=== PATIENT | female | born 1955 | race Caucasian/White ===

== ENCOUNTER 2018-03-27 05:58 | Inpatient (IN) | payer MEDICARE ==
[~2018-03-27] VITALS: Ht 154.9 cm; Wt 74.1 kg
[~2018-03-27 05:58] MED LIST: FERR324T4 PO; GABA800T PO; OXYC15TA55 PO; OXYC5 PO; PROT40TA PO; TRAZ100 PO
[2018-03-27 06:01] VITALS: BP 147/59; PULSE 101; RESP 16; TEMP 97.1; O2SAT 99
[2018-03-27] MEDS ORDERED: OXYC-103 PO (06:04)
[2018-03-27] MEDS ORDERED: GABA800T PO (06:04)
[2018-03-27] MEDS ORDERED: TRAZ1TAB14 PO (06:04)
[2018-03-27] MEDS ORDERED: PANTOPRAZOLE SODIUM 40 MG VIAL IV PUSH ONE (06:30)
[2018-03-27] MEDS ORDERED: SODIUM CHLORID 0.9% 500 ML INJ 500 ML IV ONE (06:30)
[2018-03-27] MEDS ORDERED: ASPIRIN 81 MG CHEW TAB CHEW ONE (06:30)
[2018-03-27] MEDS ORDERED: NITROGLYCERIN 0.4 MG SL 25 TABS/BTL SL ONE (06:30)
--- NOTE | 2018-03-27 06:32 | PD ---
HPI Chief Complaint: Abdominal Pain Time Seen by Provider: 06:08 Travel History International Travel<30 days: No Contact w/Intl Traveler<30days: No Traveled to known affect area: No History of Present Illness HPI The patient is a 62 year old female who presents to the [facility] emergency department with a history of substernal chest pain that she reports began 5 days ago. She reports that the pain is been constant and initially was a 4 out of 10 in severity, however it is gradually worsened now to an 8 out of 10 in severity. The patient reports that the pain feels like being "punched in the chest". She reports having a sensation of being drained of energy with lightheaded sensation with standing, and dyspnea on exertion. The patient reports concerned that this may be related to a recurrent peptic ulcer. She reports that she has had 3 peptic ulcers with bleeding in the past. She denies having any blood in her stool or black or tarry stools, however she last moved her bowels 4-5 days ago. She reports that this is not unusual for her. She reports that she has also had a diminished appetite, as well as takes chronic pain medication which causes her to have decreased frequency of stool. She reports having diaphoresis intermittently associated with this, and yesterday began to have nausea and vomiting. She reports that she had nausea and vomiting x5 since yesterday. She reports that the emesis appears as a clear liquid. She denies having any hematemesis. She denies taking any over-the- counter aspirin, Aleve, or ibuprofen. She denies being on any anti- inflammatory pain medicines. She reports that she does take Tylenol as needed for pain and is also on OxyContin 20 mg p.o. 4 times daily for pain under the care of pain management related to chronic back pain, tailbone pain, degenerative disc disease. The patient denies having any prior history of heart disease. She denies having any prior history of hypertension, hyperlipidemia, or diabetes mellitus. She does report smoking one half a pack of cigarettes per day. She additionally admits to drinking alcohol usually 2 times per week 2 beers or 2 glasses of wine at a time. On review of systems otherwise, the patient denies having any known recent fevers, cough, congestion , neck pain, urinary symptoms, or neurologic symptoms. The patient reports that she has also had a midepigastric abdominal pain. She describes this as an aching sensation. 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 The patient has a history of chronic pain related to degenerative disc disease of her back and a tailbone injury, tobacco use. Hx Anticoagulant Therapy: No Anxiety: No Depression: Yes (5) Cancer: Yes (Mouth/throat) Cardiovascular Problems: No Chemotherapy: Yes Diminished Hearing: No Endocrine: No Gastrointestinal Disorders: Yes (Bleeding gastric ulcer) GERD: No Genitourinary: No Hiatal Hernia: Yes (current ) Immune Disorder: No Musculoskeletal: Yes Neurologic: No Psychiatric: No Reproductive: Yes (blocked fallopian tubes) Respiratory: No Radiation Therapy: Yes Ulcer: Yes Tetanus Vaccination: Unknown Influenza Vaccination: Yes Menopausal: Yes Past Surgical History Narrative Surgical The patient's past surgical history is significant for endoscopy, head and neck surgery related to throat and mouth cancer, history of breast augmentation, history of right arm ORIF. Abdominal Surgery: No Cardiac Surgery: No Ear Surgery: No Endocrine Surgery: No Eye Surgery: No Genitourinary Surgery: No Gynecologic Surgery: Yes Oral Surgery: Yes Thoracic Surgery: No Other Surgery: Yes (Breast implants) Social History Alcohol Use: Yes (2 times per week, 2 beers or 2 glasses of wine on each occasion) Tobacco Use: Yes (1/2 PPD) Substance Use: No Allergies-Medications (Allergen,Severity, Reaction): Coded Allergies: No Known Allergies (Unverified Adverse Reaction, Unknown, 03/27/18) Reported Meds & Prescriptions Reported Meds & Active Scripts Active Reported Oxycontin (Oxycodone HCl) 10 Mg Tab 20 Mg PO Q6HR Trazodone (Trazodone HCl) 150 Mg Tablet 200 Mg PO HS Gabapentin 800 Mg Tab 800 Mg PO TID Review of Systems Except as stated in HPI: all other systems reviewed are Neg General / Constitutional: No: Fever Eyes: No: Visual changes HENT: Positive: Lightheadedness, No: Headaches, Congestion Cardiovascular: Positive: Chest Pain or Discomfort, Diaphoresis, Dyspnea on exertion Respiratory: Positive: Shortness of Breath, No: Cough Gastrointestinal: Positive: Nausea, Vomiting, Abdominal Pain, Indigestion, Loss of Appetite, No: Diarrhea, Hematemesis, Hematochezia, Changes in Bowel Habits Genitourinary: No: Dysuria Musculoskeletal: No: Pain Skin: No Rash Neurologic: Positive: Weakness (Generalized weakness), No: Focal Abnormalities , Change in Mentation, Slurred Speech, Sensory Disturbance Psychiatric: No: Depression Endocrine: No: Polydipsia Hematologic/Lymphatic: No: Easy Bruising Physical Exam Narrative General: The patient is a well-developed well-nourished female in no acute distress. Head and Neck exam: Head is normocephalic atraumatic. Eyes: EOMI, pupils are equal round and reactive to light. Nose: Midline septum with pink mucous membranes Mouth: Dentition unremarkable. Moist mucus membranes. Posterior oropharynx is not erythematous. No tonsillar hypertrophy. Uvula midline. Airway patent. Neck: No palpable lymphadenopathy. No nuchal rigidity. No thyromegaly. Cardiovascular: Regular rate and rhythm without murmurs, gallops, or rubs. No pulse deficit to the extremities on simultaneous auscultation and palpation of her radial artery. Lungs: Clear to auscultation bilaterally. No wheezes, rhonchi, or rales. Abdomen: Soft, with tenderness on palpation of the midepigastric area. No other tenderness on palpation of the other quadrants of the abdomen. No guarding, rebound, or rigidity. Normal bowel sounds are audible. No tenderness on palpation of McBurney's point. Extremities: No clubbing, cyanosis, or edema. 2+ pulses in all 4 extremities. No calf tenderness on palpation. Back: No spinous process tenderness to palpation. No costovertebral angle tenderness to palpation. Neurologic Exam: Grossly nonfocal. Skin Exam: No rash noted. Intact skin that is warm and dry. Data Data Last Documented VS Vital Signs Date Time Temp Pulse Resp B/P (MAP) Pulse Ox O2 Delivery O2 Flow Rate FiO2 03/27/18 06:27 Room Air 03/27/18 06:05 16 03/27/18 06:01 97.1 101 147/59 (88) 99 Orders Orders Electrocardiogram (03/27/18 06:22) Complete Blood Count With Diff (03/27/18 06:22) Comprehensive Metabolic Panel (03/27/18 06:22) Creatine Kinase (Cpk) (03/27/18 06:22) Ckmb (Isoenzyme) Profile (03/27/18 06:22) Troponin I (03/27/18 06:22) B-Type Natriuretic Peptide (03/27/18:22) Prothrombin Time / Inr (Pt) (03/27/18:22) Act Partial Throm Time (Ptt) (03/27/18:22) Lipase (03/27/18:22) Magnesium (Mg) (03/27/18:) Thyroid Stimulating Hormone (03/27/18:) Chest, Single Ap (03/27/18:22) Iv Access Insert/Monitor (03/27/18:22) Ecg Monitoring (03/27/18:) Oximetry (03/27/18:) Pantoprazole Inj (Protonix Inj) (03/27/18 06:30) Sodium Chlorid 0.9% 500 Ml Inj (Ns 500 M (03/27/18 06:30) Nitroglycerin Sl (Nitrostat Sl) (03/27/18 06:30) Aspirin Chew (Aspirin Chew) (03/27/18 06:30) Labs Laboratory Tests Test 03/27/18 06:30 White Blood Count 5.6 TH/MM3 Red Blood Count 3.79 MIL/MM3 Hemoglobin 13.8 GM/DL Hematocrit 39.7 % Mean Corpuscular Volume 104.6 FL Mean Corpuscular Hemoglobin 36.4 PG Mean Corpuscular Hemoglobin Concent 34.8 % Red Cell Distribution Width 13.6 % Platelet Count 191 TH/MM3 Mean Platelet Volume 8.4 FL Neutrophils (%) (Auto) 74.4 % Lymphocytes (%) (Auto) 11.2 % Monocytes (%) (Auto) 14.0 % Eosinophils (%) (Auto) 0.1 % Basophils (%) (Auto) 0.3 % Neutrophils # (Auto) 4.2 TH/MM3 Lymphocytes # (Auto) 0.6 TH/MM3 Monocytes # (Auto) 0.8 TH/MM3 Eosinophils # (Auto) 0.0 TH/MM3 Basophils # (Auto) 0.0 TH/MM3 CBC Comment DIFF FINAL Differential Comment Prothrombin Time 9.5 SEC Prothromb Time International Ratio 0.9 RATIO Activated Partial Thromboplast Time 25.0 SEC MDM Medical Decision Making Medical Screen Exam Complete: Yes Emergency Medical Condition: Yes Medical Record Reviewed: Yes Differential Diagnosis Symptomatic anemia, versus acute coronary syndrome, versus esophagitis, versus pancreatitis, versus recurrent peptic ulcer disease. Narrative Course During the course of the patient's emergency department visit, the patient's history, examination, and differential diagnosis were reviewed with the patient. The patient was placed on a electronic device monitor with oximetry and frequent blood pressure monitoring. The patient had IV access obtained and blood work sent for analysis. The patient had an EKG done on arrival. The patient's EKG reveals a sinus rhythm heart rate of 96, QRS duration is 90 ms, QTC [address] segment elevation is noted. Nonspecific ST-T wave abnormalities are noted. T waves are inverted in lead III. The patient was initially provided Protonix 40 mg IV. Given the patient's risk factors for coronary artery disease the patient was also given aspirin 324 mg chewable x1. Nitroglycerin sublingual x1. Normal saline a 500 mL bolus x1. The patient's laboratory studies were reviewed and remarkable for a white count of 5.6, hemoglobin 13.8, platelets 191, neutrophils 74.4, monocytes 14, PT 9.5, PTT 25, CMP, cardiac enzymes, lipase are pending at the conclusion of my shift. The patient's case will be checked out to the oncoming physician to disposition the patient based on the conclusion of the patient's workup. Radiology studies were reviewed and remarkable for Last Impressions Chest X-Ray 03/27/18 0622 Signed Impressions: CONCLUSION: No acute cardiopulmonary disease identified. Diagnosis Primary Impression: Chest pain Qualified Codes: R07.89 - Other chest pain Additional Impression: Abdominal pain Qualified Codes: R10.13 - Epigastric pain Chiquis Munoz MD Mar 27, 2018 06:32
--- NOTE | 2018-03-27 06:46 | RADRPT ---
EXAM DATE: 03/27/2018 6:41 AM EDT AGE/SEX: 62 years / Female INDICATIONS: Epigastric pain. CLINICAL DATA: This is the patient's initial encounter. Patient reports that signs and symptoms have been present for 1 day and indicates a pain score of 4/10. MEDICAL/SURGICAL HISTORY: None. None. COMPARISON: [facility] [place], CHEST SINGLE AP, 08/16/2015. . FINDINGS: Single AP view of the chest. The lungs are clear. Cardiomediastinal silhouette within nor mal limits. No evidence of pleural effusion or pneumothorax. CONCLUSION: No acute cardiopulmonary disease identified. Electronically signed by: Alfred Borrego MD 03/27/2018 6:45 AM EDT
[2018-03-27 06:50] LABS: AUTOMATED NEUTROPHIL # 4.2 TH/MM3 (1.8-7.7); BASOPHIL % 0.3 % (0.0-2.0); EOSINOPHIL % 0.1 % (0.0-4.0); HEMATOCRIT 39.7 % (35.0-46.0); HEMOGLOBIN 13.8 GM/DL (11.6-15.3); LYMPH % 11.2 % (9.0-44.0); LYMPHOCYTE # 0.6 TH/MM3 (1.0-4.8); MEAN CELL VOLUME 104.6 FL (80.0-100.0); MEAN CORPUSCULAR HEMOGLOBIN 36.4 PG (27.0-34.0); MEAN CORPUSCULAR HGB CONC 34.8 % (32.0-36.0); MEAN PLATELET VOLUME 8.4 FL (7.0-11.0); MONOCYTE # 0.8 TH/MM3 (0-0.9); NEUT % 74.4 % (16.0-70.0); PLATELET COUNT 191 TH/MM3 (150-450); RED BLOOD COUNT 3.79 MIL/MM3 (4.00-5.30); RED CELL DISTRIBUTION WIDTH 13.6 % (11.6-17.2); WHITE BLOOD COUNT 5.6 TH/MM3 (4.0-11.0)
[2018-03-27 07:01] LABS: INTERNATIONAL NORMALIZED RATIO 0.9 RATIO; PROTHROMBIN TIME - PATIENT 9.5 SEC (9.8-11.6)
[2018-03-27 07:14] LABS: ALBUMIN 4.4 GM/DL (3.4-5.0); ALT (GPT) 28 U/L (10-53); AST (GOT) 44 U/L (15-37); BICARBONATE 28.6 MEQ/L (21.0-32.0); BLOOD UREA NITROGEN 16 MG/DL (7-18); CALCIUM 9.4 MG/DL (8.5-10.1); CHLORIDE 78 MEQ/L (98-107); CREATININE 0.63 MG/DL (0.50-1.00); GLOMERULAR FILTRATION RATE 96 ML/MIN (>89); GLUCOSE,RANDOM 95 MG/DL (74-106); MAGNESIUM 2.5 MG/DL (1.5-2.5); SODIUM (NA) 126 MEQ/L (136-145)
[2018-03-27 07:24] LABS: ALKALINE PHOSPHATASE 104 U/L (45-117); TOTAL BILIRUBIN ADULT 1.4 MG/DL (0.2-1.0); TOTAL PROTEIN 8.2 GM/DL (6.4-8.2); TROPONIN I LESS THAN 0.02 NG/ML (0.02-0.05)
[2018-03-27 07:26] VITALS: BP 141/69; PULSE 72; RESP 18; O2SAT 97
--- NOTE | 2018-03-27 08:11 | PD ---
Physical Exam Narrative GENERAL: 62 y/o female in no apparent distress SKIN: Focused skin assessment warm/dry. HEAD: Atraumatic. Normocephalic. EYES: Pupils equal and round. No scleral icterus. No injection or drainage. ENT: No nasal bleeding or discharge. Mucous membranes pink and moist. NECK: Trachea midline. CARDIOVASCULAR: Regular rate and rhythm. RESPIRATORY: No accessory muscle use. MUSCULOSKELETAL: No obvious deformities. No clubbing. No cyanosis. NEUROLOGICAL: Awake. moves all extremities. Normal speech. Data Data Last Documented VS Vital Signs Date Time Temp Pulse Resp B/P (MAP) Pulse Ox O2 Delivery O2 Flow Rate FiO2 03/27/18 07:26 72 18 141/69 (93) 97 03/27/18 06:27 Room Air 03/27/18 06:01 97.1 Orders Orders Electrocardiogram (03/27/18 06:22) Complete Blood Count With Diff (03/27/18 06:22) Comprehensive Metabolic Panel (03/27/18 06:22) Creatine Kinase (Cpk) (03/27/18 06:22) Ckmb (Isoenzyme) Profile (03/27/18 06:22) Troponin I (03/27/18 06:22) B-Type Natriuretic Peptide (03/27/18 06:22) Prothrombin Time / Inr (Pt) (03/27/18:22) Act Partial Throm Time (Ptt) (03/27/18 06:22) Lipase (03/27/18 06:22) Magnesium (Mg) (03/27/18 06:22) Thyroid Stimulating Hormone (03/27/18 06:22) Chest, Single Ap (03/27/18:22) Iv Access Insert/Monitor (03/27/18:22) Ecg Monitoring (03/27/18 06:22) Oximetry (03/27/18 06:22) Pantoprazole Inj (Protonix Inj) (03/27/18 06:30) Sodium Chlorid 0.9% 500 Ml Inj (Ns 500 M (03/27/18 06:30) Nitroglycerin Sl (Nitrostat Sl) (03/27/18 06:30) Aspirin Chew (Aspirin Chew) (03/27/18 06:30) Admit Order (Ed Use Only) (03/27/18 08:25) Creatine Kinase (Cpk) (03/27/18 12:00) Creatine Kinase (Cpk) (03/27/18 18:00) Troponin I (03/27/18 12:00) Troponin I (03/27/18 18:00) Electrocardiogram (03/27/18 12:00) Electrocardiogram (03/27/18 18:00) Activities Assistant / Telemetry [id number] (03/27/18 08:26) Aspirin (Aspirin) (03/28/18 09:00) Nitroglycerin Sl (Nitrostat Sl) (03/27/18 08:30) Labs Laboratory Tests Test 03/27/18 06:30 White Blood Count 5.6 TH/MM3 Red Blood Count 3.79 MIL/MM3 Hemoglobin 13.8 GM/DL Hematocrit 39.7 % Mean Corpuscular Volume 104.6 FL Mean Corpuscular Hemoglobin 36.4 PG Mean Corpuscular Hemoglobin Concent 34.8 % Red Cell Distribution Width 13.6 % Platelet Count 191 TH/MM3 Mean Platelet Volume 8.4 FL Neutrophils (%) (Auto) 74.4 % Lymphocytes (%) (Auto) 11.2 % Monocytes (%) (Auto) 14.0 % Eosinophils (%) (Auto) 0.1 % Basophils (%) (Auto) 0.3 % Neutrophils # (Auto) 4.2 TH/MM3 Lymphocytes # (Auto) 0.6 TH/MM3 Monocytes # (Auto) 0.8 TH/MM3 Eosinophils # (Auto) 0.0 TH/MM3 Basophils # (Auto) 0.0 TH/MM3 CBC Comment DIFF FINAL Differential Comment Prothrombin Time 9.5 SEC Prothromb Time International Ratio 0.9 RATIO Activated Partial Thromboplast Time 25.0 SEC Blood Urea Nitrogen 16 MG/DL Creatinine 0.63 MG/DL Random Glucose 95 MG/DL Total Protein 8.2 GM/DL Albumin 4.4 GM/DL Calcium Level 9.4 MG/DL Magnesium Level 2.5 MG/DL Alkaline Phosphatase 104 U/L Aspartate Amino Transf (AST/SGOT) 44 U/L Alanine Aminotransferase (ALT/SGPT) 28 U/L Total Bilirubin 1.4 MG/DL Sodium Level 126 MEQ/L Potassium Level 3.8 MEQ/L Chloride Level 78 MEQ/L Carbon Dioxide Level 28.6 MEQ/L Anion Gap 19 MEQ/L Estimat Glomerular Filtration Rate 96 ML/MIN Total Creatine Kinase 82 U/L Troponin I LESS THAN 0.02 NG/ML B-Type Natriuretic Peptide 21 PG/ML Lipase 257 U/L Thyroid Stimulating Hormone 3rd Gen 2.300 uIU/ML MDM Supervised Visit with LATASHA: No Interpretation(s) CBC & BMP Diagram 03/27/18 06:30 Total Protein 8.2, Albumin 4.4, Calcium Level 9.4, Magnesium Level 2.5, Alkaline Phosphatase 104, Aspartate Amino Transf (AST/SGOT) 44 H, Alanine Aminotransferase (ALT/SGPT) 28, Total Bilirubin 1.4 H Last 24 hours Impressions Chest X-Ray 03/27/18 0622 Signed Impressions: CONCLUSION: No acute cardiopulmonary disease identified. Narrative Course Lab work shows sodium level of 126. Prior from 2 years ago was 134. Other cardiac workup is negative. Will admit to the hospital for further care. Physician Communication Physician Communication dr cheng agrees to admit Diagnosis Primary Impression: Chest pain Qualified Codes: R07.89 - Other chest pain Additional Impressions: Abdominal pain Qualified Codes: R10.13 - Epigastric pain Hyponatremia Admitting Information Admitting Physician Requests: Observation Sheri Fuller MD Mar 27, 2018 08:11
[2018-03-27] MEDS ORDERED: FLUMAZENIL 0.5 MG/5 ML VIAL IV PUSH PRN (08:30)
[2018-03-27] MEDS ORDERED: HALOPERIDOL LACTATE 5 MG/ML AMP IM PRN (08:30)
[2018-03-27] MEDS ORDERED: CALCIUM CARBONATE 500 MG CHEWABLE TAB CHEW PRN (08:30)
[2018-03-27] MEDS ORDERED: LORazepam 2 MG TAB PO PRN (08:30)
[2018-03-27] MEDS ORDERED: ALUMINUM/MAGNESIUM/SIMETH 30 ML CUP PO PRN (08:30)
[2018-03-27] MEDS ORDERED: NITROGLYCERIN 0.4 MG SL 25 TABS/BTL SL PRN (08:30)
[2018-03-27] MEDS ORDERED: LORazepam 2 MG/ML VIAL IV PUSH PRN ×4 (08:30)
[2018-03-27] MEDS ORDERED: LORazepam 1 MG TAB PO PRN (08:30)
[2018-03-27] MEDS ORDERED: NALOXONE HCL 0.4 MG/ML AMP IV PUSH PRN (08:45)
[2018-03-27] MEDS ORDERED: SENNOSIDES 8.6 MG TAB PO PRN (08:45)
[2018-03-27] MEDS ORDERED: LACTULOSE SYRUP 20 GM/30 ML CUP PO PRN (08:45)
[2018-03-27] MEDS ORDERED: SODIUM CHLORIDE 0.9% FLUSH 10 ML FLUSH IV FLUSH PRN (08:45)
[2018-03-27] MEDS ORDERED: ONDANSETRON ODT 4 MG TAB PO PRN (08:45)
[2018-03-27] MEDS ORDERED: MAGNESIUM HYDROXIDE SUSP 30 ML CUP PO PRN (08:45)
[2018-03-27] MEDS ORDERED: BISACODYL 10 MG SUPP RECTAL PRN (08:45)
[2018-03-27] MEDS ORDERED: ACETAMINOPHEN 325 MG TAB PO PRN ×2 (08:45)
--- NOTE | 2018-03-27 09:00 | EKG ---
Date Performed: 03/27/2018 Time Performed: 05:13:05 PTAGE: 62 years EKG: Sinus rhythm POSSIBLE LEFT ATRIAL ENLARGEMENT NONSPECIFIC ST & T-WAVE ABNORMALITY ABNORMAL ECG PREVIOUS TRACING : 08/15/2015 13.07 DOCTOR: Bryan Zapata Interpretating Date/Time 03/27/2018 08:59:47
[2018-03-27] MEDS: GABAPENTIN 400 MG CAP PO SCH ×3 (10:12→22:25)
[2018-03-27] MEDS: THIAMINE HCL 100 MG TAB PO SCH (10:12)
[2018-03-27] MEDS: PANTOPRAZOLE SOD 40 MG DELAYED RELEASE TAB PO SCH (10:12)
[2018-03-27] MEDS: FOLIC ACID 1 MG TAB PO SCH (10:13)
[2018-03-27] MEDS: MULTIVITAMINS/MINERALS THERAPEUTIC TAB PO SCH (10:13)
[2018-03-27] MEDS: SODIUM CHLORIDE 0.9% FLUSH 10 ML FLUSH IV FLUSH SCH ×2 (10:13→21:00)
[2018-03-27] MEDS: DOCUSATE SODIUM 50 MG/SENNA 8.6 MG TAB PO SCH ×2 (10:13→22:25)
[2018-03-27] MEDS: NS + KCL 20 MEQ INJ 1,000 ML IV SCH ×2 (10:14→20:55)
[2018-03-27 10:40] LABS: BILIRUBIN, URINE NEG (NEG); BLOOD, URINE TRACE (NEG); GLUCOSE,URINE NEG (NEG); KETONE, URINE 150 mg/dL (NEG); MUCUS URINE FEW /lpf (OCC); NITRITE,URINE NEG (NEG); PH, URINE 6.5 (5.0-8.5); SQUAMOUS EPITHELIAL CELL URINE 3 /hpf (0-5); URINE COLOR YELLOW (YELLW/STRAW); URINE LEUKOCYTE ESTERASE NEG (NEG)
[2018-03-27 11:33] VITALS: BP 118/58; PULSE 81; RESP 18; TEMP 98.7; O2SAT 96
[2018-03-27] MEDS ORDERED: oxyCODONE HCL 10 MG CONTROLLED RELEASE TAB PO SCH (12:00)
[2018-03-27 12:31] LABS: TROPONIN I LESS THAN 0.02 NG/ML (0.02-0.05)
[2018-03-27] MEDS ORDERED: RESP: ALBUTEROL 2.5 MG/3 ML NEB (PRN) NEB (15:45)
--- NOTE | 2018-03-27 15:54 | HHI.HP ---
[facility] No Primary Care Physician Admission Diagnosis chest pain, hyponatremia Diagnoses: Chief Complaint: Chest pain Travel History International Travel<30 Days: No Contact w/Intl Traveler <30 Da: No Traveled to Known Affected Are: No History of Present Illness This is a 62-year-old female who presented to the emergency room because of chest pain. Last night while lying on her bed she developed worsening retrosternal discomfort which she described as being punched in the chest. She was so anxious thinking it is her heart prompting ER visit. She also reports of weakness, anorexia, dyspnea on exertion, palpitations and dizziness. Reports of worsening chest discomfort for the past 6 days with no alleviating factors. It is pleuritic worse with coughing states she is coughing up green phlegm denies fever, chills, leg pain and swelling. She is not hypoxic denies history of DVT or PE or recent immobilization. She also reports history of bleeding ulcers which she thought was the cause of her pain. She denies use of aspirin or NSAIDs but continues to smoke. Denies hematemesis, hematochezia or melena. No abdominal pain. In the emergency department, she received IV Protonix, aspirin and nitroglycerin and IV hydration. She was also found to be hyponatremic sodium 126 denies headache. She was then advised by ED physician for a hospitalization for further evaluation and treatment. At this time, patient she is feeling better with improved weakness. All other systems reviewed negative Review of Systems Except as stated in HPI: all other systems reviewed are Neg Past Family Social History Past Medical History As previously mentioned. History of throat cancer status post chemo and radiation therapy and surgery. Chronic back pain on narcotics Past Surgical History As previously mentioned. Breast augmentation and right arm ORIF Reported Medications Reported Meds & Active Scripts Active Reported Oxycontin (Oxycodone HCl) 10 Mg Tab 20 Mg PO Q6HR Trazodone (Trazodone HCl) 150 Mg Tablet 200 Mg PO HS Gabapentin 800 Mg Tab 1,600 Mg PO BID Allergies: Coded Allergies: No Known Allergies (Unverified Allergy, Unknown, 03/27/18) Family History No CAD Social History Continues to smoke half a pack per day. Drinks beer or wine twice a week but not on a daily basis Physical Exam Vital Signs Vital Signs Date Time Temp Pulse Resp B/P (MAP) Pulse Ox O2 Delivery O2 Flow Rate FiO2 03/27/18 11:33 98.7 81 18 118/58 (78) 96 03/27/18 11:23 (93) 03/27/18 07:26 72 18 141/69 (93) 97 03/27/18 06:27 Room Air 03/27/18 06:05 16 03/27/18 06:01 97.1 101 16 147/59 (88) 99 Physical Exam GENERAL: This is a well-nourished, well-developed patient, in no apparent distress. SKIN: No rashes, ecchymoses or lesions. Cool and dry. HEAD: Atraumatic. Normocephalic. No temporal or scalp tenderness. EYES: Pupils equal round and reactive. Extraocular motions intact. No scleral icterus. No injection or drainage. ENT: Nose without bleeding, purulent drainage or septal hematoma. Throat without erythema, tonsillar hypertrophy or exudate. Uvula midline. Airway patent. NECK: Trachea midline. No JVD or lymphadenopathy. Supple, nontender, no meningeal signs. CARDIOVASCULAR: Regular rate and rhythm without murmurs, gallops, or rubs. RESPIRATORY: Clear to auscultation. Breath sounds equal bilaterally. No wheezes , rales, or rhonchi. Tender chest wall GASTROINTESTINAL: Abdomen soft, non-tender, nondistended. No guarding. MUSCULOSKELETAL: Extremities without clubbing, cyanosis, or edema. No joint tenderness, effusion, or edema noted. No calf tenderness. Negative Homans sign bilaterally. NEUROLOGICAL: Awake and alert. Cranial nerves II through XII intact. Motor and sensory grossly within normal limits. Five out of 5 muscle strength in all muscle groups. Normal speech. Laboratory Laboratory Tests Test 03/27/18 06:30 03/27/18 10:20 03/27/18 11:55 White Blood Count 5.6 Red Blood Count 3.79 Hemoglobin 13.8 Hematocrit 39.7 Mean Corpuscular Volume 104.6 Mean Corpuscular Hemoglobin 36.4 Mean Corpuscular Hemoglobin Concent 34.8 Red Cell Distribution Width 13.6 Platelet Count 191 Mean Platelet Volume 8.4 Neutrophils (%) (Auto) 74.4 Lymphocytes (%) (Auto) 11.2 Monocytes (%) (Auto) 14.0 Eosinophils (%) (Auto) 0.1 Basophils (%) (Auto) 0.3 Neutrophils # (Auto) 4.2 Lymphocytes # (Auto) 0.6 Monocytes # (Auto) 0.8 Eosinophils # (Auto) 0.0 Basophils # (Auto) 0.0 CBC Comment DIFF FINAL Differential Comment Prothrombin Time 9.5 Prothromb Time International Ratio 0.9 Activated Partial Thromboplast Time 25.0 Blood Urea Nitrogen 16 Creatinine 0.63 Random Glucose 95 Total Protein 8.2 Albumin 4.4 Calcium Level 9.4 Magnesium Level 2.5 Alkaline Phosphatase 104 Aspartate Amino Transf (AST/SGOT) 44 Alanine Aminotransferase (ALT/SGPT) 28 Total Bilirubin 1.4 Sodium Level 126 Potassium Level 3.8 Chloride Level 78 Carbon Dioxide Level 28.6 Anion Gap 19 Estimat Glomerular Filtration Rate 96 Total Creatine Kinase 82 75 Troponin I LESS THAN 0.02 LESS THAN 0.02 B-Type Natriuretic Peptide 21 Lipase 257 Thyroid Stimulating Hormone 3rd Gen 2.300 Urine Color YELLOW Urine Turbidity CLEAR Urine pH 6.5 Urine Specific [place] 1.027 Urine Protein 100 Urine Glucose (UA) NEG Urine Ketones 150 Urine Occult Blood TRACE Urine Nitrite NEG Urine Bilirubin NEG Urine Urobilinogen 2.0 Urine Leukocyte Esterase NEG Urine RBC 1 Urine WBC 1 Urine Squamous Epithelial Cells 3 Urine Mucus FEW Microscopic Urinalysis Comment CULT NOT INDICATED Result Diagram: 03/27/18 0630 03/27/18 06 Imaging Last Impressions Chest X-Ray 03/27/18 06 Signed Impressions: CONCLUSION: No acute cardiopulmonary disease identified. Caprini VTE Risk Assessment Caprini VTE Risk Assessment: No/Low Risk (score <= 1) Caprini Risk Assessment Model Point Value = 1 Point Value = 2 Point Value = 3 Point Value = 5 Age 41-60 Minor surgery BMI > 25 kg/m2 Swollen legs Varicose veins or History of unexplained or recurrent spontaneous Oral contraceptives or hormone replacement Sepsis (< 1 month) Serious lung disease, including pneumonia (< 1 month) Abnormal pulmonary function Acute myocardial infarction Congestive heart failure (< 1 month) History of inflammatory bowel disease Medical patient at bed rest Age 61-74 Arthroscopic surgery Major open surgery (> 45 min) Laparoscopic surgery (> 45 min) Malignancy Confined to bed (> 72 hours) Immobilizing plaster cast Central venous access Age >= 75 History of VTE Family history of VTE Factor V Leiden Prothrombin [id number] Lupus anticoagulant Anticardiolipin antibodies Elevated serum homocysteine Heparin-induced thrombocytopenia Other congenital or acquired thrombophilia Stroke (< 1 month) Elective arthroplasty Hip, pelvis, or leg fracture Acute spinal cord injury (< 1 month) Prophylaxis Regimen Total Risk Factor Score Risk Level Prophylaxis Regimen 0-1 Low Early ambulation 2 Moderate Order ONE of the following: *Sequential Compression Device (SCD) *Heparin 5000 units SQ BID 3-4 Higher Order ONE of the following medications: *Heparin 5000 units SQ TID *Enoxaparin/Lovenox 40 mg SQ daily (WT < 150 kg, CrCl > 30 mL/min) *Enoxaparin/Lovenox 30 mg SQ daily (WT < 150 kg, CrCl > 10-29 mL/min) *Enoxaparin/Lovenox 30 mg SQ BID (WT < 150 kg, CrCl > 30 mL/min) AND/OR *Sequential Compression Device (SCD) 5 or more Highest Order ONE of the following medications: *Heparin 5000 units SQ TID (Preferred with Epidurals) *Enoxaparin/Lovenox 40 mg SQ daily (WT < 150 kg, CrCl > 30 mL/min) *Enoxaparin/Lovenox 30 mg SQ daily (WT < 150 kg, CrCl > 10-29 mL/min) *Enoxaparin/Lovenox 30 mg SQ BID (WT < 150 kg, CrCl > 30 mL/min) AND *Sequential Compression Device (SCD) Assessment and Plan Problem List: (1) Chest pain ICD Code: R07.9 - Chest pain, unspecified Status: Acute Assessment and Plan This is a 62-year-old female who presented to the emergency room because of chest pain. Atypical chest pain in a patient with risk factors for heart disease. EKG with nonspecific T changes personally reviewed by me. Trend cardiac enzymes and start aspirin. Lexiscan. Patient has no risk factors for pulmonary embolism and she is not hypoxic. Chest pain could also be from bronchitis patient complaining of green phlegm and pleuritic chest pain when she coughs with chest wall tenderness. Chest x-ray image interpreted by me with no acute cardiopulmonary disease. Albuterol nebulization and empiric doxycycline. Tobacco cessation. Another differential diagnosis could be related from radiation injury with history of throat cancer status post chemo and radiation treatment. Peptic ulcer disease status post EGD. Start PPI. Advice outpatient endoscopy Mild hyponatremia and hypochloremia likely secondary to nausea and vomiting. Patient received fluid bolus will start NS hydration and repeat levels in the morning. Seizure precautions Mild AST elevation with history of alcohol abuse. Counseled. Constipation. Start bowel regimen DVT prophylaxis with SCD and early ambulation. Discussed Condition With pt Problem Qualifiers (1) Chest pain: Qualified Codes: R07.89 - Other chest pain Edward Garcias MD Mar 27, 2018 15:54
[2018-03-27 16:03] VITALS: BP_SYST 116; BP_SYST 125; BP_SYST 126; BP_DIAS 59; BP_DIAS 63; BP_DIAS 73; PULSE 70; RESP 18; TEMP 98.7; O2SAT 95
[2018-03-27 16:40] VITALS: PULSE 74
[2018-03-27 19:48] VITALS: BP_SYST 122; BP_SYST 126; BP_SYST 131; BP_DIAS 62; BP_DIAS 68; BP_DIAS 69; PULSE 72; RESP 17; O2SAT 93
[2018-03-27 20:03] LABS: TROPONIN I LESS THAN 0.02 NG/ML (0.02-0.05)
[2018-03-27] MEDS ORDERED: traZODone HCL 100 MG TAB PO SCH (21:00)
[2018-03-27] MEDS: DOXYCYCLINE HYCLATE 100 MG CAP PO SCH (22:24)
[2018-03-28 00:17] VITALS: BP 134/73; PULSE 70; RESP 17; TEMP 98.2; O2SAT 95
[2018-03-28 07:54] VITALS: BP 143/67; PULSE 64; RESP 20; TEMP 98.3; O2SAT 96
[2018-03-28 08:25] LABS: ALBUMIN 3.6 GM/DL (3.4-5.0); ALKALINE PHOSPHATASE 83 U/L (45-117); ALT (GPT) 30 U/L (10-53); AST (GOT) 43 U/L (15-37); BICARBONATE 29.7 MEQ/L (21.0-32.0); BLOOD UREA NITROGEN 12 MG/DL (7-18); CHLORIDE 96 MEQ/L (98-107); CREATININE 0.49 MG/DL (0.50-1.00); GLOMERULAR FILTRATION RATE 129 ML/MIN (>89); GLUCOSE,RANDOM 82 MG/DL (74-106); SODIUM (NA) 135 MEQ/L (136-145); TOTAL BILIRUBIN ADULT 0.9 MG/DL (0.2-1.0); TOTAL PROTEIN 6.5 GM/DL (6.4-8.2)
--- NOTE | 2018-03-28 08:40 | HHI.PR ---
Subjective Remarks Follow-up for chest pain, hyponatremia. Patient reports overall feeling better today. She states she still has some midsternal discomfort, however much improved compared to yesterday. Denies any nausea or vomiting. Denies any diaphoresis, palpitations, shortness of breath. She reports continued cough, nonproductive overnight. Denies fevers or chills. Denies any other medical complaints at this time. Objective Vitals Vital Signs Date Time Temp Pulse Resp B/P (MAP) Pulse Ox O2 Delivery O2 Flow Rate FiO2 03/28/18 07:54 98.3 64 20 143/67 (92) 96 03/28/18 03:36 18 03/28/18 00:17 98.2 70 17 134/73 (93) 95 03/27/18 19:48 72 17 122/69 (86) 93 131/68 (89) 126/62 (83) 03/27/18 19:28 21 03/27/18 16:40 74 03/27/18 16:03 98.7 70 18 125/59 (81) 95 116/73 (87) 126/63 (84) 03/27/18 11:33 98.7 81 18 118/58 (78) 96 03/27/18 11:23 (93) I/O 03/27/18 03/27/18 03/27/18 03/28/18 03/28/18 03/28/18 07:00 15:00 23:00 07:00 15:00 23:00 Intake Total 500 ml 200 ml Output Total 400 ml Balance 500 ml -200 ml Intake Oral 200 ml IV Total 500 ml Output Urine Total 400 ml Result Diagram: 03/27/1862903/28/18614 Imaging Last Impressions Chest X-Ray 03/27/18 06 Signed Impressions: CONCLUSION: No acute cardiopulmonary disease identified. Objective Remarks GENERAL: Well-nourished, well-developed female patient in [facility]. SKIN: Warm and dry. No rash. HEENT: Normocephalic. Atraumatic. Pupils equal and round. Mucous membranes pink and moist. CARDIOVASCULAR: Regular rate and rhythm. No murmur appreciated. RESPIRATORY: No accessory muscle use. Clear to auscultation. Breath sounds equal bilaterally. GASTROINTESTINAL: Abdomen soft, non-tender, nondistended. Normoactive bowel sounds x4. MUSCULOSKELETAL: No obvious deformities. Extremities without clubbing, cyanosis , or edema. NEUROLOGICAL: Awake and alert. No obvious cranial nerve deficits. Motor grossly within normal limits. Moving all extremities spontaneously. Normal speech. PSYCHIATRIC: Appropriate mood and affect; insight and judgment normal. Medications and IVs Current Medications Medications (Trade) Dose Ordered Sig/Gautam Route Start Time Stop Time Status Last Admin (Aspirin) 325 mg DAILY PO 03/28/18 09:00 (Nitrostat Sl) 0.4 mg Q5M PRN SL 03/27/18 08:30 (Desyrel) 200 mg HS PO 03/27/18 21:00 03/27/18 22:24 (Mag-Al Plus Susp Liq) 30 ml Q6H PRN PO 03/27/18 08:30 (Tums Chew) 500 mg Q6H PRN CHEW 03/27/18 08:30 (Protonix) 40 mg DAILY PO 03/27/18 09:00 03/27/18 10:12 (Folate) 1 mg DAILY PO 03/27/18 09:00 04/01/18 08:59 03/27/18 10:13 (Vitamin B1) 100 mg DAILY PO 03/27/18 09:00 03/27/18 10:12 (Theragran M Tab) 1 tab DAILY PO 03/27/18 09:00 04/01/18 08:59 03/27/18 10:13 (Romazicon Inj) 0.2 mg Q1M PRN IV PUSH 03/27/18 08:30 (Ativan) 1 mg Q4H PRN PO 03/27/18 08:30 (Ativan Inj) 1 mg Q4H PRN IV PUSH 03/27/18 08:30 (Ativan) 2 mg Q2H PRN PO 03/27/18 08:30 (Ativan Inj) 2 mg Q2H PRN IV PUSH 03/27/18 08:30 (Ativan Inj) 2 mg Q1H PRN IV PUSH 03/27/18 08:30 (Ativan Inj) 2 mg Q15M PRN IV PUSH 03/27/18 08:30 (Haldol Inj) 2 mg Q15M PRN IM 03/27/18 08:30 Potassium Chloride/Sodium Chloride 1,000 ml @ 84 mls/hr [id number] IV 03/27/18 09:00 03/27/18 20:55 (NS Flush) 2 ml UNSCH PRN IV FLUSH 03/27/18 08:45 (NS Flush) 2 ml BID IV FLUSH 03/27/18 09:00 03/27/18 10:13 (Tylenol) 650 mg Q4H PRN PO 03/27/18 08:45 (Zofran Odt) 4 mg Q6H PRN PO 03/27/18 08:45 (Tylenol) 650 mg Q6H PRN PO 03/27/18 08:45 (Narcan Inj) 0.4 mg UNSCH PRN IV PUSH 03/27/18 08:45 (Deysi-Colace) 1 tab BID PO 03/27/18 09:00 03/27/18 22:25 (Milk Of Magnesia Liq) 30 ml Q12H PRN PO 03/27/18 08:45 (Senokot) 17.2 mg Q12H PRN PO 03/27/18 08:45 (Dulcolax Supp) 10 mg DAILY PRN RECTAL 03/27/18 08:45 (Lactulose Liq) 30 ml DAILY PRN PO 03/27/18 08:45 (Roxicodone) 20 mg Q6H PO 03/27/18 13:00 03/28/18 06:16 (Albuterol Neb) 2.5 mg Q2HR NEB PRN NEB 03/27/18 15:45 (Vibramycin) 100 mg BID PO 03/27/18 21:00 03/27/18 22:24 (Neurontin) 1,600 mg BID PO 03/27/18 21:00 03/27/18 22:25 A/P Problem List: (1) Chest pain ICD Code: R07.9 - Chest pain, unspecified Status: Acute Assessment and Plan 62-year-old female with history of throat cancer s/p chemo/radiation/surgery, chronic back pain, presents with chest pain and cough . Atypical chest pain: Suspect pleuritic chest pain secondary to bronchitis, however rule out ACS. Also possibly GI related with hx of PUD. Another differential diagnosis could be related from radiation injury with history of throat cancer status post chemo and radiation treatment. -ACS ruled out with negative serial cardiac enzymes 3 -EKG reviewed, shows nonspecific T changes; without ST elevation/depression -Continue aspirin -No risk factors for pulmonary embolism and she is not hypoxic. -Monitor on telemetry -Check nuclear stress test Acute bronchitis: Patient with cough productive of green sputum. -CXR reviewed, no acute findings -Continue Albuterol nebulization and empiric doxycycline. -Improving, stable on room air Peptic ulcer disease: diagnosed on EGD on 12/24/15, showed 2 ulcers in the gastric antrum -Started on PPI PPI -Advised outpatient endoscopy Hyponatremia and hypochloremia: Na 126, Chloride 78. Likely secondary to nausea and vomiting. -Patient received IV fluid bolus -Continue on IVF with NS -Repeat Na 135 and Chloride 96, much improved. Mild AST elevation: with history of alcohol abuse. -Counseled on alcohol cessation Constipation: acute -Continue bowel regimen DVT prophylaxis with SCD and early ambulation. Discharge Planning Discharge pending nuclear stress test. 1340hrs: Nuclear stress test unremarkable, no ischemia, with normal EF. Patient informed of the results. She tolerated lunch. Symptoms resolved. She wants to go home, will discharge. Discharge patient to home Condition on discharge: Stable Regular Diet as tolerated Ad Stephanie activity Rx written: Doxycycline 100mg po bid, Protonix 40mg daily, albuterol inhaler prn Follow-up with primary care physician, and gastroenterology Dr. Dubon for repeat outpatient EGD Problem Qualifiers (1) Chest pain: Qualified Codes: R07.89 - Other chest pain Amparo Garcia PA-C Mar 28, 2018 08:39
[2018-03-28] MEDS: NS + KCL 20 MEQ INJ 1,000 ML IV SCH (08:50)
[2018-03-28] MEDS ORDERED: ASPIRIN 325 MG TAB PO SCH (09:00)
[2018-03-28] MEDS ORDERED: REGADENOSON INJ 0.4 MG/5 ML SYR ONE (09:42)
[2018-03-28 11:23] VITALS: BP 126/58; PULSE 75; RESP 18; TEMP 98.1; O2SAT 97
--- NOTE | 2018-03-28 11:51 | RADRPT ---
EXAM DATE: 03/28/2018 10:58 AM EDT AGE/SEX: 62 years / Female INDICATIONS:Abnormal EKG. Angina Mid chest pain for six days. CLINICAL DATA: This is the patient's initial encounter. Patient reports that signs and symptoms have been present for 4 - 6 days and indicates a pain score of 5/10. MEDICAL/SURGICAL HISTORY: Carcinoma, oral cavity. Breast augmentation. COMPARISON: No prior exams available for comparison. No external comparison. DOSE: 25.9 mCi Tc 99m Myoview at rest 8.5 mCi [id number] at stress 0.4 mg Lexiscan STRESS SYMPTOMS: Nausea and chest tightness. EJECTION FRACTION: >70 % TECHNIQUE: The patient underwent pharmacologic stress with infusion of prescribed dose. Continuous ECG tracing was monitored during stress. Gated SPECT imaging was performed after stress and conventi onal SPECT imaging was performed at rest. The examination was performed on a SPECT/CT scanner, both attenuation and non-corrected datasets were reviewed. FINDINGS: Distribution: The maximum perfused segment at stress is in the lateral wall. Perfusion Study: The pattern of perfusion at stress is within normal limits. Gated Study: There are intact wall motion and wall thickening without hypokinetic or dyskinetic segm ents. The ejection fraction is calculated at >70%. RISK CATEGORY: Low (<1% Annual Motality Rate) CONCLUSION: 1. Negative examination. 2. No evidence of stress-induced or resting perfusion abnormalities. 3. Normal ejection fraction. Electronically signed by: Home Warner MD 03/28/2018 11:50 AM EDT
[2018-03-28] MEDS: PANTOPRAZOLE SOD 40 MG DELAYED RELEASE TAB PO SCH (11:52)
[2018-03-28] MEDS: MULTIVITAMINS/MINERALS THERAPEUTIC TAB PO SCH (11:52)
[2018-03-28] MEDS: FOLIC ACID 1 MG TAB PO SCH (11:52)
[2018-03-28] MEDS: DOCUSATE SODIUM 50 MG/SENNA 8.6 MG TAB PO SCH (11:52)
[2018-03-28] MEDS: GABAPENTIN 400 MG CAP PO SCH (11:52)
[2018-03-28] MEDS: DOXYCYCLINE HYCLATE 100 MG CAP PO SCH (11:52)
[2018-03-28] MEDS: THIAMINE HCL 100 MG TAB PO SCH (11:52)
[2018-03-28] MEDS: SODIUM CHLORIDE 0.9% FLUSH 10 ML FLUSH IV FLUSH SCH (11:53)
[2018-03-28] MEDS ORDERED: DOXY100C PO (13:43)
[2018-03-28] MEDS ORDERED: PANT40TA3 PO (13:43)
--- NOTE | 2018-03-28 13:45 | HHI.DCPOC ---
Discharge Care Plan Diagnosis: (1) Bronchitis (2) Chest pain (3) PUD (peptic ulcer disease) (4) Hyponatremia Goals to Promote Your Health * To prevent worsening of your condition and complications * To maintain your health at the optimal level Directions to Meet Your Goals Take your medications as prescribed Follow your dietary instruction Follow activity as directed Keep your appointments as scheduled Take your immunizations and boosters as scheduled If your symptoms worsen call your PCP, if no PCP go to Urgent Care Center or Emergency Room Smoking is Dangerous to Your Health. Avoid second hand smoke Call the 24-hour hour crisis hotline for domestic abuse at Amparo Garcia PA-C Mar 28, 2018 13:44
[2018-03-28] MEDS ORDERED: VENTAER INH (14:08)
--- NOTE | 2018-03-28 18:33 | EKG ---
Date Performed: 03/27/2018 Time Performed: 18:07:31 PTAGE: 62 years EKG: Sinus rhythm ANTERIOR MYOCARDIAL INFARCTION, age indeterminate non-specific ST-T wave changes ABNORMAL ECG Since the PREVIOUS TRACING , no significant change noted PREVIOUS TRACIN03/27/2018 12.31 DOCTOR: Alanna Littlejohn Interpretating Date/Time 03/28/2018 18:31:43
--- NOTE | 2018-03-28 18:33 | EKG ---
Date Performed: 03/27/2018 Time Performed: 12:31:39 PTAGE: 62 years EKG: Sinus rhythm ANTERIOR MYOCARDIAL INFARCTION, age indeterminate non-specific ST-T wave changes ACUTE MT Sinc e the PREVIOUS TRACING , no significant change noted PREVIOUS TRACIN03/27/2018 05.13 DOCTOR: Alanna Littlejohn Interpretating Date/Time 03/28/2018 18:31:13
== END 2018-03-28 16:45 | disposition home or self-care (01) | DRG 202 ==
LOC: NEPE 05:58 → NEDA 08:27 → NEPHCDU 11:24 → OBSVTOIN 13:32
PROVIDERS: ADMIT Internal Medicine; ATTEND Internal Medicine
DX: J20.9 Acute bronchitis, unspecified (principal); E87.1 Hypo-osmolality and hyponatremia; E87.8 Other disorders of electrolyte and fluid balance, not elsewhere classified; K27.9 Peptic ulcer, site unspecified, unspecified as acute or chronic, without hemorrhage or perforation; F10.11 Alcohol abuse, in remission; R63.0 Anorexia; K59.00 Constipation, unspecified; G89.29 Other chronic pain; M54.9 Dorsalgia, unspecified; Z68.30 Body mass index [BMI] 30.0-30.9, adult; Z72.0 Tobacco use; Z92.21 Personal history of antineoplastic chemotherapy; Z92.3 Personal history of irradiation; Z85.12 Personal history of malignant neoplasm of trachea; Z79.891 Long term (current) use of opiate analgesic; Z79.899 Other long term (current) drug therapy
CPT/HCPCS: 71045; 78452; 80053; 81001; 82550; 83690; 83735; 83880; 84443; 84484; 85025; 85610; 85730; 93005; 93017; A9502; C9113; G8987-GP; G8988-GP; J2785; J3480; J7040

== ENCOUNTER 2018-05-11 11:30 | Inpatient (IN) ==
--- NOTE | 2018-05-11 11:40 | ED ---
HPI General Chief Complaint: Altered Mental Status Stated Complaint: Medical Time Seen by Provider: 05/11/18 11:31 Source: EMS Mode of arrival: EMS Limitations: altered mental status History of Present Illness HPI narrative: 62-year-old female patient with history of alcohol abuse, presents to the ER today brought in by EMS, apparently she had fallen last night , hit her head, but did not come in to get evaluated, went to sleep, and today, was found by family poorly responsive, EMS found her with GCS of 4, intubated her for airway protection. She is noted to have blown pupil on the right side. Related Data Allergies Allergy/AdvReac Type Severity Reaction Status Date / Time No Known Allergies Allergy Unknown Uncoded 03/27/18 08:50 Review of Systems ROS Unobtainable due to endotracheal tube and unobtainable due to mental status PMFSH History History Provided By: Winterizer / EMT Medical History Medical History Alcohol abuse (Acute) Social History Social History Substance History: Unable to Obtain Smoking Status: Unknown if ever smoked How Often Do You Have a Drink Containing Alcohol: 4 or more times a week Recent Travel in [facility] within the Last 8 Weeks: No Recent Out of Country Travel within the Last 8 Weeks: No Exam Narrative Exam Narrative: GENERAL: Well-developed elderly white female patient currently unresponsive to painful stimuli, intubated. SKIN: Focused skin assessment warm/dry. HEAD: Small right temporal area 1 cm abrasion. Normocephalic. EYES: Pupils equal and round. No scleral icterus. No injection or drainage. ENT: No nasal bleeding or discharge. Mucous membranes pink and moist. NECK: Trachea midline. No JVD. Intubated. CARDIOVASCULAR: Regular rate and rhythm. No murmur appreciated. RESPIRATORY: No accessory muscle use. Clear to auscultation. Breath sounds equal bilaterally. GASTROINTESTINAL: Abdomen soft, non-tender, nondistended. Hepatic and splenic margins not palpable. MUSCULOSKELETAL: No obvious deformities. No clubbing. No cyanosis. No edema. NEUROLOGICAL: Unresponsive, GCS 4, intubated, right pupil dilated and not responsive to light, left pupil small. PSYCHIATRIC: Obtunded, unable to assess. Course Hospital Course: Patient had been intubated by EMS, pulmonary exam reveals good bilateral breath sounds, ET tube appears to be in place, chest x-ray was ordered for further confirmation. Patient was immediately transferred to CT for further evaluation , and CT confirms that she has a large right-sided subdural bleed with left- sided shift. And with her right blown pupil, there is concern here that she has already herniated. She was started on Cardene drip as well as mannitol in the ER. Case was discussed with Dr. 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 Case was discussed with Dr. Sifuentes for admission, he agrees to admit her for further treatment as well. Initial Documented Vital Signs Pulse Rate 121 H 05/11/18 11:43 Respiratory Rate 14 05/11/18 11:43 Blood Pressure 204/113 H 05/11/18 11:43 Pulse Oximetry 100 05/11/18 11:43 Last Documented Vital Signs Pulse Rate 132 H 05/11/18 12:07 Respiratory Rate 22 05/11/18 12:07 Blood Pressure 198/117 H 05/11/18 12:07 Pulse Oximetry 100 05/11/18 12:07 Critical Care Time Critical Care Time: Yes Total Critical Care Time: 35 Attestation: Aggregate critical care time was 35 minutes. Time to perform other separately billable procedures was not included in the critical care time. My time did not include minutes spent treating any other patients simultaneously or on activities that did not directly contribute to the patient's treatment. The services I provided to this patient were to treat and/or prevent clinically significant deterioration that could result in: Intracranial hemorrhage, worsening herniation, cardiopulmonary arrest, I provided critical care services requiring my management, as noted below: Chart data review, documentation time, medication orders and management, vital sign assessments/reviewing monitor data, ordering and reviewing lab tests, ordering and interpreting/reviewing x-rays and diagnostic studies, care of the patient and discussion of the patient with the admitting physicians. Medical Decision Making Differential Diagnosis Differential Diagnosis: Intracranial hemorrhage versus ICH versus intoxication Lab Data Result diagrams: 05/11/18 11:35 05/11/18 11:35 Lab Results 05/11/18 05/11/18 Range/Units 11:35 11:35 WBC 18.1 H (4.0-11.0) th/mm3 RBC 3.97 L (4.00-5.30) mil/mm3 Hgb 14.0 (11.6-15.3) gm/dL Hct 42.4 (35.0-46.0) % MCV 106.9 H (80.0-100.0) fL MCH 35.4 H (27.0-34.0) pg MCHC 33.1 (32.0-36.0) % RDW 13.3 (11.6-17.2) % Plt Count 474 H (150-450) th/mm3 MPV 7.0 (7.0-11.0) fL Prelim Diff (Auto) Slide review pending Neut % (Auto) 84.0 H (16.0-70.0) % Lymph % (Auto) 3.2 L (9.0-44.0) % Edgar % (Auto) 12.7 H (0.0-8.0) % Eos % (Auto) 0.0 (0.0-4.0) % Baso % (Auto) 0.1 (0.0-2.0) % Neut # (Auto) 15.2 H (1.8-7.7) th/mm3 Lymph # (Auto) 0.6 L (1.0-4.8) th/mm3 Edgar # (Auto) 2.3 H (0.0-0.9) th/mm3 Eos # (Auto) 0.0 (0.0-0.4) th/mm3 Baso # (Auto) 0.0 (0.0-0.2) th/mm3 Differential Comment . PT 10.3 (9.8-11.6) sec INR 1.0 Ratio APTT 22.0 L (24.3-30.1) sec Imaging Data Radiologist's impression: Head CT 05/11/18 11:31 CONCLUSION: Huge subdural hematoma on the right with subfalcine herniation from right to left and focal area of intraparenchymal hemorrhage within the midbrain. Impending downward herniation. Findings were discussed with Dr. Walls at the time of this dictation on 05/11/2018. Discharge Plan Discharge Disposition Patient Disposition: 30 Still Patient Discharge Condition Condition: Critical Discharge Details Anticipated Discharge Date: 05/11/18 Diagnosis: ICH (intracerebral hemorrhage), Endotracheally intubated Physicians Team ED Provider: Chanda Walls Interventions Interventions: Vital Signs Last Done: 05/11/18 12:07 Status ED Status: With Doctor
[2018-05-11] MEDS ORDERED: Sod Chloride 0.9% Inj 1,000 ML IV.CONT SCH ×2 (11:45→14:00)
[2018-05-11 12:00] LABS: Baso % (Auto) 0.1 % (0.0-2.0); Hematocrit 42.4 % (35.0-46.0); Lymph # (Auto) 0.6 th/mm3 (1.0-4.8); Lymph % (Auto) 3.2 % (9.0-44.0); Mean Corpuscular HGB Conc 33.1 % (32.0-36.0); Mean Corpuscular Hemoglobin 35.4 pg (27.0-34.0); Mean Corpuscular Volume 106.9 fL (80.0-100.0); Mono # (Auto) 2.3 th/mm3 (0.0-0.9); Mono % (Auto) 12.7 % (0.0-8.0); Neut # (Auto) 15.2 th/mm3 (1.8-7.7); Platelet Count 474 th/mm3 (150-450); Red Blood Count 3.97 mil/mm3 (4.00-5.30); Red Cell Distribution Width 13.3 % (11.6-17.2); White Blood Count 18.1 th/mm3 (4.0-11.0)
[2018-05-11] MEDS ORDERED: Sodium Chlor 0.9% Inj 250 ML IV.SIG ONE (12:00)
[2018-05-11] MEDS ORDERED: Phenylephrine/NS 1000 MCG/10ML Syringe IV.PUSH ONE (12:00)
[2018-05-11] MEDS ORDERED: Sodium Chlor 0.9% Inj 500 ML IV.SIG ONE (12:00)
[2018-05-11 12:08] LABS: Prothrombin Time 10.3 sec (9.8-11.6)
[2018-05-11] MEDS ORDERED: niCARdipine Inj 25 MG/10 ML Vial ONE (12:08)
--- NOTE | 2018-05-11 12:12 | CT ---
EXAM DATE: 05/11/2018 11:52 AM EDT AGE/SEX: 62 years / Female INDICATIONS: Fall last night. Found unresponsive this morning. CLINICAL DATA: This is the patient's initial encounter. Patient reports that signs and symptoms have been present for 1 day and indicates a pain score of Nonresponsive. MEDICAL/SURGICAL HISTORY: . Alcohol abuse. Non-responsive. RADIATION DOSE: 56.35 CTDI (mGy) ; Patient motion COMPARISON: No prior exams available for comparison. TECHNIQUE: CT of the head without contrast. Using automated exposure control and adjustment of the mA and/or kV according to patient size, radiation dose was kept as low as reasonably achievable to ob tain optimal diagnostic quality images. DICOM format image data is available electronically for revi ew and comparison. FINDINGS: There is a huge subdural hematoma which is dense and acute in nature measures 1.6 cm in maximum trans verse diameter. It extends from frontal to prior amos down to temporal and middle cranial fossa. The re is also focal hemorrhage within midbrain and partially questionably within the trini. There is subf alcine herniation from [id number] by approximately 1.6 cm. Significant mass effect is present with obliteration of the perimesencephalic cisterns and downward transtentorial herniation is impending. CONCLUSION: Huge subdural hematoma on the right with subfalcine herniation from right to left and focal area of i ntraparenchymal hemorrhage within the midbrain. Impending downward herniation. Findings were discusse d with Dr. Walls at the time of this dictation on 05/11/2018. Electronically signed by: Nikhil Gaston MD 05/11/2018 12:10 PM EDT
[2018-05-11] MEDS: niCARdipine Inj 25 MG in Sodium Chlor 0.9% Inj 240 ML IV.CONT PRN (12:17)
[2018-05-11 12:22] LABS: Alanine Aminotransferase 20 U/L (10-53); Anion Gap 13 meq/L (5-15); Aspartate Aminotransferase 25 U/L (15-37); Blood Urea Nitrogen 17 mg/dL (7-18); Calcium 8.7 mg/dL (8.5-10.1); Carbon Dioxide 21.4 meq/L (21.0-32.0); Chloride 105 meq/L (98-107); Glomerular Filtration Rate 53 mL/min (>89); Glucose,Random 155 mg/dL (74-106); Potassium 4.2 meq/L (3.5-5.1); Sodium 139 meq/L (136-145)
[2018-05-11 12:23] LABS: Lymphocytes 2 % (9-44); Monocytes 8 % (0-8)
[2018-05-11 12:24] LABS: Alkaline Phosphatase 89 U/L (45-117); Creatine Kinase 107 U/L (26-192); Platelet Morphology Normal (Normal); Total Protein 8.1 g/dL (6.4-8.2)
--- NOTE | 2018-05-11 12:27 | XR ---
EXAM DATE: 05/11/2018 12:19 PM EDT AGE/SEX: 62 years / Female INDICATIONS: Fall yesterday, unresponsive today. CLINICAL DATA: This is the patient's initial encounter. Patient reports that signs and symptoms have been present for 1 day and indicates a pain score of Nonresponsive. MEDICAL/SURGICAL HISTORY: Non-responsive. Non-responsive. [place] [facility] [place]. . FINDINGS: The lungs are clear without infiltrate, nodule, or mass. There is no appreciable pleural effusion for technique. Heart and mediastinum are unremarkable. ET tube is present with tip overlapp ing approximately 4 cm of the jason. CONCLUSION: No acute cardiopulmonary disease. Electronically signed by: Nikhil Gaston MD 05/11/2018 12:25 PM EDT
[2018-05-11 12:31] LABS: Troponin I 1.22 ng/mL (0.02-0.05)
[2018-05-11] MEDS ORDERED: Lidocaine 1%/Epinephrine 1:100,000 Inj 20 ML Vial ONE (12:43)
[2018-05-11] MEDS ORDERED: Thrombin Topical Soln 5,000 UNIT Vial TOPICAL ONE ×2 (12:44→13:08)
[2018-05-11 12:46] LABS: Creatine Kinase MB 4.6 ng/mL (0.5-3.6)
[2018-05-11] MEDS ORDERED: Etomidate Inj 20 MG/10 ML Ampul IV.PUSH ONE (12:46)
[2018-05-11] MEDS ORDERED: ceFAZolin 2 GM Premix Inj 2 GM/50 ML PIGGYBACK IV.SIG ONE (13:00)
--- NOTE | 2018-05-11 13:14 | P.CONNS ---
History of Present Illness Service: neurosurgery Consult date: 05/11/18 Requesting Physician: Clinton Joshi Reason for Consult: [place], subdural hematoma Primary Care Provider: No Primary Care Physician Chief Complaint: coma History of Present Illness: This is a 62-year-old female patient with history of alcohol abuse, presents to the ER today brought in by EMS, apparently she had fallen last night, struck her head, but did not come to the hospital to get evaluated She apparently went to sleep, and today was found by family unresponsive, incontinent of sphincters. EMS found her with GCS of 4, intubated her for airway protection. Extension posturing both upper and lower extremities. She is noted to have blown pupil on the right side, left pupil 2mm. CT brain showed a large right subdural hematoma on the right with subfalcine herniation from right to left and focal area of intraparenchymal hemorrhage within the midbrain. Impending downward herniation Neurosurgery consultation was requested. PMF - History History Provided By: Environmental Sampler / EMT - Medical History Medical History: Medical History (Last Updated 05/11/18 @ 11:38 by Chanda Walls MD) Alcohol abuse - Tobacco History Smoking Status: Unknown if ever smoked - Alcohol History How Often Do You Have a Drink Containing Alcohol: 4 or more times a week - Substance Use History Substance History: Unable to Obtain - Travel History Recent Travel in the [place] Within the Last 8 Weeks: No Recent Travel Out of the Country Within the Last 8 Weeks: No - Immunization History Tetanus Immunization: Unable to Assess Hx Influenza Vaccine This Season: Unable to Assess Medications and Allergies Active Medications: Active Medications Sodium Chloride (Ns Inj) 1,000 mls @ 70 mls/hr IV.CONT .[id number] CARLOS Stop: 05/12/18 02:02 Nicardipine HCl 25 mg/ Sodium (Chloride) 250 mls @ 50 mls/hr IV.CONT TITRATE PRN; Protocol PRN Reason: Per Protocol Last Admin: 05/11/18 12:17 Dose: 5 mg/hr, 50 mls/hr Sodium Chloride (Ns Flush) 2 ml IV.FLUSH PRN PRN PRN Reason: FLUSH AFTER USING IV ACCESS Allergies Allergy/AdvReac Type Severity Reaction Status Date / Time No Known Allergies Allergy Unknown Uncoded 03/27/18 08:50 Exam Vital signs: Vital Signs 05/11/18 11:30 07/28/18 11:43 05/11/18 12:07 Pulse Rate 121 H 132 H Respiratory Rate 14 22 Blood Pressure 204/113 H 198/117 H Pulse Oximetry 100 100 100 05/11/18 12:18 05/11/18 12:22 05/11/18 12:27 Pulse Rate 121 H Respiratory Rate 23 22 Blood Pressure 178/79 H Pulse Oximetry 100 100 100 05/11/18 12:32 Pulse Rate 117 H Respiratory Rate 22 Blood Pressure 165/65 H Pulse Oximetry 100 Intake & Output 05/10/18 05/11/18 05/11/18 18:59 06:59 18:59 Weight 54.536 kg Narrative: The patient is intubated and sedated. extends spontaneously and to painful stimuli with all 4 extremities. 2cm skin lesion in the right zigomatic region with a deep chronic ulceration Cranial Nerves: Pupils unequal, 6mm bloubnt on right, NR, 2 mm left, round, minimally reactive to light. Eyes appear nobn conjugated. Gazes upward to the left. Unable to answer any questions. There was no nystagmus. Face musculature appeared symmetrical at rest. Face sensation, olfaction, and hearing cannot be adequately assessed due to the patient's neurological condition. The patient has a corneal reflex. The patient has a gag reflex. The sternocleidomastoid and trapezius were symmetrical. Cervical Spine: The patient's neck is soft, supple, without nuchal rigidity. Motor: His muscle tone and bulk are normal. He moves purposefully all 4 extremities symmetrically. Reflexes: Toes upgoing on left foot no response right foot deep tendon reflexes lower extremities hyper reflexive. There is no clonus Sensory: On examination there there is response to painful stimuli, localizing with both upper and lower extremities. Cerebellar: Examination cannot be adequately assessed due to the patient's neurological condition. Lungs: clear Heart: Regular rhythm and rate Skin: warm and dry Results - Laboratory Findings CBC and BMP: 05/11/18 13:40 05/11/18 11:35 Abnormal lab findings: Abnormal Labs 05/11/18 05/11/18 05/11/18 11:35 11:35 11:35 WBC 18.1 H RBC 3.97 L MCV 106.9 H MCH 35.4 H Plt Count 474 H Neut % (Auto) 84.0 H Lymph % (Auto) 3.2 L Glascock % (Auto) 12.7 H Neut # (Auto) 15.2 H Lymph # (Auto) 0.6 L Glascock # (Auto) 2.3 H Seg Neuts % (Manual) 89 H Lymphocytes % (Manual) 2 L Abs Neuts (Manual) 16.3 H Platelet Estimate High H APTT 22.0 L Creatinine 1.05 H Estimated GFR 53 L Random Glucose 155 H CK-MB (CK-2) 4.6 H Troponin I 1.22 H* Assessment and Plan - Plan I revewed her clinical and radiological studies. Chest X-Ray 05/11/18 11:31 CONCLUSION: No acute cardiopulmonary disease. Head CT 05/11/18 11:31 CONCLUSION: Huge subdural hematoma on the right with subfalcine herniation from right to left and focal area of intraparenchymal hemorrhage within the midbrain. Impending downward herniation. Findings were discussed with Dr. Walls at the time of this dictation on 05/11/2018. Neuro. Her condition is critical. She has herniated. 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 I recommend an emergency decompressive craniotomy or craniectomy with surgical evacuation of the SDH. Sierra discussed with her the [id number] details of the surgical procedure, its indications, alternatives, risks, and potential complications. Risks and potential complications include, but are not limited to, infection, blood loss, CSF leak, partial or complete loss of sight in one or both eyes, paresis, paralysis, permanent pain or difficulty swallowing, loss of bowel or bladder function, complications from anesthesia, blood clot, stroke, myocardial infarction, or even . The possibility of nonoperative treatment has been offered. neuro checks in a serial fashion. Alcohol abuse alcohol abuse. Administer folic acid thiamine multivitamins,. Benzodiazepines as needed. Watch for signs of alcohol withdrawal Cancer. The patient has a diagnosis of lymphoma, which decreases her defenses and increases her surgical risk Pulmonary: Full mechanical ventilation, aggressive pulmonary toilette, nasotracheal suction, and breathing treatments with nebulizers. Daily PT and OT Renal: Continue to monitor closely urine output, BUN and creatinine Endocrine: Continue to Monitor serial Acu checks and SSI as needed in detail Protein malnutrition the patient appears to be chronically malnourished. These put her at increased risk for infections or other complications ID continue to monitor for signs of infection Continue Protonix for stress ulcer prophylaxis Continue James hose and SCD's for DVT prophylaxis Caprini VTE Risk Assessment Caprini VTE Risk Assessment: Moderate/High Risk (score >= 2) VTE Pharmacological Exception Reason: Active bleeding Caprini Risk Assessment Model: Point Value = 1 Point Value = 2 Point Value = 3 Point Value = 5 Age 41-60 Minor surgery BMI > 25 kg/m2 Swollen legs Varicose veins or History of unexplained or recurrent spontaneous Oral contraceptives or hormone replacement Sepsis (< 1 month) Serious lung disease, including pneumonia (< 1 month) Abnormal pulmonary function Acute myocardial infarction Congestive heart failure (< 1 month) History of inflammatory bowel disease Medical patient at bed rest Age 61-74 Arthroscopic surgery Major open surgery (> 45 min) Laparoscopic surgery (> 45 min) Malignancy Confined to bed (> 72 hours) Immobilizing plaster cast Central venous access Age >= 75 History of VTE Family history of VTE Factor V Leiden Prothrombin [id number] Lupus anticoagulant Anticardiolipin antibodies Elevated serum homocysteine Heparin-induced thrombocytopenia Other congenital or acquired thrombophilia Stroke (< 1 month) Elective arthroplasty Hip, pelvis, or leg fracture Acute spinal cord injury (< 1 month) Prophylaxis Regimen: Total Risk Factor Score Risk Level Prophylaxis Regimen 0-1 Low Early ambulation 2 Moderate Order ONE of the following: *Sequential Compression Device (SCD) *Heparin 5000 units SQ BID 3-4 Higher Order ONE of the following medications: *Heparin 5000 units SQ TID *Enoxaparin/Lovenox 40 mg SQ daily (WT < 150 kg, CrCl > 30 mL/min) *Enoxaparin/Lovenox 30 mg SQ daily (WT < 150 kg, CrCl > 10-29 mL/min) *Enoxaparin/Lovenox 30 mg SQ BID (WT < 150 kg, CrCl > 30 mL/min) AND/OR *Sequential Compression Device (SCD) 5 or more Highest Order ONE of the following medications: *Heparin 5000 units SQ TID (Preferred with Epidurals) *Enoxaparin/Lovenox 40 mg SQ daily (WT < 150 kg, CrCl > 30 mL/min) *Enoxaparin/Lovenox 30 mg SQ daily (WT < 150 kg, CrCl > 10-29 mL/min) *Enoxaparin/Lovenox 30 mg SQ BID (WT < 150 kg, CrCl > 30 mL/min) AND *Sequential Compression Device (SCD) Further recommendations will be provided depending on the patient's clinical evaluation and follow up studies.
[2018-05-11] MEDS: Gelatin Size 100 Topical Foam ONE ×2 (13:23→14:23)
[2018-05-11 13:51] LABS: ABG Base Excess -4.6 mmol/L (-2-2); ABG PCO2 27 mmHg (38-42); ABG PO2 309 mmHG (61-120)
[2018-05-11] MEDS ORDERED: Bisacodyl 10 MG Supp RECTAL PRN ×2 (13:53→14:09)
[2018-05-11] MEDS ORDERED: Midazolam 50 MG/50 ML Inj 50 MG/50 ML BAG IV.CONT PRN (13:53)
[2018-05-11] MEDS ORDERED: Propofol 1000 mg/100 ml Inj 1,000 MG/100 ML BOTTLE IV.CONT PRN (13:53)
[2018-05-11] MEDS ORDERED: Acetaminophen 325 MG Tablet PO PRN (13:53)
[2018-05-11 13:58] LABS: Baso % (Auto) 0.3 % (0.0-2.0); Hematocrit 30.6 % (35.0-46.0); Hemoglobin 10.5 gm/dL (11.6-15.3); Lymph # (Auto) 0.8 th/mm3 (1.0-4.8); Lymph % (Auto) 5.4 % (9.0-44.0); Mean Corpuscular HGB Conc 34.4 % (32.0-36.0); Mean Corpuscular Hemoglobin 36.3 pg (27.0-34.0); Mean Corpuscular Volume 105.5 fL (80.0-100.0); Mono # (Auto) 2.4 th/mm3 (0.0-0.9); Neut # (Auto) 10.9 th/mm3 (1.8-7.7); Neut % (Auto) 77.3 % (16.0-70.0); Platelet Count 360 th/mm3 (150-450); Red Cell Distribution Width 13.4 % (11.6-17.2); White Blood Count 14.1 th/mm3 (4.0-11.0)
[2018-05-11] MEDS ORDERED: Magnesium Sulfate Inj 2 GM in Sodium Chlor 0.9% Inj 96 ML IV.SIG PRN (14:09)
[2018-05-11] MEDS ORDERED: Potassium Chlor 20 mEq Premix 20 MEQ/100 ML PIGGYBACK IV.SIG PRN (14:09)
[2018-05-11] MEDS ORDERED: Calcium Gluconate Inj 1 GM in Sodium Chlor 0.9% Inj 100 ML IV.SIG PRN (14:09)
--- NOTE | 2018-05-11 14:17 | P.OP ---
- Preoperative Diagnosis (1) Subdural hematoma, post-traumatic - Postoperative Diagnosis (1) Subdural hematoma, post-traumatic Date of procedure: 05/11/18 Procedure: Left frontal bur hole with placement of an intracranial pressure monitor. Anesthesia: CARLAA Surgeon: Pastor Abad MD Fishing Tool Technician Oil Well: ORACIO Pathology: none sent Operation and Findings: INDICATIONS FOR THE PROCEDURE The patient is an adult FEmale who was brought to [facility] as a trauma alert with a severe traumatic brain injury He had a GCS of 4 WITH A RIGHT PUPIL dilated and fixed. CT of the brain showed a large acute subdural hematoma with mass effect and midline shift Placement of ICP monitor was indicated as recommended by the Trauma Commitee of [place] [employer] Sierra discussed the [id number] details of the surgical procedure, its indications, alternatives, risks, and potential complications WITH HER . Risks and potential complications include, but are not limited to, infection, blood loss, CSF leak, partial or complete loss of sight in one or both eyes, paresis, paralysis, permanent pain or difficulty swallowing, loss of bowel or bladder function, complications from anesthesia, blood clot, stroke, myocardial infarction, or even . The possibility of nonoperative treatment has been offered. DETAILS OF THE SURGICAL PROCEDURE The left frontal area was shaved, prepped and draped in the usual sterile fashion. An entry point was selected behind the hairline, approximately 30 mm lateral to the midline. The incision was infiltrated with 1% lidocaine with epinephrine 1:100,000 dilution. A small incision was made with a 15 blade down to the level of the periosteum. Using a twist drill a tish hole was made. The dura was opened with a blunt stylet, and a Silvia bolt was secured to the bone. A fiberoptic transducer was calibrated according to the ehr trainer's instructions, and advanced into the parenchyma of the frontal lobe through the bolt. An intracranial pressure of 7 mmHg was achieved with a good waveform. A Betadine sterile dressing was applied. The patient tolerated the procedure well. There were no intraoperative complications. Blood loss was minimal.
--- NOTE | 2018-05-11 14:19 | P.HPCC ---
History of Present Illness Service: Critical care medicine Primary Care Physician: No Primary Care Physician Chief Complaint: Coma History of Present Illness: This 62-year-old woman presents intubated to the [facility] emergency department having sustained a fall yesterday and a repeat fall in the shower this morning heard by her . She was unresponsive when he found her in the shower and required intubation by the EMS. On arrival to the emergency department her [place] Coma Scale is 4T. She has decerebrate posturing to minimal stimulation. The right pupil is dilated to 5 mm. She is otherwise unresponsive. CAT scan of the head reveals a very large right subdural hematoma with considerable shift subfalcine and effacement of the cisterns. Parenchymal hemorrhage is seen in the midbrain. Dr. Abad and I explained to the patient's and [id number] that this is a dire circumstance with probability of brain injury. The family has elected for the patient to undergo an operative decompression of the acute hematoma in the hopes that neurologic function will improve. The patient appears to drink pretty regularly and this may be related to her multiple falls. She takes no blood thinners but does occasionally take aspirin. - Diagnosis (1) Subdural hematoma, post-traumatic (2) Acute respiratory failure (3) Encephalopathy acute Inpatient Certification: I certify that the inpatient services were ordered in accordance with Medicare regulations governing the order. This includes certification that hospital inpatient services are reasonable and necessary and in the case of services not specified as inpatient-only under 42 CFR 419.22(n), that they are appropriately provided as inpatient services in accordance to with the 2-midnight benchmark under 43 CFR 412.3(e) Estimated Total Length of Stay (Days): 7 Plans for Post Hospital Care: SNF [facility] - History History Provided By: [employer] Architect / EMT - Medical History Medical History: Medical History (Last Reviewed 05/12/18 @ 09:14 by Gokul Caballero) Cancer Depressed Lung cancer Lymphoma Alcohol abuse - Surgical History Surgical History: Surgical History (Last Reviewed 05/12/18 @ 09:14 by Gokul Caballero) History of lung surgery - Tobacco History Smoking Status: Unknown if ever smoked - Alcohol History How Often Do You Have a Drink Containing Alcohol: 4 or more times a week - Substance Use History Substance History: Unable to Obtain - Travel History Recent Travel in the [facility] Within the Last 8 Weeks: No Recent Travel Out of the Country Within the Last 8 Weeks: No - Immunization History Tetanus Immunization: Unable to Assess Hx Influenza Vaccine This Season: Unable to Assess Medications and Allergies Active Medications: Active Medications Acetaminophen (Tylenol) 650 mg PO Q6H PRN PRN Reason: PAIN 1-10 AND/OR FEVER >101F Al Hydroxide/Mg Hydroxide (Milk Of Magniesha Liq) 30 ml PO Q12H PRN PRN Reason: Mild Constipation Albuterol (Duoneb Neb (Prn)) 1 ampul NEB Q2HR NEB PRN PRN Reason: WHEEZING Bisacodyl (Dulcolax Supp) 10 mg RECTAL DAILY PRN PRN Reason: SEVERE CONSITIPATION Chlorhexidine Gluconate (Peridex 0.12% Oral Kit) 15 ml OROPHARYNG BID@0800, 2000 CARLOS Chlorhexidine Gluconate (Chlorhexidine 2% Cloth) 3 pack TOPICAL DAILY@0400 CARLOS Stop: 05/17/18 03:59 Chlorhexidine Gluconate (Chlorhexidine 2% Cloth) 3 pack TOPICAL DAILY@0400 PRN PRN Reason: Extra cloth needed Stop: 05/17/18 03:59 Famotidine (Pepcid Pf Inj) 20 mg IV.PUSH Q12HR CARLOS Sodium Chloride (Ns Inj) 1,000 mls @ 40 mls/hr IV.CONT .Q24H CARLOS Stop: 05/12/18 12:44 Nicardipine HCl 25 mg/ Sodium (Chloride) 250 mls @ 50 mls/hr IV.CONT TITRATE PRN; Protocol PRN Reason: Per Protocol Last Admin: 05/11/18 12:17 Dose: 5 mg/hr, 50 mls/hr Fentanyl (Fentanyl 10 Mcg/Ml Premix Drip) 2,500 mcg in 250 mls @ 5 mls/hr IV.SIG TITRATE PRN; Protocol PRN Reason: Per Protocol Midazolam HCl (Versed Inj) 50 mg in 50 mls @ 2 mls/hr IV.CONT TITRATE PRN; Protocol PRN Reason: Per Protocol Sodium Chloride (Ns Inj) 1,000 mls @ 84 mls/hr IV.CONT .[id number] CARLOS Propofol (Diprivan 1000 Mg/100 Ml Inj) 1,000 mg in 100 mls @ 1.636 mls/hr IV.CONT TITRATE PRN; Protocol PRN Reason: Per Protocol Lactulose (Lactulose Liq) 30 ml PO DAILY PRN PRN Reason: SEVERE CONSITIPATION Ondansetron HCl (Zofran Inj) 4 mg IV.PUSH Q6H PRN PRN Reason: NAUSEA OR VOMITING Senna/Docusate Sodium (Deysi-Colace) 1 tab PO BID CARLOS Sennosides (Senokot) 17.2 mg PO Q12H PRN PRN Reason: Moderate Constipation Sodium Chloride (Ns Flush) 2 ml IV.FLUSH PRN PRN PRN Reason: FLUSH AFTER USING IV ACCESS Sodium Chloride (Ns Flush) 2 ml IV.FLUSH BID CARLOS Sodium Chloride (Ns Flush) 2 ml IV.FLUSH PRN PRN PRN Reason: FLUSH AFTER USING IV ACCESS Allergies Allergy/AdvReac Type Severity Reaction Status Date / Time No Known Allergies Allergy Unknown Uncoded 03/27/18 08:50 Home Medications Medication Instructions Recorded Confirmed Type oxycodone 05/12/18 History trazodone 05/12/18 History Results - Labs CBC & Chem 7: 05/12/18 05:54 05/12/18 09:15 Labs: Short CBC 05/11/18 05/11/18 Range/Units 11:35 13:40 WBC 18.1 H 14.1 H (4.0-11.0) th/mm3 Hgb 14.0 10.5 L D (11.6-15.3) gm/dL Hct 42.4 30.6 L (35.0-46.0) % Plt Count 474 H 360 (150-450) th/mm3 BMP 05/11/18 11:35 Sodium 139 Potassium 4.2 Chloride 105 Carbon Dioxide 21.4 BUN 17 Creatinine 1.05 H Calcium 8.7 Cardiac Enzymes 05/11/18 Range/Units 11:35 Total Creatine Kinase 107 (26-192) U/L CK-MB (CK-2) 4.6 H (0.5-3.6) ng/mL Troponin I 1.22 H* (0.02-0.05) ng/mL Liver Function 05/11/18 Range/Units 11:35 Total Bilirubin 0.6 (0.2-1.0) mg/dL AST 25 (15-37) U/L ALT 20 (10-53) U/L Alkaline Phosphatase 89 (45-117) U/L Albumin 4.0 (3.4-5.0) g/dL - Imaging Impressions Chest X-Ray 05/11/18 11:31 CONCLUSION: No acute cardiopulmonary disease. Head CT 05/11/18 11:31 CONCLUSION: Huge subdural hematoma on the right with subfalcine herniation from right to left and focal area of intraparenchymal hemorrhage within the midbrain. Impending downward herniation. Findings were discussed with Dr. Walls at the time of this dictation on 05/11/2018. Exam Vital signs: Vital Signs 05/11/18 11:30 05/11/18 11:43 05/11/18 12:07 Pulse Rate 121 H 132 H Respiratory Rate 14 22 Blood Pressure 204/113 H 198/117 H Pulse Oximetry 100 100 100 05/11/18 12:18 05/11/18 12:22 05/11/18 12:27 Pulse Rate 121 H Respiratory Rate 23 22 Blood Pressure 178/79 H Pulse Oximetry 100 100 100 05/11/18 12:32 05/11/18 13:22 Pulse Rate 117 H Respiratory Rate 22 22 Blood Pressure 165/65 H Pulse Oximetry 100 Intake & Output 05/10/18 05/11/18 05/11/18 18:59 06:59 18:59 Weight 54.536 kg Narrative: Physical exam: Head: Small several centimeter area of bruising right lateral forehead. Neck: Turned to left side and a her. Lungs: Clear bilaterally, no adventitious sounds, good excursions on the ventilator. Heart: Regular rate and rhythm, no murmur. No jugular venous distention. Abdomen: Soft, nondistended, no guarding, no peritoneal irritation, bowel sounds are few. Extremities: Warm, well-perfused, no peripheral edema. Neuro: Unresponsive. Decerebrate posturing to any stimulation. Right pupil 5 mm and does not respond to light. Left pupil 2 mm in response. Gazes upward to the left. Toes upgoing on left foot no response right foot deep tendon reflexes lower extremities hyper reflexive. Unable to answer any questions. Caprini VTE Risk Assessment Caprini VTE Risk Assessment: Moderate/High Risk (score >= 2) VTE Pharmacological Exception Reason: Active bleeding Caprini Risk Assessment Model: Point Value = 1 Point Value = 2 Point Value = 3 Point Value = 5 Age 41-60 Minor surgery BMI > 25 kg/m2 Swollen legs Varicose veins or History of unexplained or recurrent spontaneous Oral contraceptives or hormone replacement Sepsis (< 1 month) Serious lung disease, including pneumonia (< 1 month) Abnormal pulmonary function Acute myocardial infarction Congestive heart failure (< 1 month) History of inflammatory bowel disease Medical patient at bed rest Age 61-74 Arthroscopic surgery Major open surgery (> 45 min) Laparoscopic surgery (> 45 min) Malignancy Confined to bed (> 72 hours) Immobilizing plaster cast Central venous access Age >= 75 History of VTE Family history of VTE Factor V Leiden Prothrombin [id number] Lupus anticoagulant Anticardiolipin antibodies Elevated serum homocysteine Heparin-induced thrombocytopenia Other congenital or acquired thrombophilia Stroke (< 1 month) Elective arthroplasty Hip, pelvis, or leg fracture Acute spinal cord injury (< 1 month) Prophylaxis Regimen: Total Risk Factor Score Risk Level Prophylaxis Regimen 0-1 Low Early ambulation 2 Moderate Order ONE of the following: *Sequential Compression Device (SCD) *Heparin 5000 units SQ BID 3-4 Higher Order ONE of the following medications: *Heparin 5000 units SQ TID *Enoxaparin/Lovenox 40 mg SQ daily (WT < 150 kg, CrCl > 30 mL/min) *Enoxaparin/Lovenox 30 mg SQ daily (WT < 150 kg, CrCl > 10-29 mL/min) *Enoxaparin/Lovenox 30 mg SQ BID (WT < 150 kg, CrCl > 30 mL/min) AND/OR *Sequential Compression Device (SCD) 5 or more Highest Order ONE of the following medications: *Heparin 5000 units SQ TID (Preferred with Epidurals) *Enoxaparin/Lovenox 40 mg SQ daily (WT < 150 kg, CrCl > 30 mL/min) *Enoxaparin/Lovenox 30 mg SQ daily (WT < 150 kg, CrCl > 10-29 mL/min) *Enoxaparin/Lovenox 30 mg SQ BID (WT < 150 kg, CrCl > 30 mL/min) AND *Sequential Compression Device (SCD) Assessment and Plan - Problem List (1) Subdural hematoma, post-traumatic Code(s): S06.5X9A - Traumatic subdural hemorrhage with loss of consciousness of unspecified duration, initial encounter Status: Acute (2) Acute respiratory failure Code(s): J96.00 - Acute respiratory failure, unspecified whether with hypoxia or hypercapnia Status: Acute (3) Encephalopathy acute Code(s): G93.40 - Encephalopathy, unspecified Status: Acute - Assessment and Plan Plan: Plan: -Emergency evacuation of subdural hematoma -Mannitol 50 g IV -Mechanical ventilation PRBC mode, PEEP 8 -Pepcid for GI ulcer prophylaxis. -SCDs for DVT PE prophylaxis. -Avoid chemical DVT prophylaxis due to risk of bleeding -Monitor end tidal CO2, maintain low neutral value -Monitor serum osmolality every 6 hours Overall impression: This woman is critically ill and neurologically unstable having sustained a massive subdural hematoma secondary to head trauma. She arrived to the emergency department in coma and is decerebrate posturing to any stimulation and spontaneously. We have embarked on immediate attempts to reduce cerebral edema and prevent uncal herniation while preparing her for emergency evacuation of the hematoma. Her prognosis is guarded. Critical care 50 minutes aside from invasive procedures. (1) Subdural hematoma, post-traumatic Qualifiers: Loss of consciousness presence/duration: with LOC > 24 hr without return to prior conscious level, patient surviving (2) Acute respiratory failure Qualifiers: Respiratory failure complication: hypoxia and hypercapnia Qualified Code(s): J96.01 - Acute respiratory failure with hypoxia; J96.02 - Acute respiratory failure with hypercapnia
--- NOTE | 2018-05-11 14:21 | P.OP ---
- Preoperative Diagnosis (1) Subdural hematoma, post-traumatic - Postoperative Diagnosis (1) Subdural hematoma, post-traumatic Date of procedure: 05/11/18 Procedure: Right fronmtaltemporalparietal decompressive craniectomy, evacuation of acute subdural hematoma Anesthesia: JASON Surgeon: Pastor Abad MD Wealth Management Manager: Chary Cooper Pathology: other (Hematoma) Operation and Findings: INDICATIONS FOR THE SURGICAL PROCEDURE The patient is an adult Female who was brought to [facility] as a trauma alert with a severe traumatic brain injury He had a GCS of 4 WITH A RIGHT PUPIL dilated and fixed. CT of the brain showed a large acute subdural hematoma with mass effect and midline shift A surgical decompression r was indicated as recommended by the Trauma Commitee of [place] [employer] in an attempt to save her life. Sierra discussed the [id number] details of the surgical procedure, its indications, alternatives, risks, and potential complications with her . Risks and potential complications include, but are not limited to, infection, blood loss, CSF leak, partial or complete loss of sight in one or both eyes, paresis, paralysis, permanent pain or difficulty swallowing, loss of bowel or bladder function, complications from anesthesia, blood clot, stroke, myocardial infarction, or even . The possibility of nonoperative treatment has been offered. DETAILS OF THE SURGICAL PROCEDURE The patient was endotracheally intubated and mechanically ventilated. A Simmons catheter, bilateral MADAN hose and sequential compression devices were placed and kept throughout the procedure. The patient was positioned supine on a 3080 table over a soft mattress. The eyes were tapped shut after ointment was applied by the anesthesiologist to prevent corneal abrasion. A Kapil hugger was placed over the exposed lower body to maintain control of the core body temperature. The head was placed on a gel doughnut. All pressure points were carefully padded with egg crate mattress. The right frontotemporal parietal area was shaved, prepped and draped in the usual sterile fashion. A standard inverted question shona incision was outlined on the scalp and infiltrated with 1% lidocaine with epinephrine. The skin incision was made with a #10 blade down to the level of the periosteum in the frontoparietal region and to the temporalis fascia in the temporal region. Billie clips were applied to the scalp. Using a Bovie, the temporalis fascia and muscle were incised and a subperiosteal dissection was performed reflecting the scalp flap anteriorly. The scalp was covered with a moist sponge and held in position using fish hooks. The TPS drill was brought to the field and a bur hole was made in the temporal region using the craniotome attachment. Then, using the footplate attachment, a large frontotemporoparietal craniotomy flap was elevated. The dura was bulging, very tense with severe pressure and an underlying dark coloration related to the acute subdural hematoma. The dura was opened with a 15 blade and metzembaun scissors and a large subdural hematoma was found, causing significant mass effect. The hematoma was evacuated by gentle irrigation and sent to the lab for histologic analysis. The bleeding was controlled using the bipolar corporate sales representative. Then the incision was irrigated with saline solution. The dural edges were tacked to the bone. The bone flap was packed in sterile conditions and stored in the operative room freezer. Then the incision was irrigated with saline solution. The dural edges were tacked to the bone. The Dura was loosely reconstructed. A 7 and a 10 millimeter Joe-Retana drain was then left in the subgaleal space and externalized through a separate stab incision. The incision was then closed in layers. 0 Vicryl in interrupted sutures were used to close the temporalis fascia. The galea was closed with interrupted 3-0 Vicryl. Ismael were applied to the skin. The drain was secured with a 3-0 nylon. At the end of the procedure, the sponge, needle and instrument counts were all correct. Estimated blood loss was 200-250cc. No blood transfusion was given. No intraoperative complications occurred. The patient received prophylactic antibiotics. The patient was then transferred to the recovery room in stable condition.
[2018-05-11 14:24] LABS: Lymphocytes 3 % (9-44); Monocytes 10 % (0-8); Platelet Estimate Normal (Normal); Platelet Morphology Normal (Normal)
[2018-05-11] MEDS ORDERED: fentaNYL Citrate Inj 100 MCG/2 ML Ampul ONE (15:00)
[2018-05-11] MEDS ORDERED: levETIRAcetam 500mg/100mL Inj 100 ML IV.SIG SCH (15:00)
[2018-05-11 15:24] LABS: ABG PCO2 32 mmHg (38-42); ABG PO2 282 mmHg (61-120)
[2018-05-11] MEDS: fentaNYL 10 mcg/mL Premix Drip 2,500 MCG/250 ML BAG IV.SIG PRN (15:30)
[2018-05-11] MEDS: Propofol 1000 mg/100 ml Inj 1,000 MG/100 ML BOTTLE IV.CONT PRN (15:30)
[2018-05-11] MEDS ORDERED: Oral Hygiene Kit OROPHARYNG SCH (16:00)
[2018-05-11] MEDS: Oral Hygiene Kit OROPHARYNG SCH (16:33)
--- NOTE | 2018-05-11 17:57 | XR ---
EXAM DATE: 05/11/2018 5:42 PM EDT AGE/SEX: 62 years / Female INDICATIONS: OG tube placement. CLINICAL DATA: This is the patient's subsequent encounter. Patient reports that signs and symptoms h ave been present for 1 day and indicates a pain score of Nonresponsive. MEDICAL/SURGICAL HISTORY: Non-responsive. Non-responsive. COMPARISON: No prior exams available for comparison. FINDINGS: The bowel gas is nonspecific. There are no signs of obstruction or free air for technique. No defini te calcified stones are identified for technique. NG tube is present with tip in the stomach. CONCLUSION: Unremarkable study. Electronically signed by: Nikhil Gaston MD 05/11/2018 5:56 PM EDT
[2018-05-11] MEDS ORDERED: Chlorhexidine 0.12% Oral Kit 15 ML UDC OROPHARYNG SCH (20:00)
[2018-05-11] MEDS: Chlorhexidine 0.12% Oral Kit 15 ML UDC OROPHARYNG SCH (20:10)
[2018-05-11] MEDS: Famotidine PF Inj 20 MG/2 ML Vial IV.PUSH SCH (20:10)
[2018-05-11] MEDS ORDERED: Senna/Docusate Sodium 8.6/50 MG Tablet PO SCH (21:00)
[2018-05-11 21:56] LABS: Sodium 142 meq/L (136-145)
[2018-05-11] MEDS: Senna/Docusate Sodium 8.6/50 MG Tablet PO SCH (22:05)
[2018-05-12] MEDS: Oral Hygiene Kit OROPHARYNG SCH ×3 (00:46→11:49)
[2018-05-12] MEDS ORDERED: Chlorhexidine Gluconate 2% 1 Pack (2 Cloths) TOPICAL PRN (04:00)
[2018-05-12] MEDS: Propofol 1000 mg/100 ml Inj 1,000 MG/100 ML BOTTLE IV.CONT PRN ×2 (05:42→17:00)
[2018-05-12] MEDS: Chlorhexidine Gluconate 2% 1 Pack (2 Cloths) TOPICAL SCH (05:54)
[2018-05-12 06:17] LABS: Baso % (Auto) 0.2 % (0.0-2.0); Hematocrit 24.5 % (35.0-46.0); Hemoglobin 8.3 gm/dL (11.6-15.3); Lymph # (Auto) 1.3 th/mm3 (1.0-4.8); Lymph % (Auto) 11.3 % (9.0-44.0); Mean Corpuscular HGB Conc 33.8 % (32.0-36.0); Mean Corpuscular Hemoglobin 35.9 pg (27.0-34.0); Mean Corpuscular Volume 106.2 fL (80.0-100.0); Mean Platelet Volume 7.5 fL (7.0-11.0); Mono # (Auto) 1.8 th/mm3 (0.0-0.9); Mono % (Auto) 15.7 % (0.0-8.0); Neut # (Auto) 8.4 th/mm3 (1.8-7.7); Neut % (Auto) 72.8 % (16.0-70.0); Platelet Count 269 th/mm3 (150-450); Red Blood Count 2.31 mil/mm3 (4.00-5.30); Red Cell Distribution Width 12.8 % (11.6-17.2); White Blood Count 11.6 th/mm3 (4.0-11.0)
[2018-05-12 06:33] LABS: Activated Partial Thrombo Time 25.6 sec (24.3-30.1); Prothrombin Time 10.2 sec (9.8-11.6)
[2018-05-12 06:55] LABS: Alanine Aminotransferase 13 U/L (10-53); Albumin 2.5 g/dL (3.4-5.0); Alkaline Phosphatase 56 U/L (45-117); Anion Gap 8 meq/L (5-15); Aspartate Aminotransferase 38 U/L (15-37); Blood Urea Nitrogen 13 mg/dL (7-18); Calcium 7.5 mg/dL (8.5-10.1); Carbon Dioxide 24.1 meq/L (21.0-32.0); Chloride 112 meq/L (98-107); Glomerular Filtration Rate Greater Than 89 mL/min (>89); Glucose,Random 130 mg/dL (74-106); Magnesium 2.1 mg/dL (1.5-2.5); Phosphorus 2.2 mg/dL (2.5-4.9); Potassium 3.7 meq/L (3.5-5.1); Sodium 144 meq/L (136-145); Total Protein 5.3 g/dL (6.4-8.2)
[2018-05-12] MEDS: Chlorhexidine 0.12% Oral Kit 15 ML UDC OROPHARYNG SCH ×2 (08:00→20:16)
[2018-05-12] MEDS: Famotidine PF Inj 20 MG/2 ML Vial IV.PUSH SCH ×2 (09:19→20:49)
[2018-05-12] MEDS: Senna/Docusate Sodium 8.6/50 MG Tablet PO SCH ×2 (09:19→20:16)
[2018-05-12 09:37] LABS: Sodium 144 meq/L (136-145)
--- NOTE | 2018-05-12 09:46 | P.PNNS ---
Subjective Interval history: 05/11: intubated and sedated on propofol drip. ICPs 18-19. Physical Exam Vital signs: Vital Signs 05/11/18 11:30 05/11/18 11:43 05/11/18 12:07 Temperature Pulse Rate 121 H 132 H Respiratory Rate 14 22 Blood Pressure 204/113 H 198/117 H Pulse Oximetry 100 100 100 05/11/18 12:18 05/11/18 12:22 05/11/18 12:27 Temperature Pulse Rate 121 H Respiratory Rate 23 22 Blood Pressure 178/79 H Pulse Oximetry 100 100 100 05/11/18 12:32 05/11/18 13:22 05/11/18 15:03 Temperature Pulse Rate 117 H Respiratory Rate 22 22 16 Blood Pressure 165/65 H Pulse Oximetry 100 100 05/11/18 16:00 05/11/18 19:59 05/11/18 20:00 Temperature 98.6 F 100.8 F H Pulse Rate 118 H 120 H Respiratory Rate 16 18 18 Blood Pressure 115/69 138/72 Pulse Oximetry 100 100 100 05/11/18 23:52 05/12/18 02:00 05/12/18 04:00 Temperature 100.5 F H Pulse Rate 116 H 120 H Respiratory Rate 18 18 Blood Pressure 134/68 Pulse Oximetry 100 05/12/18 04:12 05/12/18 06:00 05/12/18 07:57 Temperature Pulse Rate 90 Respiratory Rate 18 17 Blood Pressure Pulse Oximetry 100 100 05/12/18 08:00 Temperature 99.9 F H Pulse Rate 83 Respiratory Rate 16 Blood Pressure 139/65 Pulse Oximetry Intake & Output 05/11/18 05/12/18 05/12/18 18:59 06:59 18:59 Intake Total 2500 / 2500 1300 / 1300 Output Total 1395 / 1395 485 / 485 Balance 1105 / 1105 815 / 815 Weight 54.536 kg Intake: IV 1300 / 1300 NS + KCl 20 mEq Inj 1,000 ML @ 1000 / 1000 100 mls/hr IV.CONT .Q10H CARLOS Rx #:[id number] Diprivan 1000 mg/100 ml Inj 1, 100 / 100 000 mg In 100 ml @ 10 MCG/KG/ MIN 3.272 mls/hr IV.CONT TITRATE PRN Rx#:[id number] Ancef Inj 1,000 MG In NS Inj 200 / 200 100 ML @ 200 mls/hr IV.SIG Q8H CARLOS Rx#:[id number] Anesthesia Amount 2500 / 2500 Output: Estimated Blood Loss 250 / 250 Urine Amount (Catheter) 1000 / 1000 325 / 325 Indwelling Urethral Catheter 1000 / 1000 325 / 325 Gastric Drainage 0 / 0 0 / 0 Orogastric Tube 0 / 0 0 / 0 Wound Drainage 145 / 145 160 / 160 # 1 Head MISTY Drain 20 / 20 10 / 10 # 2 Head MISTY Drain 50 / 50 15 / 15 # 3 Head MISTY Drain 75 / 75 135 / 135 Other: # Bowel Movements 0 Narrative: Intubated, sedated on propofol drip. Right flap full and tight to palpate Left ICP monitor in place, ICPs 18-19 Right pupil 7 mm nonreactive, left pupils pinpoint Increase muscle tone left side Does not ope eyes or follow commands. No spontaneous movement. - Urinary Catheter Management Indwelling Urethral Catheter Cath placed during this visit: yes Reason for continuing: Hourly intake/output Insertion date: 05/11/18 Insertion time: 12:00 Assessment and Plan - Plan Impression: 62 y/o female with large right subdural hematoma with severe mass effect and midline shift, s/p emergent right decompressive craniectomy with evacuation of subdural hematoma, and placement of ICP monitor 05/11/18 history of etoh abuse Plan: cont ICP monitoring, cont keep sedated today, f/u CT Brain tomorrow morning cont seizure prophylaxis cont hyperosmotics
--- NOTE | 2018-05-12 09:53 | P.PNCC ---
Subjective Subjective Remarks/Hospital Course: This 62-year-old woman presents intubated to the [place] emergency department having sustained a fall yesterday and a repeat fall in the shower this morning heard by her . She was unresponsive when he found her in the shower and required intubation by the EMS. On arrival to the emergency department her Elza Coma Scale is 4T. She has decerebrate posturing to minimal stimulation. The right pupil is dilated to 5 mm. She is otherwise unresponsive. CAT scan of the head reveals a very large right subdural hematoma with considerable shift subfalcine and effacement of the cisterns. Parenchymal hemorrhage is seen in the midbrain. Dr. Abad and I explained to the patient's and [id number] that this is a dire circumstance with probability of brain injury. The family has elected for the patient to undergo an operative decompression of the acute hematoma in the hopes that neurologic function will improve. The patient appears to drink pretty regularly and this may be related to her multiple falls. She takes no blood thinners but does occasionally take aspirin. 05/12: Patient returned from the operating room following emergency evacuation of a massive left subdural hematoma following closed head injury. We are fighting ongoing cerebral edema with manipulations of medications in the ventilator. Intracranial pressure is elevated and we continue to exhaust all methods to reduce brain swelling. The right pupil remains dilated. The mainstay of therapy now will be to maintain cerebral perfusion pressure and to decrease brain oxygen consumption requirements. - Diagnosis (1) Subdural hematoma, post-traumatic (2) Acute respiratory failure (3) Encephalopathy acute Objective Vital Signs / I&O: Vital Signs 05/11/18 11:30 05/11/18 11:43 05/11/18 12:07 Temperature Pulse Rate 121 H 132 H Respiratory Rate 14 22 Blood Pressure 204/113 H 198/117 H Pulse Oximetry 100 100 100 05/11/18 12:18 05/11/18 12:22 05/11/18 12:27 Temperature Pulse Rate 121 H Respiratory Rate 23 22 Blood Pressure 178/79 H Pulse Oximetry 100 100 100 05/11/18 12:32 05/11/18 13:22 05/11/18 15:03 Temperature Pulse Rate 117 H Respiratory Rate 22 22 16 Blood Pressure 165/65 H Pulse Oximetry 100 100 05/11/18 16:00 05/11/18 19:59 05/11/18 20:00 Temperature 98.6 F 100.8 F H Pulse Rate 118 H 120 H Respiratory Rate 16 18 18 Blood Pressure 115/69 138/72 Pulse Oximetry 100 100 100 05/11/18 23:52 05/12/18 02:00 05/12/18 04:00 Temperature 100.5 F H Pulse Rate 116 H 120 H Respiratory Rate 18 18 Blood Pressure 134/68 Pulse Oximetry 100 05/12/18 04:12 05/12/18 06:00 05/12/18 07:57 Temperature Pulse Rate 90 Respiratory Rate 18 17 Blood Pressure Pulse Oximetry 100 100 05/12/18 08:00 Temperature 99.9 F H Pulse Rate 83 Respiratory Rate 16 Blood Pressure 139/65 Pulse Oximetry Intake & Output 05/11/18 05/12/18 05/12/18 18:59 06:59 18:59 Intake Total 2500 / 2500 1300 / 1300 Output Total 1395 / 1395 485 / 485 Balance 1105 / 1105 815 / 815 Weight 54.536 kg Intake: IV 1300 / 1300 NS + KCl 20 mEq Inj 1,000 ML @ 1000 / 1000 100 mls/hr IV.CONT .Q10H CARLOS Rx #:[id number] Diprivan 1000 mg/100 ml Inj 1, 100 / 100 000 mg In 100 ml @ 10 MCG/KG/ MIN 3.272 mls/hr IV.CONT TITRATE PRN Rx#:[id number] Ancef Inj 1,000 MG In NS Inj 200 / 200 100 ML @ 200 mls/hr IV.SIG Q8H CARLOS Rx#:[id number] Anesthesia Amount 2500 / 2500 Output: Estimated Blood Loss 250 / 250 Urine Amount (Catheter) 1000 / 1000 325 / 325 Indwelling Urethral Catheter 1000 / 1000 325 / 325 Gastric Drainage 0 / 0 0 / 0 Orogastric Tube 0 / 0 0 / 0 Wound Drainage 145 / 145 160 / 160 # 1 Head MISTY Drain 20 / 20 10 / 10 # 2 Head MISTY Drain 50 / 50 15 / 15 # 3 Head MISTY Drain 75 / 75 135 / 135 Other: # Bowel Movements 0 Result Diagrams: 05/12/18 05:54 05/12/18 09:15 Objective Remarks: - Imaging Impressions Chest X-Ray 05/11/18 11:31 CONCLUSION: No acute cardiopulmonary disease. Head CT 07/28/18 11:31 CONCLUSION: Huge subdural hematoma on the right with subfalcine herniation from right to left and focal area of intraparenchymal hemorrhage within the midbrain. Impending downward herniation. Findings were discussed with Dr. Walls at the time of this dictation on 05/11/2018. Exam Vital signs: Narrative: Physical exam: Head: Small several centimeter area of bruising right lateral forehead. Neck: In neutral position, orally intubated. Lungs: Clear bilaterally, no adventitious sounds, good excursions on the ventilator. Minimal secretions. Heart: Regular rate and rhythm, no murmur. No jugular venous distention. Abdomen: Soft, nondistended, no guarding, no peritoneal irritation, bowel sounds are absent. Extremities: Warm, well-perfused, no peripheral edema. Neuro: Unresponsive. Unresponsive but heavily sedated. Right pupil 4 mm and does not respond to light. Left pupil 2 mm in response. Assessment and Plan - Problem List (1) Subdural hematoma, post-traumatic Code(s): S06.5X9A - Traumatic subdural hemorrhage with loss of consciousness of unspecified duration, initial encounter Status: Acute (2) Acute respiratory failure Code(s): J96.00 - Acute respiratory failure, unspecified whether with hypoxia or hypercapnia Status: Acute (3) Encephalopathy acute Code(s): G93.40 - Encephalopathy, unspecified Status: Acute - Assessment and Plan Plan: Plan: -Emergency evacuation of subdural hematoma -> bone flap removed as well. -Mannitol 25 g IV X 4 doses. -Mechanical ventilation PRVC mode, PEEP 5 -Pepcid for GI ulcer prophylaxis. -SCDs for DVT PE prophylaxis. -Avoid chemical DVT prophylaxis due to risk of bleeding -Monitor end tidal CO2, maintain low neutral value. 30-35 torr. Adjust value using ventilator rate. -Monitor serum osmolality every 6 hours, maintain greater than 310. -Start 2% saline infusion -Nasogastric tube to low intermittent suction hold on tube feedings until GI activity resumes -Follow electrolytes, particularly Efren Henderson closely. -Seizure prophylaxis with Keppra. -Head of bed elevated 30-50. Overall impression: This woman is critically ill and neurologically unstable having sustained a massive subdural hematoma secondary to head trauma. She arrived to the emergency department in coma and with decerebrate posturing to any stimulation and spontaneously. After emergency evacuation of the hematoma she was brought to the intensive care unit for ongoing efforts of been made to minimize cerebral swelling. She remains neurologically unstable and has ongoing problems with brain edema. Continuous efforts are necessary to minimize the latter; including ventilator manipulation, mannitol, hypertonic saline, and electrolyte and osmolality determinations. Critical care 55 minutes aside from invasive procedures. (1) Subdural hematoma, post-traumatic Qualifiers: Loss of consciousness presence/duration: with LOC > 24 hr without return to prior conscious level, patient surviving (2) Acute respiratory failure Qualifiers: Respiratory failure complication: hypoxia and hypercapnia Qualified Code(s): J96.01 - Acute respiratory failure with hypoxia; J96.02 - Acute respiratory failure with hypercapnia
[2018-05-12] MEDS ORDERED: Sodium Chloride 23.4% Inj 188 MEQ in Sod Chloride 0.9% Inj 1,000 ML IV.CONT SCH (11:00)
[2018-05-12] MEDS: fentaNYL 10 mcg/mL Premix Drip 2,500 MCG/250 ML BAG IV.SIG PRN (12:35)
[2018-05-12] MEDS ORDERED: Potassium Chlor 40 mEq Premix 40 MEQ/100 ML PIGGYBACK IV.SIG PRN (14:27)
[2018-05-12] MEDS ORDERED: Magnesium Oxide 400 MG Tablet PO PRN (14:27)
[2018-05-12] MEDS ORDERED: Sodium Phosphate Inj 30 MMOL in Sodium Chlor 0.9% Inj 250 ML IV.SIG PRN (14:27)
[2018-05-12] MEDS ORDERED: Magnesium Sulfate Inj 4 GM in Sodium Chlor 0.9% Inj 92 ML IV.SIG PRN (14:27)
[2018-05-12] MEDS ORDERED: Potassium Phosphate Inj 30 MMOL in Sodium Chlor 0.9% Inj 250 ML IV.SIG PRN (14:27)
[2018-05-12] MEDS ORDERED: Magnesium Sulfate Inj 2 GM in Sodium Chlor 0.9% Inj 96 ML IV.SIG PRN (14:27)
[2018-05-12] MEDS ORDERED: Potassium Chlor 20 mEq Premix 20 MEQ/100 ML PIGGYBACK IV.SIG PRN ×2 (14:27)
[2018-05-12] MEDS ORDERED: Potassium Phosphate 500 MG Soluble Tablet PO PRN ×2 (14:27)
--- NOTE | 2018-05-12 14:45 | ECG ---
Date Performed: 05/11/2018 Time Performed: 12:04:32 PTAGE: 62 years EKG: SINUS TACHYCARDIA ABNORMAL RHYTHM ECG Since PREVIOUS TRACING , no significant change note PREVIOUS TRACING 03/27/2018 18.07 DOCTOR: John Blair Interpretating Date/Time 05/12/2018 14:44:39
[2018-05-12 14:51] LABS: Sodium 145 meq/L (136-145)
[2018-05-12] MEDS ORDERED: Norepinephrine Inj 4 MG/4 ML Ampul ONE (17:16)
[2018-05-12] MEDS: Norepinephrine Inj 4 MG in Sodium Chlor 0.9% Inj 246 ML IV.SIG PRN (17:28)
[2018-05-12 20:29] LABS: Sodium 149 meq/L (136-145)
--- NOTE | 2018-05-12 23:34 | XR ---
EXAM DATE: 05/12/2018 11:29 PM EDT AGE/SEX: 62 years / Female INDICATIONS: Central line placement. History of squamous cell carcinoma the tongue. CLINICAL DATA: This is the patient's subsequent encounter. Patient reports that signs and symptoms h ave been present for 1 day and indicates a pain score of Nonresponsive. MEDICAL/SURGICAL HISTORY: Non-responsive. Non-responsive. COMPARISON: [facility] – [place], CHEST 1V SINGLE AP, 05/11/2018. . FINDINGS: A single AP semierect view of the chest was obtained and demonstrates interval placement of a right s ubclavian central venous line with the tip projected over the superior vena cava. There is no pneumot horax. A nasogastric tube is been placed as well and is seen coursing through the esophagus and into the stomach. Endotracheal tube remains in place with the tip approximately 4 cm above the jason. No confluent infiltrates or effusions are identified. The heart size remains within normal limits. The b torrie thorax is intact. Overlying electrocardiogram leads are present. CONCLUSION: 1. Interval placement of right subclavian central venous line with no pneumothorax. 2. Interval placement of nasogastric tube. 3. Stable appearance with no acute cardiopulmonary disease. Electronically signed by: Pino Schwarz MD 05/12/2018 11:32 PM EDT
--- NOTE | 2018-05-13 00:39 | P.PCN ---
Date of procedure: 05/12/18 Procedure: Central line placement A time-out was completed verifying correct patient, procedure, site, positioning , and special equipment if applicable. The patient was placed in a dependent position appropriate for central line placement based on the vein to be cannulated. The patients right shoulder was prepped and draped in sterile fashion. 1% Lidocaine was used to anesthetize the surrounding skin area. A triple lumen 9-Ind[place] Cordis catheter was introduced into the the right subclavian vein using the Seldinger technique. The catheter was threaded smoothly over the guide wire and appropriate blood return was obtained. Each lumen of the catheter was evacuated of air and flushed with sterile saline. The catheter was then sutured in place to the skin and a sterile dressing applied. Perfusion to the extremity distal to the point of catheter insertion was checked and found to be adequate. Estimated Blood Loss: 1ml The patient tolerated the procedure well and there were no complications. Anesthesia: local
[2018-05-13] MEDS: Propofol 1000 mg/100 ml Inj 1,000 MG/100 ML BOTTLE IV.CONT PRN ×3 (01:14→22:01)
[2018-05-13] MEDS: Chlorhexidine Gluconate 2% 1 Pack (2 Cloths) TOPICAL SCH (02:59)
[2018-05-13 03:11] LABS: Baso % (Auto) 0.2 % (0.0-2.0); Lymph # (Auto) 1.3 th/mm3 (1.0-4.8); Lymph % (Auto) 11.8 % (9.0-44.0); Mean Corpuscular HGB Conc 32.9 % (32.0-36.0); Mean Corpuscular Hemoglobin 35.5 pg (27.0-34.0); Mean Corpuscular Volume 107.8 fL (80.0-100.0); Mono # (Auto) 0.9 th/mm3 (0.0-0.9); Neut # (Auto) 9.1 th/mm3 (1.8-7.7); Platelet Count 204 th/mm3 (150-450); Red Blood Count 1.76 mil/mm3 (4.00-5.30); Red Cell Distribution Width 13.1 % (11.6-17.2); White Blood Count 11.4 th/mm3 (4.0-11.0)
[2018-05-13 03:21] LABS: Hemoglobin 6.2 gm/dL (11.6-15.3)
[2018-05-13] MEDS: fentaNYL 10 mcg/mL Premix Drip 2,500 MCG/250 ML BAG IV.SIG PRN ×2 (03:50→18:53)
[2018-05-13 04:32] LABS: Alanine Aminotransferase 12 U/L (10-53); Alkaline Phosphatase 58 U/L (45-117); Anion Gap 7 meq/L (5-15); Aspartate Aminotransferase 26 U/L (15-37); Blood Urea Nitrogen 10 mg/dL (7-18); Calcium 7.2 mg/dL (8.5-10.1); Carbon Dioxide 23.1 meq/L (21.0-32.0); Chloride 122 meq/L (98-107); Glomerular Filtration Rate Greater Than 89 mL/min (>89); Glucose,Random 97 mg/dL (74-106); Potassium 3.5 meq/L (3.5-5.1); Sodium 152 meq/L (136-145); Total Protein 4.8 g/dL (6.4-8.2)
[2018-05-13 04:51] LABS: Platelet Estimate Normal (Normal); Platelet Morphology Normal (Normal)
--- NOTE | 2018-05-13 08:57 | P.PNNS ---
Subjective Interval history: 05/13: ICPs controlled overnight, currently between 13-15. f/u CT Brain completed this morning. Physical Exam Vital signs: Vital Signs 05/12/18 11:22 05/12/18 12:00 05/12/18 15:26 Temperature 100.4 F H Pulse Rate 72 Respiratory Rate 16 16 15 Blood Pressure 158/84 H Pulse Oximetry 100 100 100 05/12/18 16:00 05/12/18 20:00 05/12/18 20:07 Temperature 99.7 F H 100 F H Pulse Rate 71 68 Respiratory Rate 15 15 15 Blood Pressure 132/55 L 138/58 L Pulse Oximetry 100 100 05/12/18 22:46 05/13/18 00:00 05/13/18 02:00 Temperature 99.7 F H Pulse Rate 64 63 Respiratory Rate 15 15 Blood Pressure 136/57 L Pulse Oximetry 100 100 05/13/18 04:00 05/13/18 05:08 05/13/18 06:00 Temperature 98.8 F Pulse Rate 65 55 L Respiratory Rate 15 15 Blood Pressure 136/52 L Pulse Oximetry 100 05/13/18 06:06 05/13/18 08:42 Temperature 98.2 F Pulse Rate 52 L Respiratory Rate 15 Blood Pressure 135/51 L Pulse Oximetry 100 100 Intake & Output 05/12/18 05/13/18 05/13/18 18:59 06:59 18:59 Intake Total 1455 / 1455 610 / 610 Output Total 940 / 940 Balance 1455 / 1455 -330 / -330 Intake: IV 1455 / 1455 610 / 610 NS + KCl 20 mEq Inj 1,000 ML @ 1000 / 1000 100 mls/hr IV.CONT .Q10H CARLOS Rx #:[id number] Diprivan 1000 mg/100 ml Inj 1, 100 / 100 100 / 100 000 mg In 100 ml @ 10 MCG/KG/ MIN 3.272 mls/hr IV.CONT TITRATE PRN Rx#:[id number] Potassium Phosphate Inj 30 MMOL 260 / 260 In NS Inj 250 ML @ 42 mls/hr IV.SIG UNSCH PRN Rx#:[id number] fentaNYL 10 mcg/mL Premix Drip 250 / 250 250 / 250 2,500 mcg In 250 ml @ 50 MCG/HR 5 mls/hr IV.SIG TITRATE PRN Rx #:[id number] Keppra Inj 500 MG In NS Inj 100 105 / 105 ML @ 400 mls/hr IV.SIG Q12H CARLOS Rx#:[id number] Intake (Blood Product) Amt 0 / 0 Rbc As-3 Leukoreduced Unit 0 / 0 [id number] Rbc As-3 Leukoreduced Unit 0 / 0 [id number] Output: Urine Amount (Catheter) 800 / 800 Indwelling Urethral Catheter 800 / 800 Wound Drainage 140 / 140 # 1 Head MISTY Drain 10 / 10 # 2 Head MISTY Drain 10 / 10 # 3 Head MISTY Drain 120 / 120 Narrative: Intubated, sedated on propofol drip. Right softer today, appears mildly decompressed. surgical wound clean and dry. MISTY drains in place. Left ICP monitor in place, ICPs 13-15 Right pupil size improved, today 4 mm nonreactive, left pupil 2 mm Increase muscle tone left side, withdraws pain extremities R>L Does not ope eyes or follow commands. - Urinary Catheter Management Indwelling Urethral Catheter Cath placed during this visit: yes Reason for continuing: Hourly intake/output Insertion date: 05/11/18 Insertion time: 12:00 Assessment and Plan - Plan Impression: 62 y/o female with large right subdural hematoma with severe mass effect and midline shift, s/p emergent right decompressive craniectomy with evacuation of subdural hematoma, and placement of ICP monitor 05/11/18 history of etoh abuse Plan: f/u CT Brain images reviewed, improved SDH and midline shift cont ICP monitoring for now, cont keep sedated today, cont seizure prophylaxis cont hyperosmotics critical care management
--- NOTE | 2018-05-13 09:01 | P.PNCC ---
Subjective Subjective Remarks/Hospital Course: This 62-year-old woman presents intubated to the [place] emergency department having sustained a fall yesterday and a repeat fall in the shower this morning heard by her . She was unresponsive when he found her in the shower and required intubation by the EMS. On arrival to the emergency department her Elza Coma Scale is 4T. She has decerebrate posturing to minimal stimulation. The right pupil is dilated to 5 mm. She is otherwise unresponsive. CAT scan of the head reveals a very large right subdural hematoma with considerable shift subfalcine and effacement of the cisterns. Parenchymal hemorrhage is seen in the midbrain. Dr. Abad and I explained to the patient's and [id number] that this is a dire circumstance with probability of brain injury. The family has elected for the patient to undergo an operative decompression of the acute hematoma in the hopes that neurologic function will improve. The patient appears to drink pretty regularly and this may be related to her multiple falls. She takes no blood thinners but does occasionally take aspirin. 05/12: Patient returned from the operating room following emergency evacuation of a massive left subdural hematoma following closed head injury. We are fighting ongoing cerebral edema with manipulations of medications in the ventilator. Intracranial pressure is elevated and we continue to exhaust all methods to reduce brain swelling. The right pupil remains dilated. The mainstay of therapy now will be to maintain cerebral perfusion pressure and to decrease brain oxygen consumption requirements. SUBJECTIVE: 05/13: Hemoglobin currently 6.2. Received [address] brain revealed improvement status post evacuation of right subdural hematoma. Recheck due soon. Currently on pantoprazole 40 mg IV twice daily. Bradycardic. ICPs 12-15 overnight. Objective Vital Signs / I&O: Vital Signs 05/12/18 11:22 05/12/18 12:00 05/12/18 15:26 Temperature 100.4 F H Pulse Rate 72 Respiratory Rate 16 16 15 Blood Pressure 158/84 H Pulse Oximetry 100 100 100 05/12/18 16:00 05/12/18 20:00 05/12/18 20:07 Temperature 99.7 F H 100 F H Pulse Rate 71 68 Respiratory Rate 15 15 15 Blood Pressure 132/55 L 138/58 L Pulse Oximetry 100 100 05/12/18 22:46 05/13/18 00:00 05/13/18 02:00 Temperature 99.7 F H Pulse Rate 64 63 Respiratory Rate 15 15 Blood Pressure 136/57 L Pulse Oximetry 100 100 05/13/18 04:00 05/13/18 05:08 05/13/18 06:00 Temperature 98.8 F Pulse Rate 65 55 L Respiratory Rate 15 15 Blood Pressure 136/52 L Pulse Oximetry 100 05/13/18 06:06 05/13/18 08:42 Temperature 98.2 F Pulse Rate 52 L Respiratory Rate 15 Blood Pressure 135/51 L Pulse Oximetry 100 100 Intake & Output 05/12/18 05/13/18 05/13/18 18:59 06:59 18:59 Intake Total 1455 / 1455 610 / 610 Output Total 940 / 940 Balance 1455 / 1455 -330 / -330 Intake: IV 1455 / 1455 610 / 610 NS + KCl 20 mEq Inj 1,000 ML @ 1000 / 1000 100 mls/hr IV.CONT .Q10H CARLOS Rx #:[id number] Diprivan 1000 mg/100 ml Inj 1, 100 / 100 100 / 100 000 mg In 100 ml @ 10 MCG/KG/ MIN 3.272 mls/hr IV.CONT TITRATE PRN Rx#:[id number] Potassium Phosphate Inj 30 MMOL 260 / 260 In NS Inj 250 ML @ 42 mls/hr IV.SIG UNSCH PRN Rx#:[id number] fentaNYL 10 mcg/mL Premix Drip 250 / 250 250 / 250 2,500 mcg In 250 ml @ 50 MCG/HR 5 mls/hr IV.SIG TITRATE PRN Rx #:[id number] Keppra Inj 500 MG In NS Inj 100 105 / 105 ML @ 400 mls/hr IV.SIG Q12H CARLOS Rx#:[id number] Intake (Blood Product) Amt 0 / 0 Rbc As-3 Leukoreduced Unit 0 / 0 [id number] Rbc As-3 Leukoreduced Unit 0 / 0 [id number] Output: Urine Amount (Catheter) 800 / 800 Indwelling Urethral Catheter 800 / 800 Wound Drainage 140 / 140 # 1 Head MISTY Drain 10 / 10 # 2 Head MISTY Drain 10 / 10 # 3 Head MISTY Drain 120 / 120 Result Diagrams: 05/13/18 02:45 05/13/18 02:45 Imaging: Abdomen X-Ray 05/11/18 00:00 CONCLUSION: Unremarkable study. Chest X-Ray 05/11/18 11:31 CONCLUSION: No acute cardiopulmonary disease. Head CT 05/11/18 11:31 CONCLUSION: Huge subdural hematoma on the right with subfalcine herniation from right to left and focal area of intraparenchymal hemorrhage within the midbrain. Impending downward herniation. Findings were discussed with Dr. Walls at the time of this dictation on 05/11/2018. Chest X-Ray 05/12/18 23:16 CONCLUSION: 1. Interval placement of right subclavian central venous line with no pneumothorax. 2. Interval placement of nasogastric tube. 3. Stable appearance with no acute cardiopulmonary disease. Objective Remarks: Head: Status post right frontotemporal parietal decompressive craniotomy. Left bur hole with ICP monitor in place. [address] Neck: In neutral position, orally intubated. No JVD Lungs: Clear bilaterally, no adventitious sounds, good excursions on the ventilator. Minimal secretions. Heart: Bradycardic, RRR. S1, S2. No S4. Abdomen: Soft, nondistended, no guarding, no peritoneal irritation, bowel sounds are hypoactive Extremities: Warm, well-perfused, no peripheral edema. Neuro: Positive cough. No gag. Extends right greater than left lower extremity only on examination with noxious stimulation. Right pupil 4 mm and reactive. Left pupil 3 mm and responsive. Assessment and Plan - Assessment and Plan Plan: Neuro/Psych: Postop day #3 right frontotemporoparietal decompressive craniotomy secondary to subdural hematoma Left bur hole with ICP monitor placement 05/11 History of EtOH Depression/anxiety Chronic opiate use CT admission revealed a right subdural hematoma 1.6 cm transverse with 1.6 cm right to left shift. Mass effacement/obliteration of the perimesenteric cistern with imminent herniation Currently on 3% saline at 10 cc an hour. Goal keep sodium between 1 5155 Currently on mannitol 25 g IV every 6 hours. Stop this a.m. Serum osm currently 310. End-tidal CO2 to keep it between 30 and 35 Currently on propofol drip at 50 migrans per kilogram per minute/fentanyl drip at 200 mcg an hour for sedation/analgesia while intubated RASS - 4 Sedation vacation when okay with neurosurgery CT brain this a.m. performed. Results pending. Maintain adequate CPP with nicardipine and norepinephrine drips titrate Continue levetiracetam 500 mg iv twice daily for seizure prophylaxis Acetaminophen 650 mg by tube every 6 hours as needed fever Vitamin bag daily 3 days ordered Currently off home medications of oxycodone and trazodone. MISTY 10/120 cc ss CV: Elevated troponin I.22 on 05/11 Goal keep systolic blood pressure greater than 110 or less than 140. Goal maintain adequate CPP As needed norepinephrine and nicardipine written to achieve these goals Repeat check troponin now, EKG and routine 2D echocardiogram ordered. Resp: Acute respiratory failure Ongoing tobacco abuse PRVC /10/19/29 Albuterol/ipratropium aerosols every 4 hours with albuterol aerosols every 2 hours as needed for dyspnea Ventilator bundle Spontaneous breathing trials when clinically indicated Follow-up on chest x-ray in a.m. 05/14 with ABG Tobacco cessation self-education/evaluation will be provided when clinically stable GI: History of peptic ulcer disease Hypoalbuminemia Currently n.p.o. except for medications with possible GI bleed and history of peptic ulcer disease Pantoprazole 40 mg IV twice daily for GI prophylaxis Gastroenterostomy consultation for possible endoscopy when stable : Remove Simmons catheter per nurse driven protocol Endo: Sliding scale insulin with aspart insulin Accu-Cheks every 6 hours to maintain euglycemia/medium protocol Renal: Creatinine currently within normal limits Monitor urine output Accurate I's and O's Heme: History of throat cancer status post radiation and chemotherapy in 2007 Leukocytosis Macrocytic anemia Monitor CBC daily. Follow trends. Transfuse 3 PRBCs today. Recheck with coags this morning. Serial hemoglobins ID: Monitor for signs and symptomatology of infection MSK: Chronic low back pain PT evaluate and treat FEN: Iatrogenic hypernatremia Hyperchloridemia Current 3% saline at 10 cc an hour. Please see neuro section On normal saline with 20 mEq of KCl at 100 cc an hour Access -right subclavian CVL day #2 placed 05/12 Left radial arterial line Prophylaxis -GI -pantoprazole -DVT -SCD/pharmacological prophylaxis when okay with neurosurgery. Currently contraindicated Critical care time 35 minutes
--- NOTE | 2018-05-13 09:06 | CT ---
EXAM DATE: 05/13/2018 8:21 AM EDT AGE/SEX: 62 years / Female INDICATIONS: Subdural hematoma follow up. CLINICAL DATA: This is the patient's subsequent encounter. Patient reports that signs and symptoms h ave been present for 3 days and indicates a pain score of Nonresponsive. MEDICAL/SURGICAL HISTORY: . Lung cancer, lymphoma. None. RADIATION DOSE: 35.21 CTDI (mGy) [place]PAR[place] [facility] [place]. . TECHNIQUE: CT of the head without contrast. Using automated exposure control and adjustment of the mA and/or kV according to patient size, radiation dose was kept as low as reasonably achievable to ob tain optimal diagnostic quality images. DICOM format image data is available electronically for revi ew and comparison. FINDINGS: Since the previous study the right sided subdural hematoma has been evacuated with right frontal cran iectomy and subdural drain placement. There are overlying skin zeus. There is minimal blood and ai r in the subdural space at the operative site. There is a small amount of hemorrhage in the interpedu ncular cistern, and possibly within the midbrain with a small amount of surrounding edema versus evol ving infarct. There is a small amount of hemorrhage in the left frontal subdural space adjacent to th e falx. There is 4 mm midline shift from right to left. There is a small amount of interhemispheric s ubdural hemorrhage. CONCLUSION: 1. Postoperative changes status post subdural evacuation and drain placement. Small amount of intrac ranial hemorrhage remains. 2. Possible evolving infarct and a small amount of hemorrhage as above at the level of the midbrain. . Electronically signed by: Mark Rodriguez MD 05/13/2018 9:05 AM EDT
[2018-05-13] MEDS: Beneprotein Powder Packet G-TUBE SCH ×3 (09:07→18:17)
[2018-05-13] MEDS: Oral Hygiene Kit OROPHARYNG SCH ×4 (09:07→16:23)
[2018-05-13] MEDS: Chlorhexidine 0.12% Oral Kit 15 ML UDC OROPHARYNG SCH ×2 (09:07→21:08)
--- NOTE | 2018-05-13 09:15 | CT ---
EXAM DATE: 05/13/2018 8:29 AM EDT AGE/SEX: 62 years / Female INDICATIONS: Abdominal pain, GI bleed. CLINICAL DATA: This is the patient's initial encounter. Patient reports that signs and symptoms have been present for 3 days and indicates a pain score of Nonresponsive. MEDICAL/SURGICAL HISTORY: . Lung cancer, lymphoma. Craniotomy. RADIATION DOSE: 6.14 CTDI (mGy) COMPARISON: . TECHNIQUE: Multiple contiguous axial images were obtained through the abdomen. Images were obtained using multiple row detector helical technique. Using automated exposure control and adjustment of the mA and/or kV according to patient size, radiation dose was kept as low as reasonably achievable to o btain optimal diagnostic quality images. DICOM format image data is available electronically for rev iew and comparison. FINDINGS: Bilateral breast implants. Small bilateral effusions. NG tube is noted with tip terminating in the st omach. Pancreas, adrenals, left kidney unremarkable. There is a 3 mm nonobstructing right lower pole renal calculus. Atherosclerotic calcification of the aorta and iliac vessels are seen. Simmons catheter is noted within the urinary bladder. There are no signs of bowel obstruction, or adenopathy. No aneu rysm is seen. Gallbladder unremarkable. There is trace free fluid in the pelvis. There is mild body w all edema. The osseous structures are intact. CONCLUSION: 1. Small bilateral pleural effusions, mild body wall edema and trace fluid in the pelvis. 2. Nonobstructing right renal calculus. 3. Atherosclerosis. Electronically signed by: Mark Rodriguez MD 05/13/2018 9:14 AM EDT
[2018-05-13] MEDS: Senna/Docusate Sodium 8.6/50 MG Tablet PO SCH ×2 (09:16→21:08)
[2018-05-13] MEDS: Pantoprazole Inj 40 MG Vial IV.PUSH SCH ×2 (09:16→21:08)
[2018-05-13] MEDS ORDERED: Dextrose 50% in Water 50 ML Vial IV.PUSH PRN (09:23)
[2018-05-13] MEDS: Multivitamin Inj 10 ML, Thiamine Inj 100 MG, Folic Acid Inj 1 MG in Sodium Chlor 0.9% I... IV.SIG SCH (09:52)
--- NOTE | 2018-05-13 10:26 | P.CONGI ---
History of Present Illness Consult date: 05/13/18 Consult reason: Drop in hgb with ETOH abuse and history of gastric ulcer Chief complaint: Intracranial Hemorrhage, Herniation, Intubated History of Present Illness: This is a 62 yo F with history of ETOH abuse who was brought in by EMS after being found unresponsive after a fall at home. Pt was found to have a massive left subdural hematoma with severe mass effect and midline shift S/P emergent right decompressive craniectomy with evacuation of hematoma. Pt is currently in ICU on sedation and mechanically ventilated. History obtained through chart review, discussion with Dr. Olvera and RN. Our service has been consulted to evaluate pt for drop in hgb in the setting of ETOH abuse with history of gastric ulcer. Pt currently with OG which is clamped but according to RN overnight had 50 mL of brown colored output. Pt has not had a BM since admission. Last EGD noted in records from December [address] Dubon --> Two gastric ulcers 5-9 mm in size S/P submucosal epi. 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 - Medical History Medical History: Medical History (Last Reviewed 05/13/18 @ 08:10 by Leelee Jernigan) Cancer Depressed Lung cancer Lymphoma Alcohol abuse - Surgical History Surgical History: Surgical History (Last Reviewed 05/13/18 @ 08:10 by Leelee Jernigan) History of lung surgery - Tobacco History Second Hand Smoke Exposure: No Tobacco Use In Past 30 Days: Yes Smoking Status: Unknown if ever smoked Tobacco Type: Cigarettes - Alcohol History How Often Do You Have a Drink Containing Alcohol: 4 or more times a week - Substance Use History Substance History: Unable to Obtain - Travel History Recent Travel in the [place] Within the Last 8 Weeks: No Recent Travel Out of the Country Within the Last 8 Weeks: No - Immunization History Tetanus Immunization: Unable to Assess Hx Influenza Vaccine This Season: Unable to Assess <Milena Marshall - Last Filed: 05/13/18 10:27> - Medical History Medical History: Medical History (Last Reviewed 05/13/18 @ 08:10 by Leelee Jernigan) Cancer Depressed Lung cancer Lymphoma Alcohol abuse - Surgical History Surgical History: Surgical History (Last Reviewed 05/13/18 @ 08:10 by Leelee Jernigan) History of lung surgery <Jagdish,Simpson - Last Filed: 05/13/18 15:51> Medications and Allergies Active Medications: Active Medications Acetaminophen (Tylenol Liq) 650 mg NG/OG Q6H PRN PRN Reason: FEVER Al Hydroxide/Mg Hydroxide (Milk Of Magnesia Liq) 30 ml PO Q12H PRN PRN Reason: Mild Constipation Albuterol (Albuterol Neb (Prn)) 2.5 mg NEB Q2HR NEB PRN PRN Reason: DYSPNEA Albuterol (Duoneb Neb (Gautam)) 1 ampul NEB Q4HR NEB [facility] Artificial Tears (Genteal Severe Dry Eye Relief 0.3% Opth Gel) 1 drops EACH EYE BID [facility] Bacitracin (Baciguent Oint) 1 applicatio TOPICAL BID [facility] Last Admin: 05/13/18 09:31 Dose: Not Given Bisacodyl (Dulcolax Supp) 10 mg RECTAL DAILY PRN PRN Reason: SEVERE CONSITIPATION Chlorhexidine Gluconate (Peridex 0.12% Oral Kit) 15 ml OROPHARYNG BID@0800, 2000 [facility] Last Admin: 05/13/18 09:07 Dose: 15 ml Chlorhexidine Gluconate (Chlorhexidine 2% Cloth) 3 pack TOPICAL DAILY@0400 [facility] Stop: 05/17/18 03:59 Last Admin: 05/13/18 02:59 Dose: 3 pack Chlorhexidine Gluconate (Chlorhexidine 2% Cloth) 3 pack TOPICAL DAILY@0400 PRN PRN Reason: Extra cloth needed Stop: 05/17/18 03:59 Dextrose (D50w Vial) 50 ml IV.PUSH UNSCH PRN PRN Reason: PER HYPOGLYCEMIA PROTOCOL Glucagon (Glucagon Inj) 1 mg OTHER UNSCH PRN PRN Reason: for Hypoglycemia Protocol Nicardipine HCl 25 mg/ Sodium (Chloride) 250 mls @ 50 mls/hr IV.CONT TITRATE PRN; Protocol PRN Reason: Per Protocol Last Admin: 05/11/18 12:17 Dose: 5 mg/hr, 50 mls/hr Fentanyl (Fentanyl 10 Mcg/Ml Premix Drip) 2,500 mcg in 250 mls @ 5 mls/hr IV.SIG TITRATE PRN; Protocol PRN Reason: Per Protocol Last Admin: 05/13/18 03:50 Dose: 200 mcg/hr, 20 mls/hr Midazolam HCl (Versed Inj) 50 mg in 50 mls @ 2 mls/hr IV.CONT TITRATE PRN; Protocol PRN Reason: Per Protocol Calcium Gluconate 1 gm/ Sodium (Chloride) 110 mls @ 110 mls/hr IV.SIG UNSCH PRN PRN Reason: SEE LABEL COMMENTS Magnesium Sulfate Inj 2 gm/ (Sodium Chloride) 100 mls @ 100 mls/hr IV.SIG UNSCH PRN PRN Reason: MAGNESIUM LESS THAN 2 Potassium Chloride (Kcl 20 Meq Premix Inj) 20 meq in 100 mls @ 50 mls/hr IV.SIG UNSCH PRN PRN Reason: POTASSIUM LESS THAN 4 Potassium Chloride/Sodium Chloride (Ns + Kcl 20 Meq Inj) 1,000 mls @ 100 mls/ hr IV.CONT .Q10H [facility] Last Admin: 05/13/18 09:32 Dose: Not Given Propofol (Diprivan 1000 Mg/100 Ml Inj) 1,000 mg in 100 mls @ 3.272 mls/hr IV.CONT TITRATE PRN; Protocol PRN Reason: Per Protocol Last Admin: 05/13/18 01:14 Dose: 40 mcg/kg/min, 13.09 mls/hr Magnesium Sulfate Inj 2 gm/ (Sodium Chloride) 100 mls @ 50 mls/hr IV.SIG UNSCH PRN PRN Reason: For Magnesium 1.2 - 1.6 mg/dL Potassium Chloride (Kcl 40 Meq Premix Inj) 40 meq in 100 mls @ 25 mls/hr IV.SIG Q2H PRN PRN Reason: For Potassium 2.8 - 3.2 mEq/L Potassium Chloride (Kcl 20 Meq Premix Inj) 20 meq in 100 mls @ 50 mls/hr IV.SIG Q2H PRN PRN Reason: For Potassium 3.3 - 3.5 mEq/L Potassium Chloride (Kcl 40 Meq Premix Inj) 40 meq in 100 mls @ 25 mls/hr IV.SIG UNSCH PRN PRN Reason: For Potassium 3.3 - 3.5 mEq/L Potassium Chloride (Kcl 20 Meq Premix Inj) 20 meq in 100 mls @ 50 mls/hr IV.SIG Q2H PRN PRN Reason: For Potassium 2.8 - 3.2 mEq/L Potassium Phosphate 30 mmol/ (Sodium Chloride) 260 mls @ 42 mls/hr IV.SIG UNSCH PRN PRN Reason: SEE LABEL COMMENTS Last Infusion: 05/12/18 23:44 Dose: Infused Sodium Phosphate 30 mmol/ (Sodium Chloride) 260 mls @ 42 mls/hr IV.SIG UNSCH PRN PRN Reason: For Phosphorus < 2.5 mg/dL Magnesium Sulfate Inj 4 gm/ (Sodium Chloride) 100 mls @ 50 mls/hr IV.SIG UNSCH PRN PRN Reason: For Magnesium 0.9 - 1.1 mg/dL Levetiracetam 500 mg/ Sodium (Chloride) 105 mls @ 400 mls/hr IV.SIG Q12H [facility] Last Admin: 05/13/18 02:59 Dose: 400 mls/hr Norepinephrine Bitartrate 4 mg (/ Sodium Chloride) 250 mls @ 7.5 mls/hr IV.SIG TITRATE PRN; Protocol PRN Reason: Per Protocol Last Titration: 05/12/18 17:35 Dose: 0 mcg/min, 0 mls/hr Sodium Chloride (Sodium Chloride 3% Inj) 500 mls @ 10 mls/hr IV.SIG CONT ONE Stop: 05/15/18 11:59 Last Admin: 05/13/18 09:45 Dose: 10 mls/hr Multivitamins 10 ml/ Thiamine HCl 100 mg/ Folic Acid 1 mg/Sodium Chloride 511.2 mls @ 127.8 mls/hr IV.SIG Q24H [facility] Stop: 05/15/18 13:59 Last Admin: 05/13/18 09:52 Dose: 127.8 mls/hr Insulin Aspart (Novolog Insulin Correctional Sugar Inj) 0 unit SQ Q6HR [facility]; Protocol Lactulose (Lactulose Liq) 30 ml PO DAILY PRN PRN Reason: SEVERE CONSITIPATION Magnesium Oxide (Mag-Ox) 800 mg PO UNSCH PRN PRN Reason: For Magnesium 1.2 - 1.6 mg/dL Ondansetron HCl (Zofran Odt) 4 mg SL Q6H PRN PRN Reason: NAUSEA OR VOMITING Pantoprazole Sodium (Protonix Inj) 40 mg IV.PUSH Q12H [facility] Last Admin: 05/13/18 09:16 Dose: 40 mg Polyethylene Glycol (Miralax) 17 gm PO BID [facility] Potassium Bicarb/Potassium Chloride (K-Lyte Cl Eff) 50 meq PO UNSCH PRN PRN Reason: For Potassium 3.3 - 3.5 mEq/L Potassium Phosphate (K-Phos Original) 2,000 mg PO Q4H PRN PRN Reason: Phosphorus Less Than 2.5 mg/dL Potassium Phosphate (K-Phos Original) 2,000 mg PO UNSCH PRN PRN Reason: SEE LABEL COMMENTS Senna/Docusate Sodium (Deysi-Colace) 1 tab PO BID [facility] Last Admin: 05/13/18 09:16 Dose: 1 tab Sennosides (Senokot) 17.2 mg PO Q12H PRN PRN Reason: Moderate Constipation Sodium Chloride (Ns Flush) 2 ml IV.FLUSH BID [facility] Last Admin: 05/13/18 09:07 Dose: 2 ml Sodium Chloride (Ns Flush) 2 ml IV.FLUSH PRN PRN PRN Reason: FLUSH AFTER USING IV ACCESS Terbutaline Sulfate (Brethine Inj) 1 mg SQ UNSCH PRN PRN Reason: For Extravasation Whey (Beneprotein Powder) 1 packet G-TUBE TID [facility] Last Admin: 05/13/18 09:07 Dose: 1 packet <Milena Marshall - Last Filed: 05/13/18 10:27> Active Medications: Active Medications Acetaminophen (Tylenol Liq) 650 mg NG/OG Q6H PRN PRN Reason: FEVER Al Hydroxide/Mg Hydroxide (Milk Of Magnesia Liq) 30 ml PO Q12H PRN PRN Reason: Mild Constipation Albuterol (Albuterol Neb (Prn)) 2.5 mg NEB Q2HR NEB PRN PRN Reason: DYSPNEA Albuterol (Duoneb Neb (Gautam)) 1 ampul NEB Q4HR NEB [facility] Last Admin: 05/13/18 11:40 Dose: 1 ampul Artificial Tears (Genteal Severe Dry Eye Relief 0.3% Opth Gel) 1 drops EACH EYE BID [facility] Last Admin: 05/13/18 11:27 Dose: Not Given Bacitracin (Baciguent Oint) 1 applicatio TOPICAL BID [facility] Last Admin: 05/13/18 09:31 Dose: Not Given Bisacodyl (Dulcolax Supp) 10 mg RECTAL DAILY PRN PRN Reason: SEVERE CONSITIPATION Chlorhexidine Gluconate (Peridex 0.12% Oral Kit) 15 ml OROPHARYNG BID@0800, 2000 [facility] Last Admin: 05/13/18 09:07 Dose: 15 ml Chlorhexidine Gluconate (Chlorhexidine 2% Cloth) 3 pack TOPICAL DAILY@0400 [facility] Stop: 05/17/18 03:59 Last Admin: 05/13/18 02:59 Dose: 3 pack Chlorhexidine Gluconate (Chlorhexidine 2% Cloth) 3 pack TOPICAL DAILY@0400 PRN PRN Reason: Extra cloth needed Stop: 05/17/18 03:59 Dextrose (D50w Vial) 50 ml IV.PUSH UNSCH PRN PRN Reason: PER HYPOGLYCEMIA PROTOCOL Glucagon (Glucagon Inj) 1 mg OTHER UNSCH PRN PRN Reason: for Hypoglycemia Protocol Nicardipine HCl 25 mg/ Sodium (Chloride) 250 mls @ 50 mls/hr IV.CONT TITRATE PRN; Protocol PRN Reason: Per Protocol Last Admin: 05/11/18 12:17 Dose: 5 mg/hr, 50 mls/hr Fentanyl (Fentanyl 10 Mcg/Ml Premix Drip) 2,500 mcg in 250 mls @ 5 mls/hr IV.SIG TITRATE PRN; Protocol PRN Reason: Per Protocol Last Admin: 05/13/18 03:50 Dose: 200 mcg/hr, 20 mls/hr Midazolam HCl (Versed Inj) 50 mg in 50 mls @ 2 mls/hr IV.CONT TITRATE PRN; Protocol PRN Reason: Per Protocol Calcium Gluconate 1 gm/ Sodium (Chloride) 110 mls @ 110 mls/hr IV.SIG UNSCH PRN PRN Reason: SEE LABEL COMMENTS Magnesium Sulfate Inj 2 gm/ (Sodium Chloride) 100 mls @ 100 mls/hr IV.SIG UNSCH PRN PRN Reason: MAGNESIUM LESS THAN 2 Potassium Chloride (Kcl 20 Meq Premix Inj) 20 meq in 100 mls @ 50 mls/hr IV.SIG UNSCH PRN PRN Reason: POTASSIUM LESS THAN 4 Potassium Chloride/Sodium Chloride (Ns + Kcl 20 Meq Inj) 1,000 mls @ 100 mls/ hr IV.CONT .Q10H [facility] Last Admin: 05/13/18 09:32 Dose: Not Given Propofol (Diprivan 1000 Mg/100 Ml Inj) 1,000 mg in 100 mls @ 3.272 mls/hr IV.CONT TITRATE PRN; Protocol PRN Reason: Per Protocol Last Admin: 05/13/18 11:26 Dose: 35 mcg/kg/min, 11.45 mls/hr Magnesium Sulfate Inj 2 gm/ (Sodium Chloride) 100 mls @ 50 mls/hr IV.SIG UNSCH PRN PRN Reason: For Magnesium 1.2 - 1.6 mg/dL Potassium Chloride (Kcl 40 Meq Premix Inj) 40 meq in 100 mls @ 25 mls/hr IV.SIG Q2H PRN PRN Reason: For Potassium 2.8 - 3.2 mEq/L Potassium Chloride (Kcl 20 Meq Premix Inj) 20 meq in 100 mls @ 50 mls/hr IV.SIG Q2H PRN PRN Reason: For Potassium 3.3 - 3.5 mEq/L Potassium Chloride (Kcl 40 Meq Premix Inj) 40 meq in 100 mls @ 25 mls/hr IV.SIG UNSCH PRN PRN Reason: For Potassium 3.3 - 3.5 mEq/L Potassium Chloride (Kcl 20 Meq Premix Inj) 20 meq in 100 mls @ 50 mls/hr IV.SIG Q2H PRN PRN Reason: For Potassium 2.8 - 3.2 mEq/L Potassium Phosphate 30 mmol/ (Sodium Chloride) 260 mls @ 42 mls/hr IV.SIG UNSCH PRN PRN Reason: SEE LABEL COMMENTS Last Infusion: 05/12/18 23:44 Dose: Infused Sodium Phosphate 30 mmol/ (Sodium Chloride) 260 mls @ 42 mls/hr IV.SIG UNSCH PRN PRN Reason: For Phosphorus < 2.5 mg/dL Magnesium Sulfate Inj 4 gm/ (Sodium Chloride) 100 mls @ 50 mls/hr IV.SIG UNSCH PRN PRN Reason: For Magnesium 0.9 - 1.1 mg/dL Levetiracetam 500 mg/ Sodium (Chloride) 105 mls @ 400 mls/hr IV.SIG Q12H [facility] Last Admin: 05/13/18 14:56 Dose: 400 mls/hr Norepinephrine Bitartrate 4 mg (/ Sodium Chloride) 250 mls @ 7.5 mls/hr IV.SIG TITRATE PRN; Protocol PRN Reason: Per Protocol Last Titration: 05/12/18 17:35 Dose: 0 mcg/min, 0 mls/hr Sodium Chloride (Sodium Chloride 3% Inj) 500 mls @ 10 mls/hr IV.SIG CONT ONE Stop: 05/15/18 11:59 Last Admin: 05/13/18 09:45 Dose: 10 mls/hr Multivitamins 10 ml/ Thiamine HCl 100 mg/ Folic Acid 1 mg/Sodium Chloride 511.2 mls @ 127.8 mls/hr IV.SIG Q24H [facility] Stop: 05/15/18 13:59 Last Admin: 05/13/18 09:52 Dose: 127.8 mls/hr Insulin Aspart (Novolog Insulin Correctional Sugar Inj) 0 unit SQ Q6HR [facility]; Protocol Last Admin: 05/13/18 12:14 Dose: Not Given Lactulose (Lactulose Liq) 30 ml PO DAILY PRN PRN Reason: SEVERE CONSITIPATION Magnesium Oxide (Mag-Ox) 800 mg PO UNSCH PRN PRN Reason: For Magnesium 1.2 - 1.6 mg/dL Ondansetron HCl (Zofran Odt) 4 mg SL Q6H PRN PRN Reason: NAUSEA OR VOMITING Pantoprazole Sodium (Protonix Inj) 40 mg IV.PUSH Q12H [facility] Last Admin: 05/13/18 09:16 Dose: 40 mg Polyethylene Glycol (Miralax) 17 gm PO BID [facility] Potassium Bicarb/Potassium Chloride (K-Lyte Cl Eff) 50 meq PO UNSCH PRN PRN Reason: For Potassium 3.3 - 3.5 mEq/L Potassium Phosphate (K-Phos Original) 2,000 mg PO Q4H PRN PRN Reason: Phosphorus Less Than 2.5 mg/dL Potassium Phosphate (K-Phos Original) 2,000 mg PO UNSCH PRN PRN Reason: SEE LABEL COMMENTS Senna/Docusate Sodium (Deysi-Colace) 1 tab PO BID [facility] Last Admin: 05/13/18 09:16 Dose: 1 tab Sennosides (Senokot) 17.2 mg PO Q12H PRN PRN Reason: Moderate Constipation Sodium Chloride (Ns Flush) 2 ml IV.FLUSH BID [facility] Last Admin: 05/13/18 09:07 Dose: 2 ml Sodium Chloride (Ns Flush) 2 ml IV.FLUSH PRN PRN PRN Reason: FLUSH AFTER USING IV ACCESS Terbutaline Sulfate (Brethine Inj) 1 mg SQ UNSCH PRN PRN Reason: For Extravasation Whey (Beneprotein Powder) 1 packet G-TUBE TID [facility] Last Admin: 05/13/18 14:56 Dose: Not Given <JagdishSimpson - Last Filed: 05/13/18 15:51> Allergies Allergy/AdvReac Type Severity Reaction Status Date / Time No Known Allergies Allergy Unknown Uncoded 03/27/18 08:50 Home Medications Medication Instructions Recorded Confirmed Type oxycodone 05/12/18 History trazodone 05/12/18 History Exam Vital signs: Vital Signs 05/12/18 11:22 05/12/18 12:00 05/12/18 15:26 Temperature 100.4 F H Pulse Rate 72 Respiratory Rate 16 16 15 Blood Pressure 158/84 H Pulse Oximetry 100 100 100 05/12/18 16:00 05/12/18 20:00 05/12/18 20:07 Temperature 99.7 F H 100 F H Pulse Rate 71 68 Respiratory Rate 15 15 15 Blood Pressure 132/55 L 138/58 L Pulse Oximetry 100 100 05/12/18 22:46 05/13/18 00:00 05/13/18 02:00 Temperature 99.7 F H Pulse Rate 64 63 Respiratory Rate 15 15 Blood Pressure 136/57 L Pulse Oximetry 100 100 05/13/18 04:00 05/13/18 05:08 05/13/18 06:00 Temperature 98.8 F Pulse Rate 65 55 L Respiratory Rate 15 15 Blood Pressure 136/52 L Pulse Oximetry 100 05/13/18 06:06 05/13/18 08:42 05/13/18 09:16 Temperature 98.2 F Pulse Rate 52 L Respiratory Rate 15 15 Blood Pressure 135/51 L Pulse Oximetry 100 100 100 Intake & Output 05/12/18 05/13/18 05/13/18 18:59 06:59 18:59 Intake Total 1455 / 1455 610 / 610 2046 Output Total 940 / 940 Balance 1455 / 1455 -330 / -330 2046 Intake: IV 1455 / 1455 610 / 610 2046 NS + KCl 20 mEq Inj 1,000 ML @ 1000 / 1000 1000 / 1000 100 mls/hr IV.CONT .Q10H [facility] Rx #:[id number] Diprivan 1000 mg/100 ml Inj 1, 100 / 100 100 / 100 000 mg In 100 ml @ 10 MCG/KG/ MIN 3.272 mls/hr IV.CONT TITRATE PRN Rx#:[id number] Sodium Chloride 23.4% Inj 188 1047 / 1047 MEQ In NS Inj 1,000 ML @ 42 mls /hr IV.CONT .Q24H [facility] Rx#: [id number] Potassium Phosphate Inj 30 MMOL 260 / 260 In NS Inj 250 ML @ 42 mls/hr IV.SIG UNSCH PRN Rx#:[id number] fentaNYL 10 mcg/mL Premix Drip 250 / 250 250 / 250 2,500 mcg In 250 ml @ 50 MCG/HR 5 mls/hr IV.SIG TITRATE PRN Rx #:[id number] Keppra Inj 500 MG In NS Inj 100 105 / 105 ML @ 400 mls/hr IV.SIG Q12H [facility] Rx#:[id number] Intake (Blood Product) Amt 0 / 0 Rbc As-3 Leukoreduced Unit 0 / 0 [id number] Rbc As-3 Leukoreduced Unit 0 / 0 [id number] Output: Urine Amount (Catheter) 800 / 800 Indwelling Urethral Catheter 800 / 800 Wound Drainage 140 / 140 # 1 Head MISTY Drain 10 / 10 # 2 Head MISTY Drain 10 / 10 # 3 Head MISTY Drain 120 / 120 - Routine HEENT Exam Head: Present: normocephalic Comments: ICP monitor and [address] - Routine Respiratory Exam Present: patient mechanically ventilated - Routine Cardiovascular Exam Present: RRR - Routine Abdominal Exam Present: soft, normoactive bowel sounds. Absent: distended Comments: OG clamped - Routine Skin Exam Present: dry, warm - Routine Neurological Exam Unresponsive <Milena Marshall - Last Filed: 05/13/18 10:27> Vital signs: Vital Signs 05/12/18 16:00 05/12/18 20:00 05/12/18 20:07 Temperature 99.7 F H 100 F H Pulse Rate 71 68 Respiratory Rate 15 15 15 Blood Pressure 132/55 L 138/58 L Pulse Oximetry 100 100 05/12/18 22:46 05/13/18 00:00 05/13/18 02:00 Temperature 99.7 F H Pulse Rate 64 63 Respiratory Rate 15 15 Blood Pressure 136/57 L Pulse Oximetry 100 100 05/13/18 04:00 05/13/18 05:08 05/13/18 06:00 Temperature 98.8 F Pulse Rate 65 55 L Respiratory Rate 15 15 Blood Pressure 136/52 L Pulse Oximetry 100 05/13/18 06:06 05/13/18 08:00 05/13/18 08:42 Temperature 98.2 F 97.7 F Pulse Rate 52 L 50 L Respiratory Rate 15 15 Blood Pressure 135/51 L 139/61 Pulse Oximetry 100 100 05/13/18 09:16 05/13/18 10:00 05/13/18 11:41 Temperature Pulse Rate 51 L 48 L Respiratory Rate 15 15 Blood Pressure Pulse Oximetry 100 100 05/13/18 12:00 Temperature 97.8 F Pulse Rate 50 L Respiratory Rate 15 Blood Pressure 139/60 Pulse Oximetry Intake & Output 05/12/18 05/13/18 05/13/18 18:59 06:59 18:59 Intake Total 1455 / 1455 610 / 610 4752 / 4752 Output Total 940 / 940 475 / 475 Balance 1455 / 1455 -330 / -330 4277 / 4277 Intake: IV 1455 / 1455 610 / 610 2252 / 2252 NS + KCl 20 mEq Inj 1,000 ML @ 1000 / 1000 1000 / 1000 100 mls/hr IV.CONT .Q10H [facility] Rx #:[id number] Diprivan 1000 mg/100 ml Inj 1, 100 / 100 100 / 100 100 / 100 000 mg In 100 ml @ 10 MCG/KG/ MIN 3.272 mls/hr IV.CONT TITRATE PRN Rx#:[id number] Sodium Chloride 23.4% Inj 188 1047 / 1047 MEQ In NS Inj 1,000 ML @ 42 mls /hr IV.CONT .Q24H [facility] Rx#: [id number] Potassium Phosphate Inj 30 MMOL 260 / 260 In NS Inj 250 ML @ 42 mls/hr IV.SIG UNSCH PRN Rx#:[id number] fentaNYL 10 mcg/mL Premix Drip 250 / 250 250 / 250 2,500 mcg In 250 ml @ 50 MCG/HR 5 mls/hr IV.SIG TITRATE PRN Rx #:[id number] Keppra Inj 500 MG In NS Inj 100 105 / 105 105 / 105 ML @ 400 mls/hr IV.SIG Q12H [facility] Rx#:[id number] Oral 0 / 0 Tube Feeding 0 / 0 Anesthesia Amount 2500 / 2500 Intake (Blood Product) Amt 0 / 0 Rbc As-3 Leukoreduced Unit 0 / 0 [id number] Rbc As-3 Leukoreduced Unit 0 / 0 [id number] Output: Blood Draw 0 / 0 Urine Amount (Catheter) 800 / 800 400 / 400 Indwelling Urethral Catheter 800 / 800 400 / 400 Gastric Drainage 10 / 10 Orogastric Tube 10 10 Wound Drainage 140 / 140 65 / 65 # 1 Head MISTY Drain 10 10 # 2 Head MISTY Drain 10 10 5 / 5 # 3 Head MISTY Drain 120 / 120 50 / 50 Other: # Bowel Movements 0 <Calvin Dubon - Last Filed: 05/13/18 15:51> Results - Labs CBC & Chem 7: 05/13/18 02:45 05/13/18 02:45 Labs: Laboratory Results - last 24 hr 05/12/18 05/12/18 05/12/18 09:15 14:16 19:51 WBC RBC Hgb Hct MCV MCH MCHC RDW Plt Count MPV Prelim Diff (Auto) Neut % (Auto) Lymph % (Auto) Payne % (Auto) Eos % (Auto) Baso % (Auto) Neut # (Auto) Lymph # (Auto) Payne # (Auto) Eos # (Auto) Baso # (Auto) WBC Differential Diff Scan Differential Comment Platelet Estimate Platelet Morphology Smear Path Review Sodium 145 149 H Potassium Chloride Carbon Dioxide Anion Gap BUN Creatinine Estimated GFR Random Glucose Osmolality 295 298 H 301 H Calcium Prot Corrected Calcium Total Bilirubin AST ALT Alkaline Phosphatase Total Protein Albumin MTS Gel Crossmatch Bld Prod Order Comment 05/13/18 05/13/18 05/13/18 02:45 02:45 02:45 WBC 11.4 H RBC 1.76 L Hgb 6.2 L* D Hct 19.0 L* MCV 107.8 H MCH 35.5 H MCHC 32.9 RDW 13.1 Plt Count 204 MPV 8.0 Prelim Diff (Auto) Slide review pending Neut % (Auto) 80.0 H Lymph % (Auto) 11.8 Payne % (Auto) 8.0 Eos % (Auto) 0.0 Baso % (Auto) 0.2 Neut # (Auto) 9.1 H Lymph # (Auto) 1.3 Payne # (Auto) 0.9 Eos # (Auto) 0.0 Baso # (Auto) 0.0 WBC Differential . Diff Scan Auto diff confirmed Differential Comment . Platelet Estimate Normal Platelet Morphology Normal Smear Path Review Sodium 152 H Potassium 3.5 Chloride 122 H D Carbon Dioxide 23.1 Anion Gap 7 BUN 10 Creatinine 0.24 L Estimated GFR Greater than 89 Random Glucose 97 Osmolality 306 H Calcium 7.2 L* Prot Corrected Calcium 8.5 Total Bilirubin 0.2 AST 26 ALT 12 Alkaline Phosphatase 58 Total Protein 4.8 L Albumin 2.0 L MTS Gel Crossmatch Bld Prod Order Comment 05/13/18 05/13/18 02:45 05:12 WBC RBC Hgb Hct MCV MCH MCHC RDW Plt Count MPV Prelim Diff (Auto) Neut % (Auto) Lymph % (Auto) Payne % (Auto) Eos % (Auto) Baso % (Auto) Neut # (Auto) Lymph # (Auto) Payne # (Auto) Eos # (Auto) Baso # (Auto) WBC Differential Diff Scan Differential Comment Platelet Estimate Platelet Morphology Smear Path Review Sodium Potassium Chloride Carbon Dioxide Anion Gap BUN Creatinine Estimated GFR Random Glucose Osmolality Calcium Prot Corrected Calcium Total Bilirubin AST ALT Alkaline Phosphatase Total Protein Albumin MTS Gel Crossmatch See Detail Bld Prod Order Comment - Imaging Impressions Chest X-Ray 05/12/18 23:16 CONCLUSION: 1. Interval placement of right subclavian central venous line with no pneumothorax. 2. Interval placement of nasogastric tube. 3. Stable appearance with no acute cardiopulmonary disease. Head CT 05/13/18 06:00 CONCLUSION: 1. Postoperative changes status post subdural evacuation and drain placement. Small amount of intracranial hemorrhage remains. 2. Possible evolving infarct and a small amount of hemorrhage as above at the level of the midbrain. . Abdomen/Pelvis CT 05/13/18 08:21 CONCLUSION: 1. Small bilateral pleural effusions, mild body wall edema and trace fluid in the pelvis. 2. Nonobstructing right renal calculus. 3. Atherosclerosis. <Milena Marshall - Last Filed: 05/13/18 10:27> - Labs CBC & Chem 7: 05/13/18 09:00 05/13/18 09:00 Labs: Laboratory Results - last 24 hr 05/12/18 05/13/18 05/13/18 19:51 02:45 02:45 WBC 11.4 H RBC 1.76 L Hgb 6.2 L* D Hct 19.0 L* MCV 107.8 H MCH 35.5 H MCHC 32.9 RDW 13.1 Plt Count 204 MPV 8.0 Prelim Diff (Auto) Slide review pending Neut % (Auto) 80.0 H Lymph % (Auto) 11.8 Payne % (Auto) 8.0 Eos % (Auto) 0.0 Baso % (Auto) 0.2 Neut # (Auto) 9.1 H Lymph # (Auto) 1.3 Payne # (Auto) 0.9 Eos # (Auto) 0.0 Baso # (Auto) 0.0 WBC Differential . Diff Scan Auto diff confirmed Differential Comment . Platelet Estimate Normal Platelet Morphology Normal Smear Path Review Retic Count Absolute Retic PT INR Sodium 149 H 152 H Potassium 3.5 Chloride 122 H D Carbon Dioxide 23.1 Anion Gap 7 BUN 10 Creatinine 0.24 L Estimated GFR Greater than 89 POC Glucose Random Glucose 97 Osmolality 301 H Calcium 7.2 L* Prot Corrected Calcium 8.5 Total Bilirubin 0.2 AST 26 ALT 12 Alkaline Phosphatase 58 Troponin I Total Protein 4.8 L Albumin 2.0 L Vitamin B12 Folate TSH MTS Gel Crossmatch Bld Prod Order Comment 05/13/18 05/13/18 05/13/18 02:45 02:45 05:12 WBC RBC Hgb Hct MCV MCH MCHC RDW Plt Count MPV Prelim Diff (Auto) Neut % (Auto) Lymph % (Auto) Payne % (Auto) Eos % (Auto) Baso % (Auto) Neut # (Auto) Lymph # (Auto) Payne # (Auto) Eos # (Auto) Baso # (Auto) WBC Differential Diff Scan Differential Comment Platelet Estimate Platelet Morphology Smear Path Review Retic Count Absolute Retic PT INR Sodium Potassium Chloride Carbon Dioxide Anion Gap BUN Creatinine Estimated GFR POC Glucose Random Glucose Osmolality 306 H Calcium Prot Corrected Calcium Total Bilirubin AST ALT Alkaline Phosphatase Troponin I Total Protein Albumin Vitamin B12 Folate TSH MTS Gel Crossmatch See Detail Bld Prod Order Comment 05/13/18 05/13/18 05/13/18 09:00 09:00 09:00 WBC 12.0 H RBC 2.76 L Hgb 9.2 L D Hct 27.2 L MCV 98.4 D MCH 33.3 MCHC 33.8 RDW 20.4 H D Plt Count 189 MPV 8.9 Prelim Diff (Auto) Neut % (Auto) Lymph % (Auto) Payne % (Auto) Eos % (Auto) Baso % (Auto) Neut # (Auto) Lymph # (Auto) Payne # (Auto) Eos # (Auto) Baso # (Auto) WBC Differential Diff Scan Differential Comment Platelet Estimate Platelet Morphology Smear Path Review Retic Count 1.9 Absolute Retic 47.9 PT 9.4 L INR 0.9 Sodium Potassium Chloride Carbon Dioxide Anion Gap BUN Creatinine Estimated GFR POC Glucose Random Glucose Osmolality Calcium Prot Corrected Calcium Total Bilirubin AST ALT Alkaline Phosphatase Troponin I Total Protein Albumin Vitamin B12 Folate TSH MTS Gel Crossmatch Bld Prod Order Comment 05/13/18 05/13/18 09:00 11:47 WBC RBC Hgb Hct MCV MCH MCHC RDW Plt Count MPV Prelim Diff (Auto) Neut % (Auto) Lymph % (Auto) Payne % (Auto) Eos % (Auto) Baso % (Auto) Neut # (Auto) Lymph # (Auto) Payne # (Auto) Eos # (Auto) Baso # (Auto) WBC Differential Diff Scan Differential Comment Platelet Estimate Platelet Morphology Smear Path Review Retic Count Absolute Retic PT INR Sodium 153 H Potassium Chloride Carbon Dioxide Anion Gap BUN Creatinine Estimated GFR POC Glucose 80 Random Glucose Osmolality 308 H Calcium Prot Corrected Calcium Total Bilirubin AST ALT Alkaline Phosphatase Troponin I 1.12 H* D Total Protein Albumin Vitamin B12 123 L Folate 7.8 TSH 4.450 H MTS Gel Crossmatch Bld Prod Order Comment - Imaging Impressions Chest X-Ray 05/12/18 23:16 CONCLUSION: 1. Interval placement of right subclavian central venous line with no pneumothorax. 2. Interval placement of nasogastric tube. 3. Stable appearance with no acute cardiopulmonary disease. Head CT 05/13/18 06:00 CONCLUSION: 1. Postoperative changes status post subdural evacuation and drain placement. Small amount of intracranial hemorrhage remains. 2. Possible evolving infarct and a small amount of hemorrhage as above at the level of the midbrain. . Abdomen/Pelvis CT 05/13/18 08:21 CONCLUSION: 1. Small bilateral pleural effusions, mild body wall edema and trace fluid in the pelvis. 2. Nonobstructing right renal calculus. 3. Atherosclerosis. <Calvin Dubon - Last Filed: 05/13/18 15:51> Assessment and Plan - Plan Assessment: - Anemia- drop in hgb over night in the setting of ETOH abuse with history of gastric ulcers Hgb 8.3 yesterday and 6.2 today. ? loss from subdural hematoma a factor No evidence of cirrhosis, no coagulopathy or thrombocytopenia. Hypoalbuminemia noted. Fall, unresponsive on arrival, found to have a massive left subdural hematoma with severe mass effect and midline shift S/P emergent right decompressive craniectomy with evacuation of hematoma. Pt is currently in ICU on sedation and mechanically ventilated. Currently with OG which is clamped but according to RN overnight had 50 mL of brown colored output. Pt has not had a BM since admission. EGD noted in records from December [address] Dubon --> Two gastric ulcers 5- 9 mm in size S/P submucosal epi. 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 CT abdomen and pelvis WO IV contrast --> Small bilateral pleural effusions, mild body wall edema and trace fluid in the pelvis. Nonobstructing right renal calculus. Atherosclerosis. - Subdural hematoma S/P evacuation- pt currently with ICP monitor which neurosurgery has been noted stable pressure overnight- MISTY drain x 3- according to RN approximately 100 mL of output Plan: EGD when stable, ? tomorrow if ICP remains stable Obtain consent NPO Monitor OG output and stools Protonix Further recommendations to follow Pt has been seen and examined by myself and Dr. Dubon and this note is written on his behalf <Milena Marshall - Last Filed: 05/13/18 10:27> - Plan Seen and examined, no active bleeding reported. Monitor H/H. EGD only if active bleeding. Discussed with at the bedside. - Attending Attestation The exam, history, and the medical decision-making described in the above note were completed with the assistance of the mid-level provider. I reviewed and agree with the findings presented. I attest that I had a [id number] encounter with the patient on the same day, and personally performed and documented my assessment and findings in the medical record. <Calvin Dubon - Last Filed: 05/13/18 15:51>
[2018-05-13 11:12] LABS: Hematocrit 27.2 % (35.0-46.0); Hemoglobin 9.2 gm/dL (11.6-15.3); Mean Corpuscular HGB Conc 33.8 % (32.0-36.0); Mean Corpuscular Hemoglobin 33.3 pg (27.0-34.0); Mean Corpuscular Volume 98.4 fL (80.0-100.0); Mean Platelet Volume 8.9 fL (7.0-11.0); Platelet Count 189 th/mm3 (150-450); Red Blood Count 2.76 mil/mm3 (4.00-5.30); Red Cell Distribution Width 20.4 % (11.6-17.2)
[2018-05-13 11:13] LABS: Reticulocyte Percent 1.9 % (0.4-3.0)
[2018-05-13 11:18] LABS: INR 0.9 Ratio; Prothrombin Time 9.4 sec (9.8-11.6)
[2018-05-13] MEDS: Hypromellose 0.3% Opth Gel 10 GM Bottle EACH EYE SCH ×2 (11:27→21:08)
[2018-05-13 12:05] LABS: Folate 7.8 ng/mL (3.1-17.5); Thyroid Stimulating Hormone 4.45 uIU/mL (0.358-3.740)
[2018-05-13 12:13] LABS: Troponin I 1.12 ng/mL (0.02-0.05)
[2018-05-13] MEDS: Insulin NovoLOG Aspart Correctional Sugar Inj SQ SCH ×2 (12:14→18:17)
--- NOTE | 2018-05-13 12:22 | P.DIET ---
Nutritional Evaluation Type of nutrition evaluation: initial Nutrition consult regarding: Tube Feeding Objective - Diagnosis Intracranial Hemorrhage, herniation, intubated - Objective % IBW: 114 (IBW = 105#) Body Weight Used for Calculations: Actual (54.5 kg) Energy Needs - Lower Range (kCal/kg): 25 Energy Needs - Upper Range (kCal/kg): 30 Lower Limit kCal/kg (kCals): 1,363 Upper Limit kCal/kg (kCals): 1,635 Lower Limit Protein Factor (Grams per Kg): 1.0 Upper Limit Protein Factor (Grams per Kg): 1.5 Lower Protein Needs (Protein): 55 Upper Protein Needs (Protein): 82 Dietitian Reviewed in Medical Record: Curent medications, Intake & Output, Labs , Medical history, Tube feeding Objective Comments: Hx includes lung CA, Etoh, depression, lymphoma Assessment Assessment: Pt is vented/sedated and needs TFing to meet needs. Current order is for Vital 1.5 @ 55 mls/hr goal. To meet needs with Vital 1.5, recommend goal rate of 45 mls/hr to provide 1620 kcals, 73 gms protein and 825 mls of free water. Some additional kcals will be provided by propofol (1.1 kcal/ml): currently receiving ~343 kcals/day. Pt receivid 3 units of PRBCs d/t low H/H. Recommendations: Vital 1.5 @ 45 mls/hr goal Dietitian to Monitor: Lab values, Intake & Output, Tube feeding tolerance, Weight change, Medical course
[2018-05-13 18:44] LABS: Sodium 153 meq/L (136-145)
[2018-05-13] MEDS: niCARdipine Inj 25 MG in Sodium Chlor 0.9% Inj 240 ML IV.CONT PRN ×2 (19:43→22:29)
--- NOTE | 2018-05-13 20:30 | ECHRPT ---
Indication: CVA/TIA CONCLUSIONS Normal left ventricular size. Wall thickness is normal. The left ventricular systolic function is normal with an estimated ejection fraction in the range of 60-65%. No regional wall motion abnormalities are present. Mild mitral annular calcification is present. Trace mitral valve regurgitation. There is trace tricuspid valve regurgitation. The estimated pulmonary arterial pressure is 46 mmHg. BP: / HR: Rhythm: Technical Quality: FINDINGS LEFT VENTRICLE Normal left ventricular size. Wall thickness is normal. The left ventricular systolic function is normal with an estimated ejection fraction in the range of 60-65%. No regional wall motion abnormalities are present. RIGHT VENTRICLE Normal right ventricular size and systolic function. LEFT ATRIUM The left atrial size is normal. RIGHT ATRIUM The right atrial size is normal. ATRIAL SEPTUM Normal atrial septal thickness without atrial level shunting by limited color doppler interrogation. AORTA The aortic root and proximal ascending aorta are normal in size on limited imaging. MITRAL VALVE Mild mitral annular calcification is present. Trace mitral valve regurgitation. AORTIC VALVE Trileaflet aortic valve. No aortic valve stenosis or regurgitation. TRICUSPID VALVE There is trace tricuspid valve regurgitation. The estimated pulmonary arterial pressure is 46 mmHg. PULMONARY VALVE The pulmonary valve is not well visualized. VESSELS The inferior vena cava is normal in size. PERICARDIUM No pericardial effusion. Jose Alejandro Bledsoe MD (Electronically Signed) Final Date:13 May 2018 20:29
--- NOTE | 2018-05-13 20:41 | CT ---
EXAM DATE: 05/13/2018 8:27 PM EDT AGE/SEX: 62 years / Female INDICATIONS: Neuro status change. CLINICAL DATA: This is the patient's initial encounter. Patient reports that signs and symptoms have been present for 1 day and indicates a pain score of Nonresponsive. MEDICAL/SURGICAL HISTORY: Carcinoma, lung. Lymphoma. . lung surgery RADIATION DOSE: 47.11 CTDI (mGy) COMPARISON: [facility], CT HEAD W/O CONTRAST, 05/13/2018. . TECHNIQUE: CT of the head without contrast. Using automated exposure control and adjustment of the mA and/or kV according to patient size, radiation dose was kept as low as reasonably achievable to ob tain optimal diagnostic quality images. DICOM format image data is available electronically for revi ew and comparison. FINDINGS: Cerebrum: There is previous partial right-sided craniectomy with 3 drains present on the right. Ther e is some residual interhemispheric subdural hematoma present. Posterior Fossa: Again seen is some hemorrhage and edema in the midbrain extending into the trini sim ilar to exam from earlier today. Mild right to left shift stable. Extracranial: The visualized portion of the orbits is intact. Skull: The calvaria is intact. No evidence of skull fracture. CONCLUSION: 1. Stable exam from earlier today. Probable evolving small hemorrhagic infarct in the midbrain exten ding into the upper trini. Multiple right-sided subdural drains remain with mild right to left midline shift and small residual interhemispheric subdural hematoma. . Electronically signed by: Lalo Worthington MD 05/13/2018 8:40 PM EDT
[2018-05-13] MEDS: Polyethylene Glycol 3350 17 GM Packet PO SCH (22:04)
[2018-05-14 01:08] LABS: Hematocrit 26.5 % (35.0-46.0); Hemoglobin 8.8 gm/dL (11.6-15.3)
[2018-05-14] MEDS: Oral Hygiene Kit OROPHARYNG SCH ×4 (01:20→16:06)
--- NOTE | 2018-05-14 04:12 | XR ---
EXAM DATE: 05/14/2018 4:06 AM EDT AGE/SEX: 62 years / Female INDICATIONS: Respiratory failure. CLINICAL DATA: This is the patient's subsequent encounter. Patient reports that signs and symptoms h ave been present for 3 days and indicates a pain score of Nonresponsive. MEDICAL/SURGICAL HISTORY: . Carcinoma, lung. Lymphoma. . Lung surgery COMPARISON: [facility] [place], CHEST 1V SINGLE AP, 05/12/2018. . FINDINGS: A single AP portable semierect view of the chest was obtained and again demonstrates an endotracheal tube in place with the tip approximately 2 to 3 cm above the jason. The nasogastric tube and right s ubclavian central venous line remain in place. The heart size remains within normal limits with no co nfluent infiltrates or effusions. There is no perihilar edema. The bony thorax is intact. There are m ultiple overlying electrocardiogram leads and oxygen tubing. CONCLUSION: No significant change. No definite acute cardiopulmonary disease. Electronically signed by: Pino Schwarz MD 05/14/2018 4:11 AM EDT
[2018-05-14 04:51] LABS: Baso % (Auto) 0.3 % (0.0-2.0); Eos # (Auto) 0.1 th/mm3 (0.0-0.4); Eos % (Auto) 0.5 % (0.0-4.0); Hemoglobin 9.6 gm/dL (11.6-15.3); Lymph # (Auto) 1.5 th/mm3 (1.0-4.8); Lymph % (Auto) 9.6 % (9.0-44.0); Mean Corpuscular HGB Conc 33.2 % (32.0-36.0); Mean Corpuscular Hemoglobin 32.7 pg (27.0-34.0); Mean Corpuscular Volume 98.4 fL (80.0-100.0); Mean Platelet Volume 8.2 fL (7.0-11.0); Mono # (Auto) 0.8 th/mm3 (0.0-0.9); Mono % (Auto) 5.5 % (0.0-8.0); Neut % (Auto) 84.1 % (16.0-70.0); Platelet Count 197 th/mm3 (150-450); Red Blood Count 2.94 mil/mm3 (4.00-5.30); Red Cell Distribution Width 19.7 % (11.6-17.2); White Blood Count 15.5 th/mm3 (4.0-11.0)
[2018-05-14] MEDS: Insulin NovoLOG Aspart Correctional Sugar Inj SQ SCH ×4 (05:05→17:31)
[2018-05-14] MEDS: Chlorhexidine Gluconate 2% 1 Pack (2 Cloths) TOPICAL SCH (05:05)
[2018-05-14 05:09] LABS: Alanine Aminotransferase 13 U/L (10-53); Albumin 2.1 g/dL (3.4-5.0); Alkaline Phosphatase 95 U/L (45-117); Anion Gap 9 meq/L (5-15); Aspartate Aminotransferase 19 U/L (15-37); Blood Urea Nitrogen 6 mg/dL (7-18); Calcium 8.1 mg/dL (8.5-10.1); Carbon Dioxide 21.4 meq/L (21.0-32.0); Chloride 119 meq/L (98-107); Glomerular Filtration Rate Greater Than 89 mL/min (>89); Glucose,Random 105 mg/dL (74-106); Phosphorus 2.9 mg/dL (2.5-4.9); Potassium 3.3 meq/L (3.5-5.1); Sodium 149 meq/L (136-145); Total Protein 5.6 g/dL (6.4-8.2)
[2018-05-14 05:26] LABS: Troponin I 0.61 ng/mL (0.02-0.05)
[2018-05-14 05:51] LABS: ABG Base Excess -2.9 mmol/L (-2-2); ABG PCO2 31 mmHg (38-42); ABG PO2 98 mmHg (61-120)
[2018-05-14] MEDS: Chlorhexidine 0.12% Oral Kit 15 ML UDC OROPHARYNG SCH ×2 (08:06→20:41)
[2018-05-14] MEDS: Beneprotein Powder Packet G-TUBE SCH ×3 (08:06→17:31)
[2018-05-14] MEDS: niCARdipine Inj 25 MG in Sodium Chlor 0.9% Inj 240 ML IV.CONT PRN (08:07)
[2018-05-14] MEDS: Propofol 1000 mg/100 ml Inj 1,000 MG/100 ML BOTTLE IV.CONT PRN ×2 (08:09→16:07)
[2018-05-14] MEDS: Hypromellose 0.3% Opth Gel 10 GM Bottle EACH EYE SCH ×2 (08:58→20:41)
[2018-05-14] MEDS: Polyethylene Glycol 3350 17 GM Packet PO SCH ×2 (08:58→20:41)
[2018-05-14] MEDS: Senna/Docusate Sodium 8.6/50 MG Tablet PO SCH ×2 (08:59→20:40)
--- NOTE | 2018-05-14 09:45 | P.PNNS ---
Subjective Interval history: 05/14: ICP monitor removed yesterday. Reported blood pressure went up during suctioning. Patient was placed on Cardene which controlled blood pressure. Change in neuro exam however and underwent repeat CT Brain last night reports evolving small hemorrhagic infarct in the midbrain extending into the upper trini. Physical Exam Vital signs: Vital Signs 05/13/18 10:00 05/13/18 11:41 05/13/18 12:00 Temperature 97.8 F Pulse Rate 51 L 48 L 50 L Respiratory Rate 15 15 Blood Pressure 139/60 Pulse Oximetry 100 05/13/18 14:00 05/13/18 16:00 05/13/18 16:18 Temperature 97.7 F Pulse Rate 52 L 51 L 50 L Respiratory Rate 15 15 Blood Pressure 132/63 Pulse Oximetry 100 05/13/18 18:00 05/13/18 20:00 05/13/18 20:03 Temperature 98.6 F Pulse Rate 52 L 54 L 60 Respiratory Rate 15 15 Blood Pressure 166/64 H Pulse Oximetry 100 100 05/13/18 20:17 05/13/18 22:00 05/13/18 22:30 Temperature Pulse Rate 54 L Respiratory Rate Blood Pressure 122/48 L Pulse Oximetry 100 05/13/18 23:14 05/13/18 23:22 05/14/18 00:00 Temperature 98.2 F Pulse Rate 69 56 L Respiratory Rate 15 15 15 Blood Pressure 110/44 L Pulse Oximetry 100 100 05/14/18 01:30 05/14/18 02:00 05/14/18 02:21 Temperature Pulse Rate 55 L Respiratory Rate 15 Blood Pressure 122/48 L Pulse Oximetry 100 05/14/18 03:39 05/14/18 04:00 05/14/18 04:24 Temperature 97.9 F Pulse Rate 60 76 Respiratory Rate 15 15 16 Blood Pressure 158/62 H Pulse Oximetry 100 100 05/14/18 06:00 05/14/18 07:47 05/14/18 08:00 Temperature 97.7 F Pulse Rate 60 87 79 Respiratory Rate 20 15 Blood Pressure 132/49 L Pulse Oximetry 100 97 Intake & Output 05/13/18 05/14/18 05/14/18 18:59 06:59 18:59 Intake Total 5868.2 / 5868.2 3150 / 3150 350 / 350 Output Total 1090 / 1090 1110 / 1110 Balance 4778.2 / 4778.2 2040 / 2040 350 / 350 Intake: IV 3368.2 / 3368.2 2350 / 2350 350 / 350 NS + KCl 20 mEq Inj 1,000 ML @ 1000 / 1000 2000 / 2000 100 mls/hr IV.CONT .Q10H CARLOS Rx #:[id number] Diprivan 1000 mg/100 ml Inj 1, 100 / 100 100 / 100 100 / 100 000 mg In 100 ml @ 10 MCG/KG/ MIN 3.272 mls/hr IV.CONT TITRATE PRN Rx#:[id number] Sodium Chloride 23.4% Inj 188 1047 / 1047 MEQ In NS Inj 1,000 ML @ 42 mls /hr IV.CONT .Q24H CARLOS Rx#: [id number] Cardene Inj 25 MG In NS Inj 240 250 / 250 250 / 250 250 / 250 ML @ 5 MG/HR 50 mls/hr IV.CONT TITRATE PRN Rx#:[id number] MVI-12 Inj 10 ML Thiamine Inj 511.2 / 511.2 100 MG Folvite Inj 1 MG In NS Inj 500 ML @ 127.8 mls/hr IV. SIG Q24H CARLOS Rx#:[id number] fentaNYL 10 mcg/mL Premix Drip 250 / 250 2,500 mcg In 250 ml @ 50 MCG/HR 5 mls/hr IV.SIG TITRATE PRN Rx #:[id number] Keppra Inj 500 MG In NS Inj 100 210 / 210 ML @ 400 mls/hr IV.SIG Q12H CARLOS Rx#:[id number] Oral 0 / 0 Tube Feeding 0 / 0 Anesthesia Amount 2500 / 2500 Intake (Blood Product) Amt 800 / 800 Rbc As-3 Leukoreduced Unit 400 / 400 [id number] Rbc As-3 Leukoreduced Unit 400 / 400 [id number] Output: Blood Draw 0 / 0 Urine Amount (Catheter) 950 / 950 1000 / 1000 Indwelling Urethral Catheter 950 / 950 1000 / 1000 Gastric Drainage 10 / 10 Orogastric Tube 10 / 10 Wound Drainage 130 / 130 110 / 110 # 1 Head MISTY Drain 20 / 20 10 / 10 # 2 Head MISTY Drain 10 / 10 10 / 10 # 3 Head MISTY Drain 100 / 100 90 / 90 Other: # Bowel Movements 0 Narrative: Intubated, sedated on propofol drip. Right softer, appears mildly decompressed. surgical wound clean and dry. MISTY drains in place. Right pupil size 4 mm nonreactive, left pupil 2 mm slight extension right foot, otherwise no response to pain. Positive cough Does not ope eyes or follow commands. - Urinary Catheter Management Indwelling Urethral Catheter Cath placed during this visit: yes Reason for continuing: Hourly intake/output Insertion date: 05/11/18 Insertion time: 12:00 Assessment and Plan - Plan Impression: 62 y/o female with large right subdural hematoma with severe mass effect and midline shift, s/p emergent right decompressive craniectomy with evacuation of subdural hematoma, and placement of ICP monitor 05/11/18, s/p removal of ICP monitor 05/13/18 history of etoh abuse Plan: repeat CT Brain reviewed by Dr. Abad, cont blood pressure control and critical care mgt per trauma team cont neuro checks cont seizure prophylaxis Dr. Abad dw in room, his questions answered
[2018-05-14 09:46] LABS: Sodium 149 meq/L (136-145)
--- NOTE | 2018-05-14 11:13 | P.PNGI ---
Subjective Interval history: Pt remains sedated and intubated. at bedside, expresses his concern about how much pt has been drinking. Spoke with Felicia, RN states no BM, output from OG is yellow in color. <Milena Marshall - Last Filed: 05/14/18 11:08> Physical Exam Vital signs: Vital Signs 05/13/18 11:41 05/13/18 12:00 05/13/18 14:00 Temperature 97.8 F Pulse Rate 48 L 50 L 52 L Respiratory Rate 15 15 Blood Pressure 139/60 Pulse Oximetry 100 05/13/18 16:00 05/13/18 16:18 05/13/18 18:00 Temperature 97.7 F Pulse Rate 51 L 50 L 52 L Respiratory Rate 15 15 Blood Pressure 132/63 Pulse Oximetry 100 05/13/18 20:00 05/13/18 20:03 05/13/18 20:17 Temperature 98.6 F Pulse Rate 54 L 60 Respiratory Rate 15 15 Blood Pressure 166/64 H Pulse Oximetry 100 100 100 05/13/18 22:00 05/13/18 22:30 05/13/18 23:14 Temperature Pulse Rate 54 L Respiratory Rate 15 Blood Pressure 122/48 L Pulse Oximetry 100 05/13/18 23:22 05/14/18 00:00 05/14/18 01:30 Temperature 98.2 F Pulse Rate 69 56 L Respiratory Rate 15 15 Blood Pressure 110/44 L 122/48 L Pulse Oximetry 100 05/14/18 02:00 05/14/18 02:21 05/14/18 03:39 Temperature Pulse Rate 55 L 60 Respiratory Rate 15 15 Blood Pressure Pulse Oximetry 100 05/14/18 04:00 05/14/18 04:24 05/14/18 06:00 Temperature 97.9 F Pulse Rate 76 60 Respiratory Rate 15 16 Blood Pressure 158/62 H Pulse Oximetry 100 100 05/14/18 07:47 05/14/18 08:00 05/14/18 10:00 Temperature 97.7 F Pulse Rate 87 79 71 Respiratory Rate 20 15 Blood Pressure 132/49 L Pulse Oximetry 100 97 Intake & Output 05/13/18 05/14/18 05/14/18 18:59 06:59 18:59 Intake Total 5868.2 / 5868.2 3150 / 3150 350 / 350 Output Total 1090 / 1090 1110 / 1110 0 / 0 Balance 4778.2 / 4778.2 2040 / 2040 350 / 350 Intake: IV 3368.2 / 3368.2 2350 / 2350 350 / 350 NS + KCl 20 mEq Inj 1,000 ML @ 1000 / 1000 2000 / 2000 100 mls/hr IV.CONT .Q10H [facility] Rx #:[id number] Diprivan 1000 mg/100 ml Inj 1, 100 / 100 100 / 100 100 / 100 000 mg In 100 ml @ 10 MCG/KG/ MIN 3.272 mls/hr IV.CONT TITRATE PRN Rx#:[id number] Sodium Chloride 23.4% Inj 188 1047 / 1047 MEQ In NS Inj 1,000 ML @ 42 mls /hr IV.CONT .Q24H CAR[facility] Rx#: [id number] Cardene Inj 25 MG In NS Inj 240 250 / 250 250 / 250 250 / 250 ML @ 5 MG/HR 50 mls/hr IV.CONT TITRATE PRN Rx#:[id number] MVI-12 Inj 10 ML Thiamine Inj 511.2 / 511.2 100 MG Folvite Inj 1 MG In NS Inj 500 ML @ 127.8 mls/hr IV. SIG Q24H [facility] Rx#:[id number] fentaNYL 10 mcg/mL Premix Drip 250 / 250 2,500 mcg In 250 ml @ 50 MCG/HR 5 mls/hr IV.SIG TITRATE PRN Rx #:[id number] Keppra Inj 500 MG In NS Inj 100 210 / 210 ML @ 400 mls/hr IV.SIG Q12H [facility] Rx#:[id number] Oral 0 / 0 0 / 0 Tube Feeding 0 / 0 0 / 0 Anesthesia Amount 2500 / 2500 Intake (Blood Product) Amt 800 / 800 Rbc As-3 Leukoreduced Unit 400 / 400 [id number] Rbc As-3 Leukoreduced Unit 400 / 400 [id number] Output: Blood Draw 0 / 0 0 / 0 Urine Amount (Catheter) 950 / 950 1000 / 1000 Indwelling Urethral Catheter 950 / 950 1000 / 1000 Gastric Drainage 10 / 10 Orogastric Tube 10 / 10 Wound Drainage 130 / 130 110 / 110 # 1 Head MISTY Drain 20 / 20 10 / 10 # 2 Head MISTY Drain 10 / 10 10 / 10 # 3 Head MISTY Drain 100 / 100 90 / 90 Other: # Bowel Movements 0 0 - Constitutional Comments: Sedated, unresponsive - Routine HEENT Exam Head: Present: normocephalic Comments: MISTY drain x 3 and ICP monitor - Routine Respiratory Exam Present: patient mechanically ventilated - Routine Abdominal Exam Present: soft, normoactive bowel sounds. Absent: distended - Urinary Catheter Management Indwelling Urethral Catheter Cath placed during this visit: yes Reason for continuing: Hourly intake/output Insertion date: 05/11/18 Insertion time: 12:00 <Milena Marshall - Last Filed: 05/14/18 11:08> Vital signs: Vital Signs 05/13/18 16:00 05/13/18 16:18 05/13/18 18:00 Temperature 97.7 F Pulse Rate 51 L 50 L 52 L Respiratory Rate 15 15 Blood Pressure 132/63 Pulse Oximetry 100 05/13/18 20:00 05/13/18 20:03 05/13/18 20:17 Temperature 98.6 F Pulse Rate 54 L 60 Respiratory Rate 15 15 Blood Pressure 166/64 H Pulse Oximetry 100 100 100 05/13/18 22:00 05/13/18 22:30 05/13/18 23:14 Temperature Pulse Rate 54 L Respiratory Rate 15 Blood Pressure 122/48 L Pulse Oximetry 100 05/13/18 23:22 05/14/18 00:00 05/14/18 01:30 Temperature 98.2 F Pulse Rate 69 56 L Respiratory Rate 15 15 Blood Pressure 110/44 L 122/48 L Pulse Oximetry 100 05/14/18 02:00 05/14/18 02:21 05/14/18 03:39 Temperature Pulse Rate 55 L 60 Respiratory Rate 15 15 Blood Pressure Pulse Oximetry 100 05/14/18 04:00 05/14/18 04:24 05/14/18 06:00 Temperature 97.9 F Pulse Rate 76 60 Respiratory Rate 15 16 Blood Pressure 158/62 H Pulse Oximetry 100 100 05/14/18 07:47 05/14/18 08:00 05/14/18 10:00 Temperature 97.7 F Pulse Rate 87 79 71 Respiratory Rate 20 15 Blood Pressure 132/49 L Pulse Oximetry 100 97 05/14/18 11:54 05/14/18 12:00 05/14/18 14:00 Temperature 98.5 F Pulse Rate 70 58 L 64 Respiratory Rate 15 15 Blood Pressure 122/44 L Pulse Oximetry 97 100 Intake & Output 05/13/18 05/14/18 05/14/18 18:59 06:59 18:59 Intake Total 5868.2 / 5868.2 3150 / 3150 705 / 705 Output Total 1090 / 1090 1110 / 1110 0 / 0 Balance 4778.2 / 4778.2 2040 / 2040 705 / 705 Intake: IV 3368.2 / 3368.2 2350 / 2350 705 / 705 NS + KCl 20 mEq Inj 1,000 ML @ 1000 / 1000 2000 / 2000 100 mls/hr IV.CONT .Q10H [facility] Rx #:[id number] Diprivan 1000 mg/100 ml Inj 1, 100 / 100 100 / 100 100 / 100 000 mg In 100 ml @ 10 MCG/KG/ MIN 3.272 mls/hr IV.CONT TITRATE PRN Rx#:[id number] Sodium Chloride 23.4% Inj 188 1047 / 1047 MEQ In NS Inj 1,000 ML @ 42 mls /hr IV.CONT .Q24H [facility] Rx#: [id number] Cardene Inj 25 MG In NS Inj 240 250 / 250 250 / 250 500 / 500 ML @ 5 MG/HR 50 mls/hr IV.CONT TITRATE PRN Rx#:[id number] MVI-12 Inj 10 ML Thiamine Inj 511.2 / 511.2 100 MG Folvite Inj 1 MG In NS Inj 500 ML @ 127.8 mls/hr IV. SIG Q24H [facility] Rx#:[id number] fentaNYL 10 mcg/mL Premix Drip 250 / 250 2,500 mcg In 250 ml @ 50 MCG/HR 5 mls/hr IV.SIG TITRATE PRN Rx #:[id number] Keppra Inj 500 MG In NS Inj 100 210 / 210 105 / 105 ML @ 400 mls/hr IV.SIG Q12H [facility] Rx#:[id number] Oral 0 / 0 0 / 0 Tube Feeding 0 / 0 0 / 0 Anesthesia Amount 2500 / 2500 Intake (Blood Product) Amt 800 / 800 Rbc As-3 Leukoreduced Unit 400 / 400 [id number] Rbc As-3 Leukoreduced Unit 400 / 400 [id number] Output: Blood Draw 0 / 0 0 / 0 Urine Amount (Catheter) 950 / 950 1000 / 1000 Indwelling Urethral Catheter 950 / 950 1000 / 1000 Gastric Drainage Orogastric Tube Wound Drainage 130 / 130 110 / 110 # 1 Head MISTY Drain # 2 Head MISTY Drain # 3 Head MISTY Drain 100 / 100 90 / 90 Other: # Bowel Movements 0 0 - Urinary Catheter Management Indwelling Urethral Catheter Cath placed during this visit: no <JagdishSimpson - Last Filed: 05/14/18 14:54> Results - Labs CBC & Chem 7: 05/14/18 04:20 05/14/18 08:45 Laboratory Results - last 24 hr 05/13/18 05/13/18 05/13/18 05:12 09:00 09:00 WBC 12.0 H RBC 2.76 L Hgb 9.2 L D Hct 27.2 L MCV 98.4 D MCH 33.3 MCHC 33.8 RDW 20.4 H D Plt Count 189 MPV 8.9 Neut % (Auto) Lymph % (Auto) [place] % (Auto) Eos % (Auto) Baso % (Auto) Neut # (Auto) Lymph # (Auto) [place] # (Auto) Eos # (Auto) Baso # (Auto) WBC Differential Differential Comment Retic Count Absolute Retic PT 9.4 L INR 0.9 Puncture Site Patient Temperature O2 Saturation ABG pH ABG pCO2 ABG pO2 ABG HCO3 ABG O2 Content ABG Base Excess ABG Methemoglobin Hemoglobin Carboxyhemoglobin O2 Delivery Device Vent Setting Inspired O2 Critical Value Sodium Potassium Chloride Carbon Dioxide Anion Gap BUN Creatinine Estimated GFR POC Glucose Random Glucose Osmolality Calcium Phosphorus Magnesium Total Bilirubin AST ALT Alkaline Phosphatase Troponin I Total Protein Albumin Vitamin B12 Folate TSH MTS Gel Crossmatch See Detail 05/13/18 05/13/18 05/13/18 09:00 09:00 11:47 WBC RBC Hgb Hct MCV MCH MCHC RDW Plt Count MPV Neut % (Auto) Lymph % (Auto) [place] % (Auto) Eos % (Auto) Baso % (Auto) Neut # (Auto) Lymph # (Auto) [place] # (Auto) Eos # (Auto) Baso # (Auto) WBC Differential Differential Comment Retic Count 1.9 Absolute Retic 47.9 PT INR Puncture Site Patient Temperature O2 Saturation ABG pH ABG pCO2 ABG pO2 ABG HCO3 ABG O2 Content ABG Base Excess ABG Methemoglobin Hemoglobin Carboxyhemoglobin O2 Delivery Device Vent Setting Inspired O2 Critical Value Sodium 153 H Potassium Chloride Carbon Dioxide Anion Gap BUN Creatinine Estimated GFR POC Glucose 80 Random Glucose Osmolality 308 H Calcium Phosphorus Magnesium Total Bilirubin AST ALT Alkaline Phosphatase Troponin I 1.12 H* D Total Protein Albumin Vitamin B12 123 L Folate 7.8 TSH 4.450 H MTS Gel Crossmatch 05/13/18 05/13/18 05/14/18 17:27 17:34 00:51 WBC RBC Hgb 8.8 L Hct 26.5 L MCV MCH MCHC RDW Plt Count MPV Neut % (Auto) Lymph % (Auto) [place] % (Auto) Eos % (Auto) Baso % (Auto) Neut # (Auto) Lymph # (Auto) [place] # (Auto) Eos # (Auto) Baso # (Auto) WBC Differential Differential Comment Retic Count Absolute Retic PT INR Puncture Site Patient Temperature O2 Saturation ABG pH ABG pCO2 ABG pO2 ABG HCO3 ABG O2 Content ABG Base Excess ABG Methemoglobin Hemoglobin Carboxyhemoglobin O2 Delivery Device Vent Setting Inspired O2 Critical Value Sodium 153 H Potassium Chloride Carbon Dioxide Anion Gap BUN Creatinine Estimated GFR POC Glucose 75 Random Glucose Osmolality 311 H Calcium Phosphorus Magnesium Total Bilirubin AST ALT Alkaline Phosphatase Troponin I Total Protein Albumin Vitamin B12 Folate TSH MTS Gel Crossmatch 05/14/18 05/14/18 05/14/18 04:20 04:20 04:20 WBC 15.5 H RBC 2.94 L Hgb 9.6 L Hct 29.0 L MCV 98.4 MCH 32.7 MCHC 33.2 RDW 19.7 H Plt Count 197 MPV 8.2 Neut % (Auto) 84.1 H Lymph % (Auto) 9.6 [place] % (Auto) 5.5 Eos % (Auto) 0.5 Baso % (Auto) 0.3 Neut # (Auto) 13.0 H Lymph # (Auto) 1.5 [place] # (Auto) 0.8 Eos # (Auto) 0.1 Baso # (Auto) 0.0 WBC Differential . Differential Comment Auto diff final Retic Count Absolute Retic PT INR Puncture Site Patient Temperature O2 Saturation ABG pH ABG pCO2 ABG pO2 ABG HCO3 ABG O2 Content ABG Base Excess ABG Methemoglobin Hemoglobin Carboxyhemoglobin O2 Delivery Device Vent Setting Inspired O2 Critical Value Sodium 149 H Cancelled Potassium 3.3 L Chloride 119 H Carbon Dioxide 21.4 Anion Gap 9 BUN 6 L Creatinine 0.27 L Estimated GFR Greater than 89 POC Glucose Random Glucose 105 Osmolality 303 H Calcium 8.1 L D Phosphorus 2.9 Magnesium 2.0 Total Bilirubin 0.4 AST 19 ALT 13 Alkaline Phosphatase 95 Troponin I 0.61 H* D Total Protein 5.6 L D Albumin 2.1 L Vitamin B12 Folate TSH MTS Gel Crossmatch 05/14/18 05/14/18 05/14/18 05:42 08:45 08:56 WBC RBC Hgb Hct MCV MCH MCHC RDW Plt Count MPV Neut % (Auto) Lymph % (Auto) [place] % (Auto) Eos % (Auto) Baso % (Auto) Neut # (Auto) Lymph # (Auto) [place] # (Auto) Eos # (Auto) Baso # (Auto) WBC Differential Differential Comment Retic Count Absolute Retic PT INR Puncture Site Art line Patient Temperature 98.6 O2 Saturation 96 ABG pH 7.44 H ABG pCO2 31 L ABG pO2 98 ABG HCO3 21 L ABG O2 Content 12.5 ABG Base Excess -2.9 L ABG Methemoglobin 1.3 Hemoglobin 9.2 L Carboxyhemoglobin 1.3 O2 Delivery Device Vent Vent Setting Prvc/ac Inspired O2 30 Critical Value No Sodium 149 H Potassium Chloride Carbon Dioxide Anion Gap BUN Creatinine Estimated GFR POC Glucose 94 Random Glucose Osmolality 302 H Calcium Phosphorus Magnesium Total Bilirubin AST ALT Alkaline Phosphatase Troponin I Total Protein Albumin Vitamin B12 Folate TSH MTS Gel Crossmatch - Imaging Impressions Head CT 05/13/18 19:54 CONCLUSION: 1. Stable exam from earlier today. 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 Multiple right-sided subdural drains remain with mild right to left midline shift and small residual interhemispheric subdural hematoma. . Chest X-Ray 05/14/18 06:00 CONCLUSION: No significant change. No definite acute cardiopulmonary disease. <Milena Marshall - Last Filed: 05/14/18 11:08> - Labs CBC & Chem 7: 05/14/18 04:20 05/14/18 08:45 Laboratory Results - last 24 hr 05/13/18 05/13/18 05/13/18 05:12 17:27 17:34 WBC RBC Hgb Hct MCV MCH MCHC RDW Plt Count MPV Neut % (Auto) Lymph % (Auto) [place] % (Auto) Eos % (Auto) Baso % (Auto) Neut # (Auto) Lymph # (Auto) [place] # (Auto) Eos # (Auto) Baso # (Auto) WBC Differential Differential Comment APTT Puncture Site Patient Temperature O2 Saturation ABG pH ABG pCO2 ABG pO2 ABG HCO3 ABG O2 Content ABG Base Excess ABG Methemoglobin Hemoglobin Carboxyhemoglobin O2 Delivery Device Vent Setting Inspired O2 Critical Value Sodium 153 H Potassium Chloride Carbon Dioxide Anion Gap BUN Creatinine Estimated GFR POC Glucose 75 Random Glucose Osmolality 311 H Calcium Phosphorus Magnesium Total Bilirubin AST ALT Alkaline Phosphatase Troponin I Total Protein Albumin MTS Gel Crossmatch See Detail 05/14/18 05/14/18 05/14/18 00:51 04:20 04:20 WBC 15.5 H RBC 2.94 L Hgb 8.8 L 9.6 L Hct 26.5 L 29.0 L MCV 98.4 MCH 32.7 MCHC 33.2 RDW 19.7 H Plt Count 197 MPV 8.2 Neut % (Auto) 84.1 H Lymph % (Auto) 9.6 [place] % (Auto) 5.5 Eos % (Auto) 0.5 Baso % (Auto) 0.3 Neut # (Auto) 13.0 H Lymph # (Auto) 1.5 [place] # (Auto) 0.8 Eos # (Auto) 0.1 Baso # (Auto) 0.0 WBC Differential . Differential Comment Auto diff final APTT Puncture Site Patient Temperature O2 Saturation ABG pH ABG pCO2 ABG pO2 ABG HCO3 ABG O2 Content ABG Base Excess ABG Methemoglobin Hemoglobin Carboxyhemoglobin O2 Delivery Device Vent Setting Inspired O2 Critical Value Sodium 149 H Potassium 3.3 L Chloride 119 H Carbon Dioxide 21.4 Anion Gap 9 BUN 6 L Creatinine 0.27 L Estimated GFR Greater than 89 POC Glucose Random Glucose 105 Osmolality Calcium 8.1 L D Phosphorus 2.9 Magnesium 2.0 Total Bilirubin 0.4 AST 19 ALT 13 Alkaline Phosphatase 95 Troponin I 0.61 H* D Total Protein 5.6 L D Albumin 2.1 L MTS Gel Crossmatch 05/14/18 05/14/18 05/14/18 04:20 05:42 08:45 WBC RBC Hgb Hct MCV MCH MCHC RDW Plt Count MPV Neut % (Auto) Lymph % (Auto) [place] % (Auto) Eos % (Auto) Baso % (Auto) Neut # (Auto) Lymph # (Auto) [place] # (Auto) Eos # (Auto) Baso # (Auto) WBC Differential Differential Comment APTT Puncture Site Art line Patient Temperature 98.6 O2 Saturation 96 ABG pH 7.44 H ABG pCO2 31 L ABG pO2 98 ABG HCO3 21 L ABG O2 Content 12.5 ABG Base Excess -2.9 L ABG Methemoglobin 1.3 Hemoglobin 9.2 L Carboxyhemoglobin 1.3 O2 Delivery Device Vent Vent Setting Prvc/ac Inspired O2 30 Critical Value No Sodium Cancelled 149 H Potassium Chloride Carbon Dioxide Anion Gap BUN Creatinine Estimated GFR POC Glucose Random Glucose Osmolality 303 H 302 H Calcium Phosphorus Magnesium Total Bilirubin AST ALT Alkaline Phosphatase Troponin I Total Protein Albumin MTS Gel Crossmatch 05/14/18 05/14/18 05/14/18 08:56 12:00 12:29 WBC RBC Hgb Hct MCV MCH MCHC RDW Plt Count MPV Neut % (Auto) Lymph % (Auto) [place] % (Auto) Eos % (Auto) Baso % (Auto) Neut # (Auto) Lymph # (Auto) [place] # (Auto) Eos # (Auto) Baso # (Auto) WBC Differential Differential Comment APTT 26.2 Puncture Site Patient Temperature O2 Saturation ABG pH ABG pCO2 ABG pO2 ABG HCO3 ABG O2 Content ABG Base Excess ABG Methemoglobin Hemoglobin Carboxyhemoglobin O2 Delivery Device Vent Setting Inspired O2 Critical Value Sodium Potassium Chloride Carbon Dioxide Anion Gap BUN Creatinine Estimated GFR POC Glucose 94 104 Random Glucose Osmolality Calcium Phosphorus Magnesium Total Bilirubin AST ALT Alkaline Phosphatase Troponin I Total Protein Albumin MTS Gel Crossmatch - Imaging Impressions Head CT 05/13/18 19:54 CONCLUSION: 1. Stable exam from earlier today. 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 Multiple right-sided subdural drains remain with mild right to left midline shift and small residual interhemispheric subdural hematoma. . Chest X-Ray 05/14/18 06:00 CONCLUSION: No significant change. No definite acute cardiopulmonary disease. <Calvin Dubon - Last Filed: 05/14/18 14:54> Assessment and Plan - Plan Assessment: - Anemia- drop in hgb over night in the setting of ETOH abuse with history of gastric ulcers Hgb 8.3 yesterday and 6.2 today. ? loss from subdural hematoma a factor No evidence of cirrhosis, no coagulopathy or thrombocytopenia. Hypoalbuminemia noted. Fall, unresponsive on arrival, found to have a massive left subdural hematoma with severe mass effect and midline shift S/P emergent right decompressive craniectomy with evacuation of hematoma. Pt is currently in ICU on sedation and mechanically ventilated. Currently with OG which is clamped but according to RN overnight had 50 mL of brown colored output. Pt has not had a BM since admission. EGD noted in records from December [address] Dubon --> Two gastric ulcers 5- 9 mm in size S/P submucosal epi. 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 CT abdomen and pelvis WO IV contrast --> Small bilateral pleural effusions, mild body wall edema and trace fluid in the pelvis. Nonobstructing right renal calculus. Atherosclerosis. - Subdural hematoma S/P evacuation- pt currently with ICP monitor which neurosurgery has been noted stable pressure overnight- MISTY drain x 3- according to RN approximately 100 mL of output - ETOH abuse- Per pt has been to alcohol rehab four times, she was succesful for a short amount of time on Antabuse. He thinks the day she fell she had drank about two bottles of wine and four beers (05/14) Pt remains sedated and intubated. Discussed with TIFFANIE Duarte pt with no BM , OG with yellow output. No obvious GIB. Plan remains the same, no EGD unless active GIB noted. at bedside, also notes that pt has been taking a lot of Ibuprofen for coccyx pain, also reports he did not realize how bad her drinking was because she was trying to hide it from him. She has been to rehab four times in the past, has also been on Antabuse with short term improvement. Plan: Monitor H/H Transfuse as needed Protonix Our service will sign off, please reconsult as needed EGD if active bleeding Pt has been seen and examined by myself and Dr. Dubon and this note is written on his behalf <Milena Marshall - Last Filed: 05/14/18 11:08> - Plan The exam, history, and the medical decision-making described in the above note were completed with the assistance of the mid-level provider. I reviewed and agree with the findings presented. I attest that I had a [id number] encounter with the patient on the same day, and personally performed and documented my assessment and findings in the medical record. <Calvin Dubon - Last Filed: 05/14/18 14:54>
--- NOTE | 2018-05-14 11:25 | P.NPEVAL ---
Patient History - Record/History Review Reason for Referral: The patient is a 62 year old unknown handed female status post traumatic brain injury who initially presented to [facility] on 05/11/2018 after a series of falls and was discovered by family unresponsive with a GCS of 4. Head CT showed large right SDH with left shift and parenchymal hemorrhage in the midbrain. The patient underwent DC. Recently, the patient experienced hypertensive episode and neurological changes, and follow-up CT showed small hemorrhagic infarct in the midbrain and upper trini. This patient is referred for baseline neurobehavioral status examination per trauma protocol to assess cognitive, behavioral and emotional aspects of the injury and to provide treatment recommendations. [facility] - History History Provided By: Senior Medical Technologist / EMT - Medical History Medical History: Medical History (Last Reviewed 05/14/18 @ 10:37 by Jose R Kumar) Cancer Depressed Lung cancer Lymphoma Alcohol abuse - Surgical History Surgical History: Surgical History (Last Reviewed 05/14/18 @ 10:37 by Jose R Kumar) History of lung surgery - Tobacco History Second Hand Smoke Exposure: No Tobacco Use In Past 30 Days: Yes Smoking Status: Unknown if ever smoked Tobacco Type: Cigarettes - Alcohol History How Often Do You Have a Drink Containing Alcohol: 4 or more times a week - Substance Use History Substance History: Unable to Obtain - Travel History Recent Travel in the [place] Within the Last 8 Weeks: No Recent Travel Out of the Country Within the Last 8 Weeks: No - Immunization History Tetanus Immunization: Unable to Assess Hx Influenza Vaccine This Season: Unable to Assess Medications Active Medications Acetaminophen (Tylenol Liq) 650 mg NG/OG Q6H PRN PRN Reason: FEVER Al Hydroxide/Mg Hydroxide (Milk Of Magnesia Liq) 30 ml PO Q12H PRN PRN Reason: Mild Constipation Albuterol (Albuterol Neb (Prn)) 2.5 mg NEB Q2HR NEB PRN PRN Reason: DYSPNEA Albuterol (Duoneb Neb (Gautam)) 1 ampul NEB Q4HR NEB GAUTAM Last Admin: 05/14/18 07:46 Dose: 1 ampul Artificial Tears (Genteal Severe Dry Eye Relief 0.3% Opth Gel) 1 drops EACH EYE BID GAUTAM Last Admin: 05/14/18 08:58 Dose: 1 drops Bacitracin (Baciguent Oint) 1 applicatio TOPICAL BID GAUTAM Last Admin: 05/14/18 08:06 Dose: 1 applicatio Bisacodyl (Dulcolax Supp) 10 mg RECTAL DAILY PRN PRN Reason: SEVERE CONSITIPATION Chlorhexidine Gluconate (Peridex 0.12% Oral Kit) 15 ml OROPHARYNG BID@0800, 1999 [facility] Last Admin: 05/14/18 08:06 Dose: 15 ml Chlorhexidine Gluconate (Chlorhexidine 2% Cloth) 3 pack TOPICAL DAILY@0400 GAUTAM Stop: 05/17/18 03:59 Last Admin: 05/14/18 05:05 Dose: 3 pack Chlorhexidine Gluconate (Chlorhexidine 2% Cloth) 3 pack TOPICAL DAILY@0400 PRN PRN Reason: Extra cloth needed Stop: 05/17/18 03:59 Clonidine HCl (Catapress-Tts 0.1 Mg Patch.7d) 1 patch T-DERMAL Q7D [facility] Dextrose (D50w Vial) 50 ml IV.PUSH UNSCH PRN PRN Reason: PER HYPOGLYCEMIA PROTOCOL Last Admin: 05/13/18 17:49 Dose: 50 ml Glucagon (Glucagon Inj) 1 mg OTHER UNSCH PRN PRN Reason: for Hypoglycemia Protocol Nicardipine HCl 25 mg/ Sodium (Chloride) 250 mls @ 50 mls/hr IV.CONT TITRATE PRN; Protocol PRN Reason: Per Protocol Last Admin: 05/14/18 08:07 Dose: 5 mg/hr, 50 mls/hr Fentanyl (Fentanyl 10 Mcg/Ml Premix Drip) 2,500 mcg in 250 mls @ 5 mls/hr IV.SIG TITRATE PRN; Protocol PRN Reason: Per Protocol Last Admin: 05/13/18 18:53 Dose: 200 mcg/hr, 20 mls/hr Midazolam HCl (Versed Inj) 50 mg in 50 mls @ 2 mls/hr IV.CONT TITRATE PRN; Protocol PRN Reason: Per Protocol Calcium Gluconate 1 gm/ Sodium (Chloride) 110 mls @ 110 mls/hr IV.SIG UNSCH PRN PRN Reason: SEE LABEL COMMENTS Magnesium Sulfate Inj 2 gm/ (Sodium Chloride) 100 mls @ 100 mls/hr IV.SIG UNSCH PRN PRN Reason: MAGNESIUM LESS THAN 2 Potassium Chloride (Kcl 20 Meq Premix Inj) 20 meq in 100 mls @ 50 mls/hr IV.SIG UNSCH PRN PRN Reason: POTASSIUM LESS THAN 4 Potassium Chloride/Sodium Chloride (Ns + Kcl 20 Meq Inj) 1,000 mls @ 100 mls/ hr IV.CONT .Q10H [facility] Last Admin: 05/14/18 03:45 Dose: 100 mls/hr Propofol (Diprivan 1000 Mg/100 Ml Inj) 1,000 mg in 100 mls @ 3.272 mls/hr IV.CONT TITRATE PRN; Protocol PRN Reason: Per Protocol Last Admin: 05/14/18 08:09 Dose: 35 mcg/kg/min, 11.45 mls/hr Magnesium Sulfate Inj 2 gm/ (Sodium Chloride) 100 mls @ 50 mls/hr IV.SIG UNSCH PRN PRN Reason: For Magnesium 1.2 - 1.6 mg/dL Potassium Chloride (Kcl 40 Meq Premix Inj) 40 meq in 100 mls @ 25 mls/hr IV.SIG Q2H PRN PRN Reason: For Potassium 2.8 - 3.2 mEq/L Potassium Chloride (Kcl 20 Meq Premix Inj) 20 meq in 100 mls @ 50 mls/hr IV.SIG Q2H PRN PRN Reason: For Potassium 3.3 - 3.5 mEq/L Potassium Chloride (Kcl 40 Meq Premix Inj) 40 meq in 100 mls @ 25 mls/hr IV.SIG UNSCH PRN PRN Reason: For Potassium 3.3 - 3.5 mEq/L Potassium Chloride (Kcl 20 Meq Premix Inj) 20 meq in 100 mls @ 50 mls/hr IV.SIG Q2H PRN PRN Reason: For Potassium 2.8 - 3.2 mEq/L Potassium Phosphate 30 mmol/ (Sodium Chloride) 260 mls @ 42 mls/hr IV.SIG UNSCH PRN PRN Reason: SEE LABEL COMMENTS Last Infusion: 05/12/18 23:44 Dose: Infused Sodium Phosphate 30 mmol/ (Sodium Chloride) 260 mls @ 42 mls/hr IV.SIG UNSCH PRN PRN Reason: For Phosphorus < 2.5 mg/dL Magnesium Sulfate Inj 4 gm/ (Sodium Chloride) 100 mls @ 50 mls/hr IV.SIG UNSCH PRN PRN Reason: For Magnesium 0.9 - 1.1 mg/dL Levetiracetam 500 mg/ Sodium (Chloride) 105 mls @ 400 mls/hr IV.SIG Q12H [facility] Last Admin: 05/14/18 03:45 Dose: 400 mls/hr Norepinephrine Bitartrate 4 mg (/ Sodium Chloride) 250 mls @ 7.5 mls/hr IV.SIG TITRATE PRN; Protocol PRN Reason: Per Protocol Last Titration: 05/12/18 17:35 Dose: 0 mcg/min, 0 mls/hr Sodium Chloride (Sodium Chloride 3% Inj) 500 mls @ 10 mls/hr IV.SIG CONT ONE Stop: 05/15/18 11:59 Last Admin: 05/13/18 09:45 Dose: 10 mls/hr Multivitamins 10 ml/ Thiamine HCl 100 mg/ Folic Acid 1 mg/Sodium Chloride 511.2 mls @ 127.8 mls/hr IV.SIG Q24H [facility] Stop: 05/15/18 13:59 Last Infusion: 05/13/18 18:53 Dose: Infused Insulin Aspart (Novolog Insulin Correctional Sugar Inj) 0 unit SQ Q6HR [facility]; Protocol Last Admin: 05/14/18 08:06 Dose: Not Given Lactulose (Lactulose Liq) 30 ml PO DAILY PRN PRN Reason: SEVERE CONSITIPATION Lisinopril (Prinivil) 10 mg PO BID [facility] Magnesium Oxide (Mag-Ox) 800 mg PO UNSCH PRN PRN Reason: For Magnesium 1.2 - 1.6 mg/dL Metoprolol Tartrate (Lopressor Inj) 2.5 mg IV.PUSH Q6H [facility] Ondansetron HCl (Zofran Odt) 4 mg SL Q6H PRN PRN Reason: NAUSEA OR VOMITING Pantoprazole Sodium (Protonix Inj) 40 mg IV.PUSH Q12H [facility] Last Admin: 05/13/18 21:08 Dose: 40 mg Patch Removal (Remove Old Patch) 1 each T-DERMAL Q7D [facility] Polyethylene Glycol (Miralax) 17 gm PO BID [facility] Last Admin: 05/14/18 08:58 Dose: Not Given Potassium Bicarb/Potassium Chloride (K-Lyte Cl Eff) 50 meq PO UNSCH PRN PRN Reason: For Potassium 3.3 - 3.5 mEq/L Potassium Phosphate (K-Phos Original) 2,000 mg PO Q4H PRN PRN Reason: Phosphorus Less Than 2.5 mg/dL Potassium Phosphate (K-Phos Original) 2,000 mg PO UNSCH PRN PRN Reason: SEE LABEL COMMENTS Senna/Docusate Sodium (Deysi-Colace) 1 tab PO BID [facility] Last Admin: 05/14/18 08:59 Dose: Not Given Sennosides (Senokot) 17.2 mg PO Q12H PRN PRN Reason: Moderate Constipation Sodium Chloride (Ns Flush) 2 ml IV.FLUSH BID [facility] Last Admin: 05/14/18 08:58 Dose: 2 ml Sodium Chloride (Ns Flush) 2 ml IV.FLUSH PRN PRN PRN Reason: FLUSH AFTER USING IV ACCESS Terbutaline Sulfate (Brethine Inj) 1 mg SQ UNSCH PRN PRN Reason: For Extravasation Whey (Beneprotein Powder) 1 packet G-TUBE TID [facility] Last Admin: 05/14/18 08:06 Dose: Not Given Mental Status Assessment - Mental Status Orientation: unable to assess: Self, Place, Time, Situation Absent: Hallucinations, Delusions Adjustment/Coping Assessment - Adjustment/Coping Adjustment/Coping: Not Assessed: Depression, Anxiety, Pain, Apathy, Awareness, Insight - Observation This patient is presently sedated and intubated. - Goals/Team Members LTG Status: Deferred STG Status: Deferred Team Members: Neuropsychologist Behavior - Behavior Treatment Engagement: No effort - Observation Behaviorally, the patient demonstrated no signs of agitation, impulsivity or disinhibition. There was no remarkable evidence of a formal thought disorder or psychosis. - Goals LTG Status: Deferred STG Status: Deferred - Team Members Team Members: Neuropsychologist Diagnosis/Discharge Plan - Diagnosis (1) Major neurocognitive disorder Status: Acute Impression: 62 year old woman s/p TBI from multiple causes. [facility] Level: Level I Maximizing Acute Care Outcome: It is recommended that the patient be monitored for emergent behavioral impulsivity as the medical condition evolves. This patients neuropathological challenges may limit rehabilitation potential going forward, and these challenges will require specialized therapeutic skills to maximize outcome. Additionally, the patients family is experiencing ongoing issues of adjustment given the traumatic nature of the injury, and they may benefit from ongoing psychological assistance. At this point in the recovery process, the patient does not have cognitive capacity as the patient is unable to understand a situation and its likely consequences, nor is the patient able to manipulate information rationally. Cognitive capacity will be assessed throughout the recovery process. - Discharge Planning Anticipated Problems: Ongoing areas of concern will include behavioral impulsivity, lack of insight and judgment, which is expected to improve with time and treatment. Presently , the patient is critically ill. Treatment Plan: This clinician will continue to follow with you throughout the course of this patients rehabilitation treatment, and I will be available to meet with the patients family/support system to facilitate their understanding and the ongoing care of their family member. The goals of neuropsychological intervention shall be both educational and supportive to the family/support system as is deemed clinically appropriate. Thank you for the opportunity to assist in this patients care. Tanvir Ward, Ph.D., ABPP Board Certified in Clinical Neuropsychology [place] [employer] Professional Psychology [place] Licensed Psychologist #[id number]
[2018-05-14] MEDS: Pantoprazole Inj 40 MG Vial IV.PUSH SCH ×2 (11:49→22:02)
[2018-05-14] MEDS: Metoprolol Inj 5 MG/5 ML Vial IV.PUSH SCH ×2 (11:49→18:01)
[2018-05-14] MEDS: Multivitamin Inj 10 ML, Thiamine Inj 100 MG, Folic Acid Inj 1 MG in Sodium Chlor 0.9% I... IV.SIG SCH (12:18)
[2018-05-14] MEDS: Lisinopril 10 MG Tablet PO SCH ×2 (12:53→20:40)
--- NOTE | 2018-05-14 13:28 | MG ---
cc: Sanjana Harmon MD EEG NUMBER: [id number] INDICATION: Room 1336 with photic stimulation. 40 mcg propofol, 200 mcg of fentanyl. History of left frontal tish hole with placement of intracranial pressure monitoring. No bone flap on the right side. CT shows large acute subdural hematoma, mass effect and midline shift, right frontotemporal decompressive craniotomy. A trauma alert. A 62-year-old woman with history of alcohol abuse, lung cancer, depression, lymphoma, on nicardipine, clonidine, Keppra, Lopressor, thiamine, as well as sedation. DESCRIPTION OF RECORD: Intubated. Eyes closed, supine. Overall, slowing of the background noted bilaterally, right side looks like there is a breach rhythm. A 3 Hz background on the left. Breach rhythm, high amplitude waves on the right hemisphere due to no bone flap. Left side is slower 1-2, sometimes 3 Hz variable. Right side is about 3-4 Hz. Photic stimulation is performed. No appreciable driving response. No change with nail bed pressure, etc. IMPRESSION: Abnormal electroencephalogram due to moderate slowing, as well as a breach rhythm on the right hemisphere consistent with lack of bone flap on the right, but no gross epileptiform features, more consistent with encephalopathic type process versus medicine effect. Sanjana Harmon MD DF/TL , 01:15 PM , 01:21 PM
[2018-05-14 16:54] LABS: Sodium 151 meq/L (136-145)
--- NOTE | 2018-05-14 19:58 | P.PNCC ---
Subjective Brief History: 62-year-old female with repeated falls who fell the day before admission and then again that the day of admission and at this point could not be resuscitated and awoken. She was brought to emergency room with [place]za Coma Scale of 4 intubated and ventilated with bilateral dilated pupils On the workup she was found to have a huge right subdural hematoma with a left shift for which she underwent emergency craniectomy by Dr. Abad Patient was placed in ICU for further care and patient was managed expertly by Dr. Olvera and Dr. Joshi. Patient is now being transferred to the surgical critical care service. It should be noted that according to her patient has fallen multiple times in the past Past medical history is that of lymphoma and lung carcinoma 24 Hour Review/Hospital Course: 05/14/2018 For the last 24 hours patient has been in the ICU neurologically unchanged. Drainage from the right subdural hematoma has decreased. At this point [place] Coma Scale is 3T. 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 Bilateral breath sounds patient remains on ventilatory support with good PO2 FiO2 gradient Renal function is preserved I have discussed care at length with her who is a very nice gentleman and understands the implications of this severe injury. At this point with a new finding of hemorrhagic bleed into mesencephalon prognosis may be worse and therefore we should probably give it a few days to see which way this goes Repeat CT scan will be done on Sunday and then we can see if patient is blossoming this bleed or it is receding and then compared it to the neurologic status. Objective Vital Signs / I&O: Vital Signs 05/13/18 20:00 05/13/18 20:03 05/13/18 20:17 Temperature 98.6 F Pulse Rate 54 L 60 Respiratory Rate 15 15 Blood Pressure 166/64 H Pulse Oximetry 100 100 100 05/13/18 22:00 05/13/18 22:30 05/13/18 23:14 Temperature Pulse Rate 54 L Respiratory Rate 15 Blood Pressure 122/48 L Pulse Oximetry 100 05/13/18 23:22 05/14/18 00:00 05/14/18 01:30 Temperature 98.2 F Pulse Rate 69 56 L Respiratory Rate 15 15 Blood Pressure 110/44 L 122/48 L Pulse Oximetry 100 05/14/18 02:00 05/14/18 02:21 05/14/18 03:39 Temperature Pulse Rate 55 L 60 Respiratory Rate 15 15 Blood Pressure Pulse Oximetry 100 05/14/18 04:00 05/14/18 04:24 05/14/18 06:00 Temperature 97.9 F Pulse Rate 76 60 Respiratory Rate 15 16 Blood Pressure 158/62 H Pulse Oximetry 100 100 05/14/18 07:47 05/14/18 08:00 05/14/18 10:00 Temperature 97.7 F Pulse Rate 87 79 71 Respiratory Rate 20 15 Blood Pressure 132/49 L Pulse Oximetry 100 97 05/14/18 11:54 05/14/18 12:00 05/14/18 14:00 Temperature 98.5 F Pulse Rate 70 58 L 64 Respiratory Rate 15 15 Blood Pressure 122/44 L Pulse Oximetry 97 100 05/14/18 16:00 05/14/18 16:47 05/14/18 18:00 Temperature 98.8 F Pulse Rate 62 62 64 Respiratory Rate 15 15 Blood Pressure 111/57 L Pulse Oximetry 100 100 05/14/18 19:38 Temperature Pulse Rate 74 Respiratory Rate 17 Blood Pressure Pulse Oximetry 99 Intake & Output 05/14/18 05/14/18 05/15/18 06:59 18:59 06:59 Intake Total 3150 / 3150 1421.2 / 1421.2 1000 / 1000 Output Total 1110 / 1110 1415 / 1415 Balance 2040 / 2040 6.2 / 6.2 1000 / 1000 Intake: IV 2350 / 2350 1421.2 / 1421.2 1000 / 1000 NS + KCl 20 mEq Inj 1,000 ML @ 1999 / 2000 1000 / 1000 100 mls/hr IV.CONT .Q10H [facility] Rx #:[id number] Diprivan 1000 mg/100 ml Inj 1, 100 / 100 200 / 200 000 mg In 100 ml @ 10 MCG/KG/ MIN 3.272 mls/hr IV.CONT TITRATE PRN Rx#:[id number] Cardene Inj 25 MG In NS Inj 240 250 / 250 500 / 500 ML @ 5 MG/HR 50 mls/hr IV.CONT TITRATE PRN Rx#:[id number] MVI-12 Inj 10 ML Thiamine Inj 511.2 / 511.2 100 MG Folvite Inj 1 MG In NS Inj 500 ML @ 127.8 mls/hr IV. SIG Q24H [facility] Rx#:[id number] Keppra Inj 500 MG In NS Inj 100 210 / 210 ML @ 400 mls/hr IV.SIG Q12H [facility] Rx#:[id number] Oral 0 / 0 Tube Feeding 0 / 0 Intake (Blood Product) Amt 800 / 800 Rbc As-3 Leukoreduced Unit 400 / 400 [id number] Rbc As-3 Leukoreduced Unit 400 / 400 [id number] Output: Blood Draw 0 / 0 Urine Amount (Catheter) 1000 / 1000 1275 / 1275 Indwelling Urethral Catheter 1000 / 1000 1275 / 1275 Wound Drainage 110 / 110 140 / 140 # 1 Head MISTY Drain 10 / 10 5 / 5 # 2 Head MISTY Drain 10 / 10 5 / 5 # 3 Head MISTY Drain 90 / 90 130 / 130 Other: # Bowel Movements 0 Result Diagrams: 05/14/18 04:20 05/14/18 16:00 Imaging: Impressions Head CT 05/13/18 19:54 CONCLUSION: 1. Stable exam from earlier today. 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 Multiple right-sided subdural drains remain with mild right to left midline shift and small residual interhemispheric subdural hematoma. . Chest X-Ray 05/14/18 06:00 CONCLUSION: No significant change. No definite acute cardiopulmonary disease. - Exam PHILOSOPHY INSTRUCTOR: For the last 24 hours patient has been in the ICU neurologically unchanged. Drainage from the right subdural hematoma has decreased. At this point [place] Coma Scale is 3T. Patient had a period of hypotension last night resulting in cerebral hemorrhage in form of a mesencephalon infarct inching toward trini cerebri so this may worsen the next few days or improve and depending on this we will decide which way to go with this Hemodynamic/Cardiac: Hemodynamically patient has been stable however hypertensive and after a brief period of systolic blood pressure over 200 mmHg last night patient became flaccid and unresponsive and repeat CT scan shows small hemorrhagic infarct of mesencephalon inching toward trini. Pulmonary/Respiratory: Bilateral breath sounds patient remains on ventilatory support with good PO2 FiO2 gradient Abdomen/GI Nutrition: Abdomen soft active bowel sounds patient is on enteral feedings Renal/I&O: Renal function is preserved and normal Hematologic: Hemoglobin is 9.7 g/dL and apparently when patient came out of the OR it was 6.5 g. Assessment and Plan Attestation: Critical care time 34 minutes
[2018-05-14] MEDS: fentaNYL 10 mcg/mL Premix Drip 2,500 MCG/250 ML BAG IV.SIG PRN (21:03)
[2018-05-15] MEDS: Metoprolol Inj 5 MG/5 ML Vial IV.PUSH SCH ×4 (00:17→18:06)
[2018-05-15] MEDS: Oral Hygiene Kit OROPHARYNG SCH ×4 (00:18→15:34)
[2018-05-15] MEDS: Propofol 1000 mg/100 ml Inj 1,000 MG/100 ML BOTTLE IV.CONT PRN ×3 (00:20→17:18)
[2018-05-15] MEDS: Insulin NovoLOG Aspart Correctional Sugar Inj SQ SCH ×4 (00:31→18:07)
[2018-05-15 04:10] LABS: Baso % (Auto) 0.3 % (0.0-2.0); Eos # (Auto) 0.1 th/mm3 (0.0-0.4); Eos % (Auto) 0.5 % (0.0-4.0); Hematocrit 23.8 % (35.0-46.0); Lymph # (Auto) 0.8 th/mm3 (1.0-4.8); Lymph % (Auto) 5.2 % (9.0-44.0); Mean Corpuscular HGB Conc 33.7 % (32.0-36.0); Mean Corpuscular Hemoglobin 33.7 pg (27.0-34.0); Mean Corpuscular Volume 99.9 fL (80.0-100.0); Mean Platelet Volume 8.5 fL (7.0-11.0); Mono % (Auto) 6.4 % (0.0-8.0); Neut # (Auto) 13.8 th/mm3 (1.8-7.7); Neut % (Auto) 87.6 % (16.0-70.0); Platelet Count 189 th/mm3 (150-450); Red Blood Count 2.38 mil/mm3 (4.00-5.30); Red Cell Distribution Width 18.6 % (11.6-17.2); White Blood Count 15.7 th/mm3 (4.0-11.0)
[2018-05-15 04:20] LABS: Sodium 151 meq/L (136-145)
[2018-05-15] MEDS: Chlorhexidine Gluconate 2% 1 Pack (2 Cloths) TOPICAL SCH (04:52)
--- NOTE | 2018-05-15 04:58 | XR ---
EXAM DATE: 05/15/2018 4:53 AM EDT AGE/SEX: 62 years / Female INDICATIONS: Shortness of breath. CLINICAL DATA: This is the patient's subsequent encounter. Patient reports that signs and symptoms h ave been present for 4 - 6 days and indicates a pain score of Nonresponsive. MEDICAL/SURGICAL HISTORY: . Carcinoma, lung. Lymphoma. . Lung surgery. COMPARISON: [facility], CHEST 1V SINGLE AP, 05/14/2018. . FINDINGS: A single AP semierect portable view of the chest was obtained. The endotracheal tube remains in place with the tip approximately 3 cm above the jason. The nasogastric tube is again seen coursing throug h the esophagus into the stomach. The right subclavian central venous catheter remains in place. Ther e is new hazy airspace disease in the perihilar regions and in both lung bases right greater than lef t. There is no distinct effusion. The heart size remains within normal limits. Overlying electrocardi ogram leads and oxygen tubing are present. CONCLUSION: 1. New hazy airspace disease in the perihilar regions and lung bases right greater than left. This i s concern for possible pulmonary edema. Electronically signed by: Pino Schwarz MD 05/15/2018 4:57 AM EDT
[2018-05-15 05:39] LABS: Albumin 1.7 g/dL (3.4-5.0); Aspartate Aminotransferase 32 U/L (15-37); Blood Urea Nitrogen 8 mg/dL (7-18); Calcium 7.8 mg/dL (8.5-10.1); Chloride 121 meq/L (98-107); Glomerular Filtration Rate Greater Than 89 mL/min (>89); Glucose,Random 77 mg/dL (74-106); Potassium 3.3 meq/L (3.5-5.1)
[2018-05-15 05:41] LABS: Alkaline Phosphatase 328 U/L (45-117); Total Protein 4.9 g/dL (6.4-8.2)
[2018-05-15 05:43] LABS: ABG Base Excess -6.2 mmol/L (-2-2); ABG PCO2 27 mmHg (38-42); ABG PO2 79 mmHg (61-120)
[2018-05-15 05:54] LABS: Alanine Aminotransferase 18 U/L (10-53); Anion Gap 9 meq/L (5-15); Carbon Dioxide 20.8 meq/L (21.0-32.0)
[2018-05-15] MEDS: Chlorhexidine 0.12% Oral Kit 15 ML UDC OROPHARYNG SCH ×2 (07:44→20:35)
[2018-05-15] MEDS: Lisinopril 10 MG Tablet PO SCH ×2 (08:23→20:34)
[2018-05-15] MEDS: Beneprotein Powder Packet G-TUBE SCH ×3 (08:24→18:06)
[2018-05-15] MEDS: Hypromellose 0.3% Opth Gel 10 GM Bottle EACH EYE SCH ×2 (08:26→20:35)
[2018-05-15] MEDS: Senna/Docusate Sodium 8.6/50 MG Tablet PO SCH ×2 (08:26→20:34)
[2018-05-15] MEDS: Polyethylene Glycol 3350 17 GM Packet PO SCH ×2 (08:26→20:35)
--- NOTE | 2018-05-15 08:44 | P.PNNPSY ---
- Cognitive Intact: Judgment/problem solving - Psychosocial Intact: Psychosocial, Family/other adjustment, Realistic expectation - Progress Notes/Response to Treatment Contents of Sessions: Adjustment, Level of consciousness Time with Patient: 30 minutes Premorbid Psychological Status: Premorbid Cognitive, Emotional and Behavioral Status: Stable. The patient has high school years of education and a solid work history prior to this injury. The patient has no prior psychiatric difficulties, as described above. Substance abuse history includes EtOH. Behavioral Reactions of Patient and Family/Support System: Stable. The patient s family is experiencing ongoing issues of adjustment given the nature of the injury, and this aspect of recovery will require ongoing monitoring. Emotional/Behavioral Status of Patient and Family/Support System: Stable. Pertinent issues, if appropriate to this patients clinical care, are described in detail above. Maximizing Acute Care Outcome: It is recommended that the patient be monitored for emergent behavioral impulsivity as the medical condition evolves. This patients neuropathological challenges may limit rehabilitation potential going forward, and these challenges will require specialized therapeutic skills to maximize outcome. Additionally, the patients family is experiencing ongoing issues of adjustment given the traumatic nature of the injury, and they may benefit from ongoing psychological assistance. At this point in the recovery process, the patient does not have cognitive capacity as the patient is unable to understand a situation and its likely consequences, nor is the patient able to manipulate information rationally. Cognitive capacity will be assessed throughout the recovery process. Anticipated Problems: Ongoing areas of concern will include behavioral impulsivity, lack of insight and judgment, which is expected to improve with time and treatment. Presently , the patient is critically ill. Treatment Plan: This clinician will continue to follow with you throughout the course of this patients critical care treatment, and I will be available to meet with the patients family/support system to facilitate their understanding and the ongoing care of their family member. The goals of neuropsychological intervention shall be both educational and supportive to the family/support system as is deemed clinically appropriate. [place] COG Scale: Level I Impression: 62 year old woman s/p TBI from multiple causes. Progress Note Narrative: PTD 4. There is no neurobehavioral change in this patient and she remains at [place]. She is intubated and sedated. The neuroimaging findings of mesencephalic infarcts is concerning and will certainly affect prognosis, depending on what direction this goes. No issues of agitation/restlessness. I will follow. - Diagnosis (1) Major neurocognitive disorder Status: Acute
[2018-05-15] MEDS: Multivitamin Inj 10 ML, Thiamine Inj 100 MG, Folic Acid Inj 1 MG in Sodium Chlor 0.9% I... IV.SIG SCH (09:09)
[2018-05-15] MEDS: Pantoprazole Inj 40 MG Vial IV.PUSH SCH ×2 (09:09→21:26)
[2018-05-15 09:16] LABS: Sodium 150 meq/L (136-145)
--- NOTE | 2018-05-15 12:25 | MB ---
cc: Sanjana Harmon MD DATE: 05/15/2018 REASON FOR CONSULTATION: History of subdural hematoma, traumatic brain injury. HISTORY OF PRESENT ILLNESS: A 62-year-old woman with history of falls, who fell apparently the day before admission. She came in on 05/11/2018, and then again the day of admission, and told she had fallen, and could not be resuscitated and aroused, came in with a GCS of 4, intubated, ventilated. She was found to have a large right subdural hematoma with left shift. Underwent emergency craniectomy by neurosurgery, Dr. Abad, placed in the ICU, managed by the family law paralegal, and subsequently was transferred to the surgical critical care service. PAST MEDICAL HISTORY: Lung cancer, lymphoma, depression, history of alcohol abuse. PAST SURGICAL HISTORY: History of lung surgery. HOME MEDICINES: Please refer to MAR. PHYSICAL EXAMINATION: VITAL SIGNS: Temperature 99, pulse 83, respiratory rate 18, satting 100% on FiO2 30%. GENERAL: She is intubated on a ventilator on Diprivan. NEUROLOGIC: Her right pupil is at 1 mm, nonreactive. Left pupil, 0.5 mm, nonreactive. She has no gaze deviation. She does over-breathe the ventilator. There is withdrawal to painful stimuli in the left arm and leg, and slightly in the right upper and lower extremities. She does not follow any commands. Reflexes are decreased throughout. Her tone is decreased. Toes are basically neutral bilaterally. Cerebellar gait cannot be assessed. LABORATORY DATA: Reviewed. White count 15.7, hemoglobin 8, platelets 189,000. Chemistry: Sodium is 150. Serum osmolality is 302. Calcium 7.8. Alkaline phosphatase 328. Albumin 1.7. B12 is very low at 123. TSH is 4.450. Tox screen, serum alcohol was less than 3. 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 There are multiple right-sided subdural drains remaining with mild right to left shift and small residual interhemispheric subdural hematoma. Her EEG showed slowing with breach rhythm on the right, but no epileptiform features. ASSESSMENT AND PLAN: 1. A 62-year-old woman, status post fall with large right subdural hematoma, status post right frontotemporoparietal decompressive craniotomy with left bur hole ICP monitor and MISTY drain in place. She is postoperative day #3. 2. History of ethanol abuse. 3. Depression and anxiety. 4. Chronic opiate use. RECOMMENDATIONS: Following serial CT scans. I am told she is to have a CT scan on Sunday. We can certainly repeat an EEG as needed. Currently, she is sedated. She is also prophylactically on Keppra 500 mg twice a day. Would continue with that, and we will monitor her neuro status clinically, and make further recommendations accordingly. MD SARAH Mccall/eladia/esdras , 11:29 AM , 11:40 AM
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
--- NOTE | 2018-05-15 14:54 | P.PNGI ---
Subjective Interval history: Pt remains sedated and intubated. No BM per RN. OG clamped. <Milena Marshall - Last Filed: 05/15/18 14:52> Physical Exam Vital signs: Vital Signs 05/14/18 16:00 05/14/18 16:47 05/14/18 18:00 Temperature 98.8 F Pulse Rate 62 62 64 Respiratory Rate 15 15 Blood Pressure 111/57 L Pulse Oximetry 100 100 05/14/18 19:38 05/14/18 20:00 05/14/18 22:00 Temperature 99.0 F Pulse Rate 74 82 75 Respiratory Rate 17 15 Blood Pressure 127/59 L Pulse Oximetry 99 100 05/14/18 23:26 05/15/18 00:00 05/15/18 01:32 Temperature 98.9 F Pulse Rate 62 68 Respiratory Rate 15 15 15 Blood Pressure 139/51 L Pulse Oximetry 100 100 05/15/18 02:00 05/15/18 03:14 05/15/18 04:00 Temperature 99.3 F Pulse Rate 64 61 98 H Respiratory Rate 15 22 Blood Pressure 132/76 Pulse Oximetry 99 05/15/18 04:38 05/15/18 06:00 05/15/18 08:00 Temperature 99.0 F Pulse Rate 62 69 Respiratory Rate 25 H 15 Blood Pressure 133/61 Pulse Oximetry 99 100 05/15/18 08:42 05/15/18 10:00 05/15/18 11:32 Temperature Pulse Rate 77 83 67 Respiratory Rate 18 15 Blood Pressure Pulse Oximetry 100 100 05/15/18 12:00 05/15/18 14:00 Temperature 98.5 F Pulse Rate 65 70 Respiratory Rate 16 Blood Pressure 137/57 L Pulse Oximetry 100 Intake & Output 05/14/18 05/15/18 05/15/18 18:59 06:59 18:59 Intake Total 1421.2 / 1421.2 2555 / 2555 0 / 0 Output Total 1415 / 1415 477 / 477 0 / 0 Balance 6.2 / 6.2 2077 / 2078 0 / 0 Intake: IV 1421.2 / 1421.2 2555 / 2555 NS + KCl 20 mEq Inj 1,000 ML @ 1999 / 1999 100 mls/hr IV.CONT .Q10H [facility] Rx #:[id number] Diprivan 1000 mg/100 ml Inj 1, 200 / 200 200 / 200 000 mg In 100 ml @ 10 MCG/KG/ MIN 3.272 mls/hr IV.CONT TITRATE PRN Rx#:[id number] Cardene Inj 25 MG In NS Inj 240 500 / 500 ML @ 5 MG/HR 50 mls/hr IV.CONT TITRATE PRN Rx#:[id number] MVI-12 Inj 10 ML Thiamine Inj 511.2 / 511.2 100 MG Folvite Inj 1 MG In NS Inj 500 ML @ 127.8 mls/hr IV. SIG Q24H [facility] Rx#:[id number] fentaNYL 10 mcg/mL Premix Drip 250 / 250 2,500 mcg In 250 ml @ 50 MCG/HR 5 mls/hr IV.SIG TITRATE PRN Rx #:[id number] Keppra Inj 500 MG In NS Inj 100 210 / 210 105 / 105 ML @ 400 mls/hr IV.SIG Q12H [facility] Rx#:[id number] Oral 0 / 0 0 / 0 Tube Feeding 0 / 0 0 / 0 Output: Blood Draw 0 / 0 0 / 0 Urine Amount (Catheter) 1275 / 1275 342 / 342 Indwelling Urethral Catheter 1275 / 1275 342 / 342 Wound Drainage 140 / 140 135 / 135 # 1 Head MISTY Drain 5 / 5 120 / 120 # 2 Head MISTY Drain 5 / 5 10 / 10 # 3 Head MISTY Drain 130 / 130 5 / 5 Other: # Bowel Movements 0 0 0 - Routine Respiratory Exam Present: patient mechanically ventilated - Routine Cardiovascular Exam Present: RRR - Routine Abdominal Exam Present: soft, normoactive bowel sounds, distended - Routine Skin Exam Present: dry, warm - Urinary Catheter Management Indwelling Urethral Catheter Cath placed during this visit: yes Reason for continuing: Hourly intake/output Insertion date: 05/11/18 Insertion time: 12:00 <Milena Marshall - Last Filed: 05/15/18 14:52> Vital signs: Vital Signs 05/14/18 16:00 05/14/18 16:47 05/14/18 18:00 Temperature 98.8 F Pulse Rate 62 62 64 Respiratory Rate 15 15 Blood Pressure 111/57 L Pulse Oximetry 100 100 05/14/18 19:38 05/14/18 20:00 05/14/18 22:00 Temperature 99.0 F Pulse Rate 74 82 75 Respiratory Rate 17 15 Blood Pressure 127/59 L Pulse Oximetry 99 100 05/14/18 23:26 05/15/18 00:00 05/15/18 01:32 Temperature 98.9 F Pulse Rate 62 68 Respiratory Rate 15 15 15 Blood Pressure 139/51 L Pulse Oximetry 100 100 05/15/18 02:00 05/15/18 03:14 05/15/18 04:00 Temperature 99.3 F Pulse Rate 64 61 98 H Respiratory Rate 15 22 Blood Pressure 132/76 Pulse Oximetry 99 05/15/18 04:38 05/15/18 06:00 05/15/18 08:00 Temperature 99.0 F Pulse Rate 62 69 Respiratory Rate 25 H 15 Blood Pressure 133/61 Pulse Oximetry 99 100 05/15/18 08:42 05/15/18 10:00 05/15/18 11:32 Temperature Pulse Rate 77 83 67 Respiratory Rate 18 15 Blood Pressure Pulse Oximetry 100 100 05/15/18 12:00 05/15/18 14:00 Temperature 98.5 F Pulse Rate 65 70 Respiratory Rate 16 Blood Pressure 137/57 L Pulse Oximetry 100 Intake & Output 05/14/18 05/15/18 05/15/18 18:59 06:59 18:59 Intake Total 1421.2 / 1421.2 2555 / 2555 0 / 0 Output Total 1415 / 1415 477 / 477 0 / 0 Balance 6.2 / 6.2 2078 / 2078 0 / 0 Intake: IV 1421.2 / 1421.2 2555 / 2555 NS + KCl 20 mEq Inj 1,000 ML @ 2000 / 2000 100 mls/hr IV.CONT .Q10H [facility] Rx #:[id number] Diprivan 1000 mg/100 ml Inj 1, 200 / 200 200 / 200 000 mg In 100 ml @ 10 MCG/KG/ MIN 3.272 mls/hr IV.CONT TITRATE PRN Rx#:[id number] Cardene Inj 25 MG In NS Inj 240 500 / 500 ML @ 5 MG/HR 50 mls/hr IV.CONT TITRATE PRN Rx#:[id number] MVI-12 Inj 10 ML Thiamine Inj 511.2 / 511.2 100 MG Folvite Inj 1 MG In NS Inj 500 ML @ 127.8 mls/hr IV. SIG Q24H [facility] Rx#:[id number] fentaNYL 10 mcg/mL Premix Drip 250 / 250 2,500 mcg In 250 ml @ 50 MCG/HR 5 mls/hr IV.SIG TITRATE PRN Rx #:[id number] Keppra Inj 500 MG In NS Inj 100 210 / 210 105 / 105 ML @ 400 mls/hr IV.SIG Q12H [facility] Rx#:[id number] Oral 0 / 0 0 / 0 Tube Feeding 0 / 0 0 / 0 Output: Blood Draw 0 / 0 0 / 0 Urine Amount (Catheter) 1275 / 1275 342 / 342 Indwelling Urethral Catheter 1275 / 1275 342 / 342 Wound Drainage 140 / 140 135 / 135 # 1 Head MISTY Drain 5 / 5 120 / 120 # 2 Head MISTY Drain 5 / 5 10 / 10 # 3 Head MISTY Drain 130 / 130 5 / 5 Other: # Bowel Movements 0 0 0 - Urinary Catheter Management Indwelling Urethral Catheter Cath placed during this visit: no <Calvin Dubon - Last Filed: 05/15/18 15:30> Results - Labs CBC & Chem 7: 05/15/18 03:20 05/15/18 08:20 Laboratory Results - last 24 hr 05/14/18 05/14/18 05/14/18 16:00 17:24 21:45 WBC RBC Hgb Hct MCV MCH MCHC RDW Plt Count MPV Neut % (Auto) Lymph % (Auto) Haines % (Auto) Eos % (Auto) Baso % (Auto) Neut # (Auto) Lymph # (Auto) Haines # (Auto) Eos # (Auto) Baso # (Auto) WBC Differential Differential Comment Puncture Site Patient Temperature O2 Saturation ABG pH ABG pCO2 ABG pO2 ABG HCO3 ABG O2 Content ABG Base Excess ABG Methemoglobin Hemoglobin Carboxyhemoglobin O2 Delivery Device Vent Setting Inspired O2 Critical Value Sodium 151 H Potassium Chloride Carbon Dioxide Anion Gap BUN Creatinine Estimated GFR POC Glucose 109 Random Glucose Osmolality 298 H 302 H Calcium Prot Corrected Calcium Total Bilirubin AST ALT Alkaline Phosphatase Total Protein Albumin 05/14/18 05/15/18 05/15/18 21:45 00:27 03:20 WBC 15.7 H RBC 2.38 L Hgb 8.0 L Hct 23.8 L MCV 99.9 MCH 33.7 MCHC 33.7 RDW 18.6 H Plt Count 189 MPV 8.5 Neut % (Auto) 87.6 H Lymph % (Auto) 5.2 L Haines % (Auto) 6.4 Eos % (Auto) 0.5 Baso % (Auto) 0.3 Neut # (Auto) 13.8 H Lymph # (Auto) 0.8 L Haines # (Auto) 1.0 H Eos # (Auto) 0.1 Baso # (Auto) 0.0 WBC Differential . Differential Comment Auto diff final Puncture Site Patient Temperature O2 Saturation ABG pH ABG pCO2 ABG pO2 ABG HCO3 ABG O2 Content ABG Base Excess ABG Methemoglobin Hemoglobin Carboxyhemoglobin O2 Delivery Device Vent Setting Inspired O2 Critical Value Sodium Potassium 3.3 L Chloride Carbon Dioxide Anion Gap BUN Creatinine Estimated GFR POC Glucose 75 Random Glucose Osmolality Calcium Prot Corrected Calcium Total Bilirubin AST ALT Alkaline Phosphatase Total Protein Albumin 05/15/18 05/15/18 05/15/18 03:20 03:20 05:36 WBC RBC Hgb Hct MCV MCH MCHC RDW Plt Count MPV Neut % (Auto) Lymph % (Auto) Haines % (Auto) Eos % (Auto) Baso % (Auto) Neut # (Auto) Lymph # (Auto) Haines # (Auto) Eos # (Auto) Baso # (Auto) WBC Differential Differential Comment Puncture Site Art line Patient Temperature 98.6 O2 Saturation 94 ABG pH 7.43 H ABG pCO2 27 L ABG pO2 79 ABG HCO3 17 L ABG O2 Content 11.4 L ABG Base Excess -6.2 L ABG Methemoglobin 1.0 Hemoglobin 8.6 L Carboxyhemoglobin 1.4 O2 Delivery Device Ventilator Vent Setting Prvc/ac Inspired O2 30 Critical Value No Sodium Cancelled 151 H Potassium Cancelled 3.3 L Chloride Cancelled 121 H Carbon Dioxide Cancelled 20.8 L Anion Gap Cancelled 9 BUN Cancelled 8 Creatinine Cancelled 0.19 L Estimated GFR Cancelled Greater than 89 POC Glucose Random Glucose Cancelled 77 Osmolality 301 H Calcium Cancelled 7.8 L Prot Corrected Calcium Cancelled Total Bilirubin Cancelled 0.6 AST Cancelled 32 ALT Cancelled 18 Alkaline Phosphatase Cancelled 328 H Total Protein Cancelled 4.9 L D Albumin Cancelled 1.7 L 05/15/18 05/15/18 08:20 08:57 WBC RBC Hgb Hct MCV MCH MCHC RDW Plt Count MPV Neut % (Auto) Lymph % (Auto) Haines % (Auto) Eos % (Auto) Baso % (Auto) Neut # (Auto) Lymph # (Auto) Haines # (Auto) Eos # (Auto) Baso # (Auto) WBC Differential Differential Comment Puncture Site Patient Temperature O2 Saturation ABG pH ABG pCO2 ABG pO2 ABG HCO3 ABG O2 Content ABG Base Excess ABG Methemoglobin Hemoglobin Carboxyhemoglobin O2 Delivery Device Vent Setting Inspired O2 Critical Value Sodium 150 H Potassium Chloride Carbon Dioxide Anion Gap BUN Creatinine Estimated GFR POC Glucose 79 Random Glucose Osmolality 302 H Calcium Prot Corrected Calcium Total Bilirubin AST ALT Alkaline Phosphatase Total Protein Albumin - Imaging Impressions Chest X-Ray 05/15/18 06:00 CONCLUSION: 1. New hazy airspace disease in the perihilar regions and lung bases right greater than left. This is concern for possible pulmonary edema. <Milena Marshall - Last Filed: 05/15/18 14:52> - Labs CBC & Chem 7: 05/15/18 03:20 05/15/18 08:20 Laboratory Results - last 24 hr 05/14/18 05/14/18 05/14/18 16:00 17:24 21:45 WBC RBC Hgb Hct MCV MCH MCHC RDW Plt Count MPV Neut % (Auto) Lymph % (Auto) Haines % (Auto) Eos % (Auto) Baso % (Auto) Neut # (Auto) Lymph # (Auto) Haines # (Auto) Eos # (Auto) Baso # (Auto) WBC Differential Differential Comment Puncture Site Patient Temperature O2 Saturation ABG pH ABG pCO2 ABG pO2 ABG HCO3 ABG O2 Content ABG Base Excess ABG Methemoglobin Hemoglobin Carboxyhemoglobin O2 Delivery Device Vent Setting Inspired O2 Critical Value Sodium 151 H Potassium Chloride Carbon Dioxide Anion Gap BUN Creatinine Estimated GFR POC Glucose 109 Random Glucose Osmolality 298 H 302 H Calcium Prot Corrected Calcium Total Bilirubin AST ALT Alkaline Phosphatase Total Protein Albumin 05/14/18 05/15/18 05/15/18 21:45 00:27 03:20 WBC 15.7 H RBC 2.38 L Hgb 8.0 L Hct 23.8 L MCV 99.9 MCH 33.7 MCHC 33.7 RDW 18.6 H Plt Count 189 MPV 8.5 Neut % (Auto) 87.6 H Lymph % (Auto) 5.2 L Haines % (Auto) 6.4 Eos % (Auto) 0.5 Baso % (Auto) 0.3 Neut # (Auto) 13.8 H Lymph # (Auto) 0.8 L Haines # (Auto) 1.0 H Eos # (Auto) 0.1 Baso # (Auto) 0.0 WBC Differential . Differential Comment Auto diff final Puncture Site Patient Temperature O2 Saturation ABG pH ABG pCO2 ABG pO2 ABG HCO3 ABG O2 Content ABG Base Excess ABG Methemoglobin Hemoglobin Carboxyhemoglobin O2 Delivery Device Vent Setting Inspired O2 Critical Value Sodium Potassium 3.3 L Chloride Carbon Dioxide Anion Gap BUN Creatinine Estimated GFR POC Glucose 75 Random Glucose Osmolality Calcium Prot Corrected Calcium Total Bilirubin AST ALT Alkaline Phosphatase Total Protein Albumin 05/15/18 05/15/18 05/15/18 03:20 03:20 05:36 WBC RBC Hgb Hct MCV MCH MCHC RDW Plt Count MPV Neut % (Auto) Lymph % (Auto) Haines % (Auto) Eos % (Auto) Baso % (Auto) Neut # (Auto) Lymph # (Auto) Haines # (Auto) Eos # (Auto) Baso # (Auto) WBC Differential Differential Comment Puncture Site Art line Patient Temperature 98.6 O2 Saturation 94 ABG pH 7.43 H ABG pCO2 27 L ABG pO2 79 ABG HCO3 17 L ABG O2 Content 11.4 L ABG Base Excess -6.2 L ABG Methemoglobin 1.0 Hemoglobin 8.6 L Carboxyhemoglobin 1.4 O2 Delivery Device Ventilator Vent Setting Prvc/ac Inspired O2 30 Critical Value No Sodium Cancelled 151 H Potassium Cancelled 3.3 L Chloride Cancelled 121 H Carbon Dioxide Cancelled 20.8 L Anion Gap Cancelled 9 BUN Cancelled 8 Creatinine Cancelled 0.19 L Estimated GFR Cancelled Greater than 89 POC Glucose Random Glucose Cancelled 77 Osmolality 301 H Calcium Cancelled 7.8 L Prot Corrected Calcium Cancelled Total Bilirubin Cancelled 0.6 AST Cancelled 32 ALT Cancelled 18 Alkaline Phosphatase Cancelled 328 H Total Protein Cancelled 4.9 L D Albumin Cancelled 1.7 L 05/15/18 05/15/18 08:20 08:57 WBC RBC Hgb Hct MCV MCH MCHC RDW Plt Count MPV Neut % (Auto) Lymph % (Auto) Haines % (Auto) Eos % (Auto) Baso % (Auto) Neut # (Auto) Lymph # (Auto) Haines # (Auto) Eos # (Auto) Baso # (Auto) WBC Differential Differential Comment Puncture Site Patient Temperature O2 Saturation ABG pH ABG pCO2 ABG pO2 ABG HCO3 ABG O2 Content ABG Base Excess ABG Methemoglobin Hemoglobin Carboxyhemoglobin O2 Delivery Device Vent Setting Inspired O2 Critical Value Sodium 150 H Potassium Chloride Carbon Dioxide Anion Gap BUN Creatinine Estimated GFR POC Glucose 79 Random Glucose Osmolality 302 H Calcium Prot Corrected Calcium Total Bilirubin AST ALT Alkaline Phosphatase Total Protein Albumin - Imaging Impressions Chest X-Ray 05/15/18 06:00 CONCLUSION: 1. New hazy airspace disease in the perihilar regions and lung bases right greater than left. This is concern for possible pulmonary edema. <Calvin Dubon - Last Filed: 05/15/18 15:30> Assessment and Plan - Plan Assessment: - Anemia- drop in hgb over night in the setting of ETOH abuse with history of gastric ulcers Hgb 8.3 yesterday and 6.2 today. ? loss from subdural hematoma a factor No evidence of cirrhosis, no coagulopathy or thrombocytopenia. Hypoalbuminemia noted. Fall, unresponsive on arrival, found to have a massive left subdural hematoma with severe mass effect and midline shift S/P emergent right decompressive craniectomy with evacuation of hematoma. Pt is currently in ICU on sedation and mechanically ventilated. Currently with OG which is clamped but according to RN overnight had 50 mL of brown colored output. Pt has not had a BM since admission. EGD noted in records from December [address] Dubon --> Two gastric ulcers 5- 9 mm in size S/P submucosal epi. 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 CT abdomen and pelvis WO IV contrast --> Small bilateral pleural effusions, mild body wall edema and trace fluid in the pelvis. Nonobstructing right renal calculus. Atherosclerosis. - Subdural hematoma S/P evacuation- pt currently with ICP monitor which neurosurgery has been noted stable pressure overnight- MISTY drain x 3- according to RN approximately 100 mL of output - ETOH abuse- Per pt has been to alcohol rehab four times, she was succesful for a short amount of time on Antabuse. He thinks the day she fell she had drank about two bottles of wine and four beers (05/14) Pt remains sedated and intubated. Discussed with TIFFANIE Duarte pt with no BM , OG with yellow output. No obvious GIB. Plan remains the same, no EGD unless active GIB noted. at bedside, also notes that pt has been taking a lot of Ibuprofen for coccyx pain, also reports he did not realize how bad her drinking was because she was trying to hide it from him. She has been to rehab four times in the past, has also been on Antabuse with short term improvement. (05/15) Some continued trend down in H/H but remains no sign of active GIB. Our service will sign off, please reconsult if needed Plan: Monitor H/H Transfuse as needed Protonix Our service will sign off, please reconsult as needed Pt has been seen and examined by myself and Dr. Dubon and this note is written on his behalf <Milena Marshall - Last Filed: 05/15/18 14:52> - Plan Seen and examined, no active bleeding. Palliative care consulted. No gi interventions unless active bleeding. Discussed wiht . GI will sign off. - Attending Attestation The exam, history, and the medical decision-making described in the above note were completed with the assistance of the mid-level provider. I reviewed and agree with the findings presented. I attest that I had a [id number] encounter with the patient on the same day, and personally performed and documented my assessment and findings in the medical record. <Calvin Dubon - Last Filed: 05/15/18 15:30>
--- NOTE | 2018-05-15 16:21 | P.PNCC ---
Subjective Brief History: 62-year-old female with repeated falls who fell the day before admission and then again that the day of admission and at this point could not be resuscitated and awoken. She was brought to emergency room with [place] Coma Scale of 4 intubated and ventilated with bilateral dilated pupils On the workup she was found to have a huge right subdural hematoma with a left shift for which she underwent emergency craniectomy by Dr. Abad Patient was placed in ICU for further care and patient was managed expertly by Dr. Olvera and Dr. Joshi. Patient is now being transferred to the surgical critical care service. It should be noted that according to her patient has fallen multiple times in the past Past medical history is that of lymphoma and lung carcinoma 24 Hour Review/Hospital Course: 05/14/2018 For the last 24 hours patient has been in the ICU neurologically unchanged. Drainage from the right subdural hematoma has decreased. At this point [place] Coma Scale is 3T. 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 Bilateral breath sounds patient remains on ventilatory support with good PO2 FiO2 gradient Renal function is preserved I have discussed care at length with her who is a very nice gentleman and understands the implications of this severe injury. At this point with a new finding of hemorrhagic bleed into mesencephalon prognosis may be worse and therefore we should probably give it a few days to see which way this goes Repeat CT scan will be done on Sunday and then we can see if patient is blossoming this bleed or it is receding and then compared it to the neurologic status. 05/15 She is clinically essentially unchanged-GCS remains low CT scan of the head has been planned for Sunday In the meantime we will continue blood pressure control and neuroprotective measure patient is on tube feeds as well PF ratio is adequate renal function is preserved palliative care is involved Neurology consult will be obtained Objective Vital Signs / I&O: Vital Signs 05/14/18 16:47 05/14/18 18:00 05/14/18 19:38 Temperature Pulse Rate 62 64 74 Respiratory Rate 15 17 Blood Pressure Pulse Oximetry 100 99 05/14/18 20:00 05/14/18 22:00 05/14/18 23:26 Temperature 99.0 F Pulse Rate 82 75 62 Respiratory Rate 15 15 Blood Pressure 127/59 L Pulse Oximetry 100 05/15/18 00:00 05/15/18 01:32 05/15/18 02:00 Temperature 98.9 F Pulse Rate 68 64 Respiratory Rate 15 15 Blood Pressure 139/51 L Pulse Oximetry 100 100 05/15/18 03:14 05/15/18 04:00 05/15/18 04:38 Temperature 99.3 F Pulse Rate 61 98 H Respiratory Rate 15 22 25 H Blood Pressure 132/76 Pulse Oximetry 99 99 05/15/18 06:00 05/15/18 08:00 05/15/18 08:42 Temperature 99.0 F Pulse Rate 62 69 77 Respiratory Rate 15 18 Blood Pressure 133/61 Pulse Oximetry 100 100 05/15/18 10:00 05/15/18 11:32 05/15/18 12:00 Temperature 98.5 F Pulse Rate 83 67 65 Respiratory Rate 15 16 Blood Pressure 137/57 L Pulse Oximetry 100 100 05/15/18 14:00 Temperature Pulse Rate 70 Respiratory Rate Blood Pressure Pulse Oximetry Intake & Output 05/14/18 05/15/18 05/15/18 18:59 06:59 18:59 Intake Total 1421.2 / 1421.2 2555 / 2555 1000 / 1000 Output Total 1415 / 1415 477 / 477 0 / 0 Balance 6.2 / 6.2 2078 / 2078 1000 / 1000 Intake: IV 1421.2 / 1421.2 2555 / 2555 1000 / 1000 NS + KCl 20 mEq Inj 1,000 ML @ 2000 / 2000 1000 / 1000 100 mls/hr IV.CONT .Q10H [facility] Rx #:[id number] Diprivan 1000 mg/100 ml Inj 1, 200 / 200 200 / 200 000 mg In 100 ml @ 10 MCG/KG/ MIN 3.272 mls/hr IV.CONT TITRATE PRN Rx#:[id number] Cardene Inj 25 MG In NS Inj 240 500 / 500 ML @ 5 MG/HR 50 mls/hr IV.CONT TITRATE PRN Rx#:[id number] MVI-12 Inj 10 ML Thiamine Inj 511.2 / 511.2 100 MG Folvite Inj 1 MG In NS Inj 500 ML @ 127.8 mls/hr IV. SIG Q24H [facility] Rx#:[id number] fentaNYL 10 mcg/mL Premix Drip 250 / 250 2,500 mcg In 250 ml @ 50 MCG/HR 5 mls/hr IV.SIG TITRATE PRN Rx #:[id number] Keppra Inj 500 MG In NS Inj 100 210 / 210 105 / 105 ML @ 400 mls/hr IV.SIG Q12H [facility] Rx#:[id number] Oral 0 / 0 0 / 0 Tube Feeding 0 / 0 0 / 0 Output: Blood Draw 0 / 0 0 / 0 Urine Amount (Catheter) 1275 / 1275 342 / 342 Indwelling Urethral Catheter 1275 / 1275 342 / 342 Wound Drainage 140 / 140 135 / 135 # 1 Head MISTY Drain 5 / 5 120 / 120 # 2 Head MISTY Drain 5 / 5 10 / 10 # 3 Head MISTY Drain 130 / 130 5 / 5 Other: # Bowel Movements 0 0 0 Result Diagrams: 05/15/18 03:20 05/15/18 08:20 Imaging: Impressions Chest X-Ray 05/15/18 06:00 CONCLUSION: 1. New hazy airspace disease in the perihilar regions and lung bases right greater than left. This is concern for possible pulmonary edema. 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
[2018-05-16] MEDS: Oral Hygiene Kit OROPHARYNG SCH ×4 (00:20→17:33)
[2018-05-16] MEDS: Metoprolol Inj 5 MG/5 ML Vial IV.PUSH SCH ×4 (00:20→17:32)
[2018-05-16] MEDS: Propofol 1000 mg/100 ml Inj 1,000 MG/100 ML BOTTLE IV.CONT PRN ×4 (00:21→22:33)
[2018-05-16] MEDS: Insulin NovoLOG Aspart Correctional Sugar Inj SQ SCH ×3 (01:43→17:01)
[2018-05-16] MEDS: Chlorhexidine Gluconate 2% 1 Pack (2 Cloths) TOPICAL SCH (03:24)
[2018-05-16 04:38] LABS: Alanine Aminotransferase 21 U/L (10-53); Albumin 1.7 g/dL (3.4-5.0); Anion Gap 13 meq/L (5-15); Aspartate Aminotransferase 23 U/L (15-37); Blood Urea Nitrogen 8 mg/dL (7-18); Calcium 8.1 mg/dL (8.5-10.1); Carbon Dioxide 18.1 meq/L (21.0-32.0); Chloride 119 meq/L (98-107); Glomerular Filtration Rate Greater Than 89 mL/min (>89); Glucose,Random 100 mg/dL (74-106); Potassium 3.4 meq/L (3.5-5.1); Sodium 150 meq/L (136-145)
[2018-05-16 04:40] LABS: Alkaline Phosphatase 392 U/L (45-117); Total Protein 5.3 g/dL (6.4-8.2)
[2018-05-16 04:43] LABS: Baso % (Auto) 0.3 % (0.0-2.0); Eos # (Auto) 0.1 th/mm3 (0.0-0.4); Eos % (Auto) 0.6 % (0.0-4.0); Hematocrit 24.9 % (35.0-46.0); Hemoglobin 8.1 gm/dL (11.6-15.3); Lymph % (Auto) 6.2 % (9.0-44.0); Mean Corpuscular HGB Conc 32.5 % (32.0-36.0); Mean Corpuscular Hemoglobin 32.5 pg (27.0-34.0); Mean Corpuscular Volume 100.1 fL (80.0-100.0); Mean Platelet Volume 8.7 fL (7.0-11.0); Mono # (Auto) 1.7 th/mm3 (0.0-0.9); Mono % (Auto) 10.6 % (0.0-8.0); Neut # (Auto) 13.4 th/mm3 (1.8-7.7); Neut % (Auto) 82.3 % (16.0-70.0); Platelet Count 220 th/mm3 (150-450); Red Blood Count 2.49 mil/mm3 (4.00-5.30); Red Cell Distribution Width 18.2 % (11.6-17.2); White Blood Count 16.3 th/mm3 (4.0-11.0)
--- NOTE | 2018-05-16 04:46 | XR ---
EXAM DATE: 05/16/2018 4:12 AM EDT AGE/SEX: 62 years / Female INDICATIONS: Short of breath. CLINICAL DATA: This is the patient's subsequent encounter. Patient reports that signs and symptoms h ave been present for 4 - 6 days and indicates a pain score of Nonresponsive. MEDICAL/SURGICAL HISTORY: Carcinoma, lung. Lymphoma. Non-responsive. COMPARISON: [facility] [place], CHEST 1V SINGLE AP, 05/15/2018. . FINDINGS: A single AP semierect view of the chest was obtained. The patient is now mildly rotated to the left. The endotracheal tube remains in place with the tip approximately 3 cm above the jason. The nasogast pramod tube and right subclavian central venous line remain in place. Hazy airspace disease remains in t he lung bases and infrahilar regions right greater than left. The left costophrenic angle may be mild ly blunted. The heart size is mildly prominent the bony thorax is intact. CONCLUSION: 1. Rotated exam again demonstrating hazy airspace disease in the infrahilar regions and both lung ba ses right greater than left. 2. Possible mild blunting of left costophrenic angle. 3. Mild cardiomegaly Electronically signed by: Pino Schwarz MD 05/16/2018 4:45 AM EDT
--- NOTE | 2018-05-16 05:02 | CT ---
EXAM DATE: 05/16/2018 4:54 AM EDT AGE/SEX: 62 years / Female INDICATIONS: Follow-up right subdural hemorrhage after craniotomy. CLINICAL DATA: This is the patient's initial encounter. Patient reports that signs and symptoms have been present for 2 days and indicates a pain score of Nonresponsive. MEDICAL/SURGICAL HISTORY: Non-responsive. Non-responsive. RADIATION DOSE: 56.35 CTDI (mGy) COMPARISON: [facility] [place], CT HEAD W/O CONTRAST, 05/13/2018. . TECHNIQUE: CT of the head without contrast. Using automated exposure control and adjustment of the mA and/or kV according to patient size, radiation dose was kept as low as reasonably achievable to ob tain optimal diagnostic quality images. DICOM format image data is available electronically for revi ew and comparison. FINDINGS: The patient is again noted to be status post right frontal parietal and temporal craniotomy with subd ural drainage catheter in place. There is minimal residual high density hemorrhage again noted. There is mild residual mass effect and mild midline shift to the left again noted without significant hernandez ge. This measures up to approximately 4 mm. The punctate small high density hemorrhage in the midbrai n and trini does not appear significant changed. There is small amount of surrounding edema. Low-densi ty is present in the left occipital lobe which is increased from the prior study. No new hemorrhage o r mass effect is identified. There is mild diffuse atrophic change with sulcal prominence. CONCLUSION: 1. Stable appearance the small high density hemorrhage in the midbrain and trini. 2. Status post right frontal parietal and temporal craniotomy with subdural drainage catheter in jewell ce. There is minimal residual subdural hemorrhage. 3. Mild residual mass effect and slight midline shift to the left again noted. 4. Low density is present in the left left occipital lobe which is increased from the prior study an d most characteristic of edema. This may be secondary to recent contusion or infarction. . Electronically signed by: Pino Schwarz MD 05/16/2018 5:01 AM EDT
[2018-05-16 05:27] LABS: ABG Base Excess -6.5 mmol/L (-2-2); ABG PCO2 29 mmHg (38-42); ABG PO2 99 mmHg (61-120)
[2018-05-16 05:35] LABS: Eosinophils 1 % (0-4); Lymphocytes 4 % (9-44); Monocytes 5 % (0-8); Myelocytes 1 % (0-0)
[2018-05-16 05:36] LABS: Dohle Bodies Present; Platelet Estimate Normal (Normal); Platelet Morphology Normal (Normal); Toxic Granulation 1+
[2018-05-16] MEDS: fentaNYL 10 mcg/mL Premix Drip 2,500 MCG/250 ML BAG IV.SIG PRN (08:39)
[2018-05-16] MEDS: Lisinopril 10 MG Tablet PO SCH ×2 (08:40→20:21)
[2018-05-16] MEDS: Senna/Docusate Sodium 8.6/50 MG Tablet PO SCH ×2 (08:40→20:21)
--- NOTE | 2018-05-16 08:40 | P.PNNPSY ---
- Cognitive Intact: Judgment/problem solving - Psychosocial Intact: Psychosocial, Family/other adjustment, Realistic expectation - Progress Notes/Response to Treatment Contents of Sessions: Adjustment, Level of consciousness Time with Patient: 30 minutes Premorbid Psychological Status: Premorbid Cognitive, Emotional and Behavioral Status: Stable. The patient has high school years of education and a solid work history prior to this injury. The patient has no prior psychiatric difficulties, as described above. Substance abuse history includes EtOH. Behavioral Reactions of Patient and Family/Support System: Stable. The patient s family is experiencing ongoing issues of adjustment given the nature of the injury, and this aspect of recovery will require ongoing monitoring. Emotional/Behavioral Status of Patient and Family/Support System: Stable. Pertinent issues, if appropriate to this patients clinical care, are described in detail above. Maximizing Acute Care Outcome: It is recommended that the patient be monitored for emergent behavioral impulsivity as the medical condition evolves. This patients neuropathological challenges may limit rehabilitation potential going forward, and these challenges will require specialized therapeutic skills to maximize outcome. Additionally, the patients family is experiencing ongoing issues of adjustment given the traumatic nature of the injury, and they may benefit from ongoing psychological assistance. At this point in the recovery process, the patient does not have cognitive capacity as the patient is unable to understand a situation and its likely consequences, nor is the patient able to manipulate information rationally. Cognitive capacity will be assessed throughout the recovery process. Anticipated Problems: Ongoing areas of concern will include behavioral impulsivity, lack of insight and judgment, which is expected to improve with time and treatment. Presently , the patient is critically ill. Treatment Plan: This clinician will continue to follow with you throughout the course of this patients critical care treatment, and I will be available to meet with the patients family/support system to facilitate their understanding and the ongoing care of their family member. The goals of neuropsychological intervention shall be both educational and supportive to the family/support system as is deemed clinically appropriate. [place] COG Scale: Level I Impression: 62 year old woman s/p TBI from multiple causes. Progress Note Narrative: PTD 5. The patient is unchanged clinically. No issues of agitation/ restlessness. She remains intubated and sedated, around [place] I. I will follow. - Diagnosis (1) Major neurocognitive disorder Status: Acute
[2018-05-16] MEDS: Hypromellose 0.3% Opth Gel 10 GM Bottle EACH EYE SCH ×2 (10:29→20:20)
[2018-05-16] MEDS: Chlorhexidine 0.12% Oral Kit 15 ML UDC OROPHARYNG SCH ×2 (10:29→19:18)
[2018-05-16] MEDS: Polyethylene Glycol 3350 17 GM Packet PO SCH ×2 (10:30→20:21)
[2018-05-16] MEDS: Beneprotein Powder Packet G-TUBE SCH ×2 (10:30→17:02)
--- NOTE | 2018-05-16 10:34 | P.PNCC ---
Subjective Brief History: 62-year-old female with repeated falls who fell the day before admission and then again that the day of admission and at this point could not be resuscitated and awoken. She was brought to emergency room with [place] Coma Scale of 4 intubated and ventilated with bilateral dilated pupils On the workup she was found to have a huge right subdural hematoma with a left shift for which she underwent emergency craniectomy by Dr. Abad Patient was placed in ICU for further care and patient was managed expertly by Dr. Olvera and Dr. Joshi. Patient is now being transferred to the surgical critical care service. It should be noted that according to her patient has fallen multiple times in the past Past medical history is that of lymphoma and lung carcinoma 24 Hour Review/Hospital Course: 05/14/2018 For the last 24 hours patient has been in the ICU neurologically unchanged. Drainage from the right subdural hematoma has decreased. At this point [place] Coma Scale is 3T. 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 Bilateral breath sounds patient remains on ventilatory support with good PO2 FiO2 gradient Renal function is preserved I have discussed care at length with her who is a very nice gentleman and understands the implications of this severe injury. At this point with a new finding of hemorrhagic bleed into mesencephalon prognosis may be worse and therefore we should probably give it a few days to see which way this goes Repeat CT scan will be done on Sunday and then we can see if patient is blossoming this bleed or it is receding and then compared it to the neurologic status. 05/15 She is clinically essentially unchanged-GCS remains low CT scan of the head has been planned for Sunday In the meantime we will continue blood pressure control and neuroprotective measure patient is on tube feeds as well PF ratio is adequate renal function is preserved palliative care is involved Neurology consult will be obtained 05/16/2018 Patient's clinical exam remains stable Her blood pressure medications have been adjusted and seem to have better control She is moving her left spontaneously no movement on the right Appreciate palliative care input Objective Vital Signs / I&O: Vital Signs 05/15/18 11:32 05/15/18 12:00 05/15/18 14:00 Temperature 98.5 F Pulse Rate 67 65 70 Respiratory Rate 15 16 Blood Pressure 137/57 L Pulse Oximetry 100 100 05/15/18 16:00 05/15/18 17:41 05/15/18 18:00 Temperature 98.8 F Pulse Rate 66 71 Respiratory Rate 15 15 Blood Pressure 146/68 H Pulse Oximetry 100 100 05/15/18 20:00 05/15/18 20:27 05/15/18 22:00 Temperature 100.8 F H Pulse Rate 67 94 H 70 Respiratory Rate 15 15 Blood Pressure 137/55 L Pulse Oximetry 100 100 05/15/18 23:45 05/16/18 00:00 05/16/18 00:52 Temperature 99.7 F H Pulse Rate 65 66 Respiratory Rate 15 15 15 Blood Pressure 106/42 L Pulse Oximetry 98 96 05/16/18 02:00 05/16/18 03:32 05/16/18 04:00 Temperature 98.4 F Pulse Rate 72 70 71 Respiratory Rate 16 16 Blood Pressure 133/50 L Pulse Oximetry 98 05/16/18 04:15 05/16/18 04:45 05/16/18 06:00 Temperature Pulse Rate 62 Respiratory Rate 15 Blood Pressure Pulse Oximetry 98 100 05/16/18 08:00 05/16/18 08:15 05/16/18 10:00 Temperature 98.1 F Pulse Rate 60 58 L 60 Respiratory Rate 15 15 Blood Pressure 98/51 L Pulse Oximetry 100 100 Intake & Output 05/15/18 05/16/18 05/16/18 18:59 06:59 18:59 Intake Total 1196.2 / 1196.2 2614 / 2614 250 / 250 Output Total 715 / 715 640 / 640 Balance 481.2 / 481.2 1973 250 / 250 Intake: IV 1196.2 / 1196.2 2305 / 2305 250 / 250 NS + KCl 20 mEq Inj 1,000 ML @ 0 / 0 2000 / 2000 100 mls/hr IV.CONT .Q10H [facility] Rx #:[id number] Diprivan 1000 mg/100 ml Inj 1, 100 / 100 200 / 200 000 mg In 100 ml @ 10 MCG/KG/ MIN 3.272 mls/hr IV.CONT TITRATE PRN Rx#:[id number] Sodium Chloride 3% Inj 500 ML @ 480 / 480 10 mls/hr IV.SIG CONT ONE Rx#: [id number] MVI-12 Inj 10 ML Thiamine Inj 511.2 / 511.2 100 MG Folvite Inj 1 MG In NS Inj 500 ML @ 127.8 mls/hr IV. SIG Q24H [facility] Rx#:[id number] fentaNYL 10 mcg/mL Premix Drip 0 / 0 250 / 250 2,500 mcg In 250 ml @ 50 MCG/HR 5 mls/hr IV.SIG TITRATE PRN Rx #:[id number] Keppra Inj 500 MG In NS Inj 100 105 / 105 105 / 105 ML @ 400 mls/hr IV.SIG Q12H [facility] Rx#:[id number] Oral 0 / 0 Tube Feeding 0 / 0 189 / 189 Tube Irrigant 120 / 120 Output: Blood Draw 0 / 0 Urine Amount (Catheter) 550 / 550 550 / 550 Indwelling Urethral Catheter 550 / 550 550 / 550 Wound Drainage 165 / 165 90 / 90 # 1 Head MISTY Drain 0 / 0 0 / 0 # 2 Head MISTY Drain 0 / 0 0 / 0 # 3 Head MISTY Drain 165 / 165 90 / 90 Other: # Bowel Movements 0 0 Result Diagrams: 05/17/18 04:30 05/17/18 04:30 Imaging: Impressions Chest X-Ray 05/16/18 06:00 CONCLUSION: 1. Rotated exam again demonstrating hazy airspace disease in the infrahilar regions and both lung bases right greater than left. 2. Possible mild blunting of left costophrenic angle. 3. Mild cardiomegaly Head CT 05/16/18 06:00 CONCLUSION: 1. Stable appearance the small high density hemorrhage in the midbrain and trini. 2. Status post right frontal parietal and temporal craniotomy with subdural drainage catheter in place. There is minimal residual subdural hemorrhage. 3. Mild residual mass effect and slight midline shift to the left again noted. 4. Low density is present in the left left occipital lobe which is increased from the prior study and most characteristic of edema. This may be secondary to recent contusion or infarction. . 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 and sedated, moving left upper extremity purposefully Hemodynamic/Cardiac: Regular rate and rhythm, intermittent hypertension controlled Pulmonary/Respiratory: Clear to auscultation bilaterally Abdomen/GI Nutrition: Soft, nontender nondistended, tolerating tube feeds Renal/I&O: Adequate urine output Assessment and Plan Plan: TBI combined with CVA and a history of chronic EtOH abuse Will hold sedation as tolerated in order to obtain a better neurologic exam, continue as needed pain medication through the feeding tube Appreciate palliative care input, patient will likely require tracheostomy and gastrostomy tube placement if wishes to pursue this Prognosis remains poor with a very large right subdural hematoma and subfalcine herniation in addition to the midbrain hemorrhagic stroke Discussed condition with: Trauma multidisciplinary team, at bedside
[2018-05-16] MEDS: Potassium Chlor 40 mEq Premix 40 MEQ/100 ML PIGGYBACK IV.SIG PRN (10:51)
--- NOTE | 2018-05-16 11:01 | P.PNPAL ---
Reason for Visit Reason for visit: a. To assist with evaluation and management of symptoms including:dyspnea, pain b. To assist medical decision maker(s) with: better understanding of current medical conditions; weighing benefits/burdens of medical treatment options; making medical treatment decisions. Subjective Subjective/Interval History: Patient today remains intubated and sedated. WBC has increase this morning. CT scan from earlier this morning noted stable appearacne of the small high density hemorrhage in the midbrain and trini. Status post frontal and temporal craniotomy with subdural drainage. Family/Friend Interactions: I spoke to at bedside. I state the CT has been done, but I am awaiting comment from neurosurgery and neurology. The hemorrhage in midbrain is stable. Low density is present in the left occipital lobe is increased. I spoke with him and he endorse he would give more time on life support " If there was any chance at all" for functional recovery. He spoke about a good friend of his who had head trauma was on the vent for 3 months before being able to become alert and another 9 months for more functional recovery. He state he is doing well now. I told him in medicine like many things, it may not be black and white, and it may be difficult for clinician to say yes for certain pt will recovery, or for certain patient will not recover. He endorse he understands that. For now his goals of care is if there is any chance at recovery, he would give his time to recover even if it means longer amount of time on life support. Objective Vital Signs: Vital Signs 05/15/18 11:32 05/15/18 12:00 05/15/18 14:00 Temperature 98.5 F Pulse Rate 67 65 70 Respiratory Rate 15 16 Blood Pressure 137/57 L Pulse Oximetry 100 100 05/15/18 16:00 05/15/18 17:41 05/15/18 18:00 Temperature 98.8 F Pulse Rate 66 71 Respiratory Rate 15 15 Blood Pressure 146/68 H Pulse Oximetry 100 100 05/15/18 20:00 05/15/18 20:27 05/15/18 22:00 Temperature 100.8 F H Pulse Rate 67 94 H 70 Respiratory Rate 15 15 Blood Pressure 137/55 L Pulse Oximetry 100 100 05/15/18 23:45 05/16/18 00:00 05/16/18 00:52 Temperature 99.7 F H Pulse Rate 65 66 Respiratory Rate 15 15 15 Blood Pressure 106/42 L Pulse Oximetry 98 96 05/16/18 02:00 05/16/18 03:32 05/16/18 04:00 Temperature 98.4 F Pulse Rate 72 70 71 Respiratory Rate 16 16 Blood Pressure 133/50 L Pulse Oximetry 98 05/16/18 04:15 05/16/18 04:45 05/16/18 06:00 Temperature Pulse Rate 62 Respiratory Rate 15 Blood Pressure Pulse Oximetry 98 100 05/16/18 08:00 05/16/18 08:15 05/16/18 10:00 Temperature 98.1 F Pulse Rate 60 58 L 60 Respiratory Rate 15 15 Blood Pressure 98/51 L Pulse Oximetry 100 100 Intake & Output 05/15/18 05/16/18 05/16/18 18:59 06:59 18:59 Intake Total 1196.2 / 1196.2 2614 / 2614 250 / 250 Output Total 715 / 715 640 / 640 Balance 481.2 / 481.2 1973 250 / 250 Intake: IV 1196.2 / 1196.2 2305 / 2305 250 / 250 NS + KCl 20 mEq Inj 1,000 ML @ 0 / 0 2000 / 2000 100 mls/hr IV.CONT .Q10H CARLOS Rx #:[id number] Diprivan 1000 mg/100 ml Inj 1, 100 / 100 200 / 200 000 mg In 100 ml @ 10 MCG/KG/ MIN 3.272 mls/hr IV.CONT TITRATE PRN Rx#:[id number] Sodium Chloride 3% Inj 500 ML @ 480 / 480 10 mls/hr IV.SIG CONT ONE Rx#: [id number] MVI-12 Inj 10 ML Thiamine Inj 511.2 / 511.2 100 MG Folvite Inj 1 MG In NS Inj 500 ML @ 127.8 mls/hr IV. SIG Q24H CARLOS Rx#:[id number] fentaNYL 10 mcg/mL Premix Drip 0 / 0 250 / 250 2,500 mcg In 250 ml @ 50 MCG/HR 5 mls/hr IV.SIG TITRATE PRN Rx #:[id number] Keppra Inj 500 MG In NS Inj 100 105 / 105 105 / 105 ML @ 400 mls/hr IV.SIG Q12H CARLOS Rx#:[id number] Oral 0 / 0 Tube Feeding 0 / 0 189 / 189 Tube Irrigant 120 / 120 Output: Blood Draw 0 / 0 Urine Amount (Catheter) 550 / 550 550 / 550 Indwelling Urethral Catheter 550 / 550 550 / 550 Wound Drainage 165 / 165 90 / 90 # 1 Head MISTY Drain 0 / 0 0 / 0 # 2 Head MISTY Drain 0 / 0 0 / 0 # 3 Head MISTY Drain 165 / 165 90 / 90 Other: # Bowel Movements 0 0 Physical Exam: DRAFT CONSTITUTIONAL/GENERAL: This is thin lady, frail, intubated sedated. TUBES/LINES/DRAINS:IJ, piv, ziegler, et tube. SKIN: No jaundice, rashes, or lesions. Ecchymoses on upper extremities. No wounds seen anteriorly. Skin temperature appropriate. Not diaphoretic. HEAD: Stable from decompressive craniotomy EYES: Right pupil 1mm non reactive. Left pupil 0.5 mg constricted. ENT: Nose without bleeding or purulent drainage. ET tube NECK: Trachea midline. Supple, nontender. No palpable thyroid enlargement or nodularity. CARDIOVASCULAR: Regular rate and rhythm without murmurs, gallops, or rubs. No JVD. Peripheral pulses symmetric. RESPIRATORY/CHEST: Symmetric, unlabored respirations. Clear to auscultation. Intubated GASTROINTESTINAL: Abdomen soft, non-tender, nondistended. No hepato-splenomegaly , or palpable masses. No guarding. Bowel sounds present. GENITOURINARY: Without palpable bladder distension. Ziegler catheter in place. MUSCULOSKELETAL: Extremities without clubbing, cyanosis, or edema. LYMPHATICS: No palpable cervical or supraclavicular adenopathy. NEUROLOGICAL: sedated, minimally responsive. pupils see Eye exame. withdrawl to painful stimuli to left arm. not to any other. PSYCHIATRIC:could not examine. Diagnostic Tests Laboratory: Laboratory Results - last 72 hr 05/13/18 05/13/18 05/13/18 05:12 09:00 09:00 WBC 12.0 H RBC 2.76 L Hgb 9.2 L D Hct 27.2 L MCV 98.4 D MCH 33.3 MCHC 33.8 RDW 20.4 H D Plt Count 189 MPV 8.9 Prelim Diff (Auto) Neut % (Auto) Lymph % (Auto) [place] % (Auto) Eos % (Auto) Baso % (Auto) Neut # (Auto) Lymph # (Auto) [place] # (Auto) Eos # (Auto) Baso # (Auto) WBC Differential Seg Neuts % (Manual) Band Neuts % (Manual) Lymphocytes % (Manual) Monocytes % (Manual) Eosinophils % (Manual) Myelocytes % (Man) Abs Neuts (Manual) Differential Comment Toxic Granulation Dohle Bodies Platelet Estimate Platelet Morphology Retic Count Absolute Retic PT 9.4 L INR 0.9 APTT Puncture Site Patient Temperature O2 Saturation ABG pH ABG pCO2 ABG pO2 ABG HCO3 ABG O2 Content ABG Base Excess ABG Methemoglobin Hemoglobin Carboxyhemoglobin O2 Delivery Device Vent Setting Inspired O2 Critical Value Sodium Potassium Chloride Carbon Dioxide Anion Gap BUN Creatinine Estimated GFR POC Glucose Random Glucose Osmolality Calcium Prot Corrected Calcium Phosphorus Magnesium Total Bilirubin AST ALT Alkaline Phosphatase Troponin I Total Protein Albumin Vitamin B12 Folate TSH MTS Gel Crossmatch See Detail 05/13/18 05/13/18 05/13/18 09:00 09:00 11:47 WBC RBC Hgb Hct MCV MCH MCHC RDW Plt Count MPV Prelim Diff (Auto) Neut % (Auto) Lymph % (Auto) [place] % (Auto) Eos % (Auto) Baso % (Auto) Neut # (Auto) Lymph # (Auto) [place] # (Auto) Eos # (Auto) Baso # (Auto) WBC Differential Seg Neuts % (Manual) Band Neuts % (Manual) Lymphocytes % (Manual) Monocytes % (Manual) Eosinophils % (Manual) Myelocytes % (Man) Abs Neuts (Manual) Differential Comment Toxic Granulation Dohle Bodies Platelet Estimate Platelet Morphology Retic Count 1.9 Absolute Retic 47.9 PT INR APTT Puncture Site Patient Temperature O2 Saturation ABG pH ABG pCO2 ABG pO2 ABG HCO3 ABG O2 Content ABG Base Excess ABG Methemoglobin Hemoglobin Carboxyhemoglobin O2 Delivery Device Vent Setting Inspired O2 Critical Value Sodium 153 H Potassium Chloride Carbon Dioxide Anion Gap BUN Creatinine Estimated GFR POC Glucose 80 Random Glucose Osmolality 308 H Calcium Prot Corrected Calcium Phosphorus Magnesium Total Bilirubin AST ALT Alkaline Phosphatase Troponin I 1.12 H* D Total Protein Albumin Vitamin B12 123 L Folate 7.8 TSH 4.450 H MTS Gel Crossmatch 05/13/18 05/13/18 05/14/18 17:27 17:34 00:51 WBC RBC Hgb 8.8 L Hct 26.5 L MCV MCH MCHC RDW Plt Count MPV Prelim Diff (Auto) Neut % (Auto) Lymph % (Auto) [place] % (Auto) Eos % (Auto) Baso % (Auto) Neut # (Auto) Lymph # (Auto) [place] # (Auto) Eos # (Auto) Baso # (Auto) WBC Differential Seg Neuts % (Manual) Band Neuts % (Manual) Lymphocytes % (Manual) Monocytes % (Manual) Eosinophils % (Manual) Myelocytes % (Man) Abs Neuts (Manual) Differential Comment Toxic Granulation Dohle Bodies Platelet Estimate Platelet Morphology Retic Count Absolute Retic PT INR APTT Puncture Site Patient Temperature O2 Saturation ABG pH ABG pCO2 ABG pO2 ABG HCO3 ABG O2 Content ABG Base Excess ABG Methemoglobin Hemoglobin Carboxyhemoglobin O2 Delivery Device Vent Setting Inspired O2 Critical Value Sodium 153 H Potassium Chloride Carbon Dioxide Anion Gap BUN Creatinine Estimated GFR POC Glucose 75 Random Glucose Osmolality 311 H Calcium Prot Corrected Calcium Phosphorus Magnesium Total Bilirubin AST ALT Alkaline Phosphatase Troponin I Total Protein Albumin Vitamin B12 Folate TSH MTS Gel Crossmatch 05/14/18 05/14/18 05/14/18 04:20 04:20 04:20 WBC 15.5 H RBC 2.94 L Hgb 9.6 L Hct 29.0 L MCV 98.4 MCH 32.7 MCHC 33.2 RDW 19.7 H Plt Count 197 MPV 8.2 Prelim Diff (Auto) Neut % (Auto) 84.1 H Lymph % (Auto) 9.6 [place] % (Auto) 5.5 Eos % (Auto) 0.5 Baso % (Auto) 0.3 Neut # (Auto) 13.0 H Lymph # (Auto) 1.5 [place] # (Auto) 0.8 Eos # (Auto) 0.1 Baso # (Auto) 0.0 WBC Differential . Seg Neuts % (Manual) Band Neuts % (Manual) Lymphocytes % (Manual) Monocytes % (Manual) Eosinophils % (Manual) Myelocytes % (Man) Abs Neuts (Manual) Differential Comment Auto diff final Toxic Granulation Dohle Bodies Platelet Estimate Platelet Morphology Retic Count Absolute Retic PT INR APTT Puncture Site Patient Temperature O2 Saturation ABG pH ABG pCO2 ABG pO2 ABG HCO3 ABG O2 Content ABG Base Excess ABG Methemoglobin Hemoglobin Carboxyhemoglobin O2 Delivery Device Vent Setting Inspired O2 Critical Value Sodium 149 H Cancelled Potassium 3.3 L Chloride 119 H Carbon Dioxide 21.4 Anion Gap 9 BUN 6 L Creatinine 0.27 L Estimated GFR Greater than 89 POC Glucose Random Glucose 105 Osmolality 303 H Calcium 8.1 L D Prot Corrected Calcium Phosphorus 2.9 Magnesium 2.0 Total Bilirubin 0.4 AST 19 ALT 13 Alkaline Phosphatase 95 Troponin I 0.61 H* D Total Protein 5.6 L D Albumin 2.1 L Vitamin B12 Folate [facility] Gel Crossmatch 05/14/18 05/14/18 05/14/18 05:42 08:45 08:56 WBC RBC Hgb Hct MCV MCH MCHC RDW Plt Count MPV Prelim Diff (Auto) Neut % (Auto) Lymph % (Auto) [place] % (Auto) Eos % (Auto) Baso % (Auto) Neut # (Auto) Lymph # (Auto) [place] # (Auto) Eos # (Auto) Baso # (Auto) WBC Differential Seg Neuts % (Manual) Band Neuts % (Manual) Lymphocytes % (Manual) Monocytes % (Manual) Eosinophils % (Manual) Myelocytes % (Man) Abs Neuts (Manual) Differential Comment Toxic Granulation Dohle Bodies Platelet Estimate Platelet Morphology Retic Count Absolute Retic PT INR APTT Puncture Site Art line Patient Temperature 98.6 O2 Saturation 96 ABG pH 7.44 H ABG pCO2 31 L ABG pO2 98 ABG HCO3 21 L ABG O2 Content 12.5 ABG Base Excess -2.9 L ABG Methemoglobin 1.3 Hemoglobin 9.2 L Carboxyhemoglobin 1.3 O2 Delivery Device Vent Vent Setting Prvc/ac Inspired O2 30 Critical Value No Sodium 149 H Potassium Chloride Carbon Dioxide Anion Gap BUN Creatinine Estimated GFR POC Glucose 94 Random Glucose Osmolality 302 H Calcium Prot Corrected Calcium Phosphorus Magnesium Total Bilirubin AST ALT Alkaline Phosphatase Troponin I Total Protein Albumin Vitamin B12 Folate [facility] MTS Gel Crossmatch 05/14/18 05/14/18 05/14/18 12:00 12:29 16:00 WBC RBC Hgb Hct MCV MCH MCHC RDW Plt Count MPV Prelim Diff (Auto) Neut % (Auto) Lymph % (Auto) [place] % (Auto) Eos % (Auto) Baso % (Auto) Neut # (Auto) Lymph # (Auto) [place] # (Auto) Eos # (Auto) Baso # (Auto) WBC Differential Seg Neuts % (Manual) Band Neuts % (Manual) Lymphocytes % (Manual) Monocytes % (Manual) Eosinophils % (Manual) Myelocytes % (Man) Abs Neuts (Manual) Differential Comment Toxic Granulation Dohle Bodies Platelet Estimate Platelet Morphology Retic Count Absolute Retic PT INR APTT 26.2 Puncture Site Patient Temperature O2 Saturation ABG pH ABG pCO2 ABG pO2 ABG HCO3 ABG O2 Content ABG Base Excess ABG Methemoglobin Hemoglobin Carboxyhemoglobin O2 Delivery Device Vent Setting Inspired O2 Critical Value Sodium 151 H Potassium Chloride Carbon Dioxide Anion Gap BUN Creatinine Estimated GFR POC Glucose 104 Random Glucose Osmolality 298 H Calcium Prot Corrected Calcium Phosphorus Magnesium Total Bilirubin AST ALT Alkaline Phosphatase Troponin I Total Protein Albumin Vitamin B12 Folate TSH MTS Gel Crossmatch 05/14/18 05/14/18 05/14/18 17:24 21:45 21:45 WBC RBC Hgb Hct MCV MCH MCHC RDW Plt Count MPV Prelim Diff (Auto) Neut % (Auto) Lymph % (Auto) [place] % (Auto) Eos % (Auto) Baso % (Auto) Neut # (Auto) Lymph # (Auto) [place] # (Auto) Eos # (Auto) Baso # (Auto) WBC Differential Seg Neuts % (Manual) Band Neuts % (Manual) Lymphocytes % (Manual) Monocytes % (Manual) Eosinophils % (Manual) Myelocytes % (Man) Abs Neuts (Manual) Differential Comment Toxic Granulation Dohle Bodies Platelet Estimate Platelet Morphology Retic Count Absolute Retic PT INR APTT Puncture Site Patient Temperature O2 Saturation ABG pH ABG pCO2 ABG pO2 ABG HCO3 ABG O2 Content ABG Base Excess ABG Methemoglobin Hemoglobin Carboxyhemoglobin O2 Delivery Device Vent Setting Inspired O2 Critical Value Sodium Potassium 3.3 L Chloride Carbon Dioxide Anion Gap BUN Creatinine Estimated GFR POC Glucose 109 Random Glucose Osmolality 302 H Calcium Prot Corrected Calcium Phosphorus Magnesium Total Bilirubin AST ALT Alkaline Phosphatase Troponin I Total Protein Albumin Vitamin B12 Folate TSH MTS Gel Crossmatch 05/15/18 05/15/18 05/15/18 00:27 03:20 03:20 WBC 15.7 H RBC 2.38 L Hgb 8.0 L Hct 23.8 L MCV 99.9 MCH 33.7 MCHC 33.7 RDW 18.6 H Plt Count 189 MPV 8.5 Prelim Diff (Auto) Neut % (Auto) 87.6 H Lymph % (Auto) 5.2 L [place] % (Auto) 6.4 Eos % (Auto) 0.5 Baso % (Auto) 0.3 Neut # (Auto) 13.8 H Lymph # (Auto) 0.8 L [place] # (Auto) 1.0 H Eos # (Auto) 0.1 Baso # (Auto) 0.0 WBC Differential . Seg Neuts % (Manual) Band Neuts % (Manual) Lymphocytes % (Manual) Monocytes % (Manual) Eosinophils % (Manual) Myelocytes % (Man) Abs Neuts (Manual) Differential Comment Auto diff final Toxic Granulation Dohle Bodies Platelet Estimate Platelet Morphology Retic Count Absolute Retic PT INR APTT Puncture Site Patient Temperature O2 Saturation ABG pH ABG pCO2 ABG pO2 ABG HCO3 ABG O2 Content ABG Base Excess ABG Methemoglobin Hemoglobin Carboxyhemoglobin O2 Delivery Device Vent Setting Inspired O2 Critical Value Sodium Cancelled Potassium Cancelled Chloride Cancelled Carbon Dioxide Cancelled Anion Gap Cancelled BUN Cancelled Creatinine Cancelled Estimated GFR Cancelled POC Glucose 75 Random Glucose Cancelled Osmolality Calcium Cancelled Prot Corrected Calcium Cancelled Phosphorus Magnesium Total Bilirubin Cancelled AST Cancelled ALT Cancelled Alkaline Phosphatase Cancelled Troponin I Total Protein Cancelled Albumin Cancelled Vitamin B12 Folate TSH MTS Gel Crossmatch 05/15/18 05/15/18 05/15/18 03:20 05:36 08:20 WBC RBC Hgb Hct MCV MCH MCHC RDW Plt Count MPV Prelim Diff (Auto) Neut % (Auto) Lymph % (Auto) [place] % (Auto) Eos % (Auto) Baso % (Auto) Neut # (Auto) Lymph # (Auto) [place] # (Auto) Eos # (Auto) Baso # (Auto) WBC Differential Seg Neuts % (Manual) Band Neuts % (Manual) Lymphocytes % (Manual) Monocytes % (Manual) Eosinophils % (Manual) Myelocytes % (Man) Abs Neuts (Manual) Differential Comment Toxic Granulation Dohle Bodies Platelet Estimate Platelet Morphology Retic Count Absolute Retic PT INR APTT Puncture Site Art line Patient Temperature 98.6 O2 Saturation 94 ABG pH 7.43 H ABG pCO2 27 L ABG pO2 79 ABG HCO3 17 L ABG O2 Content 11.4 L ABG Base Excess -6.2 L ABG Methemoglobin 1.0 Hemoglobin 8.6 L Carboxyhemoglobin 1.4 O2 Delivery Device Ventilator Vent Setting Prvc/ac Inspired O2 30 Critical Value No Sodium 151 H 150 H Potassium 3.3 L Chloride 121 H Carbon Dioxide 20.8 L Anion Gap 9 BUN 8 Creatinine 0.19 L Estimated GFR Greater than 89 POC Glucose Random Glucose 77 Osmolality 301 H 302 H Calcium 7.8 L Prot Corrected Calcium Phosphorus Magnesium Total Bilirubin 0.6 AST 32 ALT 18 Alkaline Phosphatase 328 H Troponin I Total Protein 4.9 L D Albumin 1.7 L Vitamin B12 Folate TSH MTS Gel Crossmatch 05/15/18 05/15/18 05/15/18 08:57 17:21 17:30 WBC RBC Hgb Hct MCV MCH MCHC RDW Plt Count MPV Prelim Diff (Auto) Neut % (Auto) Lymph % (Auto) [place] % (Auto) Eos % (Auto) Baso % (Auto) Neut # (Auto) Lymph # (Auto) [place] # (Auto) Eos # (Auto) Baso # (Auto) WBC Differential Seg Neuts % (Manual) Band Neuts % (Manual) Lymphocytes % (Manual) Monocytes % (Manual) Eosinophils % (Manual) Myelocytes % (Man) Abs Neuts (Manual) Differential Comment Toxic Granulation Dohle Bodies Platelet Estimate Platelet Morphology Retic Count Absolute Retic PT INR APTT Puncture Site Patient Temperature O2 Saturation ABG pH ABG pCO2 ABG pO2 ABG HCO3 ABG O2 Content ABG Base Excess ABG Methemoglobin Hemoglobin Carboxyhemoglobin O2 Delivery Device Vent Setting Inspired O2 Critical Value Sodium Potassium 3.6 Chloride Carbon Dioxide Anion Gap BUN Creatinine Estimated GFR POC Glucose 79 72 Random Glucose Osmolality Calcium Prot Corrected Calcium Phosphorus Magnesium Total Bilirubin AST ALT Alkaline Phosphatase Troponin I Total Protein Albumin Vitamin B12 Folate TSH MTS Gel Crossmatch 05/16/18 05/16/18 05/16/18 01:32 04:00 04:00 WBC 16.3 H RBC 2.49 L Hgb 8.1 L Hct 24.9 L MCV 100.1 H MCH 32.5 MCHC 32.5 RDW 18.2 H Plt Count 220 MPV 8.7 Prelim Diff (Auto) Slide review pending Neut % (Auto) 82.3 H Lymph % (Auto) 6.2 L [place] % (Auto) 10.6 H Eos % (Auto) 0.6 Baso % (Auto) 0.3 Neut # (Auto) 13.4 H Lymph # (Auto) 1.0 [place] # (Auto) 1.7 H Eos # (Auto) 0.1 Baso # (Auto) 0.0 WBC Differential Manual diff final Seg Neuts % (Manual) 49 Band Neuts % (Manual) 40 H Lymphocytes % (Manual) 4 L Monocytes % (Manual) 5 Eosinophils % (Manual) 1 Myelocytes % (Man) 1 H Abs Neuts (Manual) 14.7 H Differential Comment . Toxic Granulation 1+ H Dohle Bodies Present H Platelet Estimate Normal Platelet Morphology Normal Retic Count Absolute Retic PT INR APTT Puncture Site Patient Temperature O2 Saturation ABG pH ABG pCO2 ABG pO2 ABG HCO3 ABG O2 Content ABG Base Excess ABG Methemoglobin Hemoglobin Carboxyhemoglobin O2 Delivery Device Vent Setting Inspired O2 Critical Value Sodium 150 H Potassium 3.4 L Chloride 119 H Carbon Dioxide 18.1 L Anion Gap 13 BUN 8 Creatinine 0.23 L Estimated GFR Greater than 89 POC Glucose 94 Random Glucose 100 Osmolality Calcium 8.1 L Prot Corrected Calcium Phosphorus Magnesium Total Bilirubin 0.5 AST 23 ALT 21 Alkaline Phosphatase 392 H Troponin I Total Protein 5.3 L Albumin 1.7 L Vitamin B12 Folate TSH MTS Gel Crossmatch 05/16/18 05:20 WBC RBC Hgb Hct MCV MCH MCHC RDW Plt Count MPV Prelim Diff (Auto) Neut % (Auto) Lymph % (Auto) [place] % (Auto) Eos % (Auto) Baso % (Auto) Neut # (Auto) Lymph # (Auto) [place] # (Auto) Eos # (Auto) Baso # (Auto) WBC Differential Seg Neuts % (Manual) Band Neuts % (Manual) Lymphocytes % (Manual) Monocytes % (Manual) Eosinophils % (Manual) Myelocytes % (Man) Abs Neuts (Manual) Differential Comment Toxic Granulation Dohle Bodies Platelet Estimate Platelet Morphology Retic Count Absolute Retic PT INR APTT Puncture Site Art line Patient Temperature 98.6 O2 Saturation 96 ABG pH 7.40 ABG pCO2 29 L ABG pO2 99 ABG HCO3 17 L ABG O2 Content 19.4 ABG Base Excess -6.5 L ABG Methemoglobin 0.9 Hemoglobin 14.4 Carboxyhemoglobin 1.0 O2 Delivery Device Ventilator Vent Setting Prvc/ac Inspired O2 30 Critical Value No Sodium Potassium Chloride Carbon Dioxide Anion Gap BUN Creatinine Estimated GFR POC Glucose Random Glucose Osmolality Calcium Prot Corrected Calcium Phosphorus Magnesium Total Bilirubin AST ALT Alkaline Phosphatase Troponin I Total Protein Albumin Vitamin B12 Folate TSH MTS Gel Crossmatch Result Diagrams: 05/16/18 04:00 05/16/18 04:00 Imaging: ITS Impressions Abdomen X-Ray 05/11/18 00:00 CONCLUSION: Unremarkable study. Abdomen/Pelvis CT 05/13/18 08:21 CONCLUSION: 1. Small bilateral pleural effusions, mild body wall edema and trace fluid in the pelvis. 2. Nonobstructing right renal calculus. 3. Atherosclerosis. Chest X-Ray 05/16/18 06:00 CONCLUSION: 1. Rotated exam again demonstrating hazy airspace disease in the infrahilar regions and both lung bases right greater than left. 2. Possible mild blunting of left costophrenic angle. 3. Mild cardiomegaly Head CT 05/16/18 06:00 CONCLUSION: 1. Stable appearance the small high density hemorrhage in the midbrain and trini. 2. Status post right frontal parietal and temporal craniotomy with subdural drainage catheter in place. There is minimal residual subdural hemorrhage. 3. Mild residual mass effect and slight midline shift to the left again noted. 4. Low density is present in the left left occipital lobe which is increased from the prior study and most characteristic of edema. This may be secondary to recent contusion or infarction. . Assessment and Plan Pertinent Non-Medical Issues: Psychosocial:Has a spouse Spiritual:[employer] Legal:No advance directives. Ethical issues impacting care:none Important Contacts: Amari Joycee (spouse) [phone] cell, home phone [phone] Charlotte Adasm [phone] Prognosis: prognosis is guarded. Pt with severe subdural hematoma s/p forntotemporoparietal decompressive craniotomy. Hx of etoh abuse. 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 Code Status: Alternative Code (Intubation only. No compression/shock/acls.) Plan: == capacity- no capacity to make medical decision == health care surrogate is spouse. == code: Pt is made an alternate code after my discussion with spouse: no compression/acls/shock. Intubation only. == spoke to at bedside. I state the CT has been done, but I am awaiting comment from neurosurgery and neurology. The hemorrhage in midbrain is stable. Low density is present in the left occipital lobe is increased. I spoke with him and he endorse he would give more time on life support " If there was any chance at all" for functional recovery. He spoke about a good friend of his who had head trauma was on the vent for 3 months before being able to become alert and another 9 months for more functional recovery. He state he is doing well now. I told him in medicine, like many things, it may not be black or white; and it may be difficult for clinician to say yes for certain pt will recovery, or for certain patient will not recover. He endorse he understands that. For now his goals of care is if there is any chance at recovery, he would give his time to recover even if it means longer amount of time on life support. == symptom= dyspnea= on mechanical ventilation. pain-s/p brain hemorrhage. prn fentanyl available. == palliative care will follow to make recommendation on symptom mangement, and review goals of care as clinical condition evolves. . Attestation Attestation: To help prompt me to consider important information that might be impacting today's encounter and assessment, information from prior notes written by myself or my colleagues may have been "brought forward" into today's note. My signature on this note, however, is an attestation that I personally performed the exam, history, and/or decision-making noted today, and, unless otherwise indicated, the interactions with patient, family, and staff as well as the review of records all occurred today. I also attest that the listed assessment and stated plan reflect my best clinical judgment today based on the combination of historical information, prior notes, and today's exam/ interactions. When time spent is documented, it refers only to time spent today by the signer, or if indicated, combined time spent today by collaborating physician/nurse practitioner.
--- NOTE | 2018-05-16 12:40 | P.PNNS ---
Subjective Interval history: THIS NOTE IS FOR 05/15/18, PATIENT WAS SEEN AND EXAMINED. 05/15: pt remains intubated, sedated. Physical Exam Vital signs: Vital Signs 05/15/18 14:00 05/15/18 16:00 05/15/18 17:41 Temperature 98.8 F Pulse Rate 70 66 Respiratory Rate 15 15 Blood Pressure 146/68 H Pulse Oximetry 100 100 05/15/18 18:00 05/15/18 20:00 05/15/18 20:27 Temperature 100.8 F H Pulse Rate 71 67 94 H Respiratory Rate 15 15 Blood Pressure 137/55 L Pulse Oximetry 100 100 05/15/18 22:00 05/15/18 23:45 05/16/18 00:00 Temperature 99.7 F H Pulse Rate 70 65 66 Respiratory Rate 15 15 Blood Pressure 106/42 L Pulse Oximetry 98 05/16/18 00:52 05/16/18 02:00 05/16/18 03:32 Temperature Pulse Rate 72 70 Respiratory Rate 15 16 Blood Pressure Pulse Oximetry 96 05/16/18 04:00 05/16/18 04:15 05/16/18 04:45 Temperature 98.4 F Pulse Rate 71 Respiratory Rate 16 15 Blood Pressure 133/50 L Pulse Oximetry 98 98 100 05/16/18 06:00 05/16/18 08:00 05/16/18 08:15 Temperature 98.1 F Pulse Rate 62 60 58 L Respiratory Rate 15 15 Blood Pressure 98/51 L Pulse Oximetry 100 100 05/16/18 10:00 05/16/18 10:59 Temperature Pulse Rate 60 68 Respiratory Rate 15 Blood Pressure Pulse Oximetry 100 Intake & Output 05/15/18 05/16/18 05/16/18 18:59 06:59 18:59 Intake Total 1196.2 / 1196.2 2614 / 2614 250 / 250 Output Total 715 / 715 640 / 640 Balance 481.2 / 481.2 1973 250 / 250 Intake: IV 1196.2 / 1196.2 2305 / 2305 250 / 250 NS + KCl 20 mEq Inj 1,000 ML @ 0 / 0 1999 / 1999 100 mls/hr IV.CONT .Q10H COUNT INCLUDES THE [facility] Rx #:[id number] Diprivan 1000 mg/100 ml Inj 1, 100 / 100 200 / 200 000 mg In 100 ml @ 10 MCG/KG/ MIN 3.272 mls/hr IV.CONT TITRATE PRN Rx#:[id number] Sodium Chloride 3% Inj 500 ML @ 480 / 480 10 mls/hr IV.SIG CONT ONE Rx#: [id number] MVI-12 Inj 10 ML Thiamine Inj 511.2 / 511.2 100 MG Folvite Inj 1 MG In NS Inj 500 ML @ 127.8 mls/hr IV. SIG Q24H [facility] Rx#:[id number] fentaNYL 10 mcg/mL Premix Drip 0 / 0 250 / 250 2,500 mcg In 250 ml @ 50 MCG/HR 5 mls/hr IV.SIG TITRATE PRN Rx #:[id number] Keppra Inj 500 MG In NS Inj 100 105 / 105 105 / 105 ML @ 400 mls/hr IV.SIG Q12H [facility] Rx#:[id number] Oral 0 / 0 Tube Feeding 0 / 0 189 / 189 Tube Irrigant 120 / 120 Output: Blood Draw 0 / 0 Urine Amount (Catheter) 550 / 550 550 / 550 Indwelling Urethral Catheter 550 / 550 550 / 550 Wound Drainage 165 / 165 90 / 90 # 1 Head MISTY Drain 0 / 0 0 / 0 # 2 Head MISTY Drain 0 / 0 0 / 0 # 3 Head MISTY Drain 165 / 165 90 / 90 Other: # Bowel Movements 0 0 Narrative: Intubated, sedated. Right flap today khan, slightly tense to palpate. surgical wound clean and dry. MISTY drains in place. Right pupil size 4 mm nonreactive, left pupil 2 mm Does not ope eyes or follow commands. - Urinary Catheter Management Indwelling Urethral Catheter Cath placed during this visit: yes Reason for continuing: Hourly intake/output Insertion date: 05/11/18 Insertion time: 12:00 Assessment and Plan - Plan Impression: 62 y/o female with large right subdural hematoma with severe mass effect and midline shift, s/p emergent right decompressive craniectomy with evacuation of subdural hematoma, and placement of ICP monitor 05/11/18, s/p removal of ICP monitor 05/13/18 history of etoh abuse Plan: cont critical care mgt per trauma team cont neuro checks Dr. Abad again dw today
--- NOTE | 2018-05-16 12:51 | P.PNNS ---
Subjective Interval history: 05/16: f/u CT Brain completed. remains intubated, sedated. minimal withdrawal right lower extremity to pain. Physical Exam Vital signs: Vital Signs 05/15/18 14:00 05/15/18 16:00 05/15/18 17:41 Temperature 98.8 F Pulse Rate 70 66 Respiratory Rate 15 15 Blood Pressure 146/68 H Pulse Oximetry 100 100 05/15/18 18:00 05/15/18 20:00 05/15/18 20:27 Temperature 100.8 F H Pulse Rate 71 67 94 H Respiratory Rate 15 15 Blood Pressure 137/55 L Pulse Oximetry 100 100 05/15/18 22:00 05/15/18 23:45 05/16/18 00:00 Temperature 99.7 F H Pulse Rate 70 65 66 Respiratory Rate 15 15 Blood Pressure 106/42 L Pulse Oximetry 98 05/16/18 00:52 05/16/18 02:00 05/16/18 03:32 Temperature Pulse Rate 72 70 Respiratory Rate 15 16 Blood Pressure Pulse Oximetry 96 05/16/18 04:00 05/16/18 04:15 05/16/18 04:45 Temperature 98.4 F Pulse Rate 71 Respiratory Rate 16 15 Blood Pressure 133/50 L Pulse Oximetry 98 98 100 05/16/18 06:00 05/16/18 08:00 05/16/18 08:15 Temperature 98.1 F Pulse Rate 62 60 58 L Respiratory Rate 15 15 Blood Pressure 98/51 L Pulse Oximetry 100 100 05/16/18 10:00 05/16/18 10:59 Temperature Pulse Rate 60 68 Respiratory Rate 15 Blood Pressure Pulse Oximetry 100 Intake & Output 05/15/18 05/16/18 05/16/18 18:59 06:59 18:59 Intake Total 1196.2 / 1196.2 2614 / 2614 250 / 250 Output Total 715 / 715 640 / 640 Balance 481.2 / 481.2 1973 250 / 250 Intake: IV 1196.2 / 1196.2 2305 / 2305 250 / 250 NS + KCl 20 mEq Inj 1,000 ML @ 0 / 0 1999 / 1999 100 mls/hr IV.CONT .Q10H [facility] Rx #:[id number] Diprivan 1000 mg/100 ml Inj 1, 100 / 100 200 / 200 000 mg In 100 ml @ 10 MCG/KG/ MIN 3.272 mls/hr IV.CONT TITRATE PRN Rx#:[id number] Sodium Chloride 3% Inj 500 ML @ 480 / 480 10 mls/hr IV.SIG CONT ONE Rx#: [id number] MVI-12 Inj 10 ML Thiamine Inj 511.2 / 511.2 100 MG Folvite Inj 1 MG In NS Inj 500 ML @ 127.8 mls/hr IV. SIG Q24H [facility] Rx#:[id number] fentaNYL 10 mcg/mL Premix Drip 0 / 0 250 / 250 2,500 mcg In 250 ml @ 50 MCG/HR 5 mls/hr IV.SIG TITRATE PRN Rx #:[id number] Keppra Inj 500 MG In NS Inj 100 105 / 105 105 / 105 ML @ 400 mls/hr IV.SIG Q12H [facility] Rx#:[id number] Oral 0 / 0 Tube Feeding 0 / 0 189 / 189 Tube Irrigant 120 / 120 Output: Blood Draw 0 / 0 Urine Amount (Catheter) 550 / 550 550 / 550 Indwelling Urethral Catheter 550 / 550 550 / 550 Wound Drainage 165 / 165 90 / 90 # 1 Head MISTY Drain 0 / 0 0 / 0 # 2 Head MISTY Drain 0 / 0 0 / 0 # 3 Head MISTY Drain 165 / 165 90 / 90 Other: # Bowel Movements 0 0 Narrative: Intubated, sedated. Right flap full and tense to palpate. surgical wound clean and dry. MISTY drains in place. Right pupil size 4 mm nonreactive, left pupil 2 mm slight withdrawal to pain right lower extremity, no response in bilateral upper and left lower Does not ope eyes or follow commands. - Urinary Catheter Management Indwelling Urethral Catheter Cath placed during this visit: yes Reason for continuing: Hourly intake/output Insertion date: 05/11/18 Insertion time: 12:00 Assessment and Plan - Plan Impression: 62 y/o female with large right subdural hematoma with severe mass effect and midline shift, s/p emergent right decompressive craniectomy with evacuation of subdural hematoma, and placement of ICP monitor 05/11/18, s/p removal of ICP monitor 05/13/18 history of etoh abuse Head CT 05/16/18 06:00 CONCLUSION: 1. Stable appearance the small high density hemorrhage in the midbrain and trini. 2. Status post right frontal parietal and temporal craniotomy with subdural drainage catheter in place. There is minimal residual subdural hemorrhage. 3. Mild residual mass effect and slight midline shift to the left again noted. 4. Low density is present in the left left occipital lobe which is increased from the prior study and most characteristic of edema. This may be secondary to recent contusion or infarction. . Plan: cont critical care mgt per trauma team cont neuro checks
[2018-05-16] MEDS: Pantoprazole Inj 40 MG Vial IV.PUSH SCH ×2 (17:01→22:33)
[2018-05-17] MEDS: Insulin NovoLOG Aspart Correctional Sugar Inj SQ SCH ×5 (00:06→18:12)
[2018-05-17] MEDS: Metoprolol Inj 5 MG/5 ML Vial IV.PUSH SCH ×2 (00:07→05:30)
[2018-05-17] MEDS: Oral Hygiene Kit OROPHARYNG SCH ×4 (00:07→15:40)
[2018-05-17] MEDS: fentaNYL 10 mcg/mL Premix Drip 2,500 MCG/250 ML BAG IV.SIG PRN (01:48)
[2018-05-17 04:53] LABS: Baso % (Auto) 0.2 % (0.0-2.0); Eos # (Auto) 0.1 th/mm3 (0.0-0.4); Eos % (Auto) 0.7 % (0.0-4.0); Hematocrit 24.2 % (35.0-46.0); Hemoglobin 8.1 gm/dL (11.6-15.3); Lymph # (Auto) 0.7 th/mm3 (1.0-4.8); Mean Corpuscular HGB Conc 33.5 % (32.0-36.0); Mean Corpuscular Hemoglobin 33.3 pg (27.0-34.0); Mean Corpuscular Volume 99.4 fL (80.0-100.0); Mean Platelet Volume 8.4 fL (7.0-11.0); Mono # (Auto) 1.8 th/mm3 (0.0-0.9); Mono % (Auto) 13.1 % (0.0-8.0); Neut # (Auto) 11.3 th/mm3 (1.8-7.7); Platelet Count 270 th/mm3 (150-450); Red Blood Count 2.44 mil/mm3 (4.00-5.30); Red Cell Distribution Width 17.5 % (11.6-17.2)
[2018-05-17 05:16] LABS: Albumin 1.6 g/dL (3.4-5.0); Anion Gap 7 meq/L (5-15); Aspartate Aminotransferase 40 U/L (15-37); Blood Urea Nitrogen 6 mg/dL (7-18); Calcium 7.9 mg/dL (8.5-10.1); Carbon Dioxide 26.3 meq/L (21.0-32.0); Chloride 114 meq/L (98-107); Glomerular Filtration Rate Greater Than 89 mL/min (>89); Glucose,Random 136 mg/dL (74-106); Potassium 3.6 meq/L (3.5-5.1); Sodium 147 meq/L (136-145)
[2018-05-17 05:18] LABS: Alanine Aminotransferase 29 U/L (10-53)
[2018-05-17 05:19] LABS: Alkaline Phosphatase 502 U/L (45-117); Total Protein 5.6 g/dL (6.4-8.2)
[2018-05-17 05:45] LABS: ABG PCO2 32 mmHg (38-42); ABG PO2 88 mmHg (61-120)
--- NOTE | 2018-05-17 06:29 | XR ---
EXAM DATE: 05/17/2018 5:31 AM EDT AGE/SEX: 62 years / Female INDICATIONS: Respiratory disease. CLINICAL DATA: This is the patient's subsequent encounter. Patient reports that signs and symptoms h ave been present for 4 - 6 days and indicates a pain score of Nonresponsive. MEDICAL/SURGICAL HISTORY: . Carcinoma, lung. Lymphoma. Non-responsive. COMPARISON: [facility] – [place], CHEST 1V SINGLE AP, 05/16/2018. . FINDINGS: ET tube tip well above the jason. Gastric tube tip and side-port project within the stomach. Right s ubclavian catheter tip at the cavoatrial junction. There is persistent lobar consolidation in the lef t lower lung with loss of delineation of the medial left hemidiaphragm. Improved aeration in the righ t lung resolution of the right lower lung infiltrate. The right hemidiaphragm is well delineated. The heart is normal in size. CONCLUSION: 1. Persistent left lower lobe consolidation. 2. No infiltrates seen on the right side. Electronically signed by: Yosi An MD 05/17/2018 6:28 AM EDT
[2018-05-17 06:55] LABS: Lymphocytes 2 % (9-44); Metamyelocytes 2 % (0-1); Monocytes 4 % (0-8); Promyelocyte 1 % (0-0)
[2018-05-17 06:57] LABS: Platelet Estimate Normal (Normal); Platelet Morphology Normal (Normal); Toxic Granulation 1+
[2018-05-17 06:58] LABS: Dohle Bodies Present
[2018-05-17] MEDS: Chlorhexidine 0.12% Oral Kit 15 ML UDC OROPHARYNG SCH ×2 (07:30→20:45)
[2018-05-17] MEDS: Beneprotein Powder Packet G-TUBE SCH ×4 (07:30→18:11)
[2018-05-17] MEDS: Lisinopril 10 MG Tablet PO SCH ×2 (08:18→20:44)
[2018-05-17] MEDS: Senna/Docusate Sodium 8.6/50 MG Tablet PO SCH ×2 (08:20→20:46)
[2018-05-17] MEDS: Polyethylene Glycol 3350 17 GM Packet PO SCH ×2 (08:20→20:46)
[2018-05-17] MEDS: Hypromellose 0.3% Opth Gel 10 GM Bottle EACH EYE SCH ×2 (08:20→20:45)
--- NOTE | 2018-05-17 08:30 | P.PNNPSY ---
- Behavior Intact: Impulsive/agitated - Psychosocial Intact: Psychosocial, Family/other adjustment, Realistic expectation, Self- esteem/confidence - Progress Notes/Response to Treatment Contents of Sessions: Adjustment, Level of consciousness Time with Patient: 30 minutes Premorbid Psychological Status: Premorbid Cognitive, Emotional and Behavioral Status: Stable. The patient has high school years of education and a solid work history prior to this injury. The patient has no prior psychiatric difficulties, as described above. Substance abuse history includes EtOH. Behavioral Reactions of Patient and Family/Support System: Stable. The patient s family is experiencing ongoing issues of adjustment given the nature of the injury, and this aspect of recovery will require ongoing monitoring. Emotional/Behavioral Status of Patient and Family/Support System: Stable. Pertinent issues, if appropriate to this patients clinical care, are described in detail above. Maximizing Acute Care Outcome: It is recommended that the patient be monitored for emergent behavioral impulsivity as the medical condition evolves. This patients neuropathological challenges may limit rehabilitation potential going forward, and these challenges will require specialized therapeutic skills to maximize outcome. Additionally, the patients family is experiencing ongoing issues of adjustment given the traumatic nature of the injury, and they may benefit from ongoing psychological assistance. At this point in the recovery process, the patient does not have cognitive capacity as the patient is unable to understand a situation and its likely consequences, nor is the patient able to manipulate information rationally. Cognitive capacity will be assessed throughout the recovery process. Anticipated Problems: Ongoing areas of concern will include behavioral impulsivity, lack of insight and judgment, which is expected to improve with time and treatment. Presently , the patient is critically ill. Treatment Plan: This clinician will continue to follow with you throughout the course of this patients critical care treatment, and I will be available to meet with the patients family/support system to facilitate their understanding and the ongoing care of their family member. The goals of neuropsychological intervention shall be both educational and supportive to the family/support system as is deemed clinically appropriate. 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 Progress Note Narrative: PTD 6. The patient remains sedated and intubated. F/U head CT shows stable midbrain lesion. She has minimal withdrawal to pain. She is Rancho II. I will follow. - Diagnosis (1) Major neurocognitive disorder Status: Acute
[2018-05-17] MEDS: Pantoprazole Inj 40 MG Vial IV.PUSH SCH ×2 (09:49→23:07)
[2018-05-17] MEDS: Haloperidol Inj 5 MG/ML Ampul IV.PUSH PRN (10:18)
[2018-05-17] MEDS ORDERED: Metoprolol Inj 5 MG/5 ML Vial IV.PUSH SCH (11:00)
[2018-05-17] MEDS ORDERED: Metoprolol Tartrate 50 MG Tablet PO SCH (11:45)
--- NOTE | 2018-05-17 12:34 | P.PNCC ---
Subjective Brief History: 62-year-old female with repeated falls who fell the day before admission and then again that the day of admission and at this point could not be resuscitated and awoken. She was brought to emergency room with [place] Coma Scale of 4 intubated and ventilated with bilateral dilated pupils On the workup she was found to have a huge right subdural hematoma with a left shift for which she underwent emergency craniectomy by Dr. Abad Patient was placed in ICU for further care and patient was managed expertly by Dr. Olvera and Dr. Joshi. Patient is now being transferred to the surgical critical care service. It should be noted that according to her patient has fallen multiple times in the past Past medical history is that of lymphoma and lung carcinoma 24 Hour Review/Hospital Course: 05/14/2018 For the last 24 hours patient has been in the ICU neurologically unchanged. Drainage from the right subdural hematoma has decreased. At this point [place] Coma Scale is 3T. 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 Bilateral breath sounds patient remains on ventilatory support with good PO2 FiO2 gradient Renal function is preserved I have discussed care at length with her who is a very nice gentleman and understands the implications of this severe injury. At this point with a new finding of hemorrhagic bleed into mesencephalon prognosis may be worse and therefore we should probably give it a few days to see which way this goes Repeat CT scan will be done on Sunday and then we can see if patient is blossoming this bleed or it is receding and then compared it to the neurologic status. 05/15 She is clinically essentially unchanged-GCS remains low CT scan of the head has been planned for Sunday In the meantime we will continue blood pressure control and neuroprotective measure patient is on tube feeds as well PF ratio is adequate renal function is preserved palliative care is involved Neurology consult will be obtained 05/16/2018 Patient's clinical exam remains stable Her blood pressure medications have been adjusted and seem to have better control She is moving her left spontaneously no movement on the right Appreciate palliative care input 05/17/2018 Clinically the patient is stable with no improvement in her exam, she moves her left upper extremity spontaneously Increasing Lopressor for blood pressure control and adding Cardene until it is better controlled Prognosis remains grim for meaningful recovery Objective Vital Signs / I&O: Vital Signs 05/16/18 14:00 05/16/18 16:00 05/16/18 16:25 Temperature 99.3 F Pulse Rate 62 64 66 Respiratory Rate 15 17 Blood Pressure 119/58 L Pulse Oximetry 100 100 05/16/18 18:00 05/16/18 19:56 05/16/18 20:00 Temperature 99.9 F H Pulse Rate 73 86 92 H Respiratory Rate 20 20 Blood Pressure 145/72 H Pulse Oximetry 99 100 05/16/18 22:00 05/16/18 23:50 05/16/18 23:51 Temperature Pulse Rate 74 81 Respiratory Rate 20 18 Blood Pressure Pulse Oximetry 97 05/17/18 00:00 05/17/18 02:00 05/17/18 03:22 Temperature 99.5 F Pulse Rate 84 80 95 H Respiratory Rate 20 18 Blood Pressure 133/64 Pulse Oximetry 98 98 05/17/18 04:00 05/17/18 07:22 05/17/18 08:00 Temperature 99.5 F 100 F H Pulse Rate 88 84 70 Respiratory Rate 16 15 15 Blood Pressure 147/71 H 106/55 L Pulse Oximetry 100 100 98 05/17/18 12:13 Temperature Pulse Rate Respiratory Rate 22 Blood Pressure Pulse Oximetry 97 Intake & Output 05/16/18 05/17/18 05/17/18 18:59 06:59 18:59 Intake Total 825 / 825 1455 / 1455 1000 / 1000 Output Total 660 / 660 Balance 165 / 165 1455 / 1455 1000 / 1000 Intake: IV 350 / 350 1455 / 1455 1000 / 1000 NS + KCl 20 mEq Inj 1,000 ML @ 1000 / 1000 1000 / 1000 100 mls/hr IV.CONT .Q10H [facility] Rx #:[id number] Diprivan 1000 mg/100 ml Inj 1, 100 / 100 100 / 100 000 mg In 100 ml @ 10 MCG/KG/ MIN 3.272 mls/hr IV.CONT TITRATE PRN Rx#:[id number] fentaNYL 10 mcg/mL Premix Drip 250 / 250 250 / 250 2,500 mcg In 250 ml @ 50 MCG/HR 5 mls/hr IV.SIG TITRATE PRN Rx #:[id number] Keppra Inj 500 MG In NS Inj 100 105 / 105 ML @ 400 mls/hr IV.SIG Q12H [facility] Rx#:[id number] Oral 0 / 0 Tube Feeding 355 / 355 Tube Irrigant 120 / 120 Output: Urine Amount (Catheter) 550 / 550 Indwelling Urethral Catheter 550 / 550 Wound Drainage 110 / 110 # 1 Head MISTY Drain 0 / 0 # 2 Head MISTY Drain 0 / 0 # 3 Head MISTY Drain 110 / 110 Other: Date of Last Bowel Movement 05/16/18 05/17/18 05/17/18 # Bowel Movements 3 Result Diagrams: 05/18/18 05:45 05/18/18 05:45 Imaging: Impressions Chest X-Ray 05/17/18 06:00 CONCLUSION: 1. Persistent left lower lobe consolidation. 2. No infiltrates seen on the right side. - Exam PHARMACY RESIDENT: Moves left upper extremity spontaneously but not purposefully Hemodynamic/Cardiac: Regular rate and rhythm, hypertensive Pulmonary/Respiratory: Clear to auscultation bilaterally, on full ventilator support Abdomen/GI Nutrition: Soft, nontender, nondistended, tolerating tube feeds Assessment and Plan Plan: TBI combined with CVA and a history of chronic EtOH abuse Increase Lopressor for better hypertensive control and wean Cardene drip to off Will hold sedation as tolerated in order to obtain a better neurologic exam, continue as needed pain medication through the feeding tube Appreciate palliative care input, patient will likely require tracheostomy and gastrostomy tube placement if wishes to pursue this Prognosis remains poor with a very large right subdural hematoma and subfalcine herniation in addition to the midbrain hemorrhagic stroke
[2018-05-17] MEDS: niCARdipine Inj 25 MG in Sodium Chlor 0.9% Inj 240 ML IV.CONT PRN (14:20)
--- NOTE | 2018-05-17 14:30 | P.DIET ---
Nutritional Evaluation Type of nutrition evaluation: follow-up Nutrition consult regarding: Tube Feeding Objective - Diagnosis Intracranial Hemorrhage, herniation, intubated - Objective % IBW: 114 (IBW = 105#) Body Weight Used for Calculations: Actual (54.5 kg) Energy Needs - Lower Range (kCal/kg): 25 Energy Needs - Upper Range (kCal/kg): 30 Lower Limit kCal/kg (kCals): 1,363 Upper Limit kCal/kg (kCals): 1,635 Lower Limit Protein Factor (Grams per Kg): 1.0 Upper Limit Protein Factor (Grams per Kg): 1.5 Lower Protein Needs (Protein): 55 Upper Protein Needs (Protein): 82 Dietitian Reviewed in Medical Record: Curent medications, Intake & Output, Labs , Tube feeding Objective Comments: Hx includes lung CA, Etoh, depression, lymphoma Assessment Assessment: Pt remains vented, sedation on hold for neurological assessment. TF Jevity 1.5 is currently running at 30 ml/hr. To meet pt's nutritional needs, recommend goal rate of 45 mls/hr to provide 1620 kcals, 69 gms protein and 821 mls of free water. Per MD notes, TBI combined with CVA and a history of chronic EtOH abuse, poor prognosis. Pt will probably need trach/PEG r/t clinical course. Will continue to follow. Recommendations: Jevity 1.5, a goal rate of 45 ml/hr is necessary to meet pt's nutritional needs. Dietitian to Monitor: Lab values, Intake & Output, Tube feeding tolerance, Weight change, Medical course
--- NOTE | 2018-05-17 17:38 | P.PNPAL ---
Reason for Visit Reason for visit: a. To assist with evaluation and management of symptoms including:dyspnea, pain b. To assist medical decision maker(s) with: better understanding of current medical conditions; weighing benefits/burdens of medical treatment options; making medical treatment decisions. Subjective Subjective/Interval History: Patient today remains intubated but off sedation for neurological evaluation and responsiveness. On my visit pt was not responsive. could not endorse pain or discomfort Family/Friend Interactions: patient spouse not at bedside today. Objective Vital Signs: Vital Signs 05/16/18 18:00 05/16/18 19:56 05/16/18 20:00 Temperature 99.9 F H Pulse Rate 73 86 92 H Respiratory Rate 20 20 Blood Pressure 145/72 H Pulse Oximetry 99 100 05/16/18 22:00 05/16/18 23:50 05/16/18 23:51 Temperature Pulse Rate 74 81 Respiratory Rate 20 18 Blood Pressure Pulse Oximetry 97 05/17/18 00:00 05/17/18 02:00 05/17/18 03:22 Temperature 99.5 F Pulse Rate 84 80 95 H Respiratory Rate 20 18 Blood Pressure 133/64 Pulse Oximetry 98 98 05/17/18 04:00 05/17/18 07:22 05/17/18 08:00 Temperature 99.5 F 100 F H Pulse Rate 88 84 70 Respiratory Rate 16 15 15 Blood Pressure 147/71 H 106/55 L Pulse Oximetry 100 100 98 05/17/18 10:00 05/17/18 12:00 05/17/18 12:13 Temperature 99.5 F Pulse Rate 98 H 96 H Respiratory Rate 19 22 Blood Pressure 162/74 H Pulse Oximetry 99 97 05/17/18 14:00 05/17/18 16:00 05/17/18 16:10 Temperature 99.7 F H Pulse Rate 90 108 H 94 H Respiratory Rate 22 25 H Blood Pressure 164/75 H Pulse Oximetry 95 95 Intake & Output 05/16/18 05/17/18 05/17/18 18:59 06:59 18:59 Intake Total 825 / 825 1455 / 1455 1105 / 1105 Output Total 660 / 660 Balance 165 / 165 1455 / 1455 1105 / 1105 Intake: IV 350 / 350 1455 / 1455 1105 / 1105 NS + KCl 20 mEq Inj 1,000 ML @ 1000 / 1000 1000 / 1000 100 mls/hr IV.CONT .Q10H CARLOS Rx #:[id number] Diprivan 1000 mg/100 ml Inj 1, 100 / 100 100 / 100 000 mg In 100 ml @ 10 MCG/KG/ MIN 3.272 mls/hr IV.CONT TITRATE PRN Rx#:[id number] fentaNYL 10 mcg/mL Premix Drip 250 / 250 250 / 250 2,500 mcg In 250 ml @ 50 MCG/HR 5 mls/hr IV.SIG TITRATE PRN Rx #:[id number] Keppra Inj 500 MG In NS Inj 100 105 / 105 105 / 105 ML @ 400 mls/hr IV.SIG Q12H CARLOS Rx#:[id number] Oral 0 / 0 Tube Feeding 355 / 355 Tube Irrigant 120 / 120 Output: Urine Amount (Catheter) 550 / 550 Indwelling Urethral Catheter 550 / 550 Wound Drainage 110 / 110 # 1 Head MISTY Drain 0 / 0 # 2 Head MISTY Drain 0 / 0 # 3 Head MISTY Drain 110 / 110 Other: Date of Last Bowel Movement 05/16/18 05/17/18 05/17/18 # Bowel Movements 3 Physical Exam: CONSTITUTIONAL/GENERAL: This is thin lady, frail, intubated s TUBES/LINES/DRAINS:IJ, piv, ziegler, et tube. SKIN: No jaundice, rashes, or lesions. Ecchymoses on upper extremities. No wounds seen anteriorly. Skin temperature appropriate. Not diaphoretic. HEAD: Stable from decompressive craniotomy EYES: Right pupil 1mm non reactive. Left pupil 0.5 mg constricted. ENT: Nose without bleeding or purulent drainage. ET tube NECK: Trachea midline. Supple, nontender. No palpable thyroid enlargement or nodularity. CARDIOVASCULAR: Regular rate and rhythm without murmurs, gallops, or rubs. No JVD. Peripheral pulses symmetric. RESPIRATORY/CHEST: Symmetric, unlabored respirations. Clear to auscultation. Intubated GASTROINTESTINAL: Abdomen soft, non-tender, nondistended. No hepato-splenomegaly , or palpable masses. No guarding. Bowel sounds present. GENITOURINARY: Without palpable bladder distension. Ziegler catheter in place. MUSCULOSKELETAL: Extremities without clubbing, cyanosis, or edema. LYMPHATICS: No palpable cervical or supraclavicular adenopathy. NEUROLOGICAL: minimally responsive. pupils see Eye exame. withdrawl to painful stimuli to left arm. right arm today had some spontaneous movement for me.. PSYCHIATRIC:could not examine. Diagnostic Tests Laboratory: Laboratory Results - last 72 hr 05/14/18 05/14/18 05/15/18 21:45 21:45 00:27 WBC RBC Hgb Hct MCV MCH MCHC RDW Plt Count MPV Prelim Diff (Auto) Neut % (Auto) Lymph % (Auto) [place] % (Auto) Eos % (Auto) Baso % (Auto) Neut # (Auto) Lymph # (Auto) [place] # (Auto) Eos # (Auto) Baso # (Auto) WBC Differential Seg Neuts % (Manual) Band Neuts % (Manual) Lymphocytes % (Manual) Monocytes % (Manual) Eosinophils % (Manual) Metamyelocytes % (Man) Myelocytes % (Man) Promyelocytes % (Man) Abs Neuts (Manual) Differential Comment Toxic Granulation Dohle Bodies Platelet Estimate Platelet Morphology Puncture Site Patient Temperature O2 Saturation ABG pH ABG pCO2 ABG pO2 ABG HCO3 ABG O2 Content ABG Base Excess ABG Methemoglobin Mark Test Hemoglobin Carboxyhemoglobin O2 Delivery Device Vent Setting Inspired O2 Critical Value Sodium Potassium 3.3 L Chloride Carbon Dioxide Anion Gap BUN Creatinine Estimated GFR POC Glucose 75 Random Glucose Osmolality 302 H Calcium Prot Corrected Calcium Total Bilirubin AST ALT Alkaline Phosphatase Total Protein Albumin 05/15/18 05/15/18 05/15/18 03:20 03:20 03:20 WBC 15.7 H RBC 2.38 L Hgb 8.0 L Hct 23.8 L MCV 99.9 MCH 33.7 MCHC 33.7 RDW 18.6 H Plt Count 189 MPV 8.5 Prelim Diff (Auto) Neut % (Auto) 87.6 H Lymph % (Auto) 5.2 L [place] % (Auto) 6.4 Eos % (Auto) 0.5 Baso % (Auto) 0.3 Neut # (Auto) 13.8 H Lymph # (Auto) 0.8 L [place] # (Auto) 1.0 H Eos # (Auto) 0.1 Baso # (Auto) 0.0 WBC Differential . Seg Neuts % (Manual) Band Neuts % (Manual) Lymphocytes % (Manual) Monocytes % (Manual) Eosinophils % (Manual) Metamyelocytes % (Man) Myelocytes % (Man) Promyelocytes % (Man) Abs Neuts (Manual) Differential Comment Auto diff final Toxic Granulation Dohle Bodies Platelet Estimate Platelet Morphology Puncture Site Patient Temperature O2 Saturation ABG pH ABG pCO2 ABG pO2 ABG HCO3 ABG O2 Content ABG Base Excess ABG Methemoglobin Mark Test Hemoglobin Carboxyhemoglobin O2 Delivery Device Vent Setting Inspired O2 Critical Value Sodium Cancelled 151 H Potassium Cancelled 3.3 L Chloride Cancelled 121 H Carbon Dioxide Cancelled 20.8 L Anion Gap Cancelled 9 BUN Cancelled 8 Creatinine Cancelled 0.19 L Estimated GFR Cancelled Greater than 89 POC Glucose Random Glucose Cancelled 77 Osmolality 301 H Calcium Cancelled 7.8 L Prot Corrected Calcium Cancelled Total Bilirubin Cancelled 0.6 AST Cancelled 32 ALT Cancelled 18 Alkaline Phosphatase Cancelled 328 H Total Protein Cancelled 4.9 L D Albumin Cancelled 1.7 L 05/15/18 05/15/18 05/15/18 05:36 08:20 08:57 WBC RBC Hgb Hct MCV MCH MCHC RDW Plt Count MPV Prelim Diff (Auto) Neut % (Auto) Lymph % (Auto) [place] % (Auto) Eos % (Auto) Baso % (Auto) Neut # (Auto) Lymph # (Auto) [place] # (Auto) Eos # (Auto) Baso # (Auto) WBC Differential Seg Neuts % (Manual) Band Neuts % (Manual) Lymphocytes % (Manual) Monocytes % (Manual) Eosinophils % (Manual) Metamyelocytes % (Man) Myelocytes % (Man) Promyelocytes % (Man) Abs Neuts (Manual) Differential Comment Toxic Granulation Dohle Bodies Platelet Estimate Platelet Morphology Puncture Site Art line Patient Temperature 98.6 O2 Saturation 94 ABG pH 7.43 H ABG pCO2 27 L ABG pO2 79 ABG HCO3 17 L ABG O2 Content 11.4 L ABG Base Excess -6.2 L ABG Methemoglobin 1.0 Mark Test Hemoglobin 8.6 L Carboxyhemoglobin 1.4 O2 Delivery Device Ventilator Vent Setting Prvc/ac Inspired O2 30 Critical Value No Sodium 150 H Potassium Chloride Carbon Dioxide Anion Gap BUN Creatinine Estimated GFR POC Glucose 79 Random Glucose Osmolality 302 H Calcium Prot Corrected Calcium Total Bilirubin AST ALT Alkaline Phosphatase Total Protein Albumin 05/15/18 05/15/18 05/16/18 17:21 17:30 01:32 WBC RBC Hgb Hct MCV MCH MCHC RDW Plt Count MPV Prelim Diff (Auto) Neut % (Auto) Lymph % (Auto) [place] % (Auto) Eos % (Auto) Baso % (Auto) Neut # (Auto) Lymph # (Auto) [place] # (Auto) Eos # (Auto) Baso # (Auto) WBC Differential Seg Neuts % (Manual) Band Neuts % (Manual) Lymphocytes % (Manual) Monocytes % (Manual) Eosinophils % (Manual) Metamyelocytes % (Man) Myelocytes % (Man) Promyelocytes % (Man) Abs Neuts (Manual) Differential Comment Toxic Granulation Dohle Bodies Platelet Estimate Platelet Morphology Puncture Site Patient Temperature O2 Saturation ABG pH ABG pCO2 ABG pO2 ABG HCO3 ABG O2 Content ABG Base Excess ABG Methemoglobin Mark Test Hemoglobin Carboxyhemoglobin O2 Delivery Device Vent Setting Inspired O2 Critical Value Sodium Potassium 3.6 Chloride Carbon Dioxide Anion Gap BUN Creatinine Estimated GFR POC Glucose 72 94 Random Glucose Osmolality Calcium Prot Corrected Calcium Total Bilirubin AST ALT Alkaline Phosphatase Total Protein Albumin 05/16/18 05/16/18 05/16/18 04:00 04:00 05:20 WBC 16.3 H RBC 2.49 L Hgb 8.1 L Hct 24.9 L MCV 100.1 H MCH 32.5 MCHC 32.5 RDW 18.2 H Plt Count 220 MPV 8.7 Prelim Diff (Auto) Slide review pending Neut % (Auto) 82.3 H Lymph % (Auto) 6.2 L [place] % (Auto) 10.6 H Eos % (Auto) 0.6 Baso % (Auto) 0.3 Neut # (Auto) 13.4 H Lymph # (Auto) 1.0 [place] # (Auto) 1.7 H Eos # (Auto) 0.1 Baso # (Auto) 0.0 WBC Differential Manual diff final Seg Neuts % (Manual) 49 Band Neuts % (Manual) 40 H Lymphocytes % (Manual) 4 L Monocytes % (Manual) 5 Eosinophils % (Manual) 1 Metamyelocytes % (Man) Myelocytes % (Man) 1 H Promyelocytes % (Man) Abs Neuts (Manual) 14.7 H Differential Comment . Toxic Granulation 1+ H Dohle Bodies Present H Platelet Estimate Normal Platelet Morphology Normal Puncture Site Art line Patient Temperature 98.6 O2 Saturation 96 ABG pH 7.40 ABG pCO2 29 L ABG pO2 99 ABG HCO3 17 L ABG O2 Content 19.4 ABG Base Excess -6.5 L ABG Methemoglobin 0.9 Mark Test Hemoglobin 14.4 Carboxyhemoglobin 1.0 O2 Delivery Device Ventilator Vent Setting Prvc/ac Inspired O2 30 Critical Value No Sodium 150 H Potassium 3.4 L Chloride 119 H Carbon Dioxide 18.1 L Anion Gap 13 BUN 8 Creatinine 0.23 L Estimated GFR Greater than 89 POC Glucose Random Glucose 100 Osmolality Calcium 8.1 L Prot Corrected Calcium Total Bilirubin 0.5 AST 23 ALT 21 Alkaline Phosphatase 392 H Total Protein 5.3 L Albumin 1.7 L 05/16/18 05/16/18 05/16/18 11:48 17:07 22:18 WBC RBC Hgb Hct MCV MCH MCHC RDW Plt Count MPV Prelim Diff (Auto) Neut % (Auto) Lymph % (Auto) [place] % (Auto) Eos % (Auto) Baso % (Auto) Neut # (Auto) Lymph # (Auto) [place] # (Auto) Eos # (Auto) Baso # (Auto) WBC Differential Seg Neuts % (Manual) Band Neuts % (Manual) Lymphocytes % (Manual) Monocytes % (Manual) Eosinophils % (Manual) Metamyelocytes % (Man) Myelocytes % (Man) Promyelocytes % (Man) Abs Neuts (Manual) Differential Comment Toxic Granulation Dohle Bodies Platelet Estimate Platelet Morphology Puncture Site Patient Temperature O2 Saturation ABG pH ABG pCO2 ABG pO2 ABG HCO3 ABG O2 Content ABG Base Excess ABG Methemoglobin Mark Test Hemoglobin Carboxyhemoglobin O2 Delivery Device Vent Setting Inspired O2 Critical Value Sodium Potassium Chloride Carbon Dioxide Anion Gap BUN Creatinine Estimated GFR POC Glucose 119 H 121 H 146 H Random Glucose Osmolality Calcium Prot Corrected Calcium Total Bilirubin AST ALT Alkaline Phosphatase Total Protein Albumin 05/17/18 05/17/18 05/17/18 04:30 04:30 05:35 WBC 14.0 H RBC 2.44 L Hgb 8.1 L Hct 24.2 L MCV 99.4 MCH 33.3 MCHC 33.5 RDW 17.5 H Plt Count 270 MPV 8.4 Prelim Diff (Auto) Slide review pending Neut % (Auto) 81.0 H Lymph % (Auto) 5.0 L [place] % (Auto) 13.1 H Eos % (Auto) 0.7 Baso % (Auto) 0.2 Neut # (Auto) 11.3 H Lymph # (Auto) 0.7 L [place] # (Auto) 1.8 H Eos # (Auto) 0.1 Baso # (Auto) 0.0 WBC Differential Manual diff final Seg Neuts % (Manual) 83 H Band Neuts % (Manual) 8 H Lymphocytes % (Manual) 2 L Monocytes % (Manual) 4 Eosinophils % (Manual) Metamyelocytes % (Man) 2 H Myelocytes % (Man) Promyelocytes % (Man) 1 H Abs Neuts (Manual) 13.2 H Differential Comment . Toxic Granulation 1+ H Dohle Bodies Present H Platelet Estimate Normal Platelet Morphology Normal Puncture Site Right radial Patient Temperature 98.6 O2 Saturation 96 ABG pH 7.49 H ABG pCO2 32 L ABG pO2 88 ABG HCO3 24 ABG O2 Content 13.8 ABG Base Excess 1.0 ABG Methemoglobin 1.0 Mark Test Y Hemoglobin 10.2 L Carboxyhemoglobin 1.2 O2 Delivery Device Ventilator Vent Setting Prvc/av Inspired O2 30 Critical Value No Sodium 147 H Potassium 3.6 Chloride 114 H Carbon Dioxide 26.3 Anion Gap 7 BUN 6 L Creatinine 0.29 L Estimated GFR Greater than 89 POC Glucose Random Glucose 136 H Osmolality Calcium 7.9 L Prot Corrected Calcium Total Bilirubin 0.4 AST 40 H ALT 29 Alkaline Phosphatase 502 H Total Protein 5.6 L Albumin 1.6 L 05/17/18 12:00 WBC RBC Hgb Hct MCV MCH MCHC RDW Plt Count MPV Prelim Diff (Auto) Neut % (Auto) Lymph % (Auto) [place] % (Auto) Eos % (Auto) Baso % (Auto) Neut # (Auto) Lymph # (Auto) [place] # (Auto) Eos # (Auto) Baso # (Auto) WBC Differential Seg Neuts % (Manual) Band Neuts % (Manual) Lymphocytes % (Manual) Monocytes % (Manual) Eosinophils % (Manual) Metamyelocytes % (Man) Myelocytes % (Man) Promyelocytes % (Man) Abs Neuts (Manual) Differential Comment Toxic Granulation Dohle Bodies Platelet Estimate Platelet Morphology Puncture Site Patient Temperature O2 Saturation ABG pH ABG pCO2 ABG pO2 ABG HCO3 ABG O2 Content ABG Base Excess ABG Methemoglobin Mark Test Hemoglobin Carboxyhemoglobin O2 Delivery Device Vent Setting Inspired O2 Critical Value Sodium Potassium Chloride Carbon Dioxide Anion Gap BUN Creatinine Estimated GFR POC Glucose 154 H Random Glucose Osmolality Calcium Prot Corrected Calcium Total Bilirubin AST ALT Alkaline Phosphatase Total Protein Albumin Result Diagrams: 05/17/18 04:30 05/17/18 04:30 Imaging: Abdomen X-Ray 05/11/18 00:00 CONCLUSION: Unremarkable study. Chest X-Ray 05/11/18 11:31 CONCLUSION: No acute cardiopulmonary disease. Head CT 05/11/18 11:31 CONCLUSION: Huge subdural hematoma on the right with subfalcine herniation from right to left and focal area of intraparenchymal hemorrhage within the midbrain. Impending downward herniation. Findings were discussed with Dr. Walls at the time of this dictation on 05/11/2018. Chest X-Ray 05/12/18 23:16 CONCLUSION: 1. Interval placement of right subclavian central venous line with no pneumothorax. 2. Interval placement of nasogastric tube. 3. Stable appearance with no acute cardiopulmonary disease. Head CT 05/13/18 06:00 CONCLUSION: 1. Postoperative changes status post subdural evacuation and drain placement. Small amount of intracranial hemorrhage remains. 2. Possible evolving infarct and a small amount of hemorrhage as above at the level of the midbrain. . Abdomen/Pelvis CT 05/13/18 08:21 CONCLUSION: 1. Small bilateral pleural effusions, mild body wall edema and trace fluid in the pelvis. 2. Nonobstructing right renal calculus. 3. Atherosclerosis. Head CT 05/13/18 19:54 CONCLUSION: 1. Stable exam from earlier today. 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 Multiple right-sided subdural drains remain with mild right to left midline shift and small residual interhemispheric subdural hematoma. . Chest X-Ray 05/14/18 06:00 CONCLUSION: No significant change. No definite acute cardiopulmonary disease. Chest X-Ray 05/15/18 06:00 CONCLUSION: 1. New hazy airspace disease in the perihilar regions and lung bases right greater than left. This is concern for possible pulmonary edema. Chest X-Ray 05/16/18 06:00 CONCLUSION: 1. Rotated exam again demonstrating hazy airspace disease in the infrahilar regions and both lung bases right greater than left. 2. Possible mild blunting of left costophrenic angle. 3. Mild cardiomegaly Head CT 05/16/18 06:00 CONCLUSION: 1. Stable appearance the small high density hemorrhage in the midbrain and trini. 2. Status post right frontal parietal and temporal craniotomy with subdural drainage catheter in place. There is minimal residual subdural hemorrhage. 3. Mild residual mass effect and slight midline shift to the left again noted. 4. Low density is present in the left left occipital lobe which is increased from the prior study and most characteristic of edema. This may be secondary to recent contusion or infarction. . Chest X-Ray 05/17/18 06:00 CONCLUSION: 1. Persistent left lower lobe consolidation. 2. No infiltrates seen on the right side. Assessment and Plan - Disease Oriented Problem List (1) ICH (intracerebral hemorrhage) (2) CVA (cerebral vascular accident) (3) ETOH abuse (4) Depression (5) Major neurocognitive disorder (6) Falls frequently (7) Respiratory failure - Symptom Scale (1) Dyspnea 0-10 Scale: Unable to quantify (2) Pain 0-10 Scale: Unable to quantify Pertinent Non-Medical Issues: Psychosocial:Has a spouse. Spouse part tape recorder mechanic of [employer]. Pt , no children. Originally from [place] Spiritual:O[employer] Legal:No advance directives. Ethical issues impacting care:none Important Contacts: Avila Joyce (spouse) [phone] cell, home phone [phone] Charlotte Adams [phone] Prognosis: prognosis is guarded. Pt with severe subdural hematoma s/p forntotemporoparietal decompressive craniotomy. Hx of etoh abuse. 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 overall prognosis is poor. Code Status: Alternative Code (Intubation only. No compression/shock/acls.) Plan: == capacity- no capacity to make medical decision == health care surrogate is spouse. == code: Pt is made an alternate code after my discussion with spouse: no compression/acls/shock. Intubation only. == Goals of care. Met and spoke with multiple times this week. He is awaiting comment from neurosurgery and neurology. Currently pt off sedation today for neuro evaluation. I have spoken with him and he had endorse he would give more time on life support "If there was any chance at all" for functional recovery. He spoke about a good friend of his who had head trauma was on the vent for 3 months before being able to become alert and another 9 months for more functional recovery. He state he is doing well now. I have told him in medicine, like many things, it may not be black or white; and it may be difficult for clinician to say yes for certain pt will recovery, or for certain patient will not recover. He endorse he understands that. For now his goals of care is if there is any chance at recovery, he would give his time to recover even if it means longer amount of time on life support. Which would mean likely trach and peg. == symptom= dyspnea= on mechanical ventilation. pain-s/p brain hemorrhage. prn fentanyl available. == palliative care will follow to make recommendation on symptom management, and review goals of care as clinical condition evolves. . Attestation Attestation: To help prompt me to consider important information that might be impacting today's encounter and assessment, information from prior notes written by myself or my colleagues may have been "brought forward" into today's note. My signature on this note, however, is an attestation that I personally performed the exam, history, and/or decision-making noted today, and, unless otherwise indicated, the interactions with patient, family, and staff as well as the review of records all occurred today. I also attest that the listed assessment and stated plan reflect my best clinical judgment today based on the combination of historical information, prior notes, and today's exam/ interactions. When time spent is documented, it refers only to time spent today by the signer, or if indicated, combined time spent today by collaborating physician/nurse practitioner.
[2018-05-17] MEDS: Enoxaparin Inj 40 MG/0.4 ML Syringe SQ SCH (18:11)
--- NOTE | 2018-05-17 19:29 | P.PNNS ---
Subjective Interval history: 05/17. Patient's clinical exam remains stable Her blood pressure medications have been adjusted and seem to have better control She is moving her left spontaneously no movement on the right Seen by palliative care Physical Exam Vital signs: Vital Signs 05/16/18 19:56 05/16/18 20:00 05/16/18 22:00 Temperature 99.9 F H Pulse Rate 86 92 H 74 Respiratory Rate 20 20 Blood Pressure 145/72 H Pulse Oximetry 99 100 05/16/18 23:50 05/16/18 23:51 05/17/18 00:00 Temperature 99.5 F Pulse Rate 81 84 Respiratory Rate 20 18 20 Blood Pressure 133/64 Pulse Oximetry 97 98 05/17/18 02:00 05/17/18 03:22 05/17/18 04:00 Temperature 99.5 F Pulse Rate 80 95 H 88 Respiratory Rate 18 16 Blood Pressure 147/71 H Pulse Oximetry 98 100 05/17/18 07:22 05/17/18 08:00 05/17/18 10:00 Temperature 100 F H Pulse Rate 84 70 98 H Respiratory Rate 15 15 Blood Pressure 106/55 L Pulse Oximetry 100 98 05/17/18 12:00 05/17/18 12:13 05/17/18 14:00 Temperature 99.5 F Pulse Rate 96 H 90 Respiratory Rate 19 22 Blood Pressure 162/74 H Pulse Oximetry 99 97 05/17/18 16:00 05/17/18 16:10 05/17/18 18:00 Temperature 99.7 F H Pulse Rate 108 H 94 H 115 H Respiratory Rate 22 25 H Blood Pressure 164/75 H Pulse Oximetry 95 95 Intake & Output 05/17/18 05/17/18 05/18/18 06:59 18:59 06:59 Intake Total 1455 / 1455 2697 / 2697 Output Total 2600 / 2600 Balance 1455 / 1455 97 / 97 Intake: IV 1455 / 1455 2105 / 2105 NS + KCl 20 mEq Inj 1,000 ML @ 1000 / 1000 2000 / 2000 100 mls/hr IV.CONT .Q10H CARLOS Rx #:[id number] Diprivan 1000 mg/100 ml Inj 1, 100 / 100 000 mg In 100 ml @ 10 MCG/KG/ MIN 3.272 mls/hr IV.CONT TITRATE PRN Rx#:[id number] fentaNYL 10 mcg/mL Premix Drip 250 / 250 2,500 mcg In 250 ml @ 50 MCG/HR 5 mls/hr IV.SIG TITRATE PRN Rx #:[id number] Keppra Inj 500 MG In NS Inj 100 105 / 105 105 / 105 ML @ 400 mls/hr IV.SIG Q12H CARLOS Rx#:[id number] Oral 0 / 0 Tube Feeding 472 / 472 Tube Irrigant 120 / 120 Output: Urine Amount (Catheter) 2600 / 2600 Indwelling Urethral Catheter 2600 / 2600 Other: Date of Last Bowel Movement 05/17/18 05/17/18 # Bowel Movements 1 Narrative: Intubated, sedated. Right flap today khan, slightly tense to palpate. surgical wound clean and dry. MISTY drains in place. Right pupil size 4 mm nonreactive, left pupil 2 mm Does not ope eyes or follow commands. - Urinary Catheter Management Indwelling Urethral Catheter Cath placed during this visit: yes Reason for continuing: Hourly intake/output Insertion date: 05/11/18 Insertion time: 12:00 Assessment and Plan - Plan Impression: 62 y/o female with large right subdural hematoma with severe mass effect and midline shift, s/p emergent right decompressive craniectomy with evacuation of subdural hematoma, Plan: cont critical care mgt per trauma team continue neuro checks Pulmonary: aggressive pulmonary toilette, nasotracheal suction, and breathing treatments with nebulizers. Daily PT and OT Renal: Continue to monitor closely urine output, BUN and creatinine Endocrine: Continue to Monitor serial Acu checks and SSI as needed in detail ID continue to monitor for signs of infection Continue Protonix for stress ulcer prophylaxis Continue James morocho and SCD's for DVT prophylaxis Paliative care assisting
[2018-05-17] MEDS: Metoprolol Tartrate 100 MG Tablet PO SCH (20:44)
[2018-05-18] MEDS: Insulin NovoLOG Aspart Correctional Sugar Inj SQ SCH ×4 (00:48→17:50)
[2018-05-18] MEDS: Oral Hygiene Kit OROPHARYNG SCH ×4 (00:48→15:58)
[2018-05-18 06:07] LABS: Baso # (Auto) 0.1 th/mm3 (0.0-0.2); Baso % (Auto) 0.4 % (0.0-2.0); Eos % (Auto) 0.2 % (0.0-4.0); Hematocrit 26.3 % (35.0-46.0); Hemoglobin 8.9 gm/dL (11.6-15.3); Lymph # (Auto) 0.6 th/mm3 (1.0-4.8); Lymph % (Auto) 3.8 % (9.0-44.0); Mean Corpuscular HGB Conc 33.9 % (32.0-36.0); Mean Corpuscular Hemoglobin 33.1 pg (27.0-34.0); Mean Corpuscular Volume 97.6 fL (80.0-100.0); Mean Platelet Volume 8.1 fL (7.0-11.0); Mono # (Auto) 1.3 th/mm3 (0.0-0.9); Mono % (Auto) 8.7 % (0.0-8.0); Neut # (Auto) 13.1 th/mm3 (1.8-7.7); Neut % (Auto) 86.9 % (16.0-70.0); Platelet Count 386 th/mm3 (150-450); Red Blood Count 2.69 mil/mm3 (4.00-5.30); Red Cell Distribution Width 17.2 % (11.6-17.2); White Blood Count 15.1 th/mm3 (4.0-11.0)
[2018-05-18 06:35] LABS: Anion Gap 9 meq/L (5-15); Blood Urea Nitrogen 4 mg/dL (7-18); Calcium 8.4 mg/dL (8.5-10.1); Carbon Dioxide 29.9 meq/L (21.0-32.0); Chloride 103 meq/L (98-107); Glomerular Filtration Rate Greater Than 89 mL/min (>89); Glucose,Random 193 mg/dL (74-106); Sodium 142 meq/L (136-145)
[2018-05-18 06:37] LABS: Potassium 2.7 meq/L (3.5-5.1)
[2018-05-18] MEDS: niCARdipine Inj 50 MG in Sodium Chlor 0.9% Inj 480 ML IV.CONT PRN ×2 (07:13→15:52)
[2018-05-18] MEDS: Chlorhexidine 0.12% Oral Kit 15 ML UDC OROPHARYNG SCH ×2 (08:00→20:11)
[2018-05-18 09:03] LABS: Dohle Bodies Present; Eosinophils 1 % (0-4); Lymphocytes 5 % (9-44); Monocytes 4 % (0-8); Tallied Nucleated RBC 1 (0-0); Toxic Granulation 2+
[2018-05-18 09:05] LABS: Platelet Estimate Normal (Normal); Platelet Morphology Normal (Normal)
[2018-05-18] MEDS: Metoprolol Tartrate 100 MG Tablet PO SCH (09:41)
[2018-05-18] MEDS: Hypromellose 0.3% Opth Gel 10 GM Bottle EACH EYE SCH ×2 (09:41→20:11)
[2018-05-18] MEDS: Enoxaparin Inj 40 MG/0.4 ML Syringe SQ SCH (09:41)
[2018-05-18] MEDS: Beneprotein Powder Packet G-TUBE SCH ×3 (09:41→17:50)
[2018-05-18] MEDS: Polyethylene Glycol 3350 17 GM Packet PO SCH ×2 (09:42→20:11)
[2018-05-18] MEDS: Pantoprazole Inj 40 MG Vial IV.PUSH SCH ×2 (09:42→22:20)
[2018-05-18] MEDS: Lisinopril 10 MG Tablet PO SCH ×2 (09:42→20:31)
[2018-05-18] MEDS: Senna/Docusate Sodium 8.6/50 MG Tablet PO SCH ×2 (09:42→20:11)
[2018-05-18] MEDS: Potassium Chlor 40 mEq Premix 40 MEQ/100 ML PIGGYBACK IV.SIG PRN (09:43)
[2018-05-18] MEDS ORDERED: Metoprolol Tartrate 25 MG Tablet PO SCH (10:04)
--- NOTE | 2018-05-18 11:44 | P.PN ---
Subjective Interval history: pt intubated/vent. s/p crani for larger right sdh. Physical Exam Vital signs: Vital Signs 05/17/18 12:00 05/17/18 12:13 05/17/18 14:00 Temperature 99.5 F Pulse Rate 96 H 90 Respiratory Rate 19 22 Blood Pressure 162/74 H Pulse Oximetry 99 97 05/17/18 16:00 05/17/18 16:10 05/17/18 18:00 Temperature 99.7 F H Pulse Rate 108 H 94 H 115 H Respiratory Rate 22 25 H Blood Pressure 164/75 H Pulse Oximetry 95 95 05/17/18 20:00 05/17/18 20:28 05/17/18 23:54 Temperature 99.7 F H Pulse Rate 90 98 H Respiratory Rate 21 19 18 Blood Pressure 147/65 H Pulse Oximetry 94 L 94 L 96 05/18/18 00:00 05/18/18 04:24 05/18/18 05:05 Temperature 99.7 F H 99.1 F Pulse Rate 96 H 84 Respiratory Rate 19 17 16 Blood Pressure 156/69 H 158/64 H Pulse Oximetry 96 96 95 05/18/18 08:19 05/18/18 08:25 05/18/18 09:00 Temperature 99.7 F H Pulse Rate 68 83 Respiratory Rate 15 15 Blood Pressure 93/54 L Pulse Oximetry 99 98 Intake & Output 05/17/18 05/18/18 05/18/18 18:59 06:59 18:59 Intake Total 2697 / 2697 1098 / 1098 Output Total 2600 / 2600 4200 / 4200 Balance 97 / 97 -3102 / -3102 Weight 57.2 kg Intake: IV 2105 / 2105 355 / 355 NS + KCl 20 mEq Inj 1,000 ML @ 1999 / 1999 100 mls/hr IV.CONT .Q10H [facility] Rx #:[id number] Keppra Inj 500 MG In NS Inj 100 105 / 105 105 / 105 ML @ 400 mls/hr IV.SIG Q12H [facility] Rx#:[id number] Oral 0 / 0 Tube Feeding 472 / 472 563 / 563 Tube Irrigant 120 / 120 180 / 180 Output: Urine Amount (Catheter) 2600 / 2600 4200 / 4200 Indwelling Urethral Catheter 2600 / 2600 4200 / 4200 Other: Date of Last Bowel Movement 05/17/18 05/17/18 05/17/18 # Bowel Movements 1 Narrative: intub/vent edema right lip pupils sluggish moves right leg spontaneously did squeeze with her left hand my hand and repeated it again on her husbands verbal command. brisk dtrs. - Urinary Catheter Management Indwelling Urethral Catheter Cath placed during this visit: yes Reason for continuing: Hourly intake/output Insertion date: 05/11/18 Insertion time: 12:00 Results - Labs CBC & Chem 7: 05/18/18 05:45 05/18/18 05:45 Laboratory Results - last 24 hr 05/17/18 05/17/18 05/18/18 12:00 17:48 00:40 WBC RBC Hgb Hct MCV MCH MCHC RDW Plt Count MPV Prelim Diff (Auto) Neut % (Auto) Lymph % (Auto) Luce % (Auto) Eos % (Auto) Baso % (Auto) Neut # (Auto) Lymph # (Auto) Luce # (Auto) Eos # (Auto) Baso # (Auto) WBC Differential Seg Neuts % (Manual) Band Neuts % (Manual) Lymphocytes % (Manual) Monocytes % (Manual) Eosinophils % (Manual) Abs Neuts (Manual) Nucleated RBCs/100 WBC Differential Comment Toxic Granulation Dohle Bodies Platelet Estimate Platelet Morphology Sodium Potassium Chloride Carbon Dioxide Anion Gap BUN Creatinine Estimated GFR POC Glucose 154 H 149 H 150 H Random Glucose Calcium 05/18/18 05/18/18 05/18/18 05:45 05:45 06:09 WBC 15.1 H RBC 2.69 L Hgb 8.9 L Hct 26.3 L MCV 97.6 MCH 33.1 MCHC 33.9 RDW 17.2 Plt Count 386 D MPV 8.1 Prelim Diff (Auto) Slide review pending Neut % (Auto) 86.9 H Lymph % (Auto) 3.8 L Luce % (Auto) 8.7 H Eos % (Auto) 0.2 Baso % (Auto) 0.4 Neut # (Auto) 13.1 H Lymph # (Auto) 0.6 L Luce # (Auto) 1.3 H Eos # (Auto) 0.0 Baso # (Auto) 0.1 WBC Differential Manual diff final Seg Neuts % (Manual) 71 H Band Neuts % (Manual) 19 H Lymphocytes % (Manual) 5 L Monocytes % (Manual) 4 Eosinophils % (Manual) 1 Abs Neuts (Manual) 13.6 H Nucleated RBCs/100 WBC 1 H Differential Comment . Toxic Granulation 2+ H Dohle Bodies Present H Platelet Estimate Normal Platelet Morphology Normal Sodium 142 Potassium 2.7 L* D Chloride 103 D Carbon Dioxide 29.9 Anion Gap 9 BUN 4 L Creatinine 0.30 L Estimated GFR Greater than 89 POC Glucose 188 H Random Glucose 193 H Calcium 8.4 L Assessment and Plan - Plan cont to monitor neuro status may be a very slow process for any recovery prognosis is poor cont current care.
[2018-05-18] MEDS: Metoprolol Tartrate 25 MG Tablet PO SCH (12:00)
--- NOTE | 2018-05-18 12:37 | P.PNCC ---
Subjective Brief History: 62-year-old female with repeated falls who fell the day before admission and then again that the day of admission and at this point could not be resuscitated and awoken. She was brought to emergency room with Elza Coma Scale of 4 intubated and ventilated with bilateral dilated pupils On the workup she was found to have a huge right subdural hematoma with a left shift for which she underwent emergency craniectomy by Dr. Abad Patient was placed in ICU for further care and patient was managed expertly by Dr. Olvera and Dr. Joshi. Patient is now being transferred to the surgical critical care service. It should be noted that according to her patient has fallen multiple times in the past Past medical history is that of lymphoma and lung carcinoma 24 Hour Review/Hospital Course: 05/14/2018 For the last 24 hours patient has been in the ICU neurologically unchanged. Drainage from the right subdural hematoma has decreased. At this point Dellrose Coma Scale is 3T. 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 Bilateral breath sounds patient remains on ventilatory support with good PO2 FiO2 gradient Renal function is preserved I have discussed care at length with her who is a very nice gentleman and understands the implications of this severe injury. At this point with a new finding of hemorrhagic bleed into mesencephalon prognosis may be worse and therefore we should probably give it a few days to see which way this goes Repeat CT scan will be done on Sunday and then we can see if patient is blossoming this bleed or it is receding and then compared it to the neurologic status. 05/15 She is clinically essentially unchanged-GCS remains low CT scan of the head has been planned for Sunday In the meantime we will continue blood pressure control and neuroprotective measure patient is on tube feeds as well PF ratio is adequate renal function is preserved palliative care is involved Neurology consult will be obtained 05/16/2018 Patient's clinical exam remains stable Her blood pressure medications have been adjusted and seem to have better control She is moving her left spontaneously no movement on the right Appreciate palliative care input 05/17/2018 Clinically the patient is stable with no improvement in her exam, she moves her left upper extremity spontaneously Increasing Lopressor for blood pressure control and adding Cardene until it is better controlled Prognosis remains grim for meaningful recovery 05/18/2018 Today she is not moving left upper extremity spontaneously she has had normal posturing to stimulation and becomes hypertensive with any stimulation P.o. Lopressor seems to have controlled her blood pressure better There seems to have been a misunderstanding between the and nursing staff today. He seems to understand that everyone's focus should be on his , that her blood pressure and heart rate do increase briefly with stimulation, and that the nurses and physicians are in constant contact regarding her care. 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 Objective Vital Signs / I&O: Vital Signs 05/17/18 14:00 05/17/18 16:00 05/17/18 16:10 Temperature 99.7 F H Pulse Rate 90 108 H 94 H Respiratory Rate 22 25 H Blood Pressure 164/75 H Pulse Oximetry 95 95 05/17/18 18:00 05/17/18 20:00 05/17/18 20:28 Temperature 99.7 F H Pulse Rate 115 H 90 98 H Respiratory Rate 21 19 Blood Pressure 147/65 H Pulse Oximetry 94 L 94 L 05/17/18 23:54 05/18/18 00:00 05/18/18 04:24 Temperature 99.7 F H Pulse Rate 96 H Respiratory Rate 18 19 17 Blood Pressure 156/69 H Pulse Oximetry 96 96 96 05/18/18 05:05 05/18/18 08:19 05/18/18 08:25 Temperature 99.1 F Pulse Rate 84 68 Respiratory Rate 16 15 15 Blood Pressure 158/64 H Pulse Oximetry 95 99 05/18/18 09:00 Temperature 99.7 F H Pulse Rate 83 Respiratory Rate Blood Pressure 93/54 L Pulse Oximetry 98 Intake & Output 05/17/18 05/18/18 05/18/18 18:59 06:59 18:59 Intake Total 2697 / 2697 1098 / 1098 Output Total 2600 / 2600 4200 / 4200 Balance 97 / 97 -3102 / -3102 Weight 57.2 kg Intake: IV 2104 / 2104 355 / 355 NS + KCl 20 mEq Inj 1,000 ML @ 2000 / 2000 100 mls/hr IV.CONT .Q10H [facility] Rx #:[id number] Keppra Inj 500 MG In NS Inj 100 105 / 105 105 / 105 ML @ 400 mls/hr IV.SIG Q12H [facility] Rx#:[id number] Oral 0 / 0 Tube Feeding 472 / 472 563 / 563 Tube Irrigant 120 / 120 180 / 180 Output: Urine Amount (Catheter) 2600 / 2600 4200 / 4200 Indwelling Urethral Catheter 2600 / 2600 4200 / 4200 Other: Date of Last Bowel Movement 05/17/18 05/17/18 05/17/18 # Bowel Movements 1 Result Diagrams: 05/19/18 05:10 05/19/18 05:10 - 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, Dellrose Coma Scale is 5 by my exam with abnormal extension to pain no verbal response and eye opening to pain reports the patient is following commands which places her GCS at 9 Hemodynamic/Cardiac: Regular rate and rhythm, intermittent hypertension, controlled Pulmonary/Respiratory: Clear to auscultation bilaterally, on full ventilator support Abdomen/GI Nutrition: Soft, nontender, nondistended, tolerating tube feeds at goal Renal/I&O: Adequate urine output, stable Assessment and Plan Plan: TBI combined with CVA and a history of chronic EtOH abuse Continue to wean sedation, start neuro stimulation package Wean ventilator as tolerated, aggressive pulmonary toilet, tracheostomy this week Continue nutritional support via feeding tube and is many p.o. medications as possible, will require PEG placement this week Long discussion with at bedside and we will proceed with tracheostomy and PEG placement this week. Apparently he has a friend who took 5 years to recuperate from a traumatic brain injury. Prognosis remains poor with a very large right subdural hematoma and subfalcine herniation in addition to the midbrain hemorrhagic stroke
--- NOTE | 2018-05-18 16:41 | P.PNNS ---
Subjective Interval history: Remains intubated. On tube feedings. No new problems reported per nursing staff Physical Exam Vital signs: Vital Signs 05/17/18 18:00 05/17/18 20:00 05/17/18 20:28 Temperature 99.7 F H Pulse Rate 115 H 90 98 H Respiratory Rate 21 19 Blood Pressure 147/65 H Pulse Oximetry 94 L 94 L 05/17/18 23:54 05/18/18 00:00 05/18/18 04:24 Temperature 99.7 F H Pulse Rate 96 H Respiratory Rate 18 19 17 Blood Pressure 156/69 H Pulse Oximetry 96 96 96 05/18/18 05:05 05/18/18 08:19 05/18/18 08:25 Temperature 99.1 F Pulse Rate 84 68 Respiratory Rate 16 15 15 Blood Pressure 158/64 H Pulse Oximetry 95 99 05/18/18 09:00 Temperature 99.7 F H Pulse Rate 83 Respiratory Rate Blood Pressure 93/54 L Pulse Oximetry 98 Intake & Output 05/17/18 05/18/18 05/18/18 18:59 06:59 18:59 Intake Total 2697 / 2697 2098 / 2098 500 / 500 Output Total 2600 / 2600 4200 / 4200 Balance 97 / 97 -2102 / -2102 500 / 500 Weight 57.2 kg Intake: IV 2105 / 2105 1355 / 1355 500 / 500 NS + KCl 20 mEq Inj 1,000 ML @ 2000 / 2000 1000 / 1000 100 mls/hr IV.CONT .Q10H [facility] Rx #:[id number] Cardene Inj 50 MG In NS Inj 480 500 / 500 ML @ 5 MG/HR 50 mls/hr IV.CONT TITRATE PRN Rx#:[id number] Keppra Inj 500 MG In NS Inj 100 105 / 105 105 / 105 ML @ 400 mls/hr IV.SIG Q12H [facility] Rx#:[id number] Oral 0 / 0 Tube Feeding 472 / 472 563 / 563 Tube Irrigant 120 / 120 180 / 180 Output: Urine Amount (Catheter) 2600 / 2600 4200 / 4200 Indwelling Urethral Catheter 2600 / 2600 4200 / 4200 Other: Date of Last Bowel Movement 05/17/18 05/17/18 05/17/18 # Bowel Movements 1 Narrative: i intubated. No eye-opening to voice or deep pain. Pupils 4-5 right, 3 left, sluggish reaction. Minimal disconjugate oculocephalic responses. No spontaneous eye movements. Not following commands. Mild flexion versus slight flexion-internal rotation bilateral upper extremities to deep pain. Minimal withdrawal lower extremities deep pain Ismael in place right scalp incision. Scalp slightly firm. - Urinary Catheter Management Indwelling Urethral Catheter Cath placed during this visit: yes Reason for continuing: Hourly intake/output Insertion date: 05/11/18 Insertion time: 12:00 Assessment and Plan - Plan Impression: 62 y/o female with large right subdural hematoma with severe mass effect and midline shift, s/p emergent right decompressive craniectomy with evacuation of subdural hematoma, Plan: cont critical care mgt per trauma team continue neuro checks Pulmonary: aggressive pulmonary toilette, nasotracheal suction, and breathing treatments with nebulizers. Daily PT and OT Renal: Continue to monitor closely urine output, BUN and creatinine Endocrine: Continue to Monitor serial Acu checks and SSI as needed in detail ID continue to monitor for signs of infection Continue Protonix for stress ulcer prophylaxis Continue James morocho and SCD's for DVT prophylaxis Paliative care assisting
[2018-05-18 17:10] LABS: Potassium 3.5 meq/L (3.5-5.1)
[2018-05-18 17:11] LABS: Magnesium 1.9 mg/dL (1.5-2.5)
[2018-05-18 18:10] LABS: Sodium 144 meq/L (136-145)
[2018-05-18] MEDS: Nystatin Liq 500,000 UNIT/5 ML UDC SWISH-SPIT SCH (18:17)
[2018-05-18] MEDS: Potassium Chloride 25 MEQ Effervescent Tablet PO PRN (18:18)
[2018-05-18] MEDS ORDERED: Norepinephrine Inj 4 MG/4 ML Ampul ONE (20:42)
[2018-05-18] MEDS: Norepinephrine Inj 4 MG in Sodium Chlor 0.9% Inj 246 ML IV.SIG PRN (21:02)
[2018-05-18] MEDS: Haloperidol Inj 5 MG/ML Ampul IV.PUSH PRN (22:34)
[2018-05-19] MEDS: Insulin NovoLOG Aspart Correctional Sugar Inj SQ SCH ×2 (01:08→06:19)
[2018-05-19] MEDS: Oral Hygiene Kit OROPHARYNG SCH ×4 (01:08→19:24)
[2018-05-19] MEDS: Nystatin Liq 500,000 UNIT/5 ML UDC SWISH-SPIT SCH ×4 (01:08→19:24)
[2018-05-19 06:13] LABS: Baso % (Auto) 0.2 % (0.0-2.0); Eos # (Auto) 0.1 th/mm3 (0.0-0.4); Eos % (Auto) 0.3 % (0.0-4.0); Hematocrit 24.7 % (35.0-46.0); Hemoglobin 8.1 gm/dL (11.6-15.3); Lymph # (Auto) 1.1 th/mm3 (1.0-4.8); Lymph % (Auto) 6.5 % (9.0-44.0); Mean Corpuscular HGB Conc 32.9 % (32.0-36.0); Mean Corpuscular Hemoglobin 32.5 pg (27.0-34.0); Mean Corpuscular Volume 98.8 fL (80.0-100.0); Mean Platelet Volume 8.3 fL (7.0-11.0); Mono # (Auto) 1.5 th/mm3 (0.0-0.9); Mono % (Auto) 9.6 % (0.0-8.0); Neut # (Auto) 13.4 th/mm3 (1.8-7.7); Neut % (Auto) 83.4 % (16.0-70.0); Platelet Count 437 th/mm3 (150-450); White Blood Count 16.1 th/mm3 (4.0-11.0)
[2018-05-19] MEDS: Metoprolol Tartrate 25 MG Tablet PO SCH ×2 (06:18→15:12)
[2018-05-19 06:47] LABS: Anion Gap 7 meq/L (5-15); Blood Urea Nitrogen 7 mg/dL (7-18); Calcium 8.8 mg/dL (8.5-10.1); Chloride 107 meq/L (98-107); Glomerular Filtration Rate Greater Than 89 mL/min (>89); Glucose,Random 123 mg/dL (74-106); Potassium 3.7 meq/L (3.5-5.1); Sodium 144 meq/L (136-145)
--- NOTE | 2018-05-19 08:22 | CT ---
EXAM DATE: 05/19/2018 8:13 AM EDT AGE/SEX: 62 years / Female INDICATIONS: Status post craniectomy. CLINICAL DATA: This is the patient's subsequent encounter. Patient reports that signs and symptoms h ave been present for 1 day and indicates a pain score of Nonresponsive. MEDICAL/SURGICAL HISTORY: Lymphoma. Carcinoma, lung. Carcinoma, squamous cell. Craniotomy. RADIATION DOSE: 66.34 CTDI (mGy) COMPARISON: [facility] [place], 05/16/2018. [facility] [place] HEAD W/O CONTRAST, 05/13/2018. . TECHNIQUE: CT of the head without contrast. Using automated exposure control and adjustment of the mA and/or kV according to patient size, radiation dose was kept as low as reasonably achievable to ob tain optimal diagnostic quality images. DICOM format image data is available electronically for revi ew and comparison. FINDINGS: The patient is status post right frontal parietal temporal craniotomy with interval removal of a subd ural drainage catheter. There is increase size of a high density heterogeneous subdural hemorrhage ca using mass effect upon the right temporal lobe parietal lobe and causing slight increased midline bushra ft now measuring 5 mm. There is slight effacement of the ambient cistern. There is persistent high de nsity blood products identified within the midbrain and trini. The hypointensity identified within the left occipital lobe is unchanged. Orbits and sinuses are unremarkable. CONCLUSION: 1. Interval removal of a subdural drainage contrast there with increased size of the subdural hemato ma causing increasing mass effect upon the right temporal lobe parietal lobe and slight effacement of the ambient cistern and increasing leftward midline shift. . Electronically signed by: Tana Elliott MD 05/19/2018 8:20 AM EDT
[2018-05-19] MEDS: Senna/Docusate Sodium 8.6/50 MG Tablet PO SCH ×2 (09:20→21:25)
[2018-05-19] MEDS: Enoxaparin Inj 40 MG/0.4 ML Syringe SQ SCH (09:20)
[2018-05-19] MEDS: Lisinopril 10 MG Tablet PO SCH (09:20)
[2018-05-19] MEDS: Chlorhexidine 0.12% Oral Kit 15 ML UDC OROPHARYNG SCH ×2 (09:21→21:05)
[2018-05-19] MEDS: Polyethylene Glycol 3350 17 GM Packet PO SCH ×2 (09:23→21:28)
[2018-05-19] MEDS: Pantoprazole Inj 40 MG Vial IV.PUSH SCH ×2 (09:25→21:23)
[2018-05-19] MEDS: niCARdipine Inj 50 MG in Sodium Chlor 0.9% Inj 480 ML IV.CONT PRN (10:45)
[2018-05-19] MEDS: Beneprotein Powder Packet G-TUBE SCH ×3 (12:21→19:24)
[2018-05-19] MEDS: Desmopressin Inj 4 MCG/ML Ampul SQ SCH ×2 (12:21→21:27)
--- NOTE | 2018-05-19 12:24 | P.PNNS ---
Subjective Interval history: The patient's blood pressure has been somewhat labile according to nursing staff. Intermittently on nicardipine IV for hypertension. No seizures reported no significant change in overall neurologic exam over the past couple of days. Physical Exam Vital signs: Vital Signs 05/18/18 13:00 05/18/18 17:00 05/18/18 17:05 Temperature 99.7 F H 99.7 F H Pulse Rate 80 64 77 Respiratory Rate 18 15 15 Blood Pressure 149/69 H 129/69 Pulse Oximetry 93 L 05/18/18 19:50 05/18/18 20:00 05/18/18 22:00 Temperature 99.9 F H Pulse Rate 93 H 69 66 Respiratory Rate 16 15 Blood Pressure 116/57 L Pulse Oximetry 98 100 05/18/18 23:18 05/19/18 00:00 05/19/18 02:00 Temperature 99.7 F H Pulse Rate 90 65 Respiratory Rate 17 15 Blood Pressure 135/60 Pulse Oximetry 98 97 05/19/18 03:12 05/19/18 04:00 05/19/18 06:00 Temperature 100 F H Pulse Rate 68 95 H 60 Respiratory Rate 15 20 Blood Pressure 148/76 H Pulse Oximetry 100 97 05/19/18 07:56 05/19/18 08:00 05/19/18 08:26 Temperature 99.7 F H Pulse Rate 59 L Respiratory Rate 15 20 Blood Pressure 147/70 H Pulse Oximetry 100 100 100 05/19/18 08:27 05/19/18 11:36 Temperature Pulse Rate 88 Respiratory Rate 21 19 Blood Pressure Pulse Oximetry 100 Intake & Output 05/18/18 05/19/18 05/19/18 18:59 06:59 18:59 Intake Total 950 / 950 3389 / 3389 Output Total 2600 / 2600 2860 / 2860 Balance -1650 / -1650 529 / 529 Weight 55.7 kg Intake: IV 500 / 500 2555 / 2555 NS + KCl 20 mEq Inj 1,000 ML @ 1999 / 1999 100 mls/hr IV.CONT .Q10H [facility] Rx #:[id number] Cardene Inj 50 MG In NS Inj 480 500 / 500 ML @ 5 MG/HR 50 mls/hr IV.CONT TITRATE PRN Rx#:[id number] Levophed Inj 4 MG In NS Inj 246 250 / 250 ML @ 2 MCG/MIN 7.5 mls/hr IV. SIG TITRATE PRN Rx#:[id number] KCl 20 mEq Premix Inj 20 meq In 100 / 100 100 ml @ 50 mls/hr IV.SIG Q2H PRN Rx#:[id number] KCl 40 mEq Premix Inj 40 meq In 100 / 100 100 ml @ 25 mls/hr IV.SIG UNSCH PRN Rx#:[id number] Keppra Inj 500 MG In NS Inj 100 105 / 105 ML @ 400 mls/hr IV.SIG Q12H [facility] Rx#:[id number] Oral 0 / 0 Tube Feeding 450 / 450 534 / 534 Tube Irrigant 300 / 300 Output: Blood Draw 0 / 0 Urine 2600 / 2600 Estimated Blood Loss 250 / 250 Urine Amount (Catheter) 2600 / 2600 Indwelling Urethral Catheter 2600 / 2600 Gastric Drainage 10 / 10 Orogastric Tube 10 / 10 Wound Drainage 0 / 0 # 1 Head MISTY Drain 0 / 0 # 2 Head MISTY Drain 0 / 0 Other: Date of Last Bowel Movement 05/17/18 05/17/18 05/17/18 Narrative: The patient remains intubated. Respirations clear Cardiac regular rhythm Abdomen soft without distention No significant extremity edema Scalp incision dry and intact with zeus in place. Neurologic: No eye-opening to voice or deep pain. Minimal disconjugate oculocephalic responses. Pupils midrange slightly greater left greater than right, nonreactive She intermittently follows commands with her left upper extremity, holding up 1 or 2 fingers to command. Mild extensor posturing right upper extremity. 05/19/2018 CT scan head images reviewed by the undersigned. The study reveals an [id number] mm maximum thickness localized subgaleal hematoma at the right frontoparietal craniectomy site. There is approximately 4 mm midline shift with mild effacement of the right frontal horn of the lateral ventricle. No significant hydrocephalus noted. The sulci in the right hemisphere adjacent to the subgaleal hematoma are not significantly effaced. There is very mild impression upon the right perimesencephalic cistern. - Urinary Catheter Management Indwelling Urethral Catheter Cath placed during this visit: yes Reason for continuing: Hourly intake/output Insertion date: 05/11/18 Insertion time: 12:00 Assessment and Plan - Plan Impression: 62 y/o female with large right subdural hematoma with severe mass effect and midline shift, s/p emergent right decompressive craniectomy with evacuation of subdural hematoma, Follow-up CT scan 05/19/2018 reveals development of a subacute appearing subgaleal hematoma right frontoparietal region at the craniectomy site. Relatively mild mass-effect. Neurologic exam stable compared to the past couple of days. There is increasing decreased attenuation, probable developing encephalomalacia in the mid pontine region adjacent to the previous known hemorrhage. Plan: Continue observation in regards to the right subgaleal hematoma. Plan follow-up CT scan over the next 2-3 days depending on clinical course. cont critical care mgt per trauma team continue neuro checks Pulmonary: aggressive pulmonary toilette, nasotracheal suction, and breathing treatments with nebulizers. Daily PT and OT Renal: Continue to monitor closely urine output, BUN and creatinine Endocrine: Continue to Monitor serial Acu checks and SSI as needed in detail Questionable diabetes insipidus. ID continue to monitor for signs of infection Continue Protonix for stress ulcer prophylaxis Continue James hose and SCD's for DVT prophylaxis Paliative care assisting
[2018-05-19] MEDS: Hypromellose 0.3% Opth Gel 10 GM Bottle EACH EYE SCH ×2 (12:30→21:28)
--- NOTE | 2018-05-19 12:59 | P.PNCC ---
Subjective Brief History: 62-year-old female with repeated falls who fell the day before admission and then again that the day of admission and at this point could not be resuscitated and awoken. She was brought to emergency room with Elza Coma Scale of 4 intubated and ventilated with bilateral dilated pupils On the workup she was found to have a huge right subdural hematoma with a left shift for which she underwent emergency craniectomy by Dr. Abad Patient was placed in ICU for further care and patient was managed expertly by Dr. Olvera and Dr. Joshi. Patient is now being transferred to the surgical critical care service. It should be noted that according to her patient has fallen multiple times in the past Past medical history is that of lymphoma and lung carcinoma 24 Hour Review/Hospital Course: 05/14/2018 For the last 24 hours patient has been in the ICU neurologically unchanged. Drainage from the right subdural hematoma has decreased. At this point [place] Coma Scale is 3T. 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 Bilateral breath sounds patient remains on ventilatory support with good PO2 FiO2 gradient Renal function is preserved I have discussed care at length with her who is a very nice gentleman and understands the implications of this severe injury. At this point with a new finding of hemorrhagic bleed into mesencephalon prognosis may be worse and therefore we should probably give it a few days to see which way this goes Repeat CT scan will be done on Sunday and then we can see if patient is blossoming this bleed or it is receding and then compared it to the neurologic status. 05/15 She is clinically essentially unchanged-GCS remains low CT scan of the head has been planned for Sunday In the meantime we will continue blood pressure control and neuroprotective measure patient is on tube feeds as well PF ratio is adequate renal function is preserved palliative care is involved Neurology consult will be obtained 05/16/2018 Patient's clinical exam remains stable Her blood pressure medications have been adjusted and seem to have better control She is moving her left spontaneously no movement on the right Appreciate palliative care input 05/17/2018 Clinically the patient is stable with no improvement in her exam, she moves her left upper extremity spontaneously Increasing Lopressor for blood pressure control and adding Cardene until it is better controlled Prognosis remains grim for meaningful recovery 05/18/2018 Today she is not moving left upper extremity spontaneously she has had normal posturing to stimulation and becomes hypertensive with any stimulation P.o. Lopressor seems to have controlled her blood pressure better There seems to have been a misunderstanding between the and nursing staff today. He seems to understand that everyone's focus should be on his , that her blood pressure and heart rate do increase briefly with stimulation, and that the nurses and physicians are in constant contact regarding her care. 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 05/19/2018 There is no change in the patients clinical exam although her most recent head CT shows increased subdural hematoma she is following commands with her left upper extremity Patient will require tracheostomy and PEG placement but given the worsening subdural hematoma, will defer until stable and safe to do so Objective Vital Signs / I&O: Vital Signs 05/18/18 13:00 05/18/18 17:00 05/18/18 17:05 Temperature 99.7 F H 99.7 F H Pulse Rate 80 64 77 Respiratory Rate 18 15 15 Blood Pressure 149/69 H 129/69 Pulse Oximetry 93 L 05/18/18 19:50 05/18/18 20:00 05/18/18 22:00 Temperature 99.9 F H Pulse Rate 93 H 69 66 Respiratory Rate 16 15 Blood Pressure 116/57 L Pulse Oximetry 98 100 05/18/18 23:18 05/19/18 00:00 05/19/18 02:00 Temperature 99.7 F H Pulse Rate 90 65 Respiratory Rate 17 15 Blood Pressure 135/60 Pulse Oximetry 98 97 05/19/18 03:12 05/19/18 04:00 05/19/18 06:00 Temperature 100 F H Pulse Rate 68 95 H 60 Respiratory Rate 15 20 Blood Pressure 148/76 H Pulse Oximetry 100 97 05/19/18 07:56 05/19/18 08:00 05/19/18 08:26 Temperature 99.7 F H Pulse Rate 59 L Respiratory Rate 15 20 Blood Pressure 147/70 H Pulse Oximetry 100 100 100 05/19/18 08:27 05/19/18 11:36 Temperature Pulse Rate 88 Respiratory Rate 21 19 Blood Pressure Pulse Oximetry 100 Intake & Output 05/18/18 05/19/18 05/19/18 18:59 06:59 18:59 Intake Total 950 / 950 3389 / 3389 Output Total 2600 / 2600 2860 / 2860 Balance -1650 / -1650 529 / 529 Weight 55.7 kg Intake: IV 500 / 500 2555 / 2555 NS + KCl 20 mEq Inj 1,000 ML @ 2000 / 2000 100 mls/hr IV.CONT .Q10H CARLOS Rx #:[id number] Cardene Inj 50 MG In NS Inj 480 500 / 500 ML @ 5 MG/HR 50 mls/hr IV.CONT TITRATE PRN Rx#:[id number] Levophed Inj 4 MG In NS Inj 246 250 / 250 ML @ 2 MCG/MIN 7.5 mls/hr IV. SIG TITRATE PRN Rx#:[id number] KCl 20 mEq Premix Inj 20 meq In 100 / 100 100 ml @ 50 mls/hr IV.SIG Q2H PRN Rx#:[id number] KCl 40 mEq Premix Inj 40 meq In 100 / 100 100 ml @ 25 mls/hr IV.SIG UNSCH PRN Rx#:[id number] Keppra Inj 500 MG In NS Inj 100 105 / 105 ML @ 400 mls/hr IV.SIG Q12H CARLOS Rx#:[id number] Oral 0 / 0 Tube Feeding 450 / 450 534 / 534 Tube Irrigant 300 / 300 Output: Blood Draw 0 / 0 Urine 2600 / 2600 Estimated Blood Loss 250 / 250 Urine Amount (Catheter) 2600 / 2600 Indwelling Urethral Catheter 2600 / 2600 Gastric Drainage 10 / 10 Orogastric Tube 10 / 10 Wound Drainage 0 / 0 # 1 Head MISTY Drain 0 / 0 # 2 Head MISTY Drain 0 / 0 Other: Date of Last Bowel Movement 05/17/18 05/17/18 05/17/18 Result Diagrams: 05/20/18 05:45 05/20/18 05:45 Imaging: Impressions Head CT 05/19/18 08:00 CONCLUSION: 1. Interval removal of a subdural drainage contrast there with increased size of the subdural hematoma causing increasing mass effect upon the right temporal lobe parietal lobe and slight effacement of the ambient cistern and increasing leftward midline shift. . - Exam LITIGATION COUNSEL: Follows commands with left upper extremity tries to open her eyes when asked Hemodynamic/Cardiac: Regular rate and rhythm, hypertension currently controlled Pulmonary/Respiratory: Clear to auscultation bilaterally on full ventilator support Abdomen/GI Nutrition: Soft nontender nondistended tolerating tube feeds at goal Renal/I&O: Adequate urine output, BUN/creatinine stable, currently on DDAVP for suspected diabetes insipidus Hematologic: Acute blood loss anemia, likely dilutional with some loss attributed to daily blood draws Assessment and Plan Plan: TBI combined with CVA and a history of chronic EtOH abuse Continue to wean sedation, start neuro stimulation package Transfuse 2 units of packed red blood cells for acute blood loss anemia Wean ventilator as tolerated, aggressive pulmonary toilet, tracheostomy this week Continue nutritional support via feeding tube and is many p.o. medications as possible, will require PEG placement this week Prognosis remains poor with a very large right subdural hematoma and subfalcine herniation in addition to the midbrain hemorrhagic stroke, worse on repeat head CT Plan is for tracheostomy and feeding tube placement when the patient is stable and safe to do so
[2018-05-19] MEDS: Lisinopril 20 MG Tablet PO SCH (21:10)
[2018-05-20] MEDS: Oral Hygiene Kit OROPHARYNG SCH ×4 (00:29→18:05)
[2018-05-20] MEDS: Nystatin Liq 500,000 UNIT/5 ML UDC SWISH-SPIT SCH ×5 (00:33→23:45)
[2018-05-20] MEDS: Metoprolol Tartrate 25 MG Tablet PO SCH ×2 (02:59→16:11)
--- NOTE | 2018-05-20 04:35 | XR ---
EXAM DATE: 05/20/2018 4:28 AM EDT AGE/SEX: 62 years / Female INDICATIONS: Respiratory disease. CLINICAL DATA: This is the patient's subsequent encounter. Patient reports that signs and symptoms h ave been present for 2 days and indicates a pain score of Nonresponsive. MEDICAL/SURGICAL HISTORY: . Carcinoma, lung. Lymphoma. Non-responsive. COMPARISON: [facility] [place], CHEST 1V SINGLE AP, 05/17/2018. . FINDINGS: Right subclavian central venous catheter, endotracheal tube and enteric tube again noted. There is im proved aeration of the left lower lobe however patchy airspace disease at the left lung base remain. In addition there is parenchymal density in the right infrahilar region suspect for an area of atelec tasis or consolidation. The osseous structures are intact. Mild cardiomegaly. CONCLUSION: Improved aeration left lower lobe. Electronically signed by: Mark Rodriguez MD 05/20/2018 4:34 AM EDT
[2018-05-20 05:58] LABS: Baso % (Auto) 0.1 % (0.0-2.0); Eos # (Auto) 0.1 th/mm3 (0.0-0.4); Eos % (Auto) 0.7 % (0.0-4.0); Hemoglobin 7.3 gm/dL (11.6-15.3); Lymph # (Auto) 1.2 th/mm3 (1.0-4.8); Lymph % (Auto) 7.6 % (9.0-44.0); Mean Corpuscular HGB Conc 33.3 % (32.0-36.0); Mean Corpuscular Hemoglobin 32.6 pg (27.0-34.0); Mono # (Auto) 1.2 th/mm3 (0.0-0.9); Mono % (Auto) 7.6 % (0.0-8.0); Neut # (Auto) 12.9 th/mm3 (1.8-7.7); Platelet Count 446 th/mm3 (150-450); Red Blood Count 2.25 mil/mm3 (4.00-5.30); Red Cell Distribution Width 16.8 % (11.6-17.2); White Blood Count 15.4 th/mm3 (4.0-11.0)
[2018-05-20 06:23] LABS: Anion Gap 8 meq/L (5-15); Blood Urea Nitrogen 10 mg/dL (7-18); Calcium 8.4 mg/dL (8.5-10.1); Chloride 102 meq/L (98-107); Glomerular Filtration Rate Greater Than 89 mL/min (>89); Glucose,Random 136 mg/dL (74-106); Potassium 3.7 meq/L (3.5-5.1); Sodium 141 meq/L (136-145)
--- NOTE | 2018-05-20 08:38 | P.PNNPSY ---
- Progress Notes/Response to Treatment Contents of Sessions: Adjustment, Level of consciousness Time with Patient: 30 minutes Premorbid Psychological Status: Premorbid Cognitive, Emotional and Behavioral Status: Stable. The patient has high school years of education and a solid work history prior to this injury. The patient has no prior psychiatric difficulties, as described above. Substance abuse history includes EtOH. Behavioral Reactions of Patient and Family/Support System: Stable. The patient s family is experiencing ongoing issues of adjustment given the nature of the injury, and this aspect of recovery will require ongoing monitoring. Emotional/Behavioral Status of Patient and Family/Support System: Stable. Pertinent issues, if appropriate to this patients clinical care, are described in detail above. Maximizing Acute Care Outcome: It is recommended that the patient be monitored for emergent behavioral impulsivity as the medical condition evolves. This patients neuropathological challenges may limit rehabilitation potential going forward, and these challenges will require specialized therapeutic skills to maximize outcome. Additionally, the patients family is experiencing ongoing issues of adjustment given the traumatic nature of the injury, and they may benefit from ongoing psychological assistance. At this point in the recovery process, the patient does not have cognitive capacity as the patient is unable to understand a situation and its likely consequences, nor is the patient able to manipulate information rationally. Cognitive capacity will be assessed throughout the recovery process. Anticipated Problems: Ongoing areas of concern will include behavioral impulsivity, lack of insight and judgment, which is expected to improve with time and treatment. Presently , the patient is critically ill. Treatment Plan: This clinician will continue to follow with you throughout the course of this patients critical care treatment, and I will be available to meet with the patients family/support system to facilitate their understanding and the ongoing care of their family member. The goals of neuropsychological intervention shall be both educational and supportive to the family/support system as is deemed clinically appropriate. Impression: 62 year old woman s/p TBI from multiple causes. Progress Note Narrative: PTD 9. The patient was noted to have some LUE movement spontaneously, but not so much today. She required Haldol PRN on 05/18, but not since. She remains on Keppra. She is [place] II. I will follow. - Diagnosis (1) Major neurocognitive disorder Status: Acute
[2018-05-20] MEDS: Pantoprazole Inj 40 MG Vial IV.PUSH SCH ×2 (09:04→21:38)
[2018-05-20] MEDS: Senna/Docusate Sodium 8.6/50 MG Tablet PO SCH ×2 (09:04→22:02)
[2018-05-20] MEDS: Chlorhexidine 0.12% Oral Kit 15 ML UDC OROPHARYNG SCH ×2 (09:05→21:36)
[2018-05-20] MEDS: Desmopressin Inj 4 MCG/ML Ampul SQ SCH ×2 (09:06→21:37)
[2018-05-20] MEDS: Beneprotein Powder Packet G-TUBE SCH ×3 (09:06→17:11)
[2018-05-20] MEDS: Polyethylene Glycol 3350 17 GM Packet PO SCH ×2 (09:06→22:02)
[2018-05-20] MEDS: Hypromellose 0.3% Opth Gel 10 GM Bottle EACH EYE SCH ×2 (09:06→22:01)
[2018-05-20] MEDS: Lisinopril 20 MG Tablet PO SCH ×2 (09:07→21:38)
--- NOTE | 2018-05-20 12:38 | P.PNCC ---
Subjective Brief History: 62-year-old female with repeated falls who fell the day before admission and then again that the day of admission and at this point could not be resuscitated and awoken. She was brought to emergency room with Elza Coma Scale of 4 intubated and ventilated with bilateral dilated pupils On the workup she was found to have a huge right subdural hematoma with a left shift for which she underwent emergency craniectomy by Dr. Abad Patient was placed in ICU for further care and patient was managed expertly by Dr. Olvera and Dr. Joshi. Patient is now being transferred to the surgical critical care service. It should be noted that according to her patient has fallen multiple times in the past Past medical history is that of lymphoma and lung carcinoma 24 Hour Review/Hospital Course: 05/14/2018 For the last 24 hours patient has been in the ICU neurologically unchanged. Drainage from the right subdural hematoma has decreased. At this point [place] Coma Scale is 3T. 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 Bilateral breath sounds patient remains on ventilatory support with good PO2 FiO2 gradient Renal function is preserved I have discussed care at length with her who is a very nice gentleman and understands the implications of this severe injury. At this point with a new finding of hemorrhagic bleed into mesencephalon prognosis may be worse and therefore we should probably give it a few days to see which way this goes Repeat CT scan will be done on Sunday and then we can see if patient is blossoming this bleed or it is receding and then compared it to the neurologic status. 05/15 She is clinically essentially unchanged-GCS remains low CT scan of the head has been planned for Sunday In the meantime we will continue blood pressure control and neuroprotective measure patient is on tube feeds as well PF ratio is adequate renal function is preserved palliative care is involved Neurology consult will be obtained 05/16/2018 Patient's clinical exam remains stable Her blood pressure medications have been adjusted and seem to have better control She is moving her left spontaneously no movement on the right Appreciate palliative care input 05/17/2018 Clinically the patient is stable with no improvement in her exam, she moves her left upper extremity spontaneously Increasing Lopressor for blood pressure control and adding Cardene until it is better controlled Prognosis remains grim for meaningful recovery 05/18/2018 Today she is not moving left upper extremity spontaneously she has had normal posturing to stimulation and becomes hypertensive with any stimulation P.o. Lopressor seems to have controlled her blood pressure better There seems to have been a misunderstanding between the and nursing staff today. He seems to understand that everyone's focus should be on his , that her blood pressure and heart rate do increase briefly with stimulation, and that the nurses and physicians are in constant contact regarding her care. 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 05/19/2018 There is no change in the patients clinical exam although her most recent head CT shows increased subdural hematoma she is following commands with her left upper extremity Patient will require tracheostomy and PEG placement but given the worsening subdural hematoma, will defer until stable and safe to do so 05/20/2018 Patient dropped her hemoglobin overnight, likely dilutional and associated with multiple blood draws during her stay We will monitor stool for melena or hematochezia, none identified, no bloody NG tube residuals Continue blood pressure management, H&H post transfusion Continue current ICU management, IVC filter ordered today due to the inability to chemically prophylax her Objective Vital Signs / I&O: Vital Signs 05/19/18 14:00 05/19/18 15:21 05/19/18 16:00 Temperature 99.7 F H Pulse Rate 89 70 69 Respiratory Rate 29 H 18 Blood Pressure 114/56 L Pulse Oximetry 100 100 05/19/18 18:00 05/19/18 20:00 05/19/18 20:26 Temperature 99.3 F Pulse Rate 62 99 H 70 Respiratory Rate 15 Blood Pressure Pulse Oximetry 98 05/19/18 22:00 05/19/18 23:51 05/20/18 00:00 Temperature 99.3 F Pulse Rate 64 78 Respiratory Rate 15 Blood Pressure Pulse Oximetry 99 05/20/18 02:00 05/20/18 04:00 05/20/18 04:07 Temperature 98.6 F Pulse Rate 89 74 72 Respiratory Rate 15 Blood Pressure Pulse Oximetry 98 05/20/18 07:56 05/20/18 08:00 05/20/18 10:32 Temperature 99.5 F 100.2 F H Pulse Rate 58 L 94 H 60 Respiratory Rate 15 15 20 Blood Pressure 147/65 H 120/58 L Pulse Oximetry 100 100 100 05/20/18 10:49 05/20/18 11:24 Temperature 99.5 F Pulse Rate 60 Respiratory Rate 19 18 Blood Pressure 124/62 Pulse Oximetry 100 100 Intake & Output 05/19/18 05/20/18 05/20/18 18:59 06:59 18:59 Intake Total 637 / 637 1254 / 1254 0 / 0 Output Total 1900 / 1900 950 / 950 Balance -1263 / -1263 304 / 304 0 / 0 Weight 52.9 kg Intake: IV 294 / 294 Cardene Inj 50 MG In NS Inj 480 52 / 52 ML @ 5 MG/HR 50 mls/hr IV.CONT TITRATE PRN Rx#:[id number] Levophed Inj 4 MG In NS Inj 246 32 / 32 ML @ 2 MCG/MIN 7.5 mls/hr IV. SIG TITRATE PRN Rx#:[id number] Keppra Inj 500 MG In NS Inj 100 210 / 210 ML @ 400 mls/hr IV.SIG Q12H CARLOS Rx#:[id number] Oral 0 / 0 Tube Feeding 397 / 397 460 / 460 Tube Irrigant 240 / 240 500 / 500 Intake (Blood Product) Amt 0 / 0 Rbc As-3 Leukoreduced Unit 0 / 0 [id number] Output: Blood Draw 0 / 0 Urine 1900 / 1900 Urine Amount (Catheter) 950 / 950 Indwelling Urethral Catheter 950 / 950 Other: Date of Last Bowel Movement 05/17/18 05/20/18 05/20/18 # Bowel Movements 1 1 Result Diagrams: 05/20/18 05:45 05/20/18 05:45 Imaging: Impressions Chest X-Ray 05/20/18 06:00 CONCLUSION: Improved aeration left lower lobe. - Exam RESEARCH AND DEVELOPMENT ENGINEER: Follows commands with the left upper extremity Hemodynamic/Cardiac: Regular rate and rhythm, currently normotensive Pulmonary/Respiratory: Clear to auscultation bilaterally Abdomen/GI Nutrition: Soft nontender nondistended, tolerating tube feeds, no evidence of GI bleed on exam Renal/I&O: BUN/creatinine stable, high urine output Assessment and Plan Plan: TBI combined with CVA and a history of chronic EtOH abuse Continue to wean sedation, start neuro stimulation package Transfuse 2 units of packed red blood cells for acute blood loss anemia, check posttransfusion H&H Wean ventilator as tolerated, aggressive pulmonary toilet, tracheostomy this week Patient tolerated CPAP very well, but she is at high risk of failure due to her inability to protect her airway Continue nutritional support via feeding tube and use as many p.o. medications as possible, will require PEG placement this week Prognosis remains poor with worsening right subdural hematoma and subfalcine herniation in addition to the midbrain hemorrhagic stroke Plan is for tracheostomy and feeding tube placement when the patient is stable and safe to do so
[2018-05-20 18:15] LABS: Hematocrit 29.5 % (35.0-46.0); Hemoglobin 10.2 gm/dL (11.6-15.3)
--- NOTE | 2018-05-20 19:27 | P.PNNS ---
Subjective Interval history: Pt intubated. Off sedation. She localizes with LUE. Pt got blood transfusion today. <Qasim Kingic - Last Filed: 05/20/18 19:22> Physical Exam Vital signs: Vital Signs 05/19/18 20:00 05/19/18 20:26 05/19/18 22:00 Temperature 99.3 F Pulse Rate 99 H 70 64 Respiratory Rate 15 Blood Pressure Pulse Oximetry 98 05/19/18 23:51 05/20/18 00:00 05/20/18 02:00 Temperature 99.3 F Pulse Rate 78 89 Respiratory Rate 15 Blood Pressure Pulse Oximetry 99 05/20/18 04:00 05/20/18 04:07 05/20/18 07:56 Temperature 98.6 F Pulse Rate 74 72 58 L Respiratory Rate 15 15 Blood Pressure Pulse Oximetry 98 100 05/20/18 08:00 05/20/18 10:00 05/20/18 10:32 Temperature 99.5 F 100.2 F H Pulse Rate 94 H 60 60 Respiratory Rate 15 20 Blood Pressure 147/65 H 120/58 L Pulse Oximetry 100 100 05/20/18 10:49 05/20/18 11:24 05/20/18 12:00 Temperature 99.5 F 99.5 F Pulse Rate 60 92 H Respiratory Rate 19 18 17 Blood Pressure 124/62 159/77 H Pulse Oximetry 100 100 98 05/20/18 12:30 05/20/18 12:49 05/20/18 14:00 Temperature 99.5 F 99.7 F H Pulse Rate 72 71 80 Respiratory Rate 16 15 Blood Pressure 140/62 132/60 Pulse Oximetry 96 96 05/20/18 15:49 05/20/18 16:00 05/20/18 18:00 Temperature 100 F H Pulse Rate 90 95 H 72 Respiratory Rate 22 15 Blood Pressure 160/74 H Pulse Oximetry 95 99 Intake & Output 05/20/18 05/20/18 05/21/18 06:59 18:59 06:59 Intake Total 1254 / 1254 963 / 963 Output Total 950 / 950 1999 / 1999 Balance 304 / 304 -1037 / -1037 Weight 52.9 kg Intake: IV 294 / 294 Cardene Inj 50 MG In NS Inj 480 52 / 52 ML @ 5 MG/HR 50 mls/hr IV.CONT TITRATE PRN Rx#:[id number] Levophed Inj 4 MG In NS Inj 246 32 / 32 ML @ 2 MCG/MIN 7.5 mls/hr IV. SIG TITRATE PRN Rx#:[id number] Keppra Inj 500 MG In NS Inj 100 210 / 210 ML @ 400 mls/hr IV.SIG Q12H CARLOS Rx#:[id number] Tube Feeding 460 / 460 503 / 503 Tube Irrigant 500 / 500 60 / 60 Intake (Blood Product) Amt 400 / 400 Rbc As-3 Leukoreduced Unit 0 / 0 [id number] Rbc As-3 Leukoreduced Unit 400 / 400 [id number] Output: Urine Amount (Catheter) 950 / 950 1999 Indwelling Urethral Catheter 950 / 950 1999 Other: Date of Last Bowel Movement 05/20/18 05/20/18 # Bowel Movements 1 - Constitutional no acute distress, average body habitus - Routine HEENT Exam Head: Absent: normocephalic, atraumatic (Right craniecomty site clean and dry without signs of infection.) Eye: Present: PERRL (Pupils 3mm bilaterally reactive bilaterally.). Absent: conjunctival icterus ENT: Absent: oropharynx clear (ET intubated.) - Routine Neck Exam Present: trachea midline - Routine Respiratory Exam Present: patient mechanically ventilated, CTA bilaterally. Absent: respiratory distress, rhonchi, wheezes - Routine Cardiovascular Exam Present: RRR, S1, S2, murmur Comments: Pt on cardene and levophed to keep bp 120-160. - Routine Abdominal Exam Present: soft, normoactive bowel sounds. Absent: distended - Routine Skin Exam Present: erythema. Absent: cyanosis Comments: Right craniectomy site clean and dry without signs of infection. - Routine Neurological Exam Present: motor deficit (Localizes with LUE more than RUE.), altered mental status. Absent: alert, oriented X3 - Detailed Neurological Exam: Coma Scale Eye Opening: None Verbal Response: None Motor Response: Localizing [place] Coma Scale Total: 7 - Routine Psychiatric Exam Present: unable to assess - Urinary Catheter Management Indwelling Urethral Catheter Cath placed during this visit: yes Reason for continuing: Hourly intake/output Insertion date: 05/11/18 Insertion time: 12:00 <Emanuel King - Last Filed: 05/20/18 19:22> Vital signs: Vital Signs 05/20/18 10:00 05/20/18 10:32 05/20/18 10:49 Temperature 100.2 F H 99.5 F Pulse Rate 60 60 60 Respiratory Rate 20 19 Blood Pressure 120/58 L 124/62 Pulse Oximetry 100 100 05/20/18 11:24 05/20/18 12:00 05/20/18 12:15 Temperature 99.5 F 99.5 F Pulse Rate 92 H 92 H Respiratory Rate 18 17 17 Blood Pressure 159/77 H 160/69 H Pulse Oximetry 100 98 98 05/20/18 12:30 05/20/18 12:49 05/20/18 14:00 Temperature 99.5 F 99.7 F H Pulse Rate 72 71 80 Respiratory Rate 16 15 Blood Pressure 140/62 132/60 Pulse Oximetry 96 96 05/20/18 15:49 05/20/18 16:00 05/20/18 18:00 Temperature 100 F H Pulse Rate 90 61 72 Respiratory Rate 22 15 Blood Pressure 160/74 H Pulse Oximetry 95 96 05/20/18 20:00 05/20/18 20:55 05/20/18 22:00 Temperature 99.7 F H Pulse Rate 64 81 98 H Respiratory Rate 15 15 Blood Pressure 134/60 Pulse Oximetry 99 98 05/21/18 00:00 05/21/18 00:37 05/21/18 02:00 Temperature 99 F Pulse Rate 82 82 Respiratory Rate 16 15 Blood Pressure 140/62 Pulse Oximetry 100 99 05/21/18 04:00 05/21/18 04:23 05/21/18 06:00 Temperature 99.5 F Pulse Rate 74 61 61 Respiratory Rate 15 15 Blood Pressure 134/62 Pulse Oximetry 99 99 05/21/18 08:12 Temperature Pulse Rate 60 Respiratory Rate 15 Blood Pressure Pulse Oximetry 99 Intake & Output 05/20/18 05/21/18 05/21/18 18:59 06:59 18:59 Intake Total 1068 / 1068 193 / 7 218 / 218 Output Total 1999 2750 / 2750 Balance -932 / -932 -813 / -813 218 / 218 Weight 54.3 kg Intake: IV 105 / 105 1000 / 1000 218 / 218 Cardene Inj 50 MG In NS Inj 480 1000 / 1000 ML @ 5 MG/HR 50 mls/hr IV.CONT TITRATE PRN Rx#:[id number] Levophed Inj 4 MG In NS Inj 246 218 / 218 ML @ 2 MCG/MIN 7.5 mls/hr IV. SIG TITRATE PRN Rx#:[id number] Keppra Inj 500 MG In NS Inj 100 105 / 105 ML @ 400 mls/hr IV.SIG Q12H CARLOS Rx#:[id number] Tube Feeding 503 / 503 537 / 537 Tube Irrigant 60 / 60 400 / 400 Intake (Blood Product) Amt 400 / 400 0 / 0 Rbc As-3 Leukoreduced Unit 0 / 0 0 / 0 [id number] Rbc As-3 Leukoreduced Unit 400 / 400 [id number] Output: Urine 2750 / 2750 Urine Amount (Catheter) 1999 Indwelling Urethral Catheter 1999 Other: Date of Last Bowel Movement 05/20/18 05/20/18 # Bowel Movements 0 - Urinary Catheter Management Indwelling Urethral Catheter Cath placed during this visit: no <Robbie Hayes - Last Filed: 05/21/18 08:34> Assessment and Plan - Assessment (1) ICH (intracerebral hemorrhage) Code(s): I61.9 - Nontraumatic intracerebral hemorrhage, unspecified Status: Acute (2) Endotracheally intubated Code(s): Z97.8 - Presence of other specified devices Status: Acute (3) Major neurocognitive disorder Code(s): F01.50 - Vascular dementia without behavioral disturbance Status: Acute (4) Pain Code(s): R52 - Pain, unspecified Status: Acute (5) Dyspnea Code(s): R06.00 - Dyspnea, unspecified Status: Acute (6) Subdural hematoma Code(s): S06.5X9A - Traumatic subdural hemorrhage with loss of consciousness of unspecified duration, initial encounter Status: Acute (7) Respiratory failure Code(s): J96.90 - Respiratory failure, unspecified, unspecified whether with hypoxia or hypercapnia Status: Acute (8) CVA (cerebral vascular accident) Code(s): I63.9 - Cerebral infarction, unspecified Status: Acute - Plan Impression: 62 y/o female with large right subdural hematoma with severe mass effect and midline shift, s/p emergent right decompressive craniectomy with evacuation of subdural hematoma, Follow-up CT scan 05/19/2018 reveals development of a subacute appearing subgaleal hematoma right frontoparietal region at the craniectomy site. Relatively mild mass-effect. Neurologic exam stable compared to the past couple of days. There is increasing decreased attenuation, probable developing encephalomalacia in the mid pontine region adjacent to the previous known hemorrhage. Plan: Continue observation in regards to the right subgaleal hematoma. Plan follow-up CT scan over the next 2-3 days depending on clinical course. cont critical care mgt per trauma team continue neuro checks Pulmonary: aggressive pulmonary toilette, nasotracheal suction, and breathing treatments with nebulizers. Daily PT and OT Renal: Continue to monitor closely urine output, BUN and creatinine Endocrine: Continue to Monitor serial Acu checks and SSI as needed in detail Questionable diabetes insipidus. ID continue to monitor for signs of infection Continue Protonix for stress ulcer prophylaxis Continue Jamse hose and SCD's for DVT prophylaxis Paliative care assisting <Emanuel King - Last Filed: 05/20/18 19:22> - Attending Attestation The exam, history, and the medical decision-making described in the above note were completed with the assistance of the mid-level provider. I reviewed and agree with the findings presented. I attest that I had a [id number] encounter with the patient on the same day, and personally performed and documented my assessment and findings in the medical record. <Robbie Hayes - Last Filed: 05/21/18 08:34>
--- NOTE | 2018-05-20 20:42 | MB ---
cc: Eden Madera MD DATE: 05/20/2018 CHIEF COMPLAINT: 1. IVC filter placement. 2. Head bleed. HISTORY OF PRESENT ILLNESS: Ms. Penn is a 62-year-old lady with a history of alcohol abuse who was admitted to the hospital on 05/11/2018 after being found unresponsive after a fall at home. CT head from admission revealed a massive left subdural hematoma with severe mass effect and midline shift. She underwent emergent right decompressive craniectomy with evacuation of hematoma under the direction of the neurosurgery team. She is status post left frontal tish hole with placement of an intracranial pressure monitor and right frontotemporoparietal decompressive craniectomy and evacuation of acute subdural hematoma. Both of these procedures were performed on 05/11/2018. Head CT scan after the procedure shows postoperative changes, small amount of intracranial hemorrhage remains, possible evolving infarct and small amount of hemorrhage at the level of the mid brain. CT scan of the abdomen and pelvis with small bilateral pleural effusions, mild body wall edema and trace fluid in the pelvis. Nonobstructing right renal calculus and atherosclerosis are present. She has been consulted on by the gastroenterology team for a drop in hemoglobin. The GI team has followed her clinically. No evidence for GI bleed at this time. She underwent a consult by the neurology service, who recommended following serial CT scans and to monitor neuro status clinically. She also underwent a consultation by the palliative care team. Head CT scan from yesterday with interval removal of subdural venous contrast with increased size of the subdural hematoma causing increasing mass effect upon the right temporoparietal lobe and slight effacement of the ambient cistern creating leftward midline shift. Neuro exam is stable with increasing decreased attenuation, developing encephalomalacia. PAST MEDICAL HISTORY: Ethyl alcohol abuse. PAST SURGICAL HISTORY: Unable to obtain as the patient is intubated and sedated. SOCIAL HISTORY: Unable to obtain as the patient is intubated and sedated. Upon chart review, it seems that the patient does have a history of ethyl alcohol abuse. FAMILY HISTORY: No known family history of bleeding disorders. ROS: unable to obtain due to mental status HOSPITAL MEDICATIONS: Include Tylenol, albuterol, milk of magnesia, bacitracin, Dulcolax, clonidine, desmopressin, Haldol, lactulose, Keppra, lisinopril, magnesium oxide, metoprolol, nicardipine, norepinephrine, nystatin, Zofran, oxycodone, Protonix, MiraLAX, potassium chloride, potassium phosphate, Senna, terbutaline. LABORATORY STUDIES: White blood cell count 15.4, hemoglobin 7.3, platelet count 446,000. Chemistry studies with a creatinine of 0.31. Liver function tests from 05/17/2018 are within normal limits. PHYSICAL EXAM Gen: thin, chronically ill appearing lady intubated and sedated CV: RRR with no mumurs Resp: intuabed Abdomen: soft, nontender Ext: thin extremities Neuro: sedated ASSESSMENT AND PLAN: Inferior vena cava filter placement. Hematology is consulted for consideration of inferior vena cava filter placement. Vena cava filters can be placed as a treatment to prevent pulmonary embolism. The only widely accepted and validated indications for inferior vena cava filter placement in patients with an active and known venous thromboembolism are an absolute contraindication to therapeutic anticoagulation, complication to anticoagulation and failure of anticoagulation when there is an acute proximal venous thrombosis. Other possible treatment indications and prophylactic filter placements are more controversial. Some guidelines support prophylactic inferior vena cava filter use in high-risk patients. Several studies have looked at prophylactic inferior vena cava filter placement in patients at high risk for clot and who are unable to receive mechanical and chemical deep venous thrombosis prophylaxis. This is especially true in patients with head injuries. In this situation, in this patient with trauma, head bleed with acitive new bleeding she is certainly at high risk for VTE/pulmonary embolism and she is unable to receive chemical deep venous thrombosis prophylaxis. In this situation would be reasonable to move forward with inferior vena cava filter placement. MD Maria Dolores Farrell , 07:16 PM , 07:29 PM HERMILA
[2018-05-20] MEDS: niCARdipine Inj 50 MG in Sodium Chlor 0.9% Inj 480 ML IV.CONT PRN (21:38)
[2018-05-20 22:35] LABS: Reticulocyte Percent 2.1 % (0.4-3.0)
[2018-05-20 23:04] LABS: % Iron Saturation 30.1 % (20-50); Alanine Aminotransferase 45 U/L (10-53); Albumin 2.2 g/dL (3.4-5.0); Alkaline Phosphatase 440 U/L (45-117); Anion Gap 8 meq/L (5-15); Aspartate Aminotransferase 33 U/L (15-37); Blood Urea Nitrogen 9 mg/dL (7-18); Calcium 8.7 mg/dL (8.5-10.1); Carbon Dioxide 30.5 meq/L (21.0-32.0); Chloride 103 meq/L (98-107); Ferritin 276 ng/mL (8-252); Glomerular Filtration Rate Greater Than 89 mL/min (>89); Glucose,Random 130 mg/dL (74-106); Iron 72 mcg/dL (50-170); Lactate Dehydrogenase 267 U/L (84-246); Potassium 3.7 meq/L (3.5-5.1); Sodium 141 meq/L (136-145); Total Iron Binding Capacity 239 mcg/dL (250-450); Total Protein 6.8 g/dL (6.4-8.2)
[2018-05-21] MEDS: Oral Hygiene Kit OROPHARYNG SCH ×5 (01:25→23:49)
[2018-05-21] MEDS: Metoprolol Tartrate 25 MG Tablet PO SCH (02:56)
[2018-05-21] MEDS: niCARdipine Inj 50 MG in Sodium Chlor 0.9% Inj 480 ML IV.CONT PRN (04:24)
[2018-05-21 05:05] LABS: Baso % (Auto) 0.2 % (0.0-2.0); Eos # (Auto) 0.1 th/mm3 (0.0-0.4); Eos % (Auto) 0.5 % (0.0-4.0); Hematocrit 30.6 % (35.0-46.0); Hemoglobin 10.4 gm/dL (11.6-15.3); Lymph # (Auto) 1.2 th/mm3 (1.0-4.8); Lymph % (Auto) 7.5 % (9.0-44.0); Mean Corpuscular HGB Conc 34.1 % (32.0-36.0); Mean Corpuscular Hemoglobin 31.3 pg (27.0-34.0); Mean Corpuscular Volume 91.7 fL (80.0-100.0); Mean Platelet Volume 7.9 fL (7.0-11.0); Mono # (Auto) 1.1 th/mm3 (0.0-0.9); Neut # (Auto) 13.8 th/mm3 (1.8-7.7); Neut % (Auto) 84.8 % (16.0-70.0); Platelet Count 523 th/mm3 (150-450); Red Blood Count 3.34 mil/mm3 (4.00-5.30); Red Cell Distribution Width 19.9 % (11.6-17.2); White Blood Count 16.2 th/mm3 (4.0-11.0)
--- NOTE | 2018-05-21 05:12 | XR ---
EXAM DATE: 05/21/2018 4:45 AM EDT AGE/SEX: 62 years / Female INDICATIONS: Shortness of breath. CLINICAL DATA: This is the patient's subsequent encounter. Patient reports that signs and symptoms h ave been present for 1 week and indicates a pain score of Nonresponsive. MEDICAL/SURGICAL HISTORY: . Carcinoma, lung. Lymphoma. Non-responsive. COMPARISON: C, CHEST 1V SINGLE AP, 05/20/2018. . FINDINGS: NG tube side port at the EG junction. Right subclavian line and endotracheal tube again seen. There i s improved aeration of the left lower lobe since the previous study with mild hazy infiltrate remaini ng. Right lung is unchanged. Osseous structures are intact. Cardiomegaly. CONCLUSION: Improved aeration on the left. Electronically signed by: Mark Rodriguez MD 05/21/2018 5:10 AM EDT
[2018-05-21] MEDS: Nystatin Liq 500,000 UNIT/5 ML UDC SWISH-SPIT SCH ×4 (06:14→23:49)
[2018-05-21] MEDS: Norepinephrine Inj 4 MG in Sodium Chlor 0.9% Inj 246 ML IV.SIG PRN (07:50)
--- NOTE | 2018-05-21 08:31 | P.PNNPSY ---
- Behavior Intact: Impulsive/agitated - Psychosocial Intact: Psychosocial, Family/other adjustment, Realistic expectation - Progress Notes/Response to Treatment Contents of Sessions: Adjustment, Level of consciousness Time with Patient: 30 minutes Premorbid Psychological Status: Premorbid Cognitive, Emotional and Behavioral Status: Stable. The patient has high school years of education and a solid work history prior to this injury. The patient has no prior psychiatric difficulties, as described above. Substance abuse history includes EtOH. Behavioral Reactions of Patient and Family/Support System: Stable. The patient s family is experiencing ongoing issues of adjustment given the nature of the injury, and this aspect of recovery will require ongoing monitoring. Emotional/Behavioral Status of Patient and Family/Support System: Stable. Pertinent issues, if appropriate to this patients clinical care, are described in detail above. Maximizing Acute Care Outcome: It is recommended that the patient be monitored for emergent behavioral impulsivity as the medical condition evolves. This patients neuropathological challenges may limit rehabilitation potential going forward, and these challenges will require specialized therapeutic skills to maximize outcome. Additionally, the patients family is experiencing ongoing issues of adjustment given the traumatic nature of the injury, and they may benefit from ongoing psychological assistance. At this point in the recovery process, the patient does not have cognitive capacity as the patient is unable to understand a situation and its likely consequences, nor is the patient able to manipulate information rationally. Cognitive capacity will be assessed throughout the recovery process. Anticipated Problems: Ongoing areas of concern will include behavioral impulsivity, lack of insight and judgment, which is expected to improve with time and treatment. Presently , the patient is critically ill. Treatment Plan: This clinician will continue to follow with you throughout the course of this patients critical care treatment, and I will be available to meet with the patients family/support system to facilitate their understanding and the ongoing care of their family member. The goals of neuropsychological intervention shall be both educational and supportive to the family/support system as is deemed clinically appropriate. 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 Progress Note Narrative: PTD 10. No clinical change in patient over the last 24 hours. She remains [place] II. No issues of agitation/restlessness. I will follow. - Diagnosis (1) Major neurocognitive disorder Status: Acute
[2018-05-21] MEDS: Chlorhexidine 0.12% Oral Kit 15 ML UDC OROPHARYNG SCH ×2 (08:41→20:03)
[2018-05-21] MEDS: Beneprotein Powder Packet G-TUBE SCH ×3 (09:29→19:29)
[2018-05-21] MEDS: Desmopressin Inj 4 MCG/ML Ampul SQ SCH ×2 (09:29→21:01)
[2018-05-21] MEDS: Polyethylene Glycol 3350 17 GM Packet PO SCH ×2 (09:30→21:03)
[2018-05-21] MEDS: Hypromellose 0.3% Opth Gel 10 GM Bottle EACH EYE SCH ×2 (09:30→20:53)
[2018-05-21] MEDS: Pantoprazole Inj 40 MG Vial IV.PUSH SCH ×2 (09:31→21:03)
[2018-05-21] MEDS: Senna/Docusate Sodium 8.6/50 MG Tablet PO SCH ×2 (09:31→21:03)
[2018-05-21] MEDS: Lisinopril 20 MG Tablet PO SCH (09:31)
--- NOTE | 2018-05-21 10:10 | P.PNWCN ---
Wound Care Nurse Consult Description: Received sacral pressure ulcer consult from Doctor Giorgio Long Communicated with: TIFFANIE Crabtree [facility] and Doctor Recommendation: 1.Please cleanse bilateral buttock and sacral areas gently with remedy barrier wipes. Cleanse abrasion to R buttock with normal saline and gauze patting, do not rub and pat dry. Apply Calazime skin protectant paste covering R buttock abrasion , bilateral inner buttocks and gluteal cleft BID and PRN. 2.Please use ultra sorb pads for incontinence management under patient, DO NOT use cotton underpads. 3.Turn patient every 2 hours and prn for comfort and offloading of pressure from stephanie prominences Wound/Pressure Injury - Wound Right Buttocks Wound Assessment: Ongoing Wound Type: Abrasion Requested from Provider a Wound Care Consult: Yes (Wound care saw patient today) Length: 4.5 (~4.5 cm) Width: 3.5 (~3.5 cm) Depth: 0.1 (~<0.1cm) Wound Bed Appearance: [place] Wound Bed Appearance: Wound appears 100% pink and partial thickness. Surrounding Tissue Appearance: [place] Surrounding Tissue Temperature: Warm Drainage Amount: None Dressing Status: Open to Air Cleansing Solution: Saline Topical: Calazime skin protectant paste - Additional Information Patient seen on [address] [place] [address] for evaluation of sacral pressure ulcer.Patient assessed with Leyda MORENO [facility]. Patient is intubated and sedated and was turned to L side to reveal wound with moisture , friction etiology on R buttock. No wounds seen on stephanie prominences. R buttock wound (abrasion) measurements and description noted above. Abrasion was cleansed with normal saline and patted dry and left open to air. Applied Calazime skin protectant paste covering abrasion and pink, moist skin on bilateral buttocks.
[2018-05-21] MEDS ORDERED: Iohexol 350 MG/ML 50 ML Vial (for Rad Diag) IV.SIG ONE (11:27)
--- NOTE | 2018-05-21 11:40 | P.RAD ---
Post Procedure Progress Note - Pre Procedure Diagnosis (1) ICH (intracerebral hemorrhage) - Post Procedure Diagnosis (1) ICH (intracerebral hemorrhage) - Procedure Information Procedure Date: 05/21/18 Supervising Radiologist: Yosi Wagner Jr, MD Estimated blood loss (mL): 0 Anesthesia: Other - Plan of Activity Patient to Unit: Critical Care Patient Condition: Fair See PACS Report for procedural detail/treatment. Vascular - Venous Procedure right Leg Procedure(s): Permanent IVC Filter
--- NOTE | 2018-05-21 11:54 | P.CONGI ---
History of Present Illness Consult date: 05/21/18 Consult reason: PEG placement Chief complaint: Intracranial Hemorrhage, Herniation, Intubated History of Present Illness: This is a 62 yo F with history of ETOH abuse who was brought in by EMS after being found unresponsive after a fall at home. Pt was found to have a massive left subdural hematoma with severe mass effect and midline shift S/P emergent right decompressive craniectomy with evacuation of hematoma. Pt is currently in ICU on sedation and mechanically ventilated. History obtained through chart review, discussion with Dr. Olvera and RN. Our service has been consulted to evaluate pt for drop in hgb in the setting of ETOH abuse with history of gastric ulcer. Pt currently with OG which is clamped but according to RN overnight had 50 mL of brown colored output. Pt has not had a BM since admission. Last EGD noted in records from December [address] Dubon --> Two gastric ulcers 5-9 mm in size S/P submucosal epi. 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 RECONSULT 05/21 for PEG placement Our service previously signed off because there was no evidence of active GIB and pt was noted to be too unstable for GI procedures. We have now been reconsulted for PEG placement. Pt off sedation, no response at this time. Has been unable to be weaned from the vent, surgery is planning on tracheostomy. Discussed with Avila, agreeable to proceed with PEG. 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 Specialist / EMT - Medical History Medical History: Medical History (Last Reviewed 05/20/18 @ 08:12 by Leelee Jernigan) Cancer Depressed Lung cancer Lymphoma Squamous cell cancer of buccal mucosa Alcohol abuse - Surgical History Surgical History: Surgical History (Last Reviewed 05/20/18 @ 08:12 by Leelee Jernigan) History of lung surgery - Tobacco History Second Hand Smoke Exposure: No Tobacco Use In Past 30 Days: Yes Smoking Status: Unknown if ever smoked Tobacco Type: Cigarettes - Alcohol History How Often Do You Have a Drink Containing Alcohol: 4 or more times a week - Substance Use History Substance History: Unable to Obtain - Travel History Recent Travel in the [facility] Within the Last 8 Weeks: No Recent Travel Out of the Country Within the Last 8 Weeks: No - Immunization History Tetanus Immunization: Unable to Assess Hx Influenza Vaccine This Season: Unable to Assess <Milena Marshall - Last Filed: 05/21/18 16:32> - Medical History Medical History: Medical History (Last Reviewed 05/20/18 @ 08:12 by Leelee Jernigan) Cancer Depressed Lung cancer Lymphoma Squamous cell cancer of buccal mucosa Alcohol abuse - Surgical History Surgical History: Surgical History (Last Reviewed 05/20/18 @ 08:12 by Leelee Jernigan) History of lung surgery <Jenny Espino - Last Filed: 05/21/18 17:37> Medications and Allergies Active Medications: Active Medications Acetaminophen (Tylenol Liq) 650 mg NG/OG Q6H PRN PRN Reason: FEVER Al Hydroxide/Mg Hydroxide (Milk Of Magnesia Liq) 30 ml PO Q12H [facility] Last Admin: 05/21/18 09:30 Dose: Not Given Albuterol (Albuterol Neb (Prn)) 2.5 mg NEB Q2HR NEB PRN PRN Reason: DYSPNEA Albuterol (Duoneb Neb (Gautam)) 1 ampul NEB Q6HR NEB [facility] Last Admin: 05/21/18 08:11 Dose: 1 ampul Artificial Tears (Genteal Severe Dry Eye Relief 0.3% Opth Gel) 1 drops EACH EYE BID [facility] Last Admin: 05/21/18 09:30 Dose: 1 drops Bacitracin (Baciguent Oint) 1 applicatio TOPICAL BID [facility] Last Admin: 05/21/18 09:29 Dose: 1 applicatio Bisacodyl (Dulcolax Supp) 10 mg RECTAL DAILY PRN PRN Reason: SEVERE CONSITIPATION Chlorhexidine Gluconate (Peridex 0.12% Oral Kit) 15 ml OROPHARYNG BID@0800, 2000 [facility] Last Admin: 05/21/18 08:41 Dose: 15 ml Cyanocobalamin (Vitamin B12 Inj) 1,000 mcg IM Q30D [facility] Last Admin: 05/20/18 21:36 Dose: 1,000 mcg Desmopressin Acetate (Ddavp Inj) 0.5 mcg SQ Q12HR [facility] Last Admin: 05/21/18 09:29 Dose: 0.5 mcg Dextrose (D50w Vial) 50 ml IV.PUSH UNSCH PRN PRN Reason: PER HYPOGLYCEMIA PROTOCOL Last Admin: 05/13/18 17:49 Dose: 50 ml Glucagon (Glucagon Inj) 1 mg OTHER UNSCH PRN PRN Reason: for Hypoglycemia Protocol Haloperidol Lactate (Haldol Inj) 2 mg IV.PUSH Q6H PRN PRN Reason: AGITATION Last Admin: 05/18/18 22:34 Dose: 2 mg Calcium Gluconate 1 gm/ Sodium (Chloride) 110 mls @ 110 mls/hr IV.SIG UNSCH PRN PRN Reason: SEE LABEL COMMENTS Magnesium Sulfate Inj 2 gm/ (Sodium Chloride) 100 mls @ 100 mls/hr IV.SIG UNSCH PRN PRN Reason: MAGNESIUM LESS THAN 2 Potassium Chloride (Kcl 20 Meq Premix Inj) 20 meq in 100 mls @ 50 mls/hr IV.SIG UNSCH PRN PRN Reason: POTASSIUM LESS THAN 4 Magnesium Sulfate Inj 2 gm/ (Sodium Chloride) 100 mls @ 50 mls/hr IV.SIG UNSCH PRN PRN Reason: For Magnesium 1.2 - 1.6 mg/dL Potassium Chloride (Kcl 40 Meq Premix Inj) 40 meq in 100 mls @ 25 mls/hr IV.SIG Q2H PRN PRN Reason: For Potassium 2.8 - 3.2 mEq/L Potassium Chloride (Kcl 20 Meq Premix Inj) 20 meq in 100 mls @ 50 mls/hr IV.SIG Q2H PRN PRN Reason: For Potassium 3.3 - 3.5 mEq/L Potassium Chloride (Kcl 40 Meq Premix Inj) 40 meq in 100 mls @ 25 mls/hr IV.SIG UNSCH PRN PRN Reason: For Potassium 3.3 - 3.5 mEq/L Last Infusion: 05/18/18 21:26 Dose: Infused Potassium Chloride (Kcl 20 Meq Premix Inj) 20 meq in 100 mls @ 50 mls/hr IV.SIG Q2H PRN PRN Reason: For Potassium 2.8 - 3.2 mEq/L Last Infusion: 05/18/18 22:19 Dose: Infused Potassium Phosphate 30 mmol/ (Sodium Chloride) 260 mls @ 42 mls/hr IV.SIG UNSCH PRN PRN Reason: SEE LABEL COMMENTS Last Infusion: 05/12/18 23:44 Dose: Infused Sodium Phosphate 30 mmol/ (Sodium Chloride) 260 mls @ 42 mls/hr IV.SIG UNSCH PRN PRN Reason: For Phosphorus < 2.5 mg/dL Magnesium Sulfate Inj 4 gm/ (Sodium Chloride) 100 mls @ 50 mls/hr IV.SIG UNSCH PRN PRN Reason: For Magnesium 0.9 - 1.1 mg/dL Levetiracetam 500 mg/ Sodium (Chloride) 105 mls @ 400 mls/hr IV.SIG Q12H [facility] Last Admin: 05/21/18 02:55 Dose: 400 mls/hr Lactulose (Lactulose Liq) 30 ml PO DAILY [facility] Last Admin: 05/21/18 09:30 Dose: Not Given Lisinopril (Prinivil) 10 mg PO BID [facility] Magnesium Oxide (Mag-Ox) 800 mg PO UNSCH PRN PRN Reason: For Magnesium 1.2 - 1.6 mg/dL Metoprolol Tartrate (Lopressor) 50 mg PO Q12H [facility] Miscellaneous (Pill Splitter) 1 each OTHER UNSCH PRN PRN Reason: PILL SPLITTER Nystatin (Mycostatin Liq) 5 ml SWISH-SPIT Q6HR [facility] Last Admin: 05/21/18 06:14 Dose: 5 ml Ondansetron HCl (Zofran Odt) 4 mg SL Q6H PRN PRN Reason: NAUSEA OR VOMITING Oxycodone HCl (Roxicodone) 5 mg PO Q4H [facility] Last Admin: 05/21/18 06:14 Dose: 5 mg Pantoprazole Sodium (Protonix Inj) 40 mg IV.PUSH Q12H [facility] Last Admin: 05/21/18 09:31 Dose: 40 mg Patch Removal (Remove Old Patch) 1 each T-DERMAL Q7D [facility] Last Admin: 05/21/18 09:31 Dose: 1 each Polyethylene Glycol (Miralax) 17 gm PO BID [facility] Last Admin: 05/21/18 09:30 Dose: Not Given Potassium Bicarb/Potassium Chloride (K-Lyte Cl Eff) 50 meq PO UNSCH PRN PRN Reason: For Potassium 3.3 - 3.5 mEq/L Last Admin: 05/18/18 18:18 Dose: 50 meq Potassium Phosphate (K-Phos Original) 2,000 mg PO Q4H PRN PRN Reason: Phosphorus Less Than 2.5 mg/dL Potassium Phosphate (K-Phos Original) 2,000 mg PO UNSCH PRN PRN Reason: SEE LABEL COMMENTS Senna/Docusate Sodium (Deysi-Colace) 1 tab PO BID [facility] Last Admin: 05/21/18 09:31 Dose: Not Given Sennosides (Senokot) 17.2 mg PO Q12H PRN PRN Reason: Moderate Constipation Sodium Chloride (Ns Flush) 2 ml IV.FLUSH BID [facility] Last Admin: 05/21/18 09:30 Dose: 2 ml Sodium Chloride (Ns Flush) 2 ml IV.FLUSH PRN PRN PRN Reason: FLUSH AFTER USING IV ACCESS Last Admin: 05/19/18 09:21 Dose: 2 ml Terbutaline Sulfate (Brethine Inj) 1 mg SQ UNSCH PRN PRN Reason: For Extravasation Whey (Beneprotein Powder) 1 packet G-TUBE TID [facility] Last Admin: 05/21/18 09:29 Dose: 1 packet <Milena Marshall - Last Filed: 05/21/18 16:32> Active Medications: Active Medications Acetaminophen (Tylenol Liq) 650 mg NG/OG Q6H PRN PRN Reason: FEVER Al Hydroxide/Mg Hydroxide (Milk Of Magnesia Liq) 30 ml PO Q12H [facility] Last Admin: 05/21/18 09:30 Dose: Not Given Albuterol (Albuterol Neb (Prn)) 2.5 mg NEB Q2HR NEB PRN PRN Reason: DYSPNEA Artificial Tears (Genteal Severe Dry Eye Relief 0.3% Opth Gel) 1 drops EACH EYE BID [facility] Last Admin: 05/21/18 09:30 Dose: 1 drops Bacitracin (Baciguent Oint) 1 applicatio TOPICAL BID [facility] Last Admin: 05/21/18 09:29 Dose: 1 applicatio Bisacodyl (Dulcolax Supp) 10 mg RECTAL DAILY PRN PRN Reason: SEVERE CONSITIPATION Chlorhexidine Gluconate (Peridex 0.12% Oral Kit) 15 ml OROPHARYNG BID@0800, 2000 [facility] Last Admin: 05/21/18 08:41 Dose: 15 ml Cyanocobalamin (Vitamin B12 Inj) 1,000 mcg IM DAILY [facility] Stop: 05/24/18 23:59 Last Admin: 05/21/18 16:06 Dose: 1,000 mcg Desmopressin Acetate (Ddavp Inj) 0.5 mcg SQ Q12HR [facility] Last Admin: 05/21/18 09:29 Dose: 0.5 mcg Dextrose (D50w Vial) 50 ml IV.PUSH UNSCH PRN PRN Reason: PER HYPOGLYCEMIA PROTOCOL Last Admin: 05/13/18 17:49 Dose: 50 ml Glucagon (Glucagon Inj) 1 mg OTHER UNSCH PRN PRN Reason: for Hypoglycemia Protocol Haloperidol Lactate (Haldol Inj) 2 mg IV.PUSH Q6H PRN PRN Reason: AGITATION Last Admin: 05/18/18 22:34 Dose: 2 mg Calcium Gluconate 1 gm/ Sodium (Chloride) 110 mls @ 110 mls/hr IV.SIG UNSCH PRN PRN Reason: SEE LABEL COMMENTS Magnesium Sulfate Inj 2 gm/ (Sodium Chloride) 100 mls @ 100 mls/hr IV.SIG UNSCH PRN PRN Reason: MAGNESIUM LESS THAN 2 Potassium Chloride (Kcl 20 Meq Premix Inj) 20 meq in 100 mls @ 50 mls/hr IV.SIG UNSCH PRN PRN Reason: POTASSIUM LESS THAN 4 Magnesium Sulfate Inj 2 gm/ (Sodium Chloride) 100 mls @ 50 mls/hr IV.SIG UNSCH PRN PRN Reason: For Magnesium 1.2 - 1.6 mg/dL Potassium Chloride (Kcl 40 Meq Premix Inj) 40 meq in 100 mls @ 25 mls/hr IV.SIG Q2H PRN PRN Reason: For Potassium 2.8 - 3.2 mEq/L Potassium Chloride (Kcl 20 Meq Premix Inj) 20 meq in 100 mls @ 50 mls/hr IV.SIG Q2H PRN PRN Reason: For Potassium 3.3 - 3.5 mEq/L Potassium Chloride (Kcl 40 Meq Premix Inj) 40 meq in 100 mls @ 25 mls/hr IV.SIG UNSCH PRN PRN Reason: For Potassium 3.3 - 3.5 mEq/L Last Infusion: 05/18/18 21:26 Dose: Infused Potassium Chloride (Kcl 20 Meq Premix Inj) 20 meq in 100 mls @ 50 mls/hr IV.SIG Q2H PRN PRN Reason: For Potassium 2.8 - 3.2 mEq/L Last Infusion: 05/18/18 22:19 Dose: Infused Potassium Phosphate 30 mmol/ (Sodium Chloride) 260 mls @ 42 mls/hr IV.SIG UNSCH PRN PRN Reason: SEE LABEL COMMENTS Last Infusion: 05/12/18 23:44 Dose: Infused Sodium Phosphate 30 mmol/ (Sodium Chloride) 260 mls @ 42 mls/hr IV.SIG UNSCH PRN PRN Reason: For Phosphorus < 2.5 mg/dL Magnesium Sulfate Inj 4 gm/ (Sodium Chloride) 100 mls @ 50 mls/hr IV.SIG UNSCH PRN PRN Reason: For Magnesium 0.9 - 1.1 mg/dL Levetiracetam 500 mg/ Sodium (Chloride) 105 mls @ 400 mls/hr IV.SIG Q12H [facility] Last Admin: 05/21/18 16:05 Dose: 400 mls/hr Cefazolin Sodium 2,000 mg/ (Sodium Chloride) 100 mls @ 200 mls/hr IV.SIG DOPER [facility] Stop: 05/24/18 13:59 Lactulose (Lactulose Liq) 30 ml PO DAILY [facility] Last Admin: 05/21/18 09:30 Dose: Not Given Lisinopril (Prinivil) 10 mg PO BID [facility] Magnesium Oxide (Mag-Ox) 800 mg PO UNSCH PRN PRN Reason: For Magnesium 1.2 - 1.6 mg/dL Metoprolol Tartrate (Lopressor) 50 mg PO Q12H [facility] Miscellaneous (Pill Splitter) 1 each OTHER UNSCH PRN PRN Reason: PILL SPLITTER Nystatin (Mycostatin Liq) 5 ml SWISH-SPIT Q6HR [facility] Last Admin: 05/21/18 16:04 Dose: 5 ml Ondansetron HCl (Zofran Odt) 4 mg SL Q6H PRN PRN Reason: NAUSEA OR VOMITING Oxycodone HCl (Roxicodone) 5 mg PO Q4H [facility] Last Admin: 05/21/18 16:04 Dose: 5 mg Pantoprazole Sodium (Protonix Inj) 40 mg IV.PUSH Q12H [facility] Last Admin: 05/21/18 09:31 Dose: 40 mg Patch Removal (Remove Old Patch) 1 each T-DERMAL Q7D [facility] Last Admin: 05/21/18 09:31 Dose: 1 each Polyethylene Glycol (Miralax) 17 gm PO BID [facility] Last Admin: 05/21/18 09:30 Dose: Not Given Potassium Bicarb/Potassium Chloride (K-Lyte Cl Eff) 50 meq PO UNSCH PRN PRN Reason: For Potassium 3.3 - 3.5 mEq/L Last Admin: 05/18/18 18:18 Dose: 50 meq Potassium Phosphate (K-Phos Original) 2,000 mg PO Q4H PRN PRN Reason: Phosphorus Less Than 2.5 mg/dL Potassium Phosphate (K-Phos Original) 2,000 mg PO UNSCH PRN PRN Reason: SEE LABEL COMMENTS Senna/Docusate Sodium (Deysi-Colace) 1 tab PO BID [facility] Last Admin: 05/21/18 09:31 Dose: Not Given Sennosides (Senokot) 17.2 mg PO Q12H PRN PRN Reason: Moderate Constipation Sodium Chloride (Ns Flush) 2 ml IV.FLUSH BID [facility] Last Admin: 05/21/18 09:30 Dose: 2 ml Sodium Chloride (Ns Flush) 2 ml IV.FLUSH PRN PRN PRN Reason: FLUSH AFTER USING IV ACCESS Last Admin: 05/19/18 09:21 Dose: 2 ml Terbutaline Sulfate (Brethine Inj) 1 mg SQ UNSCH PRN PRN Reason: For Extravasation Whey (Beneprotein Powder) 1 packet G-TUBE TID [facility] Last Admin: 05/21/18 16:05 Dose: 1 packet <Jenny Espino - Last Filed: 05/21/18 17:37> Allergies Allergy/AdvReac Type Severity Reaction Status Date / Time No Known Allergies Allergy Unknown Uncoded 03/27/18 08:50 Home Medications Medication Instructions Recorded Confirmed Type oxycodone 20 mg PO Q4HR 05/12/18 05/17/18 History trazodone 100 mg PO HS 05/12/18 05/17/18 History gabapentin 800 mg PO BID 05/17/18 05/17/18 History Exam Vital signs: Vital Signs 05/20/18 12:00 05/20/18 12:15 05/20/18 12:30 Temperature 99.5 F 99.5 F 99.5 F Pulse Rate 92 H 92 H 72 Respiratory Rate 17 17 16 Blood Pressure 159/77 H 160/69 H 140/62 Pulse Oximetry 98 98 96 05/20/18 12:49 05/20/18 14:00 05/20/18 15:49 Temperature 99.7 F H Pulse Rate 71 80 90 Respiratory Rate 15 22 Blood Pressure 132/60 Pulse Oximetry 96 95 05/20/18 16:00 05/20/18 18:00 05/20/18 20:00 Temperature 100 F H 99.7 F H Pulse Rate 61 72 64 Respiratory Rate 15 15 Blood Pressure 160/74 H 134/60 Pulse Oximetry 96 99 05/20/18 20:55 05/20/18 22:00 05/21/18 00:00 Temperature 99 F Pulse Rate 81 98 H 82 Respiratory Rate 15 16 Blood Pressure 140/62 Pulse Oximetry 98 100 05/21/18 00:37 05/21/18 02:00 05/21/18 04:00 Temperature 99.5 F Pulse Rate 82 74 Respiratory Rate 15 15 Blood Pressure 134/62 Pulse Oximetry 99 99 05/21/18 04:23 05/21/18 06:00 05/21/18 08:12 Temperature Pulse Rate 61 61 60 Respiratory Rate 15 15 Blood Pressure Pulse Oximetry 99 99 05/21/18 10:51 Temperature Pulse Rate Respiratory Rate Blood Pressure Pulse Oximetry 100 Intake & Output 05/20/18 05/21/18 05/21/18 18:59 06:59 18:59 Intake Total 1068 / 1068 1937 / 1937 218 / 218 Output Total 1999 2750 / 2750 Balance -932 / -932 -813 / -813 218 / 218 Weight 54.3 kg Intake: IV 105 / 105 1000 / 1000 218 / 218 Cardene Inj 50 MG In NS Inj 480 1000 / 1000 ML @ 5 MG/HR 50 mls/hr IV.CONT TITRATE PRN Rx#:[id number] Levophed Inj 4 MG In NS Inj 246 218 / 218 ML @ 2 MCG/MIN 7.5 mls/hr IV. SIG TITRATE PRN Rx#:[id number] Keppra Inj 500 MG In NS Inj 100 105 / 105 ML @ 400 mls/hr IV.SIG Q12H [facility] Rx#:[id number] Tube Feeding 503 / 503 537 / 537 Tube Irrigant 60 / 60 400 / 400 Intake (Blood Product) Amt 400 / 400 0 / 0 Rbc As-3 Leukoreduced Unit 0 / 0 0 / 0 [id number] Rbc As-3 Leukoreduced Unit 400 / 400 [id number] Output: Urine 2750 / 2750 Urine Amount (Catheter) 1999 Indwelling Urethral Catheter 1999 Other: Date of Last Bowel Movement 05/20/18 05/20/18 # Bowel Movements 0 - Routine HEENT Exam Head: Present: normocephalic - Routine Respiratory Exam Present: patient mechanically ventilated - Routine Abdominal Exam Present: soft, normoactive bowel sounds. Absent: distended - Routine Neurological Exam Unresponsive, not on sedation <Milena Marshall - Last Filed: 05/21/18 16:32> Vital signs: Vital Signs 05/20/18 18:00 05/20/18 20:00 05/20/18 20:55 Temperature 99.7 F H Pulse Rate 72 64 81 Respiratory Rate 15 15 Blood Pressure 134/60 Pulse Oximetry 99 98 05/20/18 22:00 05/21/18 00:00 05/21/18 00:37 Temperature 99 F Pulse Rate 98 H 82 Respiratory Rate 16 15 Blood Pressure 140/62 Pulse Oximetry 100 99 05/21/18 02:00 05/21/18 04:00 05/21/18 04:23 Temperature 99.5 F Pulse Rate 82 74 61 Respiratory Rate 15 15 Blood Pressure 134/62 Pulse Oximetry 99 99 05/21/18 06:00 05/21/18 08:00 05/21/18 08:12 Temperature 100.2 F H Pulse Rate 61 76 60 Respiratory Rate 15 Blood Pressure 113/56 L Pulse Oximetry 93 L 99 05/21/18 10:00 05/21/18 10:51 05/21/18 12:00 Temperature 98.9 F Pulse Rate 68 72 Respiratory Rate Blood Pressure 154/67 H Pulse Oximetry 100 05/21/18 13:43 05/21/18 14:00 05/21/18 15:10 Temperature Pulse Rate 59 L 59 L Respiratory Rate 20 15 Blood Pressure Pulse Oximetry 100 05/21/18 16:00 05/21/18 16:47 Temperature 98.1 F Pulse Rate 59 L Respiratory Rate 15 Blood Pressure 101/56 L Pulse Oximetry 100 Intake & Output 05/20/18 05/21/18 05/21/18 18:59 06:59 18:59 Intake Total 1068 / 1068 2042 / 2042 218 / 218 Output Total 1999 2750 / 2750 Balance -932 / -932 -708 / -708 218 / 218 Weight 54.3 kg Intake: IV 105 / 105 1105 / 1105 218 / 218 Cardene Inj 50 MG In NS Inj 480 1000 / 1000 ML @ 5 MG/HR 50 mls/hr IV.CONT TITRATE PRN Rx#:[id number] Levophed Inj 4 MG In NS Inj 246 218 / 218 ML @ 2 MCG/MIN 7.5 mls/hr IV. SIG TITRATE PRN Rx#:[id number] Keppra Inj 500 MG In NS Inj 100 105 / 105 105 / 105 ML @ 400 mls/hr IV.SIG Q12H [facility] Rx#:[id number] Tube Feeding 503 / 503 537 / 537 Tube Irrigant 60 / 60 400 / 400 Intake (Blood Product) Amt 400 / 400 0 / 0 Rbc As-3 Leukoreduced Unit 0 / 0 0 / 0 [id number] Rbc As-3 Leukoreduced Unit 400 / 400 [id number] Output: Urine 2750 / 2750 Urine Amount (Catheter) 1999 Indwelling Urethral Catheter 1999 Other: Date of Last Bowel Movement 05/20/18 05/20/18 05/20/18 # Bowel Movements 0 <Jenny Espino - Last Filed: 05/21/18 17:37> Results - Labs CBC & Chem 7: 05/21/18 04:00 05/20/18 22:00 Labs: Laboratory Results - last 24 hr 05/20/18 05/20/18 05/20/18 08:20 18:00 22:00 WBC RBC Hgb 10.2 L D Hct 29.5 L MCV MCH MCHC RDW Plt Count MPV Neut % (Auto) Lymph % (Auto) Terry % (Auto) Eos % (Auto) Baso % (Auto) Neut # (Auto) Lymph # (Auto) Terry # (Auto) Eos # (Auto) Baso # (Auto) WBC Differential Differential Comment Retic Count 2.1 Absolute Retic 72.7 Haptoglobin Sodium Potassium Chloride Carbon Dioxide Anion Gap BUN Creatinine Estimated GFR Random Glucose Calcium Iron TIBC % Saturation Ferritin Total Bilirubin AST ALT Alkaline Phosphatase Lactate Dehydrogenase Total Protein Albumin Blood Type A Positive Antibody Screen Negative MTS Gel Crossmatch See Detail 05/20/18 05/21/18 22:00 04:00 WBC 16.2 H RBC 3.34 L Hgb 10.4 L Hct 30.6 L MCV 91.7 D MCH 31.3 MCHC 34.1 RDW 19.9 H D Plt Count 523 H MPV 7.9 Neut % (Auto) 84.8 H Lymph % (Auto) 7.5 L Terry % (Auto) 7.0 Eos % (Auto) 0.5 Baso % (Auto) 0.2 Neut # (Auto) 13.8 H Lymph # (Auto) 1.2 Terry # (Auto) 1.1 H Eos # (Auto) 0.1 Baso # (Auto) 0.0 WBC Differential . Differential Comment Auto diff final Retic Count Absolute Retic Haptoglobin 456 H Sodium 141 Potassium 3.7 Chloride 103 Carbon Dioxide 30.5 Anion Gap 8 BUN 9 Creatinine 0.39 L Estimated GFR Greater than 89 Random Glucose 130 H Calcium 8.7 Iron 72 TIBC 239 L % Saturation 30.1 Ferritin 276 H Total Bilirubin 0.9 AST 33 ALT 45 Alkaline Phosphatase 440 H Lactate Dehydrogenase 267 H Total Protein 6.8 D Albumin 2.2 L Blood Type Antibody Screen MTS Gel Crossmatch - Imaging Impressions Chest X-Ray 05/21/18 06:00 CONCLUSION: Improved aeration on the left. <Milena Marshall - Last Filed: 05/21/18 16:32> - Labs CBC & Chem 7: 05/21/18 04:00 05/20/18 22:00 Labs: Laboratory Results - last 24 hr 05/20/18 05/20/18 05/20/18 08:20 18:00 22:00 WBC RBC Hgb 10.2 L D Hct 29.5 L MCV MCH MCHC RDW Plt Count MPV Neut % (Auto) Lymph % (Auto) Terry % (Auto) Eos % (Auto) Baso % (Auto) Neut # (Auto) Lymph # (Auto) Terry # (Auto) Eos # (Auto) Baso # (Auto) WBC Differential Differential Comment Retic Count 2.1 Absolute Retic 72.7 Haptoglobin Sodium Potassium Chloride Carbon Dioxide Anion Gap BUN Creatinine Estimated GFR Random Glucose Calcium Iron TIBC % Saturation Ferritin Total Bilirubin AST ALT Alkaline Phosphatase Lactate Dehydrogenase Total Protein Albumin MTS Gel Crossmatch See Detail 05/20/18 05/21/18 22:00 04:00 WBC 16.2 H RBC 3.34 L Hgb 10.4 L Hct 30.6 L MCV 91.7 D MCH 31.3 MCHC 34.1 RDW 19.9 H D Plt Count 523 H MPV 7.9 Neut % (Auto) 84.8 H Lymph % (Auto) 7.5 L Terry % (Auto) 7.0 Eos % (Auto) 0.5 Baso % (Auto) 0.2 Neut # (Auto) 13.8 H Lymph # (Auto) 1.2 Terry # (Auto) 1.1 H Eos # (Auto) 0.1 Baso # (Auto) 0.0 WBC Differential . Differential Comment Auto diff final Retic Count Absolute Retic Haptoglobin 456 H Sodium 141 Potassium 3.7 Chloride 103 Carbon Dioxide 30.5 Anion Gap 8 BUN 9 Creatinine 0.39 L Estimated GFR Greater than 89 Random Glucose 130 H Calcium 8.7 Iron 72 TIBC 239 L % Saturation 30.1 Ferritin 276 H Total Bilirubin 0.9 AST 33 ALT 45 Alkaline Phosphatase 440 H Lactate Dehydrogenase 267 H Total Protein 6.8 D Albumin 2.2 L MTS Gel Crossmatch - Imaging Impressions IVC Filter Placement X-Ray 05/21/18 00:00 CONCLUSION: 1. Uncomplicated inferior vena cava filter placement as above. Chest X-Ray 05/21/18 06:00 CONCLUSION: Improved aeration on the left. <Jenny Espino - Last Filed: 05/21/18 17:37> Assessment and Plan - Plan Assessment: - ETOH abuse who was brought in by EMS after being found unresponsive after a fall at home. Massive left subdural hematoma with severe mass effect and midline shift S/P emergent right decompressive craniectomy with evacuation of hematoma. Initially our service was consulted for drop in hgb in the setting of ETOH abuse and pt noted to be taking a lot of Ibuprofen with history of gastric ulcer. EGD noted in records from December [address] Dubon --> Two gastric ulcers 5- 9 mm in size S/P submucosal epi. 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 Our service signed off because there was no evidence of active GIB and pt was noted to be too unstable for GI procedures RECONSULT 05/21 for PEG placement Pt off sedation, no response at this time. Has been unable to be weaned from the vent, surgery is planning on tracheostomy. Discussed with [facility], agreeable to proceed with PEG. 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 Espino and this note is written on her behalf <Milena Marshall - Last Filed: 05/21/18 16:32> - Attending Attestation seen, examined agree with above <Jenny Espino - Last Filed: 05/21/18 17:37>
--- NOTE | 2018-05-21 13:03 | P.PNONC ---
Subjective Interval history: Intubated and sedated. Discussed case with RN No family at bedside. Objective Vital Signs/Intake & Output: Vital Signs 05/20/18 14:00 05/20/18 15:49 05/20/18 16:00 Temperature 100 F H Pulse Rate 80 90 61 Respiratory Rate 22 15 Blood Pressure 160/74 H Pulse Oximetry 95 96 05/20/18 18:00 05/20/18 20:00 05/20/18 20:55 Temperature 99.7 F H Pulse Rate 72 64 81 Respiratory Rate 15 15 Blood Pressure 134/60 Pulse Oximetry 99 98 05/20/18 22:00 05/21/18 00:00 05/21/18 00:37 Temperature 99 F Pulse Rate 98 H 82 Respiratory Rate 16 15 Blood Pressure 140/62 Pulse Oximetry 100 99 05/21/18 02:00 05/21/18 04:00 05/21/18 04:23 Temperature 99.5 F Pulse Rate 82 74 61 Respiratory Rate 15 15 Blood Pressure 134/62 Pulse Oximetry 99 99 05/21/18 06:00 05/21/18 08:00 05/21/18 08:12 Temperature 100.2 F H Pulse Rate 61 76 60 Respiratory Rate 15 Blood Pressure 113/56 L Pulse Oximetry 93 L 99 05/21/18 10:00 05/21/18 10:51 05/21/18 12:00 Temperature Pulse Rate 68 72 Respiratory Rate Blood Pressure Pulse Oximetry 100 Intake & Output 05/20/18 05/21/18 05/21/18 18:59 06:59 18:59 Intake Total 1068 / 1068 1937 / 1937 218 / 218 Output Total 1999 2750 / 2750 Balance -932 / -932 -813 / -813 218 / 218 Weight 54.3 kg Intake: IV 105 / 105 1000 / 1000 218 / 218 Cardene Inj 50 MG In NS Inj 480 1000 / 1000 ML @ 5 MG/HR 50 mls/hr IV.CONT TITRATE PRN Rx#:[id number] Levophed Inj 4 MG In NS Inj 246 218 / 218 ML @ 2 MCG/MIN 7.5 mls/hr IV. SIG TITRATE PRN Rx#:[id number] Keppra Inj 500 MG In NS Inj 100 105 / 105 ML @ 400 mls/hr IV.SIG Q12H GAUTAM Rx#:[id number] Tube Feeding 503 / 503 537 / 537 Tube Irrigant 60 / 60 400 / 400 Intake (Blood Product) Amt 400 / 400 0 / 0 Rbc As-3 Leukoreduced Unit 0 / 0 0 / 0 [id number] Rbc As-3 Leukoreduced Unit 400 / 400 [id number] Output: Urine 2750 / 2750 Urine Amount (Catheter) 1999 Indwelling Urethral Catheter 1999 Other: Date of Last Bowel Movement 05/20/18 05/20/18 05/20/18 # Bowel Movements 0 Result Diagrams: 05/21/18 04:00 05/20/18 22:00 Laboratory Results: Laboratory Results - last 24 hr 05/20/18 05/20/18 05/20/18 08:20 18:00 22:00 WBC RBC Hgb 10.2 L D Hct 29.5 L MCV MCH MCHC RDW Plt Count MPV Neut % (Auto) Lymph % (Auto) [place] % (Auto) Eos % (Auto) Baso % (Auto) Neut # (Auto) Lymph # (Auto) [place] # (Auto) Eos # (Auto) Baso # (Auto) WBC Differential Differential Comment Retic Count 2.1 Absolute Retic 72.7 Haptoglobin Sodium Potassium Chloride Carbon Dioxide Anion Gap BUN Creatinine Estimated GFR Random Glucose Calcium Iron TIBC % Saturation Ferritin Total Bilirubin AST ALT Alkaline Phosphatase Lactate Dehydrogenase Total Protein Albumin MTS Gel Crossmatch See Detail 05/20/18 05/21/18 22:00 04:00 WBC 16.2 H RBC 3.34 L Hgb 10.4 L Hct 30.6 L MCV 91.7 D MCH 31.3 MCHC 34.1 RDW 19.9 H D Plt Count 523 H MPV 7.9 Neut % (Auto) 84.8 H Lymph % (Auto) 7.5 L [place] % (Auto) 7.0 Eos % (Auto) 0.5 Baso % (Auto) 0.2 Neut # (Auto) 13.8 H Lymph # (Auto) 1.2 [place] # (Auto) 1.1 H Eos # (Auto) 0.1 Baso # (Auto) 0.0 WBC Differential . Differential Comment Auto diff final Retic Count Absolute Retic Haptoglobin 456 H Sodium 141 Potassium 3.7 Chloride 103 Carbon Dioxide 30.5 Anion Gap 8 BUN 9 Creatinine 0.39 L Estimated GFR Greater than 89 Random Glucose 130 H Calcium 8.7 Iron 72 TIBC 239 L % Saturation 30.1 Ferritin 276 H Total Bilirubin 0.9 AST 33 ALT 45 Alkaline Phosphatase 440 H Lactate Dehydrogenase 267 H Total Protein 6.8 D Albumin 2.2 L MTS Gel Crossmatch Imaging Studies: Impressions Chest X-Ray 05/21/18 06:00 CONCLUSION: Improved aeration on the left. Medications: Active Medications Generic Name Dose Route Start Last Admin Trade Name Freq PRN Reason Stop Dose Admin Al Hydroxide/Mg Hydroxide 30 ml 05/16/18 09:00 05/21/18 09:30 Milk Of Magniesha Liq PO Not Given Q12H GAUTAM Albuterol 1 ampul 05/17/18 16:00 05/21/18 08:11 Duoneb Neb (Gautam) NEB 1 ampul Q6HR NEB GAUTAM Administration Artificial Tears 1 drops 05/13/18 10:00 05/21/18 09:30 Genteal Severe Dry Eye Relief 0.3% Opth Gel EACH EYE 1 drops BID GAUTAM Administration Bacitracin 1 applicatio 05/11/18 21:00 05/21/18 09:29 Baciguent Oint TOPICAL 1 applicatio BID GAUTAM Administration Chlorhexidine Gluconate 15 ml 05/11/18 20:00 05/21/18 08:41 Peridex 0.12% Oral Kit OROPHARYNG 15 ml BID@0800,2000 GAUTAM Administration Cyanocobalamin 1,000 mcg 05/20/18 20:00 05/20/18 21:36 Vitamin B12 Inj IM 1,000 mcg Q30D GAUTAM Administration Desmopressin Acetate 0.5 mcg 05/19/18 11:00 05/21/18 09:29 Ddavp Inj SQ 0.5 mcg Q12HR GAUTAM Administration Dextrose 50 ml 05/13/18 09:23 05/13/18 17:49 D50w Vial IV.PUSH 50 ml UNSCH PRN Administration PER HYPOGLYCEMIA PROTOCOL Haloperidol Lactate 2 mg 05/17/18 10:11 05/18/18 22:34 Haldol Inj IV.PUSH 2 mg Q6H PRN Administration AGITATION Potassium Chloride 40 meq in 100 mls @ 25 mls/hr 05/12/18 14:27 05/18/18 21: 26 Kcl 40 Meq Premix Inj IV.SIG Infused UNSCH PRN Infusion For Potassium 3.3 - 3.5 mEq/L Potassium Chloride 20 meq in 100 mls @ 50 mls/hr 05/12/18 14:27 05/18/18 22: 19 Kcl 20 Meq Premix Inj IV.SIG Infused Q2H PRN Infusion For Potassium 2.8 - 3.2 mEq/L Potassium Phosphate 30 mmol/ 260 mls @ 42 mls/hr 05/12/18 14:27 05/12/18 23: 44 Sodium Chloride IV.SIG Infused UNSCH PRN Infusion SEE LABEL COMMENTS Levetiracetam 500 mg/ Sodium 105 mls @ 400 mls/hr 05/12/18 15:15 05/21/18 02: 55 Chloride IV.SIG 400 mls/hr Q12H GAUTAM Administration Lactulose 30 ml 05/16/18 09:00 05/21/18 09:30 Lactulose Liq PO Not Given DAILY GAUTAM Nystatin 5 ml 05/18/18 18:00 05/21/18 06:14 Mycostatin Liq SWISH-SPIT 5 ml Q6HR GAUTAM Administration Oxycodone HCl 5 mg 05/17/18 11:00 05/21/18 06:14 Roxicodone PO 5 mg Q4H GAUTAM Administration Pantoprazole Sodium 40 mg 05/13/18 10:00 05/21/18 09:31 Protonix Inj IV.PUSH 40 mg Q12H GAUTAM Administration Patch Removal 1 each 05/21/18 10:17 05/21/18 09:31 Remove Old Patch T-DERMAL 1 each Q7D GAUTAM Administration Polyethylene Glycol 17 gm 05/13/18 21:00 05/21/18 09:30 Miralax PO Not Given BID GAUTAM Potassium Bicarb/Potassium Chloride 50 meq 05/12/18 14:27 05/18/18 18:18 K-Lyte Cl Eff PO 50 meq UNSCH PRN Administration For Potassium 3.3 - 3.5 mEq/L Senna/Docusate Sodium 1 tab 05/11/18 21:00 05/21/18 09:31 Deysi-Colace PO Not Given BID GAUTAM Sodium Chloride 2 ml 05/11/18 21:00 05/21/18 09:30 Ns Flush IV.FLUSH 2 ml BID GAUTAM Administration Sodium Chloride 2 ml 05/11/18 13:53 05/19/18 09:21 Ns Flush IV.FLUSH 2 ml PRN PRN Administration FLUSH AFTER USING IV ACCESS Whey 1 packet 05/13/18 09:00 05/21/18 09:29 Beneprotein Powder G-TUBE 1 packet TID GAUTAM Administration Objective Remarks: GENERAL: thin, chronically ill appearing lady, intubated and sedated SKIN: Warm and dry. HEAD: Normocephalic. EYES: No scleral icterus. No injection or drainage. RESPIRATORY: No accessory muscle use. GASTROINTESTINAL: Abdomen soft, non-tender, nondistended. EXTREMITIES: thin extremities MUSCULOSKELETAL: Adequate muscle tone. NEUROLOGICAL: No obvious focal deficit. PSYCHIATRIC: Appropriate mood and affect; insight and judgment normal. Assessment/Plan - Plan 1. Plan for prophylacitc IVC filter placement today 2. Anemia: ACD. 3. Leukocytosis, thrombocytosis: reactive due to critical illness. continue to follow 4. Vitamin B12 deficiency: started patient on vitamin B12 replacement 1000 mc IM x 5 days.
[2018-05-21] MEDS ORDERED: ceFAZolin 2 GM/NS 100 ML IV; Q8H IV.SIG SCH ×2 (14:00)
--- NOTE | 2018-05-21 14:27 | IR ---
EXAM DATE: 05/21/2018 11:49 AM EDT AGE/SEX: 62 years / Female INDICATIONS: Patient with subdural hematoma, post traumatic. CLINICAL DATA: This is the patient's initial encounter. Patient reports that signs and symptoms have been present for 1 week and indicates a pain score of Nonresponsive. MEDICAL/SURGICAL HISTORY: Carcinoma, lung. Lymphoma. smoker . lung surgery COMPARISON: No prior exams available for comparison. FLUORO TIME (min): 0.6 IMAGE SERIES: 2 ACCESS SITE: Right femoral vein CONTRAST (cc): 30 Omnipaque (iohexol) 350 DEVICE(S): Right vein IVC . . PROCEDURE : 1. Ultrasound-guided venipuncture. 2. Inferior venacavogram. 3. Inferior vena cava filter placement. 4. Conscious sedation with continuous EKG and oximetry monitoring. The risks, benefits and alternatives to the procedure were explained and verbal and written consent w as obtained. The site was prepped in sterile fashion. Full sterile technique was used, including ca p, mask, sterile gloves and gown and a large sterile sheet. Hand hygiene and 2% chlorhexidine and/or betadine/alcohol prep was utilized per protocol for cutaneous antisepsis. Sterile gel and sterile p robe cover were utilized for ultrasound guidance. The skin and subcutaneous tissues were infiltrated with local anesthetic solution. Ultrasound of the common femoral vein on the right shows normal compressibility. With ultrasound and fluoroscopic guidance the right common femoral vein was punctured and a vascular sheath was placed. I nferior venacavogram was performed to demonstrate level of renal veins. No caval thrombus was identif ied. A Vena Tech filter was deployed in the infrarenal inferior vena cava. Following deployment the f ilter was identified in good position. Conscious sedation was performed with the prescribed dosages and duration as above in the presence of an independent trained radiology nurse to assist in the monitoring of the patient. EKG and oximetry remained stable throughout the procedure. The patient tolerated the procedure well and there were n o complications. The patient was sent to post anesthesia recovery in stable condition. CONCLUSION: 1. Uncomplicated inferior vena cava filter placement as above. Electronically signed by: oYsi Wagner MD 05/21/2018 2:26 PM EDT
--- NOTE | 2018-05-21 16:16 | P.PNCC ---
Subjective Brief History: 62-year-old female with repeated falls who fell the day before admission and then again that the day of admission and at this point could not be resuscitated and awoken. She was brought to emergency room with [place] Coma Scale of 4 intubated and ventilated with bilateral dilated pupils On the workup she was found to have a huge right subdural hematoma with a left shift for which she underwent emergency craniectomy by Dr. Abad Patient was placed in ICU for further care and patient was managed expertly by Dr. Olvera and Dr. Joshi. Patient is now being transferred to the surgical critical care service. It should be noted that according to her patient has fallen multiple times in the past Past medical history is that of lymphoma and lung carcinoma 24 Hour Review/Hospital Course: 05/14/2018 For the last 24 hours patient has been in the ICU neurologically unchanged. Drainage from the right subdural hematoma has decreased. At this point [place] Coma Scale is 3T. 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 Bilateral breath sounds patient remains on ventilatory support with good PO2 FiO2 gradient Renal function is preserved I have discussed care at length with her who is a very nice gentleman and understands the implications of this severe injury. At this point with a new finding of hemorrhagic bleed into mesencephalon prognosis may be worse and therefore we should probably give it a few days to see which way this goes Repeat CT scan will be done on Sunday and then we can see if patient is blossoming this bleed or it is receding and then compared it to the neurologic status. 05/15 She is clinically essentially unchanged-GCS remains low CT scan of the head has been planned for Sunday In the meantime we will continue blood pressure control and neuroprotective measure patient is on tube feeds as well PF ratio is adequate renal function is preserved palliative care is involved Neurology consult will be obtained 05/16/2018 Patient's clinical exam remains stable Her blood pressure medications have been adjusted and seem to have better control She is moving her left spontaneously no movement on the right Appreciate palliative care input 05/17/2018 Clinically the patient is stable with no improvement in her exam, she moves her left upper extremity spontaneously Increasing Lopressor for blood pressure control and adding Cardene until it is better controlled Prognosis remains grim for meaningful recovery 05/18/2018 Today she is not moving left upper extremity spontaneously she has had normal posturing to stimulation and becomes hypertensive with any stimulation P.o. Lopressor seems to have controlled her blood pressure better There seems to have been a misunderstanding between the and nursing staff today. He seems to understand that everyone's focus should be on his , that her blood pressure and heart rate do increase briefly with stimulation, and that the nurses and physicians are in constant contact regarding her care. 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 05/19/2018 There is no change in the patients clinical exam although her most recent head CT shows increased subdural hematoma she is following commands with her left upper extremity Patient will require tracheostomy and PEG placement but given the worsening subdural hematoma, will defer until stable and safe to do so 05/20/2018 Patient dropped her hemoglobin overnight, likely dilutional and associated with multiple blood draws during her stay We will monitor stool for melena or hematochezia, none identified, no bloody NG tube residuals Continue blood pressure management, H&H post transfusion Continue current ICU management, IVC filter ordered today due to the inability to chemically prophylax her 05/21/2018 Neurologically patient is slightly improved apparently moving more her left arm and left leg and opening her eyes Based on this improvement would like to proceed with full-court press as far as further care is concerned Gradually weaning down the sedation and will allow patient to slowly wake up Hemodynamically patient is stable however blood pressure has been somewhat labile. As noted several days ago patient was hypertensive and then throughout the night apparently systolic blood pressure went around 100 mmHg. Will readjust the antihypertensives for majority of neuro traumatic injuries will initially presented with hypertension and as the injury is slowly resolved normotensive state is achieved and antihypertensives have to be readjusted and decreased Bilateral breath sounds remains on assist control ventilation Patient will undergo tracheostomy on and after that we will give her CPAP trials and see how she does Provided good pulmonary function and mechanics patient should come off the respirator despite low neurologic status once tracheostomy in place Abdomen is soft patient will receive a PEG She remains anemic due to frequent blood draws and depending on which way the hemoglobin goes I may transfuse patient 1 unit PRBC I discussed care with family at length Objective Vital Signs / I&O: Vital Signs 05/20/18 15:49 05/20/18 16:00 05/20/18 18:00 Temperature 100 F H Pulse Rate 90 61 72 Respiratory Rate 22 15 Blood Pressure 160/74 H Pulse Oximetry 95 96 05/20/18 20:00 05/20/18 20:55 05/20/18 22:00 Temperature 99.7 F H Pulse Rate 64 81 98 H Respiratory Rate 15 15 Blood Pressure 134/60 Pulse Oximetry 99 98 05/21/18 00:00 05/21/18 00:37 05/21/18 02:00 Temperature 99 F Pulse Rate 82 82 Respiratory Rate 16 15 Blood Pressure 140/62 Pulse Oximetry 100 99 05/21/18 04:00 05/21/18 04:23 05/21/18 06:00 Temperature 99.5 F Pulse Rate 74 61 61 Respiratory Rate 15 15 Blood Pressure 134/62 Pulse Oximetry 99 99 05/21/18 08:00 05/21/18 08:12 05/21/18 10:00 Temperature 100.2 F H Pulse Rate 76 60 68 Respiratory Rate 15 Blood Pressure 113/56 L Pulse Oximetry 93 L 99 05/21/18 10:51 05/21/18 12:00 05/21/18 13:43 Temperature Pulse Rate 72 Respiratory Rate 20 Blood Pressure Pulse Oximetry 100 100 05/21/18 15:10 Temperature Pulse Rate 59 L Respiratory Rate 15 Blood Pressure Pulse Oximetry Intake & Output 05/20/18 05/21/18 05/21/18 18:59 06:59 18:59 Intake Total 1068 / 1068 1937 / 1937 218 / 218 Output Total 1999 2750 / 2750 Balance -932 / -932 -813 / -813 218 / 218 Weight 54.3 kg Intake: IV 105 / 105 1000 / 1000 218 / 218 Cardene Inj 50 MG In NS Inj 480 1000 / 1000 ML @ 5 MG/HR 50 mls/hr IV.CONT TITRATE PRN Rx#:[id number] Levophed Inj 4 MG In NS Inj 246 218 / 218 ML @ 2 MCG/MIN 7.5 mls/hr IV. SIG TITRATE PRN Rx#:[id number] Keppra Inj 500 MG In NS Inj 100 105 / 105 ML @ 400 mls/hr IV.SIG Q12H CARLOS Rx#:[id number] Tube Feeding 503 / 503 537 / 537 Tube Irrigant 60 / 60 400 / 400 Intake (Blood Product) Amt 400 / 400 0 / 0 Rbc As-3 Leukoreduced Unit 0 / 0 0 / 0 [id number] Rbc As-3 Leukoreduced Unit 400 / 400 [id number] Output: Urine 2750 / 2750 Urine Amount (Catheter) 1999 Indwelling Urethral Catheter 1999 Other: Date of Last Bowel Movement 05/20/18 05/20/18 05/20/18 # Bowel Movements 0 Result Diagrams: 05/21/18 04:00 05/20/18 22:00 Imaging: Impressions IVC Filter Placement X-Ray 05/21/18 00:00 CONCLUSION: 1. Uncomplicated inferior vena cava filter placement as above. Chest X-Ray 05/21/18 06:00 CONCLUSION: Improved aeration on the left. - Exam [employer] HAND: Neurologically patient is slightly improved apparently moving more her left arm and left leg and opening her eyes Based on this improvement would like to proceed with full-court press as far as further care is concerned Gradually weaning down the sedation and will allow patient to slowly wake up Hemodynamic/Cardiac: Hemodynamically patient is stable however blood pressure has been somewhat labile. As noted several days ago patient was hypertensive and then throughout the night apparently systolic blood pressure went around 100 mmHg. Will readjust the antihypertensives for majority of neuro traumatic injuries will initially presented with hypertension and as the injury is slowly resolved normotensive state is achieved and antihypertensives have to be readjusted and decreased Pulmonary/Respiratory: Bilateral breath sounds remains on assist control ventilation Patient will undergo tracheostomy on and after that we will give her CPAP trials and see how she does Provided good pulmonary function and mechanics patient should come off the respirator despite low neurologic status once tracheostomy in place Abdomen/GI Nutrition: Abdomen is soft patient will receive a PEG She remains anemic due to frequent blood draws and depending on which way the hemoglobin goes I may transfuse patient 1 unit PRBC I discussed care with family at length Renal/I&O: Good urine output and patient apparently dumped about 4 L of urine 2 days ago at which point she was placed on DDAVP for presumptive diabetes insipidus. The laboratory values were not consistent completely with the diabetes insipidus but in the face of huge urine output I can see the point of putting patient on DDAVP Urine output now has normalized and I plan to gradually decrease the amount of DDAVP as we go along Assessment and Plan Plan: TBI combined with CVA and a history of chronic EtOH abuse Continue to wean sedation, start neuro stimulation package Transfuse 2 units of packed red blood cells for acute blood loss anemia, check posttransfusion H&H Wean ventilator as tolerated, aggressive pulmonary toilet, tracheostomy this week Patient tolerated CPAP very well, but she is at high risk of failure due to her inability to protect her airway Continue nutritional support via feeding tube and use as many p.o. medications as possible, will require PEG placement this week Prognosis remains poor with worsening right subdural hematoma and subfalcine herniation in addition to the midbrain hemorrhagic stroke Plan is for tracheostomy and feeding tube placement when the patient is stable and safe to do so Attestation: Critical care 38 minute
[2018-05-21] MEDS ORDERED: Albumin Human 5% Inj 500 ML IV.SIG ONE (19:00)
[2018-05-21] MEDS: Metoprolol Tartrate 50 MG Tablet PO SCH (21:02)
[2018-05-21] MEDS: Lisinopril 10 MG Tablet PO SCH (21:03)
--- NOTE | 2018-05-21 22:59 | P.PNNS ---
Physical Exam Vital signs: Vital Signs 05/21/18 00:00 05/21/18 00:37 05/21/18 02:00 Temperature 99 F Pulse Rate 82 82 Respiratory Rate 16 15 Blood Pressure 140/62 Pulse Oximetry 100 99 05/21/18 04:00 05/21/18 04:23 05/21/18 06:00 Temperature 99.5 F Pulse Rate 74 61 61 Respiratory Rate 15 15 Blood Pressure 134/62 Pulse Oximetry 99 99 05/21/18 08:00 05/21/18 08:12 05/21/18 10:00 Temperature 100.2 F H Pulse Rate 76 60 68 Respiratory Rate 15 Blood Pressure 113/56 L Pulse Oximetry 93 L 99 05/21/18 10:51 05/21/18 12:00 05/21/18 13:43 Temperature 98.9 F Pulse Rate 72 Respiratory Rate 20 Blood Pressure 154/67 H Pulse Oximetry 100 100 05/21/18 14:00 05/21/18 15:10 05/21/18 16:00 Temperature 98.1 F Pulse Rate 59 L 59 L 59 L Respiratory Rate 15 Blood Pressure 101/56 L Pulse Oximetry 05/21/18 16:47 05/21/18 18:00 05/21/18 20:00 Temperature 99.7 F H Pulse Rate 61 76 Respiratory Rate 15 15 Blood Pressure 140/66 Pulse Oximetry 100 100 05/21/18 20:49 05/21/18 22:00 Temperature Pulse Rate 82 Respiratory Rate 15 Blood Pressure Pulse Oximetry 97 Intake & Output 05/21/18 05/21/18 05/22/18 06:59 18:59 06:59 Intake Total 2042 / 2042 647 / 647 Output Total 2750 / 2750 2200 / 2200 Balance -708 / -708 -1553 / -1553 Weight 54.3 kg Intake: IV 1105 / 1105 218 / 218 Cardene Inj 50 MG In NS Inj 480 1000 / 1000 ML @ 5 MG/HR 50 mls/hr IV.CONT TITRATE PRN Rx#:[id number] Levophed Inj 4 MG In NS Inj 246 218 / 218 ML @ 2 MCG/MIN 7.5 mls/hr IV. SIG TITRATE PRN Rx#:[id number] Keppra Inj 500 MG In NS Inj 100 105 / 105 ML @ 400 mls/hr IV.SIG Q12H CARLOS Rx#:[id number] Tube Feeding 537 / 537 429 / 429 Tube Irrigant 400 / 400 Intake (Blood Product) Amt 0 / 0 Rbc As-3 Leukoreduced Unit 0 / 0 [id number] Output: Urine 2750 / 2750 2200 / 2200 Other: Date of Last Bowel Movement 05/20/18 05/20/18 05/20/18 # Bowel Movements 0 - Urinary Catheter Management Indwelling Urethral Catheter Cath placed during this visit: yes Reason for continuing: Hourly intake/output Insertion date: 05/11/18 Insertion time: 12:00 Assessment and Plan - Assessment (1) ICH (intracerebral hemorrhage) Code(s): I61.9 - Nontraumatic intracerebral hemorrhage, unspecified Status: Acute (2) Endotracheally intubated Code(s): Z97.8 - Presence of other specified devices Status: Acute (3) Major neurocognitive disorder Code(s): F01.50 - Vascular dementia without behavioral disturbance Status: Acute (4) Pain Code(s): R52 - Pain, unspecified Status: Acute (5) Dyspnea Code(s): R06.00 - Dyspnea, unspecified Status: Acute (6) Subdural hematoma Code(s): S06.5X9A - Traumatic subdural hemorrhage with loss of consciousness of unspecified duration, initial encounter Status: Acute (7) Respiratory failure Code(s): J96.90 - Respiratory failure, unspecified, unspecified whether with hypoxia or hypercapnia Status: Acute (8) CVA (cerebral vascular accident) Code(s): I63.9 - Cerebral infarction, unspecified Status: Acute - Plan Impression: 62 y/o female with large right subdural hematoma with severe mass effect and midline shift, s/p emergent right decompressive craniectomy with evacuation of subdural hematoma, Follow-up CT scan 05/19/2018 reveals development of a subacute appearing subgaleal hematoma right frontoparietal region at the craniectomy site. Relatively mild mass-effect. Neurologic exam stable compared to the past couple of days. There is increasing decreased attenuation, probable developing encephalomalacia in the mid pontine region adjacent to the previous known hemorrhage. Plan: Continue observation in regards to the right subgaleal hematoma. Plan follow-up CT scan over the next 2-3 days depending on clinical course. cont critical care mgt per trauma team continue neuro checks Pulmonary: aggressive pulmonary toilette, nasotracheal suction, and breathing treatments with nebulizers. Daily PT and OT Renal: Continue to monitor closely urine output, BUN and creatinine Endocrine: Continue to Monitor serial Acu checks and SSI as needed in detail Questionable diabetes insipidus. ID continue to monitor for signs of infection Continue Protonix for stress ulcer prophylaxis Continue James hose and SCD's for DVT prophylaxis Paliative care assisting
[2018-05-22] MEDS: Oral Hygiene Kit OROPHARYNG SCH ×3 (03:46→17:52)
[2018-05-22 05:13] LABS: Baso # (Auto) 0.2 th/mm3 (0.0-0.2); Baso % (Auto) 0.7 % (0.0-2.0); Eos # (Auto) 0.1 th/mm3 (0.0-0.4); Eos % (Auto) 0.4 % (0.0-4.0); Hematocrit 30.4 % (35.0-46.0); Hemoglobin 10.4 gm/dL (11.6-15.3); Lymph # (Auto) 0.6 th/mm3 (1.0-4.8); Lymph % (Auto) 2.8 % (9.0-44.0); Mean Corpuscular HGB Conc 34.2 % (32.0-36.0); Mean Corpuscular Hemoglobin 31.8 pg (27.0-34.0); Mono % (Auto) 4.5 % (0.0-8.0); Neut # (Auto) 20.4 th/mm3 (1.8-7.7); Neut % (Auto) 91.6 % (16.0-70.0); Platelet Count 525 th/mm3 (150-450); Red Blood Count 3.27 mil/mm3 (4.00-5.30); Red Cell Distribution Width 18.4 % (11.6-17.2); White Blood Count 22.3 th/mm3 (4.0-11.0)
[2018-05-22 05:34] LABS: Albumin 2.6 g/dL (3.4-5.0); Anion Gap 11 meq/L (5-15); Aspartate Aminotransferase 48 U/L (15-37); Blood Urea Nitrogen 9 mg/dL (7-18); Calcium 9.1 mg/dL (8.5-10.1); Carbon Dioxide 27.5 meq/L (21.0-32.0); Chloride 102 meq/L (98-107); Glomerular Filtration Rate Greater Than 89 mL/min (>89); Glucose,Random 113 mg/dL (74-106); Potassium 3.7 meq/L (3.5-5.1); Sodium 140 meq/L (136-145)
[2018-05-22] MEDS: Nystatin Liq 500,000 UNIT/5 ML UDC SWISH-SPIT SCH ×3 (05:34→18:12)
[2018-05-22 05:35] LABS: Alanine Aminotransferase 52 U/L (10-53)
[2018-05-22 05:37] LABS: Alkaline Phosphatase 441 U/L (45-117); Total Protein 7.2 g/dL (6.4-8.2)
--- NOTE | 2018-05-22 06:26 | XR ---
EXAM DATE: 05/22/2018 6:19 AM EDT AGE/SEX: 62 years / Female INDICATIONS: Shortness of breath. CLINICAL DATA: This is the patient's subsequent encounter. Patient reports that signs and symptoms h ave been present for 1 week and indicates a pain score of Nonresponsive. MEDICAL/SURGICAL HISTORY: Carcinoma, lung. Lymphoma. Non-responsive. COMPARISON: [facility], CHEST 1V SINGLE AP, 05/21/2018. . FINDINGS: There is interval development of consolidation in the right lower lobe. Endotracheal tube, right subc lavian line and enteric tube are identified. CONCLUSION: Right lower lobe consolidation. Electronically signed by: Mark Rodriguez MD 05/22/2018 6:24 AM EDT
--- NOTE | 2018-05-22 08:33 | P.PNNPSY ---
- Behavior Intact: Impulsive/agitated - Psychosocial Intact: Psychosocial, Family/other adjustment, Realistic expectation - Progress Notes/Response to Treatment Contents of Sessions: Adjustment, Level of consciousness Time with Patient: 30 minutes Premorbid Psychological Status: Premorbid Cognitive, Emotional and Behavioral Status: Stable. The patient has high school years of education and a solid work history prior to this injury. The patient has no prior psychiatric difficulties, as described above. Substance abuse history includes EtOH. Behavioral Reactions of Patient and Family/Support System: Stable. The patient s family is experiencing ongoing issues of adjustment given the nature of the injury, and this aspect of recovery will require ongoing monitoring. Emotional/Behavioral Status of Patient and Family/Support System: Stable. Pertinent issues, if appropriate to this patients clinical care, are described in detail above. Maximizing Acute Care Outcome: It is recommended that the patient be monitored for emergent behavioral impulsivity as the medical condition evolves. This patients neuropathological challenges may limit rehabilitation potential going forward, and these challenges will require specialized therapeutic skills to maximize outcome. Additionally, the patients family is experiencing ongoing issues of adjustment given the traumatic nature of the injury, and they may benefit from ongoing psychological assistance. At this point in the recovery process, the patient does not have cognitive capacity as the patient is unable to understand a situation and its likely consequences, nor is the patient able to manipulate information rationally. Cognitive capacity will be assessed throughout the recovery process. Anticipated Problems: Ongoing areas of concern will include behavioral impulsivity, lack of insight and judgment, which is expected to improve with time and treatment. Presently , the patient is critically ill. Treatment Plan: This clinician will continue to follow with you throughout the course of this patients critical care treatment, and I will be available to meet with the patients family/support system to facilitate their understanding and the ongoing care of their family member. The goals of neuropsychological intervention shall be both educational and supportive to the family/support system as is deemed clinically appropriate. 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 Progress Note Narrative: PTD11. Nursing reports that off sedation she occasionally moves, follows, which I witnessed today. She is Rancho II otherwise, sedated and intubated. She is planned for trach/PEG. I will follow. - Diagnosis (1) Major neurocognitive disorder Status: Acute
[2018-05-22] MEDS: Beneprotein Powder Packet G-TUBE SCH ×3 (09:42→18:11)
[2018-05-22] MEDS: Pantoprazole Inj 40 MG Vial IV.PUSH SCH ×2 (09:42→22:01)
[2018-05-22] MEDS: Chlorhexidine 0.12% Oral Kit 15 ML UDC OROPHARYNG SCH ×2 (09:42→21:37)
[2018-05-22] MEDS: Desmopressin Inj 4 MCG/ML Ampul SQ SCH ×2 (09:43→21:57)
[2018-05-22] MEDS: Senna/Docusate Sodium 8.6/50 MG Tablet PO SCH ×2 (09:45→22:03)
[2018-05-22] MEDS: Polyethylene Glycol 3350 17 GM Packet PO SCH ×2 (09:45→22:02)
[2018-05-22] MEDS: Metoprolol Tartrate 50 MG Tablet PO SCH ×2 (09:46→22:02)
[2018-05-22] MEDS: Lisinopril 10 MG Tablet PO SCH ×2 (09:46→22:03)
[2018-05-22] MEDS: Hypromellose 0.3% Opth Gel 10 GM Bottle EACH EYE SCH ×2 (09:46→22:01)
[2018-05-22] MEDS ORDERED: Sod Chloride 0.9% Inj 1,000 ML IV.SIG ONE (12:00)
--- NOTE | 2018-05-22 16:08 | P.PNPAL ---
Reason for Visit Reason for visit: a. To assist with evaluation and management of symptoms including:dyspnea, pain ; encephalopathy b. To assist medical decision maker(s) with: better understanding of current medical conditions; weighing benefits/burdens of medical treatment options; making medical treatment decisions. . Subjective Subjective/Interval History: Patient is being prepped for PEG tube placement at time of my visit. She remains intubated, mechanically ventilated in an SICU bed. She is not moving for me, but notes indicate she has had slight increased movement in the LUE and LLE and she is intermittently opening her eyes. This has given hope who has opted for ongoing aggressive care including PEG and trach. Trach is planned for 05/23/18. Reveiw of DEC shows the following in regards to symptom management: * Scheduled oxycodone was reduced from 5 mg via tube q 4 hours ATC to 5 mg via tube q 12 hours ATC * No use of haloperidol since 05/18/18 Continues with Temps daily > 100 (Tmax 101.1) Bowels moving adequately. BPs labile. Negative fluid balance for several days. WBC 22.3. Hg 10.4 . Family/Friend Interactions: No family/friends available at time of my visit. . Advance Directives Living Will: Never completed Health Care Surrogate: Never completed Durable Power of Salon Assistant: Never completed Health Care Surrogate Name and Number: No writtent designation of health care surrogate Documented care wishes:: No written documentation of health care goals/preferences. . Significant change in goals:: Proxy has opted for trach and PEG -- desiring correction aggressive care. . Objective Vital Signs: Vital Signs 05/21/18 16:00 05/21/18 16:47 05/21/18 18:00 Temperature 98.1 F Pulse Rate 59 L 61 Respiratory Rate 15 Blood Pressure 101/56 L Pulse Oximetry 100 05/21/18 20:00 05/21/18 20:49 05/21/18 22:00 Temperature 99.7 F H Pulse Rate 76 82 Respiratory Rate 15 15 Blood Pressure 140/66 Pulse Oximetry 100 97 05/21/18 23:53 05/22/18 00:00 05/22/18 02:00 Temperature 99.0 F Pulse Rate 80 88 Respiratory Rate 22 Blood Pressure 154/68 H Pulse Oximetry 94 L 97 05/22/18 04:00 05/22/18 04:17 05/22/18 06:00 Temperature 100.0 F H Pulse Rate 82 70 Respiratory Rate 18 Blood Pressure 162/75 H Pulse Oximetry 97 97 05/22/18 08:00 05/22/18 08:53 05/22/18 10:00 Temperature 101.1 F H Pulse Rate 76 70 Respiratory Rate 18 Blood Pressure 170/74 H Pulse Oximetry 96 97 05/22/18 12:00 05/22/18 13:29 05/22/18 14:00 Temperature 100.4 F H Pulse Rate 71 71 Respiratory Rate 15 Blood Pressure 122/58 L Pulse Oximetry 99 100 Intake & Output 05/21/18 05/22/18 05/22/18 18:59 06:59 18:59 Intake Total 752 / 752 384 / 384 1250 / 1250 Output Total 2200 / 2200 1200 / 1200 Balance -1448 / -1448 -816 / -816 1250 / 1250 Weight 52.3 kg Intake: IV 323 / 323 105 / 105 1250 / 1250 Levophed Inj 4 MG In NS Inj 246 218 / 218 ML @ 2 MCG/MIN 7.5 mls/hr IV. SIG TITRATE PRN Rx#:[id number] Keppra Inj 500 MG In NS Inj 100 105 / 105 105 / 105 ML @ 400 mls/hr IV.SIG Q12H CARLOS Rx#:[id number] Tube Feeding 429 / 429 279 / 279 Output: Urine 2200 / 2200 Urine Amount (Catheter) 1200 / 1200 Indwelling Urethral Catheter 1200 / 1200 Other: Date of Last Bowel Movement 05/20/18 05/22/18 05/22/18 # Incontinent Bowel Movements 1 Physical Exam: CONSTITUTIONAL/GENERAL: This is thin lady, frail, intubated, mechanically ventilated, minimally responsive in an SICU bed. No obvious distress. TUBES/LINES/DRAINS: Right subclavian, piv, ziegler, et tube. SKIN: No jaundice, rashes, or lesions. Healing craniotomy wounds. Skin temperature appropriate. Not diaphoretic. HEAD: Healing decompressive craniotomy wounds. EYES: Right pupil 1mm non reactive. Left pupil 0.5 mg constricted. ENT: Nose without bleeding or purulent drainage. ET tube NECK: Trachea midline. CARDIOVASCULAR: Regular rate and rhythm without murmurs, gallops, or rubs. No JVD. RESPIRATORY/CHEST: Symmetric, unlabored respirations. Clear to auscultation. Intubated GASTROINTESTINAL: Abdomen soft, non-tender, nondistended. No hepato-splenomegaly , or palpable masses. No guarding. Bowel sounds present. GENITOURINARY: Without palpable bladder distension. Ziegler catheter in place. MUSCULOSKELETAL: Extremities without clubbing, cyanosis, or edema. LYMPHATICS: Not examined. NEUROLOGICAL: minimally responsive. Withdraws to painful stimuli on left side. . No spontaneous movements seen. PSYCHIATRIC: Unable to evaluate due to level of responsiveness. . Diagnostic Tests Laboratory: Laboratory Results - last 72 hr 05/13/18 05/20/18 05/20/18 05:12 05:45 05:45 WBC 15.4 H RBC 2.25 L Hgb 7.3 L Hct 22.0 L MCV 98.0 MCH 32.6 MCHC 33.3 RDW 16.8 Plt Count 446 MPV 8.0 Neut % (Auto) 84.0 H Lymph % (Auto) 7.6 L [place] % (Auto) 7.6 Eos % (Auto) 0.7 Baso % (Auto) 0.1 Neut # (Auto) 12.9 H Lymph # (Auto) 1.2 [place] # (Auto) 1.2 H Eos # (Auto) 0.1 Baso # (Auto) 0.0 WBC Differential . Differential Comment Auto diff final Retic Count Absolute Retic Haptoglobin Sodium 141 Potassium 3.7 Chloride 102 Carbon Dioxide 31.0 Anion Gap 8 BUN 10 Creatinine 0.31 L Estimated GFR Greater than 89 Random Glucose 136 H Calcium 8.4 L Iron TIBC % Saturation Ferritin Total Bilirubin AST ALT Alkaline Phosphatase Lactate Dehydrogenase Total Protein Albumin Blood Type Antibody Screen MTS Gel Crossmatch See Detail 05/20/18 05/20/18 05/20/18 08:20 18:00 22:00 WBC RBC Hgb 10.2 L D Hct 29.5 L MCV MCH MCHC RDW Plt Count MPV Neut % (Auto) Lymph % (Auto) [place] % (Auto) Eos % (Auto) Baso % (Auto) Neut # (Auto) Lymph # (Auto) [place] # (Auto) Eos # (Auto) Baso # (Auto) WBC Differential Differential Comment Retic Count 2.1 Absolute Retic 72.7 Haptoglobin Sodium Potassium Chloride Carbon Dioxide Anion Gap BUN Creatinine Estimated GFR Random Glucose Calcium Iron TIBC % Saturation Ferritin Total Bilirubin AST ALT Alkaline Phosphatase Lactate Dehydrogenase Total Protein Albumin Blood Type A Positive Antibody Screen Negative MTS Gel Crossmatch See Detail 05/20/18 05/21/18 05/22/18 22:00 04:00 04:48 WBC 16.2 H 22.3 H RBC 3.34 L 3.27 L Hgb 10.4 L 10.4 L Hct 30.6 L 30.4 L MCV 91.7 D 93.0 MCH 31.3 31.8 MCHC 34.1 34.2 RDW 19.9 H D 18.4 H Plt Count 523 H 525 H MPV 7.9 8.0 Neut % (Auto) 84.8 H 91.6 H Lymph % (Auto) 7.5 L 2.8 L [place] % (Auto) 7.0 4.5 Eos % (Auto) 0.5 0.4 Baso % (Auto) 0.2 0.7 Neut # (Auto) 13.8 H 20.4 H Lymph # (Auto) 1.2 0.6 L [place] # (Auto) 1.1 H 1.0 H Eos # (Auto) 0.1 0.1 Baso # (Auto) 0.0 0.2 WBC Differential . . Differential Comment Auto diff final Auto diff final Retic Count Absolute Retic Haptoglobin 456 H Sodium 141 Potassium 3.7 Chloride 103 Carbon Dioxide 30.5 Anion Gap 8 BUN 9 Creatinine 0.39 L Estimated GFR Greater than 89 Random Glucose 130 H Calcium 8.7 Iron 72 TIBC 239 L % Saturation 30.1 Ferritin 276 H Total Bilirubin 0.9 AST 33 ALT 45 Alkaline Phosphatase 440 H Lactate Dehydrogenase 267 H Total Protein 6.8 D Albumin 2.2 L Blood Type Antibody Screen MTS Gel Crossmatch 05/22/18 04:48 WBC RBC Hgb Hct MCV MCH MCHC RDW Plt Count MPV Neut % (Auto) Lymph % (Auto) [place] % (Auto) Eos % (Auto) Baso % (Auto) Neut # (Auto) Lymph # (Auto) [place] # (Auto) Eos # (Auto) Baso # (Auto) WBC Differential Differential Comment Retic Count Absolute Retic Haptoglobin Sodium 140 Potassium 3.7 Chloride 102 Carbon Dioxide 27.5 Anion Gap 11 BUN 9 Creatinine 0.31 L Estimated GFR Greater than 89 Random Glucose 113 H Calcium 9.1 Iron TIBC % Saturation Ferritin Total Bilirubin 0.7 AST 48 H ALT 52 Alkaline Phosphatase 441 H Lactate Dehydrogenase Total Protein 7.2 Albumin 2.6 L Blood Type Antibody Screen MTS Gel Crossmatch Result Diagrams: 05/22/18 04:48 05/22/18 04:48 Imaging: Abdomen X-Ray 05/11/18 00:00 CONCLUSION: Unremarkable study. Chest X-Ray 05/11/18 11:31 CONCLUSION: No acute cardiopulmonary disease. Head CT 05/11/18 11:31 CONCLUSION: Huge subdural hematoma on the right with subfalcine herniation from right to left and focal area of intraparenchymal hemorrhage within the midbrain. Impending downward herniation. Findings were discussed with Dr. Walls at the time of this dictation on 05/11/2018. Chest X-Ray 05/12/18 23:16 CONCLUSION: 1. Interval placement of right subclavian central venous line with no pneumothorax. 2. Interval placement of nasogastric tube. 3. Stable appearance with no acute cardiopulmonary disease. Head CT 05/13/18 06:00 CONCLUSION: 1. Postoperative changes status post subdural evacuation and drain placement. Small amount of intracranial hemorrhage remains. 2. Possible evolving infarct and a small amount of hemorrhage as above at the level of the midbrain. . Abdomen/Pelvis CT 05/13/18 08:21 CONCLUSION: 1. Small bilateral pleural effusions, mild body wall edema and trace fluid in the pelvis. 2. Nonobstructing right renal calculus. 3. Atherosclerosis. Head CT 05/13/18 19:54 CONCLUSION: 1. Stable exam from earlier today. 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 Multiple right-sided subdural drains remain with mild right to left midline shift and small residual interhemispheric subdural hematoma. . Chest X-Ray 05/14/18 06:00 CONCLUSION: No significant change. No definite acute cardiopulmonary disease. Chest X-Ray 05/15/18 06:00 CONCLUSION: 1. New hazy airspace disease in the perihilar regions and lung bases right greater than left. This is concern for possible pulmonary edema. Chest X-Ray 05/16/18 06:00 CONCLUSION: 1. Rotated exam again demonstrating hazy airspace disease in the infrahilar regions and both lung bases right greater than left. 2. Possible mild blunting of left costophrenic angle. 3. Mild cardiomegaly Head CT 05/16/18 06:00 CONCLUSION: 1. Stable appearance the small high density hemorrhage in the midbrain and trini. 2. Status post right frontal parietal and temporal craniotomy with subdural drainage catheter in place. There is minimal residual subdural hemorrhage. 3. Mild residual mass effect and slight midline shift to the left again noted. 4. Low density is present in the left left occipital lobe which is increased from the prior study and most characteristic of edema. This may be secondary to recent contusion or infarction. . Chest X-Ray 05/17/18 06:00 CONCLUSION: 1. Persistent left lower lobe consolidation. 2. No infiltrates seen on the right side. Head CT 05/19/18 08:00 CONCLUSION: 1. Interval removal of a subdural drainage contrast there with increased size of the subdural hematoma causing increasing mass effect upon the right temporal lobe parietal lobe and slight effacement of the ambient cistern and increasing leftward midline shift. . Chest X-Ray 05/20/18 06:00 CONCLUSION: Improved aeration left lower lobe. IVC Filter Placement X-Ray 05/21/18 00:00 CONCLUSION: 1. Uncomplicated inferior vena cava filter placement as above. Chest X-Ray 05/21/18 06:00 CONCLUSION: Improved aeration on the left. Chest X-Ray 05/22/18 06:00 CONCLUSION: Right lower lobe consolidation. Procedures: Intubation/mechanical ventilation Central line placement Decompressive craniotomy . Assessment and Plan - Disease Oriented Problem List (1) ICH (intracerebral hemorrhage) (2) CVA (cerebral vascular accident) (3) ETOH abuse (4) Depression (5) Major neurocognitive disorder (6) Falls frequently (7) Respiratory failure Pertinent Non-Medical Issues: Psychosocial:Has a spouse. Spouse part [employer]. Pt , no children. Originally from [place] Spiritual:Evangelical Legal:No advance directives. Ethical issues impacting care:none Important Contacts: Avila Joyce (spouse) [phone] cell, home phone [phone] Charlotte Adams [phone] Prognosis: Pt with severe subdural hematoma causing significant mass effect and midline shift now s/p forntotemporoparietal decompressive craniotomy. Hx of etoh abuse. She also developed another mesencephalon infarct inching toward trini . Only minimal improvement in neurological function. Though there has been some minimal neurological improvement, chances of return to indpendence becoming more and more remote. High likelihood of ongoing complications of terminal carman vent patient -- pneumonias, skin breakdown, UTIs, sepsis, etc. Overall prognosis is quite poor. . Code Status: Alternative Code (Intubation only. No compression/shock/acls.) Plan: == Code Status: ALTERNATIVE CODE (intubation only -- no shock or chest compressions) == Decision making: Patient is incapacitated and has no reasonable probability of regaining capacity to make her own health care decisions. Spouse is serving as health care proxy. == Goals of medical treatment: is seeing some minimal neurological improvement and wants to continue with full aggressive care short of resuscitation including trach and PEG. Patient's decision is influenced by the experience of a friend who recovered from a traumatic brain injury over the course of several months. == Symptoms * Pain: Source of pain include prolonged bedbound status; vascular access lines ; ziegler catheter; recent head surgery; orotracheal/orogastric intubations. Patient appearing relatively comfortable on current opioid regimen. It is unclear if patient is able to effectively communicate pain if she were having it. * Dyspnea: Patient unable to protect her airway and is currently on vent. wants to go forward with trach. No fruther recommendations at this time. * Encephalopathy: Remains profound. Able to open eyes intermittently, but not following commands. No further recommendations at this time. == It would be helpful to have neurosurgery prognosis for meaningful neurologic recovery. To me, it would appear that patient is likely to remain dependent for all care needs. == Palliative care will continue to follow to assist with symptom management and to further clarify goals of medical treatment as the clinical course evolves. . . Attestation Attestation: To help prompt me to consider important information that might be impacting today's encounter and assessment, information from prior notes written by myself or my colleagues may have been "brought forward" into today's note. My signature on this note, however, is an attestation that I personally performed the exam, history, and/or decision-making noted today, and, unless otherwise indicated, the interactions with patient, family, and staff as well as the review of records all occurred today. I also attest that the listed assessment and stated plan reflect my best clinical judgment today based on the combination of historical information, prior notes, and today's exam/ interactions. When time spent is documented, it refers only to time spent today by the signer, or if indicated, combined time spent today by collaborating physician/nurse practitioner.
--- NOTE | 2018-05-22 16:51 | GIPROC ---
[facility] [address] [facility]. [facility], [address] EGD WITH PEG PROCEDURE REPORT EXAM DATE: 05/22/2018 PATIENT NAME: Mirian Penn MR#: [id number] BIRTHDATE: 1955 ATTENDING: Jenny Espino MD ORDER #: [id number] WRECKER OPERATOR: Carolina Nunez and Fernanda Mon STATUS: inpatient INDICATIONS: The patient is a 62 yr old female here for an EGD with PEG due to dysphagia PROCEDURE PERFORMED: EGD with PEG placement MEDICATIONS: None and Per Anesthesia. TOPICAL ANESTHETIC: none CONSENT: The patient understands the risks and benefits of the procedure and understands that these risks include, but are not limited to: sedation, allergic reaction, infection, perforation and/or bleeding. Alternative means of evaluation and treatment include, among others: physical exam, x-rays, and/or surgical intervention. The patient elects to proceed with this endoscopic procedure. medical equipment was checked for proper function. Hand hygiene and appropriate measures for infection prevention was taken. After the risks, benefits and alternatives of the procedure were thoroughly explained, Informed consent was verified, confirmed and timeout was successfully executed by the treatment team. The patient was anesthetized with topical anesthesia and the Pentax [id number] endoscope was introduced through the mouth and advanced to the second portion of the duodenum. The instrument was slowly withdrawn as the mucosa was fully examined. Esophagitis was found in the distal esophagus. -biopsy . Gastritis antrum-biopsy The stomach was then inflated with air, and by a combination of transillumination and manual palpation, the site for the gastrostomy tube placement was selected and marked on the anterior abdominal wall. The skin of the anterior abdomen was surgically prepped and draped with sterile towels. Utilizing strict sterile technique, the selected site was then anesthetized with 1% xylocaine by injection into the skin and subcutaneous tissue. A 1 cm incision was made through the skin and subcutaneous tissue, and the needle/cannula assembly was then passed through the abdominal wall and through the anterior wall of the stomach, maintaining visualization with the endoscope. A snare device previously placed through the instrument channel was then opened and placed around the cannula, the needle was removed, and the insertion wire was passed through the cannula and into the stomach lumen. The snare was then loosened from the cannula, and repositioned to snare the insertion wire. The snare was then pulled up to the endoscope distal tip, and the scope was then withdrawn bringing with it the snare and insertion wire. The insertion wire was then released from the snare, and then loop-attached to the gastrostomy tube. Using the "pull technique", the G-tube was then pulled into place by traction on the insertion wire at the abdominal wall end. The G-tube insertion site was then cleansed once again, and the external bolster was placed over the tube to secure it to the abdominal wall. A sterile dressing was then applied, and the procedure terminated. a hiatal hernia The gastroscope was then slowly withdrawn and removed. ADVERSE EVENT: There were no complications. IMPRESSIONS: Esophagitis was found in the distal esophagus RECOMMENDATIONS: ok to use peg for medications today start tf in am is site ok fu biopsy REPEAT EXAM: Return 1 year(s) EGD Jenny Espino MD eSigned: Jenny Espino MD 05/22/2018 4:51 PM cc: PATIENT NAME: Mirian Penn MR#: [id number]
[2018-05-22] MEDS ORDERED: fentaNYL Citrate Inj 100 MCG/2 ML Ampul ONE (17:25)
[2018-05-22] MEDS ORDERED: ceFAZolin Inj 2,000 MG in Sodium Chlor 0.9% Inj 80 ML IV.SIG ONE (18:00)
--- NOTE | 2018-05-22 18:29 | P.PNNS ---
Subjective Interval history: Pt not opening eyes. Pupils 3mm bilaterally reactive bilaterally. Not following commands. Localizes with LUE. Withdraws all 4 extremities. Physical Exam Vital signs: Vital Signs 05/21/18 20:00 05/21/18 20:49 05/21/18 22:00 Temperature 99.7 F H Pulse Rate 76 82 Respiratory Rate 15 15 Blood Pressure 140/66 Pulse Oximetry 100 97 05/21/18 23:53 05/22/18 00:00 05/22/18 02:00 Temperature 99.0 F Pulse Rate 80 88 Respiratory Rate 22 Blood Pressure 154/68 H Pulse Oximetry 94 L 97 05/22/18 04:00 05/22/18 04:17 05/22/18 06:00 Temperature 100.0 F H Pulse Rate 82 70 Respiratory Rate 18 Blood Pressure 162/75 H Pulse Oximetry 97 97 05/22/18 08:00 05/22/18 08:53 05/22/18 10:00 Temperature 101.1 F H Pulse Rate 76 70 Respiratory Rate 18 Blood Pressure 170/74 H Pulse Oximetry 96 97 05/22/18 12:00 05/22/18 13:29 05/22/18 14:00 Temperature 100.4 F H Pulse Rate 71 71 Respiratory Rate 15 Blood Pressure 122/58 L Pulse Oximetry 99 100 05/22/18 16:00 05/22/18 17:37 Temperature 99.3 F Pulse Rate 96 H Respiratory Rate 18 17 Blood Pressure 112/54 L Pulse Oximetry 100 100 Intake & Output 05/21/18 05/22/18 05/22/18 18:59 06:59 18:59 Intake Total 752 / 752 384 / 384 1250 / 1250 Output Total 2200 / 2200 1200 / 1200 Balance -1448 / -1448 -816 / -816 1250 / 1250 Weight 52.3 kg Intake: IV 323 / 323 105 / 105 1250 / 1250 Levophed Inj 4 MG In NS Inj 246 218 / 218 ML @ 2 MCG/MIN 7.5 mls/hr IV. SIG TITRATE PRN Rx#:[id number] Keppra Inj 500 MG In NS Inj 100 105 / 105 105 / 105 ML @ 400 mls/hr IV.SIG Q12H CARLOS Rx#:[id number] Tube Feeding 429 / 429 279 / 279 Output: Urine 2200 / 2200 Urine Amount (Catheter) 1200 / 1200 Indwelling Urethral Catheter 1200 / 1200 Other: Date of Last Bowel Movement 05/20/18 05/22/18 05/22/18 # Incontinent Bowel Movements 1 - Constitutional no acute distress, average body habitus Comments: Pt off sedative drips. - Routine HEENT Exam Head: Present: normocephalic, atraumatic Eye: Present: PERRL (Pupils 3mm bialterally. Reactive bilaterally.). Absent: conjunctival icterus ENT: Absent: oropharynx clear (ET intubated.) - Routine Neck Exam Present: trachea midline - Routine Respiratory Exam Present: patient mechanically ventilated (Pressure controlled. Rate 15. FiO2 45%. Peep 5.), CTA bilaterally. Absent: respiratory distress, rhonchi, wheezes - Routine Cardiovascular Exam Present: RRR, S1, S2. Absent: murmur - Routine Abdominal Exam Present: soft, normoactive bowel sounds. Absent: distended - Routine Skin Exam Absent: cyanosis, erythema (SCDs in place. Right crani site cleand and dry without signs of infection.) - Routine Neurological Exam Present: motor deficit (Not following commands for muscle testing. Withdraws all 4 extremities. Localizes with LUE but not right.), moving all extremities ( Withdraws all 4 extremities. Localizes with LUE but not right.). Absent: alert - Routine Psychiatric Exam Present: unable to assess - Urinary Catheter Management Indwelling Urethral Catheter Cath placed during this visit: yes Reason for continuing: Hourly intake/output Insertion date: 05/11/18 Insertion time: 12:00 Assessment and Plan - Assessment (1) ICH (intracerebral hemorrhage) Code(s): I61.9 - Nontraumatic intracerebral hemorrhage, unspecified Status: Acute (2) Endotracheally intubated Code(s): Z97.8 - Presence of other specified devices Status: Acute (3) Major neurocognitive disorder Code(s): F01.50 - Vascular dementia without behavioral disturbance Status: Acute (4) Pain Code(s): R52 - Pain, unspecified Status: Acute (5) Dyspnea Code(s): R06.00 - Dyspnea, unspecified Status: Acute (6) Subdural hematoma Code(s): S06.5X9A - Traumatic subdural hemorrhage with loss of consciousness of unspecified duration, initial encounter Status: Acute (7) Respiratory failure Code(s): J96.90 - Respiratory failure, unspecified, unspecified whether with hypoxia or hypercapnia Status: Acute (8) CVA (cerebral vascular accident) Code(s): I63.9 - Cerebral infarction, unspecified Status: Acute - Plan Impression: 62 y/o female with large right subdural hematoma with severe mass effect and midline shift, s/p emergent right decompressive craniectomy with evacuation of subdural hematoma, Follow-up CT scan 05/19/2018 reveals development of a subacute appearing subgaleal hematoma right frontoparietal region at the craniectomy site. Relatively mild mass-effect. Neurologic exam stable compared to the past couple of days. There is increasing decreased attenuation, probable developing encephalomalacia in the mid pontine region adjacent to the previous known hemorrhage. Plan: Continue observation in regards to the right subgaleal hematoma. cont critical care mgt per trauma team continue neuro checks Pulmonary: aggressive pulmonary toilette, nasotracheal suction, and breathing treatments with nebulizers. Daily PT and OT Renal: Continue to monitor closely urine output, BUN and creatinine Endocrine: Continue to Monitor serial Acu checks and SSI as needed in detail Questionable diabetes insipidus. ID continue to monitor for signs of infection Continue Protonix for stress ulcer prophylaxis Continue James hose and SCD's for DVT prophylaxis Paliative care assisting
--- NOTE | 2018-05-22 18:38 | P.PNCC ---
Subjective Brief History: 62-year-old female with repeated falls who fell the day before admission and then again that the day of admission and at this point could not be resuscitated and awoken. She was brought to emergency room with Elza Coma Scale of 4 intubated and ventilated with bilateral dilated pupils On the workup she was found to have a huge right subdural hematoma with a left shift for which she underwent emergency craniectomy by Dr. Abad Patient was placed in ICU for further care and patient was managed expertly by Dr. Olvera and Dr. Joshi. Patient is now being transferred to the surgical critical care service. It should be noted that according to her patient has fallen multiple times in the past Past medical history is that of lymphoma and lung carcinoma 24 Hour Review/Hospital Course: 05/14/2018 For the last 24 hours patient has been in the ICU neurologically unchanged. Drainage from the right subdural hematoma has decreased. At this point Hamilton Coma Scale is 3T. 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 Bilateral breath sounds patient remains on ventilatory support with good PO2 FiO2 gradient Renal function is preserved I have discussed care at length with her who is a very nice gentleman and understands the implications of this severe injury. At this point with a new finding of hemorrhagic bleed into mesencephalon prognosis may be worse and therefore we should probably give it a few days to see which way this goes Repeat CT scan will be done on Sunday and then we can see if patient is blossoming this bleed or it is receding and then compared it to the neurologic status. 05/15 She is clinically essentially unchanged-GCS remains low CT scan of the head has been planned for Sunday In the meantime we will continue blood pressure control and neuroprotective measure patient is on tube feeds as well PF ratio is adequate renal function is preserved palliative care is involved Neurology consult will be obtained 05/16/2018 Patient's clinical exam remains stable Her blood pressure medications have been adjusted and seem to have better control She is moving her left spontaneously no movement on the right Appreciate palliative care input 05/17/2018 Clinically the patient is stable with no improvement in her exam, she moves her left upper extremity spontaneously Increasing Lopressor for blood pressure control and adding Cardene until it is better controlled Prognosis remains grim for meaningful recovery 05/18/2018 Today she is not moving left upper extremity spontaneously she has had normal posturing to stimulation and becomes hypertensive with any stimulation P.o. Lopressor seems to have controlled her blood pressure better There seems to have been a misunderstanding between the and nursing staff today. He seems to understand that everyone's focus should be on his , that her blood pressure and heart rate do increase briefly with stimulation, and that the nurses and physicians are in constant contact regarding her care. 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 05/19/2018 There is no change in the patients clinical exam although her most recent head CT shows increased subdural hematoma she is following commands with her left upper extremity Patient will require tracheostomy and PEG placement but given the worsening subdural hematoma, will defer until stable and safe to do so 05/20/2018 Patient dropped her hemoglobin overnight, likely dilutional and associated with multiple blood draws during her stay We will monitor stool for melena or hematochezia, none identified, no bloody NG tube residuals Continue blood pressure management, H&H post transfusion Continue current ICU management, IVC filter ordered today due to the inability to chemically prophylax her 05/21/2018 Neurologically patient is slightly improved apparently moving more her left arm and left leg and opening her eyes Based on this improvement would like to proceed with full-court press as far as further care is concerned Gradually weaning down the sedation and will allow patient to slowly wake up Hemodynamically patient is stable however blood pressure has been somewhat labile. As noted several days ago patient was hypertensive and then throughout the night apparently systolic blood pressure went around 100 mmHg. Will readjust the antihypertensives for majority of neuro traumatic injuries will initially presented with hypertension and as the injury is slowly resolved normotensive state is achieved and antihypertensives have to be readjusted and decreased Bilateral breath sounds remains on assist control ventilation Patient will undergo tracheostomy on and after that we will give her CPAP trials and see how she does Provided good pulmonary function and mechanics patient should come off the respirator despite low neurologic status once tracheostomy in place Abdomen is soft patient will receive a PEG She remains anemic due to frequent blood draws and depending on which way the hemoglobin goes I may transfuse patient 1 unit PRBC I discussed care with family at length 05/22/2018 No change in neurologic status patient is moving left side appears to be occasionally following commands but this is more something nurses see I am not seen at Hemodynamically stable Bilateral breath sounds on assist control ventilation good PO2 FiO2 gradient Concerned about sudden leukocytosis/will culture patient For tracheostomy tomorrow Abdomen soft active bowel sounds for PEG today Renal function well-preserved Objective Vital Signs / I&O: Vital Signs 05/21/18 20:00 05/21/18 20:49 05/21/18 22:00 Temperature 99.7 F H Pulse Rate 76 82 Respiratory Rate 15 15 Blood Pressure 140/66 Pulse Oximetry 100 97 05/21/18 23:53 05/22/18 00:00 05/22/18 02:00 Temperature 99.0 F Pulse Rate 80 88 Respiratory Rate 22 Blood Pressure 154/68 H Pulse Oximetry 94 L 97 05/22/18 04:00 05/22/18 04:17 05/22/18 06:00 Temperature 100.0 F H Pulse Rate 82 70 Respiratory Rate 18 Blood Pressure 162/75 H Pulse Oximetry 97 97 05/22/18 08:00 05/22/18 08:53 05/22/18 10:00 Temperature 101.1 F H Pulse Rate 76 70 Respiratory Rate 18 Blood Pressure 170/74 H Pulse Oximetry 96 97 05/22/18 12:00 05/22/18 13:29 05/22/18 14:00 Temperature 100.4 F H Pulse Rate 71 71 Respiratory Rate 15 Blood Pressure 122/58 L Pulse Oximetry 99 100 05/22/18 16:00 05/22/18 17:37 Temperature 99.3 F Pulse Rate 96 H Respiratory Rate 18 17 Blood Pressure 112/54 L Pulse Oximetry 100 100 Intake & Output 05/21/18 05/22/18 05/22/18 18:59 06:59 18:59 Intake Total 752 / 752 384 / 384 1250 / 1250 Output Total 2200 / 2200 1200 / 1200 Balance -1448 / -1448 -816 / -816 1250 / 1250 Weight 52.3 kg Intake: IV 323 / 323 105 / 105 1250 / 1250 Levophed Inj 4 MG In NS Inj 246 218 / 218 ML @ 2 MCG/MIN 7.5 mls/hr IV. SIG TITRATE PRN Rx#:[id number] Keppra Inj 500 MG In NS Inj 100 105 / 105 105 / 105 ML @ 400 mls/hr IV.SIG Q12H CARLOS Rx#:[id number] Tube Feeding 429 / 429 279 / 279 Output: Urine 2200 / 2200 Urine Amount (Catheter) 1200 / 1200 Indwelling Urethral Catheter 1200 / 1200 Other: Date of Last Bowel Movement 05/20/18 05/22/18 05/22/18 # Incontinent Bowel Movements 1 Result Diagrams: 05/22/18 04:48 05/22/18 04:48 Imaging: Impressions Chest X-Ray 05/22/18 06:00 CONCLUSION: Right lower lobe consolidation. Assessment and Plan Plan: TBI combined with CVA and a history of chronic EtOH abuse Continue to wean sedation, start neuro stimulation package Transfuse 2 units of packed red blood cells for acute blood loss anemia, check posttransfusion H&H Wean ventilator as tolerated, aggressive pulmonary toilet, tracheostomy this week Patient tolerated CPAP very well, but she is at high risk of failure due to her inability to protect her airway Continue nutritional support via feeding tube and use as many p.o. medications as possible, will require PEG placement this week Prognosis remains poor with worsening right subdural hematoma and subfalcine herniation in addition to the midbrain hemorrhagic stroke Plan is for tracheostomy and feeding tube placement when the patient is stable and safe to do so Attestation: Critical care time 32 minutes
[2018-05-23] MEDS: Oral Hygiene Kit OROPHARYNG SCH ×4 (01:01→15:04)
[2018-05-23] MEDS: Nystatin Liq 500,000 UNIT/5 ML UDC SWISH-SPIT SCH ×4 (01:01→17:29)
[2018-05-23 04:43] LABS: Baso % (Auto) 0.1 % (0.0-2.0); Eos # (Auto) 0.1 th/mm3 (0.0-0.4); Eos % (Auto) 0.4 % (0.0-4.0); Hematocrit 29.1 % (35.0-46.0); Hemoglobin 10.1 gm/dL (11.6-15.3); Lymph # (Auto) 0.8 th/mm3 (1.0-4.8); Lymph % (Auto) 3.5 % (9.0-44.0); Mean Corpuscular HGB Conc 34.5 % (32.0-36.0); Mean Corpuscular Hemoglobin 32.1 pg (27.0-34.0); Mean Corpuscular Volume 93.1 fL (80.0-100.0); Mean Platelet Volume 7.7 fL (7.0-11.0); Mono % (Auto) 4.1 % (0.0-8.0); Neut # (Auto) 21.4 th/mm3 (1.8-7.7); Neut % (Auto) 91.9 % (16.0-70.0); Platelet Count 596 th/mm3 (150-450); Red Blood Count 3.13 mil/mm3 (4.00-5.30); Red Cell Distribution Width 18.2 % (11.6-17.2); White Blood Count 23.4 th/mm3 (4.0-11.0)
[2018-05-23 05:02] LABS: Albumin 2.4 g/dL (3.4-5.0); Anion Gap 10 meq/L (5-15); Aspartate Aminotransferase 25 U/L (15-37); Blood Urea Nitrogen 11 mg/dL (7-18); Calcium 9.2 mg/dL (8.5-10.1); Carbon Dioxide 24.9 meq/L (21.0-32.0); Chloride 103 meq/L (98-107); Glomerular Filtration Rate Greater Than 89 mL/min (>89); Glucose,Random 91 mg/dL (74-106); Potassium 3.2 meq/L (3.5-5.1); Sodium 138 meq/L (136-145)
[2018-05-23 05:04] LABS: Alanine Aminotransferase 37 U/L (10-53)
[2018-05-23 05:06] LABS: Alkaline Phosphatase 401 U/L (45-117); Total Protein 7.1 g/dL (6.4-8.2)
--- NOTE | 2018-05-23 05:22 | XR ---
EXAM DATE: 05/23/2018 4:57 AM EDT AGE/SEX: 62 years / Female INDICATIONS: Shortness of breath CLINICAL DATA: This is the patient's subsequent encounter. Patient reports that signs and symptoms h ave been present for 1 week and indicates a pain score of Nonresponsive. MEDICAL/SURGICAL HISTORY: . Carcinoma, lung. Lymphoma None. [place] [facility] [place]. . FINDINGS: There is patchy left lower lobe airspace disease. Cardiomegaly. ET tube in satisfactory position. Oss eous structures are intact. CONCLUSION: Left basilar airspace disease. Electronically signed by: Mark Rodriguez MD 05/23/2018 5:20 AM EDT
[2018-05-23] MEDS: Potassium Chloride 25 MEQ Effervescent Tablet PO PRN (07:25)
--- NOTE | 2018-05-23 08:16 | P.PNNPSY ---
- Behavior Intact: Impulsive/agitated - Psychosocial Intact: Psychosocial, Family/other adjustment, Realistic expectation - Progress Notes/Response to Treatment Contents of Sessions: Adjustment, Level of consciousness Time with Patient: 30 minutes Premorbid Psychological Status: Premorbid Cognitive, Emotional and Behavioral Status: Stable. The patient has high school years of education and a solid work history prior to this injury. The patient has no prior psychiatric difficulties, as described above. Substance abuse history includes EtOH. Behavioral Reactions of Patient and Family/Support System: Stable. The patient s family is experiencing ongoing issues of adjustment given the nature of the injury, and this aspect of recovery will require ongoing monitoring. Emotional/Behavioral Status of Patient and Family/Support System: Stable. Pertinent issues, if appropriate to this patients clinical care, are described in detail above. Maximizing Acute Care Outcome: It is recommended that the patient be monitored for emergent behavioral impulsivity as the medical condition evolves. This patients neuropathological challenges may limit rehabilitation potential going forward, and these challenges will require specialized therapeutic skills to maximize outcome. Additionally, the patients family is experiencing ongoing issues of adjustment given the traumatic nature of the injury, and they may benefit from ongoing psychological assistance. At this point in the recovery process, the patient does not have cognitive capacity as the patient is unable to understand a situation and its likely consequences, nor is the patient able to manipulate information rationally. Cognitive capacity will be assessed throughout the recovery process. Anticipated Problems: Ongoing areas of concern will include behavioral impulsivity, lack of insight and judgment, which is expected to improve with time and treatment. Presently , the patient is critically ill. Treatment Plan: This clinician will continue to follow with you throughout the course of this patients critical care treatment, and I will be available to meet with the patients family/support system to facilitate their understanding and the ongoing care of their family member. The goals of neuropsychological intervention shall be both educational and supportive to the family/support system as is deemed clinically appropriate. 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 Progress Note Narrative: PTD 12. The patient is neurobehaviorally unchanged. She remains Rancho II. No agitation/restlessness. She will need a trach. I will follow. - Diagnosis (1) Major neurocognitive disorder Status: Acute
[2018-05-23] MEDS: Chlorhexidine 0.12% Oral Kit 15 ML UDC OROPHARYNG SCH ×2 (08:53→20:04)
[2018-05-23] MEDS: Beneprotein Powder Packet G-TUBE SCH ×3 (08:54→17:29)
[2018-05-23] MEDS: Desmopressin Inj 4 MCG/ML Ampul SQ SCH (08:55)
[2018-05-23] MEDS: Hypromellose 0.3% Opth Gel 10 GM Bottle EACH EYE SCH ×2 (08:56→20:03)
[2018-05-23] MEDS: Metoprolol Tartrate 50 MG Tablet PO SCH ×2 (08:56→20:04)
[2018-05-23] MEDS: Polyethylene Glycol 3350 17 GM Packet PO SCH (08:56)
[2018-05-23] MEDS: Senna/Docusate Sodium 8.6/50 MG Tablet PO SCH ×2 (08:57→20:03)
[2018-05-23] MEDS: Lisinopril 10 MG Tablet PO SCH ×2 (08:57→20:03)
--- NOTE | 2018-05-23 10:31 | P.PNGI ---
Subjective Interval history: Pt not on sedation, unresponsive. Mechanically ventilated via ETT. PEG site clean and dry with gauze covering. PEG clamped. Her husbands sister is at bedside. <Milena Marshall - Last Filed: 05/23/18 10:28> Physical Exam Vital signs: Vital Signs 05/22/18 12:00 05/22/18 13:29 05/22/18 14:00 Temperature 100.4 F H Pulse Rate 71 71 Respiratory Rate 15 Blood Pressure 122/58 L Pulse Oximetry 99 100 05/22/18 16:00 05/22/18 17:37 05/22/18 18:00 Temperature 99.3 F Pulse Rate 96 H 84 Respiratory Rate 18 17 Blood Pressure 112/54 L Pulse Oximetry 100 100 05/22/18 19:53 05/22/18 20:00 05/22/18 22:00 Temperature 99.3 F Pulse Rate 75 72 Respiratory Rate 15 15 Blood Pressure 142/64 H Pulse Oximetry 95 97 05/23/18 00:00 05/23/18 01:20 05/23/18 02:00 Temperature 99.4 F Pulse Rate 72 84 Respiratory Rate 25 H 17 Blood Pressure 135/79 Pulse Oximetry 99 98 05/23/18 04:00 05/23/18 04:40 05/23/18 06:00 Temperature 99.3 F Pulse Rate 72 72 Respiratory Rate 17 15 Blood Pressure 151/73 H Pulse Oximetry 96 97 05/23/18 08:00 05/23/18 09:00 Temperature 99.2 F Pulse Rate 74 Respiratory Rate 15 Blood Pressure 111/56 L Pulse Oximetry 97 Intake & Output 05/22/18 05/23/18 05/23/18 18:59 06:59 18:59 Intake Total 1470 / 1470 Output Total 950 / 950 550 / 550 Balance 520 / 520 -550 / -550 Weight 50 kg Intake: IV 1250 / 1250 Tube Feeding 0 / 0 Tube Irrigant 120 / 120 Anesthesia Amount 100 / 100 Output: Urine 550 / 550 Urine Amount (Catheter) 950 / 950 Indwelling Urethral Catheter 950 / 950 Other: Date of Last Bowel Movement 05/22/18 05/22/18 05/22/18 # Incontinent Bowel Movements 3 Weight On Admission 52.3 kg - Routine Respiratory Exam Present: patient mechanically ventilated - Routine Abdominal Exam Present: soft, normoactive bowel sounds. Absent: distended Comments: PEG clamped, site is clean and dry - Urinary Catheter Management Indwelling Urethral Catheter Cath placed during this visit: yes Reason for continuing: Hourly intake/output Insertion date: 05/11/18 Insertion time: 12:00 <Milena Marshall - Last Filed: 05/23/18 10:28> Vital signs: Vital Signs 05/22/18 18:00 05/22/18 19:53 05/22/18 20:00 Temperature 99.3 F Pulse Rate 84 75 Respiratory Rate 15 15 Blood Pressure 142/64 H Pulse Oximetry 95 97 05/22/18 22:00 05/23/18 00:00 05/23/18 01:20 Temperature 99.4 F Pulse Rate 72 72 Respiratory Rate 25 H 17 Blood Pressure 135/79 Pulse Oximetry 99 98 05/23/18 02:00 05/23/18 04:00 05/23/18 04:40 Temperature 99.3 F Pulse Rate 84 72 Respiratory Rate 17 15 Blood Pressure 151/73 H Pulse Oximetry 96 97 05/23/18 06:00 05/23/18 08:00 05/23/18 09:00 Temperature 99.2 F Pulse Rate 72 74 Respiratory Rate 15 Blood Pressure 111/56 L Pulse Oximetry 97 05/23/18 10:00 05/23/18 12:00 05/23/18 13:54 Temperature 99.0 F Pulse Rate 80 60 Respiratory Rate 15 Blood Pressure 124/58 L Pulse Oximetry 100 Intake & Output 05/22/18 05/23/18 05/23/18 18:59 06:59 18:59 Intake Total 1470 / 1470 100 / 100 Output Total 950 / 950 550 / 550 Balance 520 / 520 -450 / -450 Weight 50 kg Intake: IV 1250 / 1250 100 / 100 Tube Feeding 0 / 0 Tube Irrigant 120 / 120 Anesthesia Amount 100 / 100 Output: Urine 550 / 550 Urine Amount (Catheter) 950 / 950 Indwelling Urethral Catheter 950 / 950 Other: Date of Last Bowel Movement 05/22/18 05/22/18 05/22/18 # Incontinent Bowel Movements 3 Weight On Admission 52.3 kg - Urinary Catheter Management Indwelling Urethral Catheter Cath placed during this visit: no <Jenny Espino - Last Filed: 05/23/18 17:43> Results - Labs CBC & Chem 7: 05/23/18 03:55 05/23/18 03:55 Laboratory Results - last 24 hr 05/23/18 05/23/18 03:55 03:55 WBC 23.4 H RBC 3.13 L Hgb 10.1 L Hct 29.1 L MCV 93.1 MCH 32.1 MCHC 34.5 RDW 18.2 H Plt Count 596 H MPV 7.7 Neut % (Auto) 91.9 H Lymph % (Auto) 3.5 L [place] % (Auto) 4.1 Eos % (Auto) 0.4 Baso % (Auto) 0.1 Neut # (Auto) 21.4 H Lymph # (Auto) 0.8 L [place] # (Auto) 1.0 H Eos # (Auto) 0.1 Baso # (Auto) 0.0 WBC Differential . Differential Comment Auto diff final Sodium 138 Potassium 3.2 L Chloride 103 Carbon Dioxide 24.9 Anion Gap 10 BUN 11 Creatinine 0.27 L Estimated GFR Greater than 89 Random Glucose 91 Calcium 9.2 Total Bilirubin 0.7 AST 25 ALT 37 Alkaline Phosphatase 401 H Total Protein 7.1 Albumin 2.4 L - Imaging Impressions Chest X-Ray 05/23/18 06:00 CONCLUSION: Left basilar airspace disease. <Milena Marshall - Last Filed: 05/23/18 10:28> - Labs CBC & Chem 7: 05/23/18 03:55 05/23/18 03:55 Laboratory Results - last 24 hr 05/23/18 05/23/18 03:55 03:55 WBC 23.4 H RBC 3.13 L Hgb 10.1 L Hct 29.1 L MCV 93.1 MCH 32.1 MCHC 34.5 RDW 18.2 H Plt Count 596 H MPV 7.7 Neut % (Auto) 91.9 H Lymph % (Auto) 3.5 L [place] % (Auto) 4.1 Eos % (Auto) 0.4 Baso % (Auto) 0.1 Neut # (Auto) 21.4 H Lymph # (Auto) 0.8 L [place] # (Auto) 1.0 H Eos # (Auto) 0.1 Baso # (Auto) 0.0 WBC Differential . Differential Comment Auto diff final Sodium 138 Potassium 3.2 L Chloride 103 Carbon Dioxide 24.9 Anion Gap 10 BUN 11 Creatinine 0.27 L Estimated GFR Greater than 89 Random Glucose 91 Calcium 9.2 Total Bilirubin 0.7 AST 25 ALT 37 Alkaline Phosphatase 401 H Total Protein 7.1 Albumin 2.4 L - Imaging Impressions Chest X-Ray 05/23/18 06:00 CONCLUSION: Left basilar airspace disease. <Jenny Espino - Last Filed: 05/23/18 17:43> Assessment and Plan - Plan Assessment: - ETOH abuse who was brought in by EMS after being found unresponsive after a fall at home. Massive left subdural hematoma with severe mass effect and midline shift S/P emergent right decompressive craniectomy with evacuation of hematoma. Initially our service was consulted for drop in hgb in the setting of ETOH abuse and pt noted to be taking a lot of Ibuprofen with history of gastric ulcer. EGD noted in records from December [address] Dubon --> Two gastric ulcers 5- 9 mm in size S/P submucosal epi. 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 Our service signed off because there was no evidence of active GIB and pt was noted to be too unstable for GI procedures RECONSULT 05/21 for PEG placement Pt off sedation, no response at this time. Has been unable to be weaned from the vent, surgery is planning on tracheostomy. Discussed with Avila, agreeable to proceed with PEG. Not on blood thinners- pt had IVC filter placed today by IR (05/22) Pt S/P EGD with PEG yesterday --> Esophagitis in the distal esophagus, biopsy. Successful placement of PEG. PEG site clamped, clean and dry with no active drainage. Planned for tracheostomy today Plan: EGD biopsy pending Protonix NPO for tracheostomy today After procedure OK for Jevity 1.5 with goal rate 45 mL/hr Flush PEG q 6hrs and after every feeding and medication administration Our service will sign off, please reconsult as needed Pt has been seen and examined by myself and Dr. Espino and this note is written on her behalf <Milena Marshall - Last Filed: 05/23/18 10:28> - Attending Attestation agree with above <Jenny Espino - Last Filed: 05/23/18 17:43>
[2018-05-23] MEDS: Pantoprazole Inj 40 MG Vial IV.PUSH SCH (10:32)
--- NOTE | 2018-05-23 11:10 | P.DIET ---
Nutritional Evaluation Type of nutrition evaluation: follow-up Nutrition consult regarding: Tube Feeding Subjective Subjective Comments: Pt s/p PEG placement on 05/22, trach today. Pt remains NPO. Objective - Diagnosis Intracranial Hemorrhage, herniation, intubated - Objective % IBW: 105 (IBW = 105#) Body Weight Used for Calculations: Actual (54.5 kg) Energy Needs - Lower Range (kCal/kg): 25 Energy Needs - Upper Range (kCal/kg): 30 Lower Limit kCal/kg (kCals): 1,363 Upper Limit kCal/kg (kCals): 1,635 Lower Limit Protein Factor (Grams per Kg): 1.0 Upper Limit Protein Factor (Grams per Kg): 1.5 Lower Protein Needs (Protein): 55 Upper Protein Needs (Protein): 82 Dietitian Reviewed in Medical Record: Curent medications, Intake & Output, Labs , Tube feeding Diet Order: NPO Objective Comments: Meds: Vitamin B12, Beneprotein 1pkt TID LBM 05/22 05/22 s/p EGD & PEG placement, EGD showed esophagitis Trach planned for today per EMR Feeding - Current Tube Feeding Tube Feeding Product: Jevity 1.5 Tube Feeding Method: Pump Tube Feeding Rate: 45 Tube Feeding Route: gastrostomy Current kCals Provided by Tube Feedin,440 Current Protein Provided by Tube Feeding (gPRO): 61 Current Free H2O Provided (m/l): 730 Assessment Assessment: Pt is s/p PEG tube placement yesterday. Tracheostomy planned for today per review of EMR. 05/21 [facility]OC[facility] note reviewed, no pressure injuries reported. For PEG tube feedings, continue Jevity 1.5 @ 45mls/hr w/ 1pkt Beneprotein TID. Beneprotein TID will provide an additional 18g PRO daily. Dietitian following. Recommendations: 1. Continue Jevity 1.5 @ 45mls/hr with 1pkt Beneprotein TID. Dietitian to Monitor: Lab values, Intake & Output, Tube feeding tolerance, Weight change, Medical course
[2018-05-23] MEDS ORDERED: Midazolam Inj 5 MG/ML 1 ML Vial ONE (14:08)
[2018-05-23] MEDS ORDERED: Propofol Inj 500 MG/50 ML Vial ONE (14:08)
--- NOTE | 2018-05-23 14:52 | P.PCN ---
Date of procedure: 05/23/18 Pre-op diagnosis: resp failure, unable to wean Post-op diagnosis: same Procedure: Operation:Time out performed and suitable patient identification accomplished. The patient is orotracheally intubated and on controlled rate mechanical ventilation. ICU invasive monitoring are in place. Sedation administered by the operative team, see separate tracheostomy note. The flexible Ambu, digital bronchoscope was delivered through a sealed side-port in the ventilator circuit near the endotracheal tube. The tracheobronchial tree was inspected and found to be clear, normal in appearance without edema or inflammation. There was moderate amount of secretions. At this point the endotracheal tube and bronchoscope were withdrawn to the level of the cricoid cartilage. This location was used to visualize the percutaneous tracheostomy procedure performed by Dr. Johnston. Following the insertion of the percutaneous tracheostomy tube the bronchoscope was immediately delivered through the new tracheostomy tube and confirmed position in the mid trachea safely above the jason, moderate amount of secretions suctioned out from RLL, BAL specimen collected. Inner cannula was placed and mechanical ventilation was once again accomplished with good return of mechanical breath volumes. Bilateral breath sounds were auscultated. Oxygen saturation remained greater than 95% throughout the procedure. Surgeon: Napoleon Alonzo Estimated blood loss (mL): 0 Pathology: other (BAL from RLL) Condition: critical Disposition: ICU
--- NOTE | 2018-05-23 15:39 | MP ---
cc: Lisa Johnston MD DATE OF OPERATION: 05/23/2018 DATE OF SURGERY: 05/23/2018. PREOPERATIVE DIAGNOSIS: Respiratory failure, traumatic brain injury. POSTOPERATIVE DIAGNOSIS: Respiratory failure, traumatic brain injury. PROCEDURE PERFORMED: Tracheostomy with Blue Rhino and bronchoscopy. SURGEON: MD Preston BRONCHOSCOPY PERFORMED BY: Napoleon Alonzo MD ANESTHESIA: General anesthesia, 1% Xylocaine, Versed and propofol. ESTIMATED BLOOD LOSS: 5 mL. DESCRIPTION OF PROCEDURE: The patient is prepped and draped in the usual fashion and the area infiltrated with 1% Xylocaine. A vertical incision made in the anterior neck just above the sternal notch. The distal end is deepened with a hemostat to the level of the trachea and then Angiocath is inserted between second and third tracheal ring and this is now followed with the bronchoscope from above. Endotracheal tube is withdrawn sufficiently to accomplish. Through the Angiocath a guidewire is inserted down and then, over the guidewire, a punch dilator and the Blue Rhino dilators are placed, followed by the 8 Shiley tracheal cannula. This is sutured in place with 2-0 Prolene. The cannula is connected to the ventilator, end tidal CO2 checked and then the cannula secured around the neck with umbilical tape. The patient tolerated the procedure well. MD HYACINTH Martinez/ABRIL , 03:10 PM , 03:18 PM
--- NOTE | 2018-05-23 16:51 | P.PNNS ---
Subjective Interval history: Pt reportedly starting to follow commands on left side. Right pupil 3mm left 2.5mm reactive bilaterally. Off sedation. Intubated. <Emanuel King - Last Filed: 05/23/18 16:38> Physical Exam Vital signs: Vital Signs 05/22/18 17:37 05/22/18 18:00 05/22/18 19:53 Temperature Pulse Rate 84 Respiratory Rate 17 15 Blood Pressure Pulse Oximetry 100 95 05/22/18 20:00 05/22/18 22:00 05/23/18 00:00 Temperature 99.3 F 99.4 F Pulse Rate 75 72 72 Respiratory Rate 15 25 H Blood Pressure 142/64 H 135/79 Pulse Oximetry 97 99 05/23/18 01:20 05/23/18 02:00 05/23/18 04:00 Temperature 99.3 F Pulse Rate 84 72 Respiratory Rate 17 17 Blood Pressure 151/73 H Pulse Oximetry 98 96 05/23/18 04:40 05/23/18 06:00 05/23/18 08:00 Temperature 99.2 F Pulse Rate 72 74 Respiratory Rate 15 Blood Pressure 111/56 L Pulse Oximetry 97 05/23/18 09:00 05/23/18 10:00 05/23/18 12:00 Temperature 99.0 F Pulse Rate 80 60 Respiratory Rate 15 Blood Pressure 124/58 L Pulse Oximetry 97 05/23/18 13:54 Temperature Pulse Rate Respiratory Rate 15 Blood Pressure Pulse Oximetry 100 Intake & Output 05/22/18 05/23/18 05/23/18 18:59 06:59 18:59 Intake Total 1470 / 1470 100 / 100 Output Total 950 / 950 550 / 550 Balance 520 / 520 -450 / -450 Weight 50 kg Intake: IV 1250 / 1250 100 / 100 Tube Feeding 0 / 0 Tube Irrigant 120 / 120 Anesthesia Amount 100 / 100 Output: Urine 550 / 550 Urine Amount (Catheter) 950 / 950 Indwelling Urethral Catheter 950 / 950 Other: Date of Last Bowel Movement 05/22/18 05/22/18 05/22/18 # Incontinent Bowel Movements 3 Weight On Admission 52.3 kg - Constitutional no acute distress - Routine HEENT Exam Head: Absent: atraumatic (Right craniotomy site clean and dry.) Eye: Absent: PERRL (right pupil 3mm left 2.5mm.), conjunctival icterus ENT: Absent: oropharynx clear (ET intubated.) - Routine Neck Exam Present: trachea midline - Routine Respiratory Exam Present: patient mechanically ventilated, CTA bilaterally. Absent: respiratory distress Comments: RN reports copious amounts of secretions. - Routine Cardiovascular Exam Present: RRR, S1, S2. Absent: murmur - Routine Abdominal Exam Present: soft, normoactive bowel sounds. Absent: distended - Routine Skin Exam Absent: cyanosis, erythema Comments: Right craniotomy site clean and dry without signs of infection or complication. - Routine Neurological Exam Present: motor deficit (Right side weaker than left.), altered mental status. Absent: alert - Detailed Neurological Exam: Coma Scale Eye Opening: None Verbal Response: None Motor Response: Obey commands (Intermittently for RN.) [place] Coma Scale Total: 8 - Routine Psychiatric Exam Present: unable to assess - Urinary Catheter Management Indwelling Urethral Catheter Cath placed during this visit: yes Reason for continuing: Hourly intake/output Insertion date: 05/11/18 Insertion time: 12:00 <Emanuel King - Last Filed: 05/23/18 16:38> Vital signs: Vital Signs 05/23/18 10:00 05/23/18 12:00 05/23/18 13:54 Temperature 99.0 F Pulse Rate 80 60 Respiratory Rate 15 Blood Pressure 124/58 L Pulse Oximetry 100 05/23/18 14:00 05/23/18 16:00 05/23/18 18:02 Temperature 98.7 F Pulse Rate 62 74 74 Respiratory Rate Blood Pressure 165/75 H Pulse Oximetry 05/23/18 18:32 05/23/18 20:00 05/23/18 22:00 Temperature 99.2 F Pulse Rate 65 67 Respiratory Rate 15 Blood Pressure 144/65 H Pulse Oximetry 100 05/23/18 22:10 05/24/18 00:00 05/24/18 01:10 Temperature 99.1 F Pulse Rate 84 Respiratory Rate 16 15 16 Blood Pressure 165/75 H Pulse Oximetry 97 97 05/24/18 02:00 05/24/18 04:00 05/24/18 04:20 Temperature 99.2 F Pulse Rate 82 81 Respiratory Rate 15 15 Blood Pressure 149/67 H Pulse Oximetry 98 05/24/18 06:00 05/24/18 08:00 Temperature Pulse Rate 67 Respiratory Rate Blood Pressure Pulse Oximetry 97 Intake & Output 05/23/18 05/24/18 05/24/18 18:59 06:59 18:59 Intake Total 487.5 / 487.5 943.5 / 943.5 Output Total 450 / 450 460 / 460 Balance 37.5 / 37.5 483.5 / 483.5 Weight 47.4 kg Intake: IV 307.5 / 307.5 307.5 / 307.5 Zosyn 3.375 GM Premix 50 ML @ 50 / 50 50 / 50 100 mls/hr IV.SIG Q8H CARLOS Rx#: [id number] Vancomycin Inj 750 MG In NS Inj 257.5 / 257.5 257.5 / 257.5 250 ML @ 257.5 mls/hr IV.SIG Q12H CARLOS Rx#:[id number] Tube Feeding 60 / 60 456 / 456 Tube Irrigant 120 / 120 180 / 180 Output: Urine Amount (Catheter) 450 / 450 460 / 460 Indwelling Temp Sensing 450 / 450 460 / 460 Catheter Other: Date of Last Bowel Movement 05/22/18 05/22/18 - Urinary Catheter Management Indwelling Urethral Catheter Cath placed during this visit: no <Robbie Hayes - Last Filed: 05/24/18 09:43> Assessment and Plan - Assessment (1) ICH (intracerebral hemorrhage) Code(s): I61.9 - Nontraumatic intracerebral hemorrhage, unspecified Status: Acute (2) Endotracheally intubated Code(s): Z97.8 - Presence of other specified devices Status: Acute (3) Major neurocognitive disorder Code(s): F01.50 - Vascular dementia without behavioral disturbance Status: Acute (4) Pain Code(s): R52 - Pain, unspecified Status: Acute (5) Dyspnea Code(s): R06.00 - Dyspnea, unspecified Status: Acute (6) Subdural hematoma Code(s): S06.5X9A - Traumatic subdural hemorrhage with loss of consciousness of unspecified duration, initial encounter Status: Acute (7) Respiratory failure Code(s): J96.90 - Respiratory failure, unspecified, unspecified whether with hypoxia or hypercapnia Status: Acute (8) CVA (cerebral vascular accident) Code(s): I63.9 - Cerebral infarction, unspecified Status: Acute - Plan Impression: 62 y/o female with large right subdural hematoma with severe mass effect and midline shift, s/p emergent right decompressive craniectomy with evacuation of subdural hematoma, Follow-up CT scan 05/19/2018 reveals development of a subacute appearing subgaleal hematoma right frontoparietal region at the craniectomy site. Relatively mild mass-effect. Neurologic exam stable compared to the past couple of days. There is increasing decreased attenuation, probable developing encephalomalacia in the mid pontine region adjacent to the previous known hemorrhage. Plan: Continue observation in regards to the right subgaleal hematoma. cont critical care mgt per trauma team continue neuro checks Pulmonary: aggressive pulmonary toilette, nasotracheal suction, and breathing treatments with nebulizers. Daily PT and OT Renal: Continue to monitor closely urine output, BUN and creatinine Endocrine: Continue to Monitor serial Acu checks and SSI as needed in detail Questionable diabetes insipidus. ID continue to monitor for signs of infection Continue Protonix for stress ulcer prophylaxis Continue James hose and SCD's for DVT prophylaxis Palliative care assisting <Emanuel King - Last Filed: 05/23/18 16:38> - Attending Attestation The exam, history, and the medical decision-making described in the above note were completed with the assistance of the mid-level provider. I reviewed and agree with the findings presented. I attest that I had a [id number] encounter with the patient on the same day, and personally performed and documented my assessment and findings in the medical record. <Robbie Hayes - Last Filed: 05/24/18 09:43>
[2018-05-23] MEDS: Piperacil/Tazo 3.375 GM Premix 50 ML IV.SIG SCH (17:29)
[2018-05-23] MEDS: Vancomycin Inj 750 MG in Sodium Chlor 0.9% Inj 250 ML IV.SIG SCH (17:29)
--- NOTE | 2018-05-23 18:00 | P.PNCC ---
Subjective Brief History: 62-year-old female with repeated falls who fell the day before admission and then again that the day of admission and at this point could not be resuscitated and awoken. She was brought to emergency room with Elza Coma Scale of 4 intubated and ventilated with bilateral dilated pupils On the workup she was found to have a huge right subdural hematoma with a left shift for which she underwent emergency craniectomy by Dr. Abad Patient was placed in ICU for further care and patient was managed expertly by Dr. Olvera and Dr. Joshi. Patient is now being transferred to the surgical critical care service. It should be noted that according to her patient has fallen multiple times in the past Past medical history is that of lymphoma and lung carcinoma 24 Hour Review/Hospital Course: 05/14/2018 For the last 24 hours patient has been in the ICU neurologically unchanged. Drainage from the right subdural hematoma has decreased. At this point Elza Coma Scale is 3T. 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 Bilateral breath sounds patient remains on ventilatory support with good PO2 FiO2 gradient Renal function is preserved I have discussed care at length with her who is a very nice gentleman and understands the implications of this severe injury. At this point with a new finding of hemorrhagic bleed into mesencephalon prognosis may be worse and therefore we should probably give it a few days to see which way this goes Repeat CT scan will be done on Sunday and then we can see if patient is blossoming this bleed or it is receding and then compared it to the neurologic status. 05/15 She is clinically essentially unchanged-GCS remains low CT scan of the head has been planned for Sunday In the meantime we will continue blood pressure control and neuroprotective measure patient is on tube feeds as well PF ratio is adequate renal function is preserved palliative care is involved Neurology consult will be obtained 05/16/2018 Patient's clinical exam remains stable Her blood pressure medications have been adjusted and seem to have better control She is moving her left spontaneously no movement on the right Appreciate palliative care input 05/17/2018 Clinically the patient is stable with no improvement in her exam, she moves her left upper extremity spontaneously Increasing Lopressor for blood pressure control and adding Cardene until it is better controlled Prognosis remains grim for meaningful recovery 05/18/2018 Today she is not moving left upper extremity spontaneously she has had normal posturing to stimulation and becomes hypertensive with any stimulation P.o. Lopressor seems to have controlled her blood pressure better There seems to have been a misunderstanding between the and nursing staff today. He seems to understand that everyone's focus should be on his , that her blood pressure and heart rate do increase briefly with stimulation, and that the nurses and physicians are in constant contact regarding her care. 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 05/19/2018 There is no change in the patients clinical exam although her most recent head CT shows increased subdural hematoma she is following commands with her left upper extremity Patient will require tracheostomy and PEG placement but given the worsening subdural hematoma, will defer until stable and safe to do so 05/20/2018 Patient dropped her hemoglobin overnight, likely dilutional and associated with multiple blood draws during her stay We will monitor stool for melena or hematochezia, none identified, no bloody NG tube residuals Continue blood pressure management, H&H post transfusion Continue current ICU management, IVC filter ordered today due to the inability to chemically prophylax her 05/21/2018 Neurologically patient is slightly improved apparently moving more her left arm and left leg and opening her eyes Based on this improvement would like to proceed with full-court press as far as further care is concerned Gradually weaning down the sedation and will allow patient to slowly wake up Hemodynamically patient is stable however blood pressure has been somewhat labile. As noted several days ago patient was hypertensive and then throughout the night apparently systolic blood pressure went around 100 mmHg. Will readjust the antihypertensives for majority of neuro traumatic injuries will initially presented with hypertension and as the injury is slowly resolved normotensive state is achieved and antihypertensives have to be readjusted and decreased Bilateral breath sounds remains on assist control ventilation Patient will undergo tracheostomy on and after that we will give her CPAP trials and see how she does Provided good pulmonary function and mechanics patient should come off the respirator despite low neurologic status once tracheostomy in place Abdomen is soft patient will receive a PEG She remains anemic due to frequent blood draws and depending on which way the hemoglobin goes I may transfuse patient 1 unit PRBC I discussed care with family at length 05/22/2018 No change in neurologic status patient is moving left side appears to be occasionally following commands but this is more something nurses see I am not seen at Hemodynamically stable Bilateral breath sounds on assist control ventilation good PO2 FiO2 gradient Concerned about sudden leukocytosis/will culture patient For tracheostomy tomorrow Abdomen soft active bowel sounds for PEG today Renal function well-preserved 05/23/2019 Patient is moving all 4 extremities and apparently was following some commands this morning Patient is not opening eyes or tracking Hemodynamically stable Bilateral good breath sounds with some consolidation in lower lobes consistent with atelectasis Good PO2 FiO2 gradient and patient moving air well Due to low level of consciousness of course patient cannot be extubated other from the ventilator as it is so she will have tracheostomy today Patient will be started on CPAP trials and then T-piece to be from the ventilator Abdomen soft PEG in place Patient can transfer to LTAC for further care when bed available Objective Vital Signs / I&O: Vital Signs 05/22/18 18:00 05/22/18 19:53 05/22/18 20:00 Temperature 99.3 F Pulse Rate 84 75 Respiratory Rate 15 15 Blood Pressure 142/64 H Pulse Oximetry 95 97 05/22/18 22:00 05/23/18 00:00 05/23/18 01:20 Temperature 99.4 F Pulse Rate 72 72 Respiratory Rate 25 H 17 Blood Pressure 135/79 Pulse Oximetry 99 98 05/23/18 02:00 05/23/18 04:00 05/23/18 04:40 Temperature 99.3 F Pulse Rate 84 72 Respiratory Rate 17 15 Blood Pressure 151/73 H Pulse Oximetry 96 97 05/23/18 06:00 05/23/18 08:00 05/23/18 09:00 Temperature 99.2 F Pulse Rate 72 74 Respiratory Rate 15 Blood Pressure 111/56 L Pulse Oximetry 97 05/23/18 10:00 05/23/18 12:00 05/23/18 13:54 Temperature 99.0 F Pulse Rate 80 60 Respiratory Rate 15 Blood Pressure 124/58 L Pulse Oximetry 100 Intake & Output 05/22/18 05/23/18 05/23/18 18:59 06:59 18:59 Intake Total 1470 / 1470 100 / 100 Output Total 950 / 950 550 / 550 Balance 520 / 520 -450 / -450 Weight 50 kg Intake: IV 1250 / 1250 100 / 100 Tube Feeding 0 / 0 Tube Irrigant 120 / 120 Anesthesia Amount 100 / 100 Output: Urine 550 / 550 Urine Amount (Catheter) 950 / 950 Indwelling Urethral Catheter 950 / 950 Other: Date of Last Bowel Movement 05/22/18 05/22/18 05/22/18 # Incontinent Bowel Movements 3 Weight On Admission 52.3 kg Result Diagrams: 05/23/18 03:55 05/23/18 16:59 Imaging: Impressions Chest X-Ray 05/23/18 06:00 CONCLUSION: Left basilar airspace disease. - Exam LABORATORY COORDINATOR: Patient is moving all 4 extremities and apparently was following some commands this morning Patient is not opening eyes or tracking Hemodynamic/Cardiac: Hemodynamically stable Pulmonary/Respiratory: Bilateral good breath sounds with some consolidation in lower lobes consistent with atelectasis Good PO2 FiO2 gradient and patient moving air well Due to low level of consciousness of course patient cannot be extubated other from the ventilator as it is so she will have tracheostomy today Patient will be started on CPAP trials and then T-piece to be from the ventilator Abdomen/GI Nutrition: Abdomen soft PEG in place Patient can transfer to LTAC for further care when bed available Renal/I&O: Urine output has normalized and concentration of the urine and specific gravity of normal therefore DDAVP has been removed Assessment and Plan Plan: TBI combined with CVA and a history of chronic EtOH abuse Continue to wean sedation, start neuro stimulation package Transfuse 2 units of packed red blood cells for acute blood loss anemia, check posttransfusion H&H Wean ventilator as tolerated, aggressive pulmonary toilet, tracheostomy this week Patient tolerated CPAP very well, but she is at high risk of failure due to her inability to protect her airway Continue nutritional support via feeding tube and use as many p.o. medications as possible, will require PEG placement this week Prognosis remains poor with worsening right subdural hematoma and subfalcine herniation in addition to the midbrain hemorrhagic stroke Plan is for tracheostomy and feeding tube placement when the patient is stable and safe to do so
[2018-05-23 19:59] LABS: Bacteria,Urine Few /hpf; Bilirubin,Urine Negative (Negative); Clarity,Urine Hazy (Clear); Color,Urine Yellow (Yellw/Straw); Glucose,Urine (UA) Negative (Negative); Leukocyte Esterase,Urine Negative (Negative); Mucus,Urine Few /lpf (Occasional); Nitrite,Urine Positive (Negative); Specific Gravity,Urine 1.019 (1.002-1.035)
[2018-05-24] MEDS: Nystatin Liq 500,000 UNIT/5 ML UDC SWISH-SPIT SCH ×3 (00:42→11:52)
[2018-05-24] MEDS: Piperacil/Tazo 3.375 GM Premix 50 ML IV.SIG SCH ×3 (00:42→16:04)
[2018-05-24] MEDS: Oral Hygiene Kit OROPHARYNG SCH ×4 (00:43→16:04)
[2018-05-24] MEDS: Vancomycin Inj 750 MG in Sodium Chlor 0.9% Inj 250 ML IV.SIG SCH ×2 (03:39→16:04)
[2018-05-24 04:04] LABS: Baso # (Auto) 0.2 th/mm3 (0.0-0.2); Baso % (Auto) 1.4 % (0.0-2.0); Eos # (Auto) 0.1 th/mm3 (0.0-0.4); Eos % (Auto) 0.6 % (0.0-4.0); Hematocrit 30.3 % (35.0-46.0); Hemoglobin 10.4 gm/dL (11.6-15.3); Lymph # (Auto) 0.5 th/mm3 (1.0-4.8); Mean Corpuscular HGB Conc 34.3 % (32.0-36.0); Mean Corpuscular Hemoglobin 32.2 pg (27.0-34.0); Mean Corpuscular Volume 93.9 fL (80.0-100.0); Mean Platelet Volume 7.9 fL (7.0-11.0); Mono # (Auto) 0.9 th/mm3 (0.0-0.9); Mono % (Auto) 5.3 % (0.0-8.0); Neut # (Auto) 14.9 th/mm3 (1.8-7.7); Neut % (Auto) 89.7 % (16.0-70.0); Platelet Count 678 th/mm3 (150-450); Red Blood Count 3.23 mil/mm3 (4.00-5.30); Red Cell Distribution Width 17.6 % (11.6-17.2); White Blood Count 16.6 th/mm3 (4.0-11.0)
[2018-05-24 04:18] LABS: Anion Gap 8 meq/L (5-15); Blood Urea Nitrogen 14 mg/dL (7-18); Carbon Dioxide 27.9 meq/L (21.0-32.0); Chloride 104 meq/L (98-107); Glomerular Filtration Rate Greater Than 89 mL/min (>89); Glucose,Random 132 mg/dL (74-106); Magnesium 2.3 mg/dL (1.5-2.5); Phosphorus 3.2 mg/dL (2.5-4.9); Potassium 3.1 meq/L (3.5-5.1); Sodium 140 meq/L (136-145)
[2018-05-24 05:16] LABS: Platelet Morphology Normal (Normal)
--- NOTE | 2018-05-24 08:15 | P.PNNPSY ---
- Psychosocial Intact: Psychosocial, Family/other adjustment, Realistic expectation - Progress Notes/Response to Treatment Contents of Sessions: Adjustment, Level of consciousness Time with Patient: 30 minutes Premorbid Psychological Status: Premorbid Cognitive, Emotional and Behavioral Status: Stable. The patient has high school years of education and a solid work history prior to this injury. The patient has no prior psychiatric difficulties, as described above. Substance abuse history includes EtOH. Behavioral Reactions of Patient and Family/Support System: Stable. The patient s family is experiencing ongoing issues of adjustment given the nature of the injury, and this aspect of recovery will require ongoing monitoring. Emotional/Behavioral Status of Patient and Family/Support System: Stable. Pertinent issues, if appropriate to this patients clinical care, are described in detail above. Maximizing Acute Care Outcome: It is recommended that the patient be monitored for emergent behavioral impulsivity as the medical condition evolves. This patients neuropathological challenges may limit rehabilitation potential going forward, and these challenges will require specialized therapeutic skills to maximize outcome. Additionally, the patients family is experiencing ongoing issues of adjustment given the traumatic nature of the injury, and they may benefit from ongoing psychological assistance. At this point in the recovery process, the patient does not have cognitive capacity as the patient is unable to understand a situation and its likely consequences, nor is the patient able to manipulate information rationally. Cognitive capacity will be assessed throughout the recovery process. Anticipated Problems: Ongoing areas of concern will include behavioral impulsivity, lack of insight and judgment, which is expected to improve with time and treatment. Presently , the patient is critically ill. Treatment Plan: This clinician will continue to follow with you throughout the course of this patients critical care treatment, and I will be available to meet with the patients family/support system to facilitate their understanding and the ongoing care of their family member. The goals of neuropsychological intervention shall be both educational and supportive to the family/support system as is deemed clinically appropriate. [place] COG Scale: Level III Impression: 62 year old woman s/p TBI from multiple causes. Progress Note Narrative: PTD 13. The patient is neurobehaviorally stable, with no issues of agitation/ restlessness. She has a PRN Haldol but has not required such. Once stable, she is to transfer to LTAC. She is Rancho III, as she reportedly follows some commands. I will follow. - Diagnosis (1) Major neurocognitive disorder Status: Acute
[2018-05-24] MEDS ORDERED: Famotidine 20 MG Tablet PO SCH (09:00)
[2018-05-24] MEDS: Chlorhexidine 0.12% Oral Kit 15 ML UDC OROPHARYNG SCH (09:12)
[2018-05-24] MEDS: Hypromellose 0.3% Opth Gel 10 GM Bottle EACH EYE SCH (09:12)
[2018-05-24] MEDS: Beneprotein Powder Packet G-TUBE SCH ×2 (09:12→12:46)
[2018-05-24] MEDS: Metoprolol Tartrate 50 MG Tablet PO SCH (09:13)
[2018-05-24] MEDS: Senna/Docusate Sodium 8.6/50 MG Tablet PO SCH (09:13)
[2018-05-24] MEDS: Lisinopril 10 MG Tablet PO SCH (09:13)
--- NOTE | 2018-05-24 16:07 | P.DS ---
Date of admission: 05/11/18 12:13 Primary care physician: No Primary Care Physician Brief History from admission: S/P Fall DS: Diagnosis - Discharge Diagnosis (1) ICH (intracerebral hemorrhage) Status: Acute (2) Endotracheally intubated Status: Acute (3) Dyspnea Status: Acute (4) Subdural hematoma Status: Acute (5) Respiratory failure Status: Acute (6) CVA (cerebral vascular accident) Status: Acute (7) Encephalopathy Status: Acute DS: Summary Hospital Course: 05/14/2018 For the last 24 hours patient has been in the ICU neurologically unchanged. Drainage from the right subdural hematoma has decreased. At this point Elza Coma Scale is 3T. 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 Bilateral breath sounds patient remains on ventilatory support with good PO2 FiO2 gradient Renal function is preserved I have discussed care at length with her who is a very nice gentleman and understands the implications of this severe injury. At this point with a new finding of hemorrhagic bleed into mesencephalon prognosis may be worse and therefore we should probably give it a few days to see which way this goes Repeat CT scan will be done on Sunday and then we can see if patient is blossoming this bleed or it is receding and then compared it to the neurologic status. 05/15 She is clinically essentially unchanged-GCS remains low CT scan of the head has been planned for Sunday In the meantime we will continue blood pressure control and neuroprotective measure patient is on tube feeds as well PF ratio is adequate renal function is preserved palliative care is involved Neurology consult will be obtained 05/16/2018 Patient's clinical exam remains stable Her blood pressure medications have been adjusted and seem to have better control She is moving her left spontaneously no movement on the right Appreciate palliative care input 05/17/2018 Clinically the patient is stable with no improvement in her exam, she moves her left upper extremity spontaneously Increasing Lopressor for blood pressure control and adding Cardene until it is better controlled Prognosis remains grim for meaningful recovery 05/18/2018 Today she is not moving left upper extremity spontaneously she has had normal posturing to stimulation and becomes hypertensive with any stimulation P.o. Lopressor seems to have controlled her blood pressure better There seems to have been a misunderstanding between the and nursing staff today. He seems to understand that everyone's focus should be on his , that her blood pressure and heart rate do increase briefly with stimulation, and that the nurses and physicians are in constant contact regarding her care. Is a former [employer], his questions and approach may seem blunt which can be taken as offensive by the staff. 05/19/2018 There is no change in the patients clinical exam although her most recent head CT shows increased subdural hematoma she is following commands with her left upper extremity Patient will require tracheostomy and PEG placement but given the worsening subdural hematoma, will defer until stable and safe to do so 05/20/2018 Patient dropped her hemoglobin overnight, likely dilutional and associated with multiple blood draws during her stay We will monitor stool for melena or hematochezia, none identified, no bloody NG tube residuals Continue blood pressure management, H&H post transfusion Continue current ICU management, IVC filter ordered today due to the inability to chemically prophylax her 05/21/2018 Neurologically patient is slightly improved apparently moving more her left arm and left leg and opening her eyes Based on this improvement would like to proceed with full-court press as far as further care is concerned Gradually weaning down the sedation and will allow patient to slowly wake up Hemodynamically patient is stable however blood pressure has been somewhat labile. As noted several days ago patient was hypertensive and then throughout the night apparently systolic blood pressure went around 100 mmHg. Will readjust the antihypertensives for majority of neuro traumatic injuries will initially presented with hypertension and as the injury is slowly resolved normotensive state is achieved and antihypertensives have to be readjusted and decreased Bilateral breath sounds remains on assist control ventilation Patient will undergo tracheostomy on and after that we will give her CPAP trials and see how she does Provided good pulmonary function and mechanics patient should come off the respirator despite low neurologic status once tracheostomy in place Abdomen is soft patient will receive a PEG She remains anemic due to frequent blood draws and depending on which way the hemoglobin goes I may transfuse patient 1 unit PRBC I discussed care with family at length 05/22/2018 No change in neurologic status patient is moving left side appears to be occasionally following commands but this is more something nurses see I am not seen at Hemodynamically stable Bilateral breath sounds on assist control ventilation good PO2 FiO2 gradient Concerned about sudden leukocytosis/will culture patient For tracheostomy tomorrow Abdomen soft active bowel sounds for PEG today Renal function well-preserved 05/23/2018 Patient is moving all 4 extremities and apparently was following some commands this morning Patient is not opening eyes or tracking Hemodynamically stable Bilateral good breath sounds with some consolidation in lower lobes consistent with atelectasis Good PO2 FiO2 gradient and patient moving air well Due to low level of consciousness of course patient cannot be extubated other from the ventilator as it is so she will have tracheostomy today Patient will be started on CPAP trials and then T-piece to be from the ventilator Abdomen soft PEG in place Patient can transfer to LTAC for further care when bed available INJURIES: Large RIGHT subdural w/ subfalcine herniation IPH in the mid-brain PMHX: ETOH abuse. Lung Cancer. Lymphoma. Large RIGHT subdural w/ subfalcine herniation, IPH in the mid-brain Neurosurgery consulted 05/11: RIGHT frontal-temporal decompressive craniectomy, evacuation of acute subdural hematoma. Left frontal bur hole with placement of an intracranial pressure monitor. 05/13: [place] removed 05/16: CT brain- new left occipital lobe infarct 05/19: CT brain- subacute appearing subgaleal hematoma right frontoparietal region at the craniectomy site with mild mass-effect 05/21: IVC filter placement Neuro checks Keppra completed Follows commands on L Palliative care consulted to assist with establishing goals of care Alt code: Intubation only Rehab placement Respiratory failure following trauma 05/11: Intubated 05/22: Panendoscopy with biopsy and PEG placement 05/23: MANAGER SEARCH placement Continue tube feedings: Jevity 1.5 @ 50mL/H Continue CPAP trials as tolerated PRN Duonebs Oral care q4h with Chlorhexidine Fevers, Leukocytosis Started Broad spectrum Abx: IV Vanco and Zosyn 05/23: Urine- gram neg rods 05/23: Sputum- staph, gram neg rods Monitor for sensitivity DC Simmons Lines: 05/22: PEG 05/23: MANAGER SEARCH PIVs Plan of care discussed with INFERTILITY MEDICAL ASSISTANT at bedside. Collaborating Trauma MD agrees with plan. Case management consulted to assist with discharge planning. Patient is clear from Trauma surgery to [facility]. - Time Spent with Patient Total time spent providing and/or coordinating discharge services: Greater than 30 minutes - Quality: VTE Deep Vein Thrombosis/Pulmonary Embolism Present on Admission: No Exam Vital signs: Vital Signs 05/23/18 16:00 05/23/18 18:02 05/23/18 18:32 Temperature 98.7 F Pulse Rate 74 74 Respiratory Rate Blood Pressure 165/75 H Pulse Oximetry 100 05/23/18 20:00 05/23/18 22:00 05/23/18 22:10 Temperature 99.2 F Pulse Rate 65 67 Respiratory Rate 15 16 Blood Pressure 144/65 H Pulse Oximetry 97 05/24/18 00:00 05/24/18 01:10 05/24/18 02:00 Temperature 99.1 F Pulse Rate 84 82 Respiratory Rate 15 16 Blood Pressure 165/75 H Pulse Oximetry 97 05/24/18 04:00 05/24/18 04:20 05/24/18 06:00 Temperature 99.2 F Pulse Rate 81 67 Respiratory Rate 15 15 Blood Pressure 149/67 H Pulse Oximetry 98 05/24/18 08:00 05/24/18 10:00 05/24/18 12:00 Temperature 99.0 F 99.0 F Pulse Rate 86 70 74 Respiratory Rate 17 26 H Blood Pressure 157/71 H 148/68 H Pulse Oximetry 97 05/24/18 14:00 Temperature Pulse Rate 69 Respiratory Rate Blood Pressure Pulse Oximetry Intake & Output 05/23/18 05/24/18 05/24/18 18:59 06:59 18:59 Intake Total 487.5 / 487.5 943.5 / 943.5 50 / 50 Output Total 450 / 450 460 / 460 Balance 37.5 / 37.5 483.5 / 483.5 50 / 50 Weight 47.4 kg Intake: IV 307.5 / 307.5 307.5 / 307.5 50 / 50 Zosyn 3.375 GM Premix 50 ML @ 50 / 50 50 / 50 50 / 50 100 mls/hr IV.SIG Q8H CARLOS Rx#: [id number] Vancomycin Inj 750 MG In NS Inj 257.5 / 257.5 257.5 / 257.5 250 ML @ 257.5 mls/hr IV.SIG Q12H CARLOS Rx#:[id number] Tube Feeding 60 / 60 456 / 456 Tube Irrigant 120 / 120 180 / 180 Output: Urine Amount (Catheter) 450 / 450 460 / 460 Indwelling Temp Sensing 450 / 450 460 / 460 Catheter Other: Date of Last Bowel Movement 05/22/18 05/22/18 05/22/18 Narrative: GENERAL: 62 year old female with MANAGER SEARCH secured to mechanical ventilation. SKIN: Warm and dry. HEAD:Normocephalic. Right craniotomy site clean and dry. PUPILS: 3mm bilaterally and reactive. ENT: No nasal bleeding or discharge. Mucous membranes pink and moist. NECK: Trachea midline. No JVD. MANAGER SEARCH to vent. CARDIOVASCULAR: Regular rate and rhythm. RESPIRATORY: No accessory muscle use. Clear to auscultation. Breath sounds equal bilaterally. GASTROINTESTINAL: Abdomen soft, non-tender, nondistended. + BS. PEG in LUQ. MUSCULOSKELETAL: Extremities without cyanosis, +1 generalized edema. ALEJANDRO spontaneously, + perfused NEUROLOGICAL: Opens eyes to voice. Following commands intermittently on left side. Results Procedures completed during hospitalization: 05/11: RIGHT frontal-temporal decompressive craniectomy, evacuation of acute subdural hematoma. Left frontal bur hole with placement of an intracranial pressure monitor. 05/13: [place] out 05/16: LEFT occipital lobe infarct 05/21: IVC filter placement 05/22: Panendoscopy with biopsy and PEG placement 05/23: MANAGER SEARCH placement Completed studies during hospitalization: Pending at discharge 05/22/18 07:25 Surgical [PTH] Routine Labs on day of discharge: Labs from last 24 hours 05/24/18 05/24/18 05/23/18 03:32 03:32 16:59 WBC 16.6 H RBC 3.23 L Hgb 10.4 L Hct 30.3 L MCV 93.9 MCH 32.2 MCHC 34.3 RDW 17.6 H Plt Count 678 H MPV 7.9 Prelim Diff (Auto) Slide review pending Neut % (Auto) 89.7 H Lymph % (Auto) 3.0 L Terrell % (Auto) 5.3 Eos % (Auto) 0.6 Baso % (Auto) 1.4 Neut # (Auto) 14.9 H Lymph # (Auto) 0.5 L Terrell # (Auto) 0.9 Eos # (Auto) 0.1 Baso # (Auto) 0.2 WBC Differential . Diff Scan Auto diff confirmed Differential Comment . Platelet Estimate High H Platelet Morphology Normal Sodium 140 Potassium 3.1 L 3.5 Chloride 104 Carbon Dioxide 27.9 Anion Gap 8 BUN 14 Creatinine 0.36 L Estimated GFR Greater than 89 Random Glucose 132 H Calcium 9.0 Phosphorus 3.2 Magnesium 2.3 Urine Color Urine Clarity Urine pH Ur Specific [place] Urine Protein Urine Glucose (UA) Urine Ketones Urine Occult Blood Urine Nitrate Urine Bilirubin Urine Urobilinogen Ur Leukocyte Esterase Urine RBC Urine WBC Urine Bacteria Urine Mucus Micro UA Comment Urine Culture Comments 05/23/18 16:00 WBC RBC Hgb Hct MCV MCH MCHC RDW Plt Count MPV Prelim Diff (Auto) Neut % (Auto) Lymph % (Auto) Terrell % (Auto) Eos % (Auto) Baso % (Auto) Neut # (Auto) Lymph # (Auto) Terrell # (Auto) Eos # (Auto) Baso # (Auto) WBC Differential Diff Scan Differential Comment Platelet Estimate Platelet Morphology Sodium Potassium Chloride Carbon Dioxide Anion Gap BUN Creatinine Estimated GFR Random Glucose Calcium Phosphorus Magnesium Urine Color Yellow Urine Clarity Hazy H Urine pH 5.0 Ur Specific [place] 1.019 Urine Protein 100 H Urine Glucose (UA) Negative Urine Ketones 20 Urine Occult Blood Moderate H Urine Nitrate Positive H Urine Bilirubin Negative Urine Urobilinogen Less than 2 Ur Leukocyte Esterase Negative Urine RBC 62 H Urine WBC 37 H Urine Bacteria Few H Urine Mucus Few H Micro UA Comment Cath-culture ind Urine Culture Comments Cath-cult indicated Preliminary micro results at discharge 05/23/18 16:00 Sputum Culture - Preliminary Sputum - Tracheal Aspirate Staphylococcus aureus gram negative rods 05/23/18 16:00 Urine Culture - Preliminary Catheterized Urine gram negative rods - Impressions ITS Impressions Abdomen X-Ray 05/11/18 00:00 CONCLUSION: Unremarkable study. Abdomen/Pelvis CT 05/13/18 08:21 CONCLUSION: 1. Small bilateral pleural effusions, mild body wall edema and trace fluid in the pelvis. 2. Nonobstructing right renal calculus. 3. Atherosclerosis. Head CT 05/19/18 08:00 CONCLUSION: 1. Interval removal of a subdural drainage contrast there with increased size of the subdural hematoma causing increasing mass effect upon the right temporal lobe parietal lobe and slight effacement of the ambient cistern and increasing leftward midline shift. . IVC Filter Placement X-Ray 05/21/18 00:00 CONCLUSION: 1. Uncomplicated inferior vena cava filter placement as above. Chest X-Ray 05/23/18 06:00 CONCLUSION: Left basilar airspace disease. Discharge Plan - Discharge Disposition Patient Disposition: [facility] Inpatient - Discharge Condition Condition: Stable - Discharge Order Discharge Orders: Discharge Order (Routine); Ordered 05/24/18 Ordered By: Roseann Abreu - Discharge Details Anticipated Discharge Date: 05/11/18 - Physicians Team Primary Care Provider: Primary Care Lu Yen Attending Provider: Lisa Johnston Other Providers: Calvin Dubon MD ; Elder Richards MD ; Giorgio Jim MD ; [facility] ; Kartik Kaba MD ; Tammie Murphy ARNP ; Juventino Lafleur MD ; Aye Molina MD ; Lisa Johnston MD ; Roseann Abreu ARNP ; Tanvir Ward, PhD ; Pastor Abad MD ; Sanjana Harmon MD ; Dagmar Cabral MD ; [place] ; Jenny Espino MD ; [facility]
--- NOTE | 2018-05-24 17:24 | P.PNNS ---
Subjective Interval history: No acute events overnight. Physical Exam Vital signs: Vital Signs 05/23/18 18:02 05/23/18 18:32 05/23/18 20:00 Temperature 99.2 F Pulse Rate 74 65 Respiratory Rate 15 Blood Pressure 144/65 H Pulse Oximetry 100 05/23/18 22:00 05/23/18 22:10 05/24/18 00:00 Temperature 99.1 F Pulse Rate 67 84 Respiratory Rate 16 15 Blood Pressure 165/75 H Pulse Oximetry 97 05/24/18 01:10 05/24/18 02:00 05/24/18 04:00 Temperature 99.2 F Pulse Rate 82 81 Respiratory Rate 16 15 Blood Pressure 149/67 H Pulse Oximetry 97 05/24/18 04:20 05/24/18 06:00 05/24/18 08:00 Temperature 99.0 F Pulse Rate 67 86 Respiratory Rate 15 17 Blood Pressure 157/71 H Pulse Oximetry 98 97 05/24/18 10:00 05/24/18 12:00 05/24/18 14:00 Temperature 99.0 F Pulse Rate 70 74 69 Respiratory Rate 26 H Blood Pressure 148/68 H Pulse Oximetry 05/24/18 15:50 Temperature Pulse Rate Respiratory Rate Blood Pressure Pulse Oximetry 99 Intake & Output 05/23/18 05/24/18 05/24/18 18:59 06:59 18:59 Intake Total 487.5 / 487.5 943.5 / 943.5 50 / 50 Output Total 450 / 450 460 / 460 Balance 37.5 / 37.5 483.5 / 483.5 50 / 50 Weight 47.4 kg Intake: IV 307.5 / 307.5 307.5 / 307.5 50 / 50 Zosyn 3.375 GM Premix 50 ML @ 50 / 50 50 / 50 50 / 50 100 mls/hr IV.SIG Q8H CARLOS Rx#: [id number] Vancomycin Inj 750 MG In NS Inj 257.5 / 257.5 257.5 / 257.5 250 ML @ 257.5 mls/hr IV.SIG Q12H CARLOS Rx#:[id number] Tube Feeding 60 / 60 456 / 456 Tube Irrigant 120 / 120 180 / 180 Output: Urine Amount (Catheter) 450 / 450 460 / 460 Indwelling Temp Sensing 450 / 450 460 / 460 Catheter Other: Date of Last Bowel Movement 05/22/18 05/22/18 05/22/18 Narrative: Does not open eyes PERRL Follows simple commands left upper extremity, left lower extremity Trace movement right upper extremity Withdraws right lower extremity Flap soft - Urinary Catheter Management Indwelling Urethral Catheter Cath placed during this visit: yes Reason for continuing: Hourly intake/output Insertion date: 05/11/18 Insertion time: 12:00 Indwelling Temp Sensing Catheter Cath placed during this visit: yes, but has since been removed by the nurse Reason for continuing: Decision to DC catheter Insertion date: 05/23/18 Insertion time: 17:30 Removal date: 05/24/18 Removal time: 12:00 Assessment and Plan - Assessment (1) Subdural hematoma Code(s): S06.5X9A - Traumatic subdural hemorrhage with loss of consciousness of unspecified duration, initial encounter Status: Acute - Plan Impression: 62 y/o female with large right subdural hematoma with severe mass effect and midline shift, s/p emergent right decompressive craniectomy with evacuation of subdural hematoma on 05/11/[address] Abad. Neurologically stable. Plan: Staple removal 05/25/18 (POD #[id number]). Discussed patient's condition with her . He states that she plans [facility] as early as tomorrow.
--- NOTE | 2018-05-27 13:02 | P.DSNP ---
Reason for Referral: The patient is a 62 year old unknown handed female status post traumatic brain injury who initially presented to [facility] on 05/11/2018 after a series of falls and was discovered by family unresponsive with a GCS of 4. Head CT showed large right SDH with left shift and parenchymal hemorrhage in the midbrain. The patient underwent DC. Recently, the patient experienced hypertensive episode and neurological changes, and follow-up CT showed small hemorrhagic infarct in the midbrain and upper trini. This patient is referred for baseline neurobehavioral status examination per trauma protocol to assess cognitive, behavioral and emotional aspects of the injury and to provide treatment recommendations. The patient was medically stable and transferred to [facility] for further treatment at day 14. Past Medical History: Please refer to the patient's history and physical for information concerning the patient's past medical, surgical, and psychiatric histories. Education/Learning History: The patient completed high school years of education. There is no report of learning difficulties, grade repetitions or behavioral difficulties. The patient was retired at the time of her injury. The patient is . The patient lives in [place], [place]. Premorbid Cognitive, Emotional and Behavioral Status: Stable. The patient has high school years of education and a solid work history prior to this injury. The patient has no prior psychiatric difficulties, as described above. Substance abuse history includes EtOH. Behavioral Reactions of Patient and Family/Support System: Stable. The patient s family is experiencing ongoing issues of adjustment given the nature of the injury, and this aspect of recovery will require ongoing monitoring. Emotional/Behavioral Status of Patient and Family/Support System: Stable. Pertinent issues, if appropriate to this patients clinical care, are described in detail above. Treatment Interventions: During the course of their acute care stay, this patient and their family/ support system were provided information concerning the neuropsychological aspects of the injury, education regarding course of recovery, and psychological support in the form of counseling with the person served and the family/support system as documented in the neuropsychology service progress notes, as deemed clinically appropriate. Current, Cognitive, Emotional and Behavioral Status: Stable. This patient has experienced a severe injury, and will be adjusting to significant cognitive , emotional and behavioral challenges going forward. Impression at Discharge: The cognitive and behavioral status of this patient meets criteria for [place] Level II: Generalized response - total assistance; Major Neurocognitive Disorder due to Traumatic Brain Injury, without behavioral disturbance CODE: F02.81) The above listed diagnoses are supported by the following clinical criteria: Major Neurocognitive Disorder: This person demonstrates a significant cognitive decline from a previous level of estimated baseline performance in one or more cognitive domains (complex attention, executive functioning, learning and memory, language, perceptual-motor, or social cognition) based on the patients /informants report, further documented by todays testing results , with these cognitive deficits interfering with the patients independence in everyday activities. Status of Family/Support System Adjustment: Stable. The patients family/ support system will experience ongoing issues of adjustment given the nature of the injury, and this aspect of the patients recovery will require ongoing monitoring. Post Acute Recommendations: It is recommended that the patient continue to be monitored for behavioral impulsivity as they continue to be early in their course of recovery. This patients neuropathological challenges may limit their reintegration into work and family life going forward, and these challenges may require specialized therapeutic skills to maximize outcome. Additionally, the patients family is experiencing ongoing issues of adjustment given the traumatic nature of the injury, and they may benefit from ongoing psychological assistance following their discharge from acute care. Thank you for the opportunity to assist in this patients care. Tanvir Ward, Ph.D., ABPP Board Certified in Clinical Neuropsychology [place] [employer] Professional Psychology [place] Licensed Psychologist #[id number]
== END 2018-05-24 16:40 ==
LOC: NEPC 11:30 → NEDA 12:13 → N03 14:45
PROVIDERS: ADMIT Surgery; ATTEND Surgery
PROC: CRASUBD (ICD-10-PCS; 2018-05-11 12:49)

== ENCOUNTER 2018-12-02 22:16 | Inpatient (IN) ==
[2018-12-02] MEDS ORDERED: Sodium Chlor 0.9% Inj 500 ML IV.SIG ONE (23:00)
--- NOTE | 2018-12-02 23:10 | ED ---
HPI General Chief complaint: Respiratory Symptoms Stated complaint: Medical Time Seen by Provider: 12/02/18 22:43 Source: patient History of Present Illness HPI narrative: The patient is a 63 year old female who presents to the [facility] emergency department with a history of congestion and cough that became progressively worse around 6:30 PM this evening. The patient's reports that she does have an intermittent cough at baseline, however this was much worse than previous. She does have a prior history of aspiration and a past medical history of intracranial hemorrhage status post craniotomy. The patient' s was concerned that over the last week with tube feeds she has vomited twice. He was also concerned that she may have aspirated earlier today. He reports that she does drink small sips of water, suck on ice chips, and occasionally will have ice cream. Otherwise, she is tube fed. 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 The patient attempts to speak and is cooperative with opening her mouth and following simple commands, however she is unintelligible. The patient's history is obtained from reviewing her record and from discussing further with her who is her primary acute care registered nurse. On review of systems otherwise, he denies her having any known recent fevers, neck pain, chest pain, abdominal pain, diarrhea, urinary symptoms, or new neurologic symptoms. She last moved her bowels 5 days ago which is not unusual for her according to him. He has not noticed any change in odor of her urine. Related Data Home Medications Medication Instructions Recorded Confirmed amantadine HCl 150 mg PO BID 08/05/18 12/02/18 cyanocobalamin (vitamin B-12) 1,000 mcg PO DAILY 08/05/18 12/02/18 modafinil 100 mg PO DAILY 08/05/18 12/02/18 baclofen 10 mg PO BID 12/02/18 12/02/18 gabapentin 100 mg PO HS 12/02/18 12/02/18 oxycodone 20 mg PO Q4-6H PRN 12/02/18 12/02/18 trazodone 50 mg PO HS 12/02/18 12/02/18 Allergies Allergy/AdvReac Type Severity Reaction Status Date / Time No Known Allergies Allergy Verified 12/02/18 22:28 Review of Systems ROS: all other systems reviewed are negative PMFSH Medical History Medical History Bone flap displacement (Acute) CVA (cerebrovascular accident) (Acute) Lymphoma (Acute) Surgical History Surgical History Status post craniotomy (Acute) Family History Family History Other Family history unobtainable Social History Social History Substance History: No History of Abuse Second Hand Smoke Exposure: No Smoking Status: Never smoker Tobacco Type: Cigarettes How Often Do You Have a Drink Containing Alcohol: Never Recent Travel in [facility] within the Last 8 Weeks: No Recent Out of Country Travel within the Last 8 Weeks: No Immunization History Tetanus Immunization: <5 Years Exam Const General: cooperative, no acute distress and well developed Nutritional Appearance: thin Orientation: alert and awake HENMT Head: normocephalic and other Nose: no nasal discharge and no epistaxis Mouth: moist mucous membranes Throat: posterior oropharynx normal and uvula midline Eyes Sclera: normal sclerae Pupils: PERRL Neck Neck: no meningeal signs, trachea midline and no JVD Resp Effort & Inspection: no use of accessory muscles Auscultation: no rales, rhonchi, wheezes scattered wheezes and other (The patient has significant upper airway transmission and congestion in the posterior oropharynx noted. Respiratory therapy was contacted for suctioning.) Cardio Rate: regular rate Rhythm: regular rhythm Heart Sounds: no murmurs GI Inspection: non-distended and other (The patient has a feeding tube in place that appears to be in good repair in the left upper quadrant of the abdomen without any signs of erythema edema, or drainage.) Palpation: soft, no hepatosplenomegaly, no guarding, not rigid and nontender Auscultation: normal bowel sounds Back/Spine/Pelvis Back: no CVA tenderness Skin General: dry skin (warm) and other (The patient has a pressure ulcer in place in the right buttock with a clean, dry, and intact bandage in place. The patient's reports that he has been regularly changing the bandage.) Neuro General: alert, awake and other (The patient has garbled speech related to her prior history of stroke with paresis of the right upper and right lower extremity with contractures noted related to her prior hemorrhagic stroke.) Motor: no movement abnormalities noted Extrem General: normal to inspection, no calf tenderness, no clubbing, no cyanosis and no edema Course Initial Documented Vital Signs Temperature 97.8 F 12/02/18 22:24 Pulse Rate 90 12/02/18 22:24 Respiratory Rate 16 12/02/18 22:24 Blood Pressure 141/64 H 12/02/18 22:24 Pulse Oximetry 93 L 12/02/18 22:24 Last Documented Vital Signs Temperature 98.4 F 12/03/18 06:01 Pulse Rate 94 H 12/03/18 07:32 Respiratory Rate 21 12/03/18 07:32 Blood Pressure 206/99 H 12/03/18 07:32 Pulse Oximetry 94 L 12/03/18 07:32 Medical Decision Making MDM Narrative Medical decision making narrative: During the course of the patient's emergency department visit, the patient's history, examination, and differential diagnosis were reviewed with the patient. The patient was placed on a secured entrance monitor with oximetry and frequent blood pressure monitoring. The patient had IV access obtained and blood work sent for analysis. A diagnostic evaluation was started regarding this patient's congestion and shortness of breath noted by her prior to arrival associated with 2 episodes of vomiting her feedings earlier in the week. The patient was initially provided A DuoNeb x1, we will saline of 500 mL bolus x1. Respiratory therapy was consulted for upper airway suctioning. The patient's diagnostic studies are remarkable for a white count of 18.7, hemoglobin 11, platelets 426 with a left shift, neutrophil predominance of 84.5 , PT PTT within normal limits, chemistry is remarkable for sodium of 146, chloride 109, GFR of 85, glucose 121, lactic acid is 0.9, magnesium 2.7, AST is 182, ALT 276, alk phos 473, troponin I is less than 0.02, total protein 8.3, lipase 186. Urinalysis shows signs of UTI. The patient's chest x-ray shows evidence of faint streaky density in both lung bases which may represent atelectasis or early infiltrates. A CT scan of the abdomen and pelvis shows worsening atelectatic changes in the right base with more confluent airspace process posteriorly in the left base. The latter may represent rounded atelectasis or chronic infiltrate. Large amount of stool in the mid and distal portions of the colon could represent an element of constipation. Patient has a gastrostomy tube which appears to be in appropriate position, nonobstructing 2.4 cm calculus in the lower pole of the collecting system of the right kidney. Mild gallbladder distention, nonspecific finding . The patient was started on antibiotic. There is a concern that the is developing an aspiration pneumonia. The patient also has a UTI. The patient's case including history, pertinent physical examination findings, and laboratory studies were discussed with Dr. Becerra. It was agreed that the patient would be admitted to the hospitalist service. The patient's results were discussed with the patient, including the plan of care. I explained that further testing and/ or monitoring is indicated based on the patient's history, examination, and/ or laboratory findings. Therefore, I recommended admission for additional evaluation. The patient expressed understanding and was agreeable with this plan. The patient was admitted to the hospital in stable condition and sent to a bed under the care of the [facility] service. Medical Screen Exam Complete: Yes Emergency Medical Condition: Yes Differential Diagnosis Differential Diagnosis: Aspiration pneumonia, versus upper respiratory infection , versus community-acquired pneumonia Medical Records Medical records reviewed: Yes I reviewed the patient's medical records. Lab Data Lab results reviewed: Yes I reviewed the patient's lab results. Result diagrams: 12/03/18 07:04 12/02/18 23:30 Lab Results 12/02/18 12/02/18 12/02/18 Range/Units 23:30 23:30 23:30 WBC 18.7 H (4.0-11.0) th/mm3 RBC 3.55 L (4.00-5.30) mil/mm3 Hgb 11.0 L (11.6-15.3) gm/dL Hct 33.2 L (35.0-46.0) % MCV 93.3 (80.0-100.0) fL MCH 30.8 (27.0-34.0) pg MCHC 33.0 (32.0-36.0) % RDW 13.5 (11.6-17.2) % Plt Count 426 (150-450) th/mm3 MPV 9.7 (7.0-11.0) fL Neut % (Auto) 84.5 H (16.0-70.0) % Lymph % (Auto) 9.2 (9.0-44.0) % [place] % (Auto) 6.1 (0.0-8.0) % Eos % (Auto) 0.1 (0.0-4.0) % Baso % (Auto) 0.1 (0.0-2.0) % Neut # (Auto) 15.8 H (1.8-7.7) th/mm3 Lymph # (Auto) 1.7 (1.0-4.8) th/mm3 [place] # (Auto) 1.1 H (0.0-0.9) th/mm3 Eos # (Auto) 0.0 (0.0-0.4) th/mm3 Baso # (Auto) 0.0 (0.0-0.2) th/mm3 WBC Differential . Differential Comment Auto diff final PT 10.4 (9.8-11.6) sec INR 1.0 Ratio APTT 28.6 (23.4-31.7) sec Sodium 146 H (136-145) meq/L Potassium 4.0 (3.5-5.1) meq/L Chloride 109 H (98-107) meq/L Carbon Dioxide 29.4 (21.0-32.0) meq/L Anion Gap 8 (5-15) meq/L BUN 18 (7-18) mg/dL Creatinine 0.70 (0.50-1.00) mg/dL Estimated GFR 85 L (>89) mL/min Random Glucose 121 H (74-106) mg/dL Lactic Acid (0.4-2.0) mmol/L Calcium 9.8 (8.5-10.1) mg/dL Magnesium 2.7 H (1.5-2.5) mg/dL Total Bilirubin 0.6 (0.2-1.0) mg/dL AST 182 H (15-37) U/L ALT 276 H (10-53) U/L Alkaline Phosphatase 473 H (45-117) U/L Total Creatine Kinase 73 (26-192) U/L Troponin I Less than 0.02 L (0.02-0.05) ng/mL Total Protein 8.3 H (6.4-8.2) g/dL Albumin 3.6 (3.4-5.0) g/dL Lipase 186 (73-393) U/L Urine Color (Yellw/Straw) Urine Clarity (Clear) Urine pH (5.0-8.5) Ur Specific [place] (1.002-1.035) Urine Protein (Neg-Trace) mg/dL Urine Glucose (UA) (Negative) mg/dL Urine Ketones (Negative) mg/dL Urine Occult Blood (Negative) Urine Nitrate (Negative) Urine Bilirubin (Negative) Urine Urobilinogen (Less than 2) mg/dL Ur Leukocyte Esterase (Negative) Urine RBC (0-3) /hpf Urine WBC (0-5) /hpf Urine WBC Clumps (None) Ur Squamous Epith Cells (0-5) /hpf Urine Bacteria (None) /hpf Hyaline Casts (0-3) /lpf Granular Casts (None) /lpf WBC Casts (None) /lpf Urine Mucus (Occasional) /lpf Micro UA Comment Ur Microscopic Review Urine Culture Comments 12/02/18 12/03/18 12/03/18 Range/Units 23:30 00:00 07:04 WBC 16.3 H (4.0-11.0) th/mm3 RBC 3.26 L (4.00-5.30) mil/mm3 Hgb 10.1 L (11.6-15.3) gm/dL Hct 30.6 L (35.0-46.0) % MCV 93.9 (80.0-100.0) fL MCH 30.9 (27.0-34.0) pg MCHC 32.9 (32.0-36.0) % RDW 13.6 (11.6-17.2) % Plt Count 364 (150-450) th/mm3 MPV 9.5 (7.0-11.0) fL Neut % (Auto) 89.7 H (16.0-70.0) % Lymph % (Auto) 6.1 L (9.0-44.0) % [place] % (Auto) 4.0 (0.0-8.0) % Eos % (Auto) 0.1 (0.0-4.0) % Baso % (Auto) 0.1 (0.0-2.0) % Neut # (Auto) 14.6 H (1.8-7.7) th/mm3 Lymph # (Auto) 1.0 (1.0-4.8) th/mm3 [place] # (Auto) 0.6 (0.0-0.9) th/mm3 Eos # (Auto) 0.0 (0.0-0.4) th/mm3 Baso # (Auto) 0.0 (0.0-0.2) th/mm3 WBC Differential . Differential Comment Auto diff final PT (9.8-11.6) sec INR Ratio APTT (23.4-31.7) sec Sodium (136-145) meq/L Potassium (3.5-5.1) meq/L Chloride (98-107) meq/L Carbon Dioxide (21.0-32.0) meq/L Anion Gap (5-15) meq/L BUN (7-18) mg/dL Creatinine (0.50-1.00) mg/dL Estimated GFR (>89) mL/min Random Glucose (74-106) mg/dL Lactic Acid 0.9 (0.4-2.0) mmol/L Calcium (8.5-10.1) mg/dL Magnesium (1.5-2.5) mg/dL Total Bilirubin (0.2-1.0) mg/dL AST (15-37) U/L ALT (10-53) U/L Alkaline Phosphatase (45-117) U/L Total Creatine Kinase (26-192) U/L Troponin I (0.02-0.05) ng/mL Total Protein (6.4-8.2) g/dL Albumin (3.4-5.0) g/dL Lipase (73-393) U/L Urine Color Yellow (Yellw/Straw) Urine Clarity Cloudy H (Clear) Urine pH 5.0 (5.0-8.5) Ur Specific [place] 1.016 (1.002-1.035) Urine Protein 30 H (Neg-Trace) mg/dL Urine Glucose (UA) Negative (Negative) mg/dL Urine Ketones Negative (Negative) mg/dL Urine Occult Blood Negative (Negative) Urine Nitrate Negative (Negative) Urine Bilirubin Negative (Negative) Urine Urobilinogen Less than 2 (Less than 2) mg/dL Ur Leukocyte Esterase Large H (Negative) Urine RBC 8 H (0-3) /hpf Urine WBC 52 H (0-5) /hpf Urine WBC Clumps Few H (None) Ur Squamous Epith Cells 63 (0-5) /hpf Urine Bacteria Occasional H (None) /hpf Hyaline Casts 19 (0-3) /lpf Granular Casts 2 (None) /lpf WBC Casts 2 (None) /lpf Urine Mucus Few H (Occasional) /lpf Micro UA Comment Cath-culture ind Ur Microscopic Review Not Reportable Urine Culture Comments Cath-cult indicated Imaging Data Radiologist's impression: Chest X-Ray 12/02/18 23:01 CONCLUSION: Faint, streaky density in both lung bases may represent atelectasis or early infiltrates. Abdomen/Pelvis CT 12/03/18 23:46 CONCLUSION: 1. Worsening atelectatic changes in the right base with more confluent airspace process posteriorly in the left base. The latter may represent rounded atelectasis or chronic infiltrate. 2. Large amount stool in the mid and distal portions of the colon could represent an element of constipation. Patient has a gastrostomy tube which appears to be appropriately positioned within the gastric lumen. 3. Nonobstructing 2.4 cm calculus in the lower pole collecting system of the right kidney. 4. Mild gallbladder distention. There is a nonspecific finding and can be seen in periods of extended fasting ECG Data Attestation: I personally reviewed and interpreted this ECG as follows: Interpretation: The patient had an EKG done on arrival. The patient's EKG reveals a sinus rhythm with a sinus arrhythmia, heart rate of 94, QRS duration is 90 ms, QTC [address]-T wave abnormalities are noted. No acute ST segment elevation. Discharge Plan Discharge Disposition Patient Disposition: ED Admit(ED Internal Use Only) Discharge Order Discharge Orders: ED Use Only Admit Order (Routine); Ordered 12/03/18 Ordered By: Chiquis Munoz Discharge Details Diagnosis: Pneumonia, UTI (urinary tract infection) Physicians Team ED Provider: Chiquis Munoz Primary Care Provider: Primary Care Betseyi,Lu Attending Provider: Anjali Quach Discharge Interventions Interventions: Vital Signs Last Done: 12/03/18 06:00 Status ED Status: Admitted Patient
[2018-12-02 23:40] LABS: Baso % (Auto) 0.1 % (0.0-2.0); Eos % (Auto) 0.1 % (0.0-4.0); Hematocrit 33.2 % (35.0-46.0); Lymph # (Auto) 1.7 th/mm3 (1.0-4.8); Lymph % (Auto) 9.2 % (9.0-44.0); Mean Corpuscular Hemoglobin 30.8 pg (27.0-34.0); Mean Corpuscular Volume 93.3 fL (80.0-100.0); Mean Platelet Volume 9.7 fL (7.0-11.0); Mono # (Auto) 1.1 th/mm3 (0.0-0.9); Mono % (Auto) 6.1 % (0.0-8.0); Neut # (Auto) 15.8 th/mm3 (1.8-7.7); Neut % (Auto) 84.5 % (16.0-70.0); Platelet Count 426 th/mm3 (150-450); Red Blood Count 3.55 mil/mm3 (4.00-5.30); Red Cell Distribution Width 13.5 % (11.6-17.2); White Blood Count 18.7 th/mm3 (4.0-11.0)
--- NOTE | 2018-12-02 23:51 | XR ---
EXAM DATE: 12/02/2018 11:22 PM EST AGE/SEX: 63 years / Female INDICATIONS: Fever. Cough. CLINICAL DATA: This is the patient's subsequent encounter. Patient reports that signs and symptoms h ave been present for 3 days and indicates a pain score of Nonresponsive. MEDICAL/SURGICAL HISTORY: Non-responsive. Non-responsive. COMPARISON: [facility] [place], CHEST 1V SINGLE AP, 08/09/2018. . FINDINGS: A single AP view of the chest demonstrates the lungs to be symmetrically aerated with some streaky de nsity in both lung bases. No effusions. Heart size is normal. Dextroscoliosis of the thoracolumbar sp ine. Osseous structures are otherwise intact. Patient has a vena tech IVC filter. CONCLUSION: Faint, streaky density in both lung bases may represent atelectasis or early infiltrates. Electronically signed by: Jhon Ruano MD Board Certified Radiologist 12/02/2018 11:49 PM EST
[2018-12-02 23:54] LABS: Activated Partial Thrombo Time 28.6 sec (23.4-31.7); Prothrombin Time 10.4 sec (9.8-11.6)
[2018-12-03 00:08] LABS: Albumin 3.6 g/dL (3.4-5.0); Anion Gap 8 meq/L (5-15); Aspartate Aminotransferase 182 U/L (15-37); Blood Urea Nitrogen 18 mg/dL (7-18); Calcium 9.8 mg/dL (8.5-10.1); Carbon Dioxide 29.4 meq/L (21.0-32.0); Chloride 109 meq/L (98-107); Glomerular Filtration Rate 85 mL/min (>89); Glucose,Random 121 mg/dL (74-106); Lipase 186 U/L (73-393); Magnesium 2.7 mg/dL (1.5-2.5); Sodium 146 meq/L (136-145)
[2018-12-03 00:10] LABS: Alanine Aminotransferase 276 U/L (10-53)
[2018-12-03 00:14] LABS: Alkaline Phosphatase 473 U/L (45-117); Total Protein 8.3 g/dL (6.4-8.2)
[2018-12-03 00:15] LABS: Creatine Kinase 73 U/L (26-192)
[2018-12-03] MEDS ORDERED: Azithromycin Inj 500 MG in Sodium Chlor 0.9% Inj 250 ML IV.SIG STA (00:29)
[2018-12-03 00:41] LABS: Bacteria,Urine Occasional /hpf; Bilirubin,Urine Negative (Negative); Clarity,Urine Cloudy (Clear); Color,Urine Yellow (Yellw/Straw); Glucose,Urine (UA) Negative (Negative); Hyaline Casts,Urine 19 /lpf (0-3); Leukocyte Esterase,Urine Large (Negative); Mucus,Urine Few /lpf (Occasional); Nitrite,Urine Negative (Negative); Specific Gravity,Urine 1.016 (1.002-1.035); Squamous Epithelial Cell,Urine 63 /hpf (0-5)
--- NOTE | 2018-12-03 02:54 | CT ---
EXAM DATE: 12/03/2018 1:58 AM EST AGE/SEX: 63 years / Female INDICATIONS: Abdomen pain. CLINICAL DATA: This is the patient's initial encounter. Patient reports that signs and symptoms have been present for 1 day and indicates a pain score of 5/10. MEDICAL/SURGICAL HISTORY: Cerebrovascular disease. Lymphoma. TBI Craniotomy. ORAL CONTRAST: No oral contrast ingested. RADIATION DOSE: 4.11 CTDI (mGy) COMPARISON: [facility] [place], CT ABDOMEN & PELVIS W CONTRAST, 08/10/2018. . TECHNIQUE: Multiple contiguous axial images were obtained through the abdomen and pelvis following b olus infusion of 95 ml Omnipaque 350 (iohexol) nonionic water-soluble contrast as a single exam dos e. No oral contrast ingested. Using automated exposure control and adjustment of the mA and/or kV ac cording to patient size, radiation dose was kept as low as reasonably achievable to obtain optimal di agnostic quality images. DICOM format image data is available electronically for review and comparis on. FINDINGS: Lower Lungs: Worsening atelectatic changes in the posterior right base. 4 confluent airspace process posteriorly in the left base may represent rounded atelectasis or chronic infiltrate. Bilateral breas t augmentation. Liver: The liver has a homogeneous density without space-occupying lesion. There is no dilation of th e biliary tree. Gallbladder is mildly hydropic.. Spleen: Homogeneous density without enlargement. Pancreas: Unremarkable without mass or calcification. Kidneys: 2.4 cm nonobstructing calculus in the lower pole collecting system right kidney. Kidneys ar e otherwise radiographically normal. Adrenal Glands: Unremarkable. Aorta: The aorta and proximal iliac vessels are grossly unremarkable without aneurysmal dilation. Bowel/Mesentery: Patient has a gastrostomy tube which appears to be appropriately positioned in the gastric lumen. Scattered stool throughout the mid and distal portions of the colon may represent an e lement of constipation. Abdominal Wall: Intact. Retroperitoneum: No evidence of adenopathy in the retrocrural, para-aortic, or deep pelvic regions. Infrarenal IVC filter.. Bladder: Contours are smooth. Reproductive Organs: No abnormal masses or calcifications seen. Inguinal: The inguinal region is unremarkable without evidence of adenopathy. Bony Structures: Unremarkable. Post Contrast: No abnormal areas of enhancement seen. CONCLUSION: 1. Worsening atelectatic changes in the right base with more confluent airspace process posteriorly in the left base. The latter may represent rounded atelectasis or chronic infiltrate. 2. Large amount stool in the mid and distal portions of the colon could represent an element of cons tipation. Patient has a gastrostomy tube which appears to be appropriately positioned within the dick pramod lumen. 3. Nonobstructing 2.4 cm calculus in the lower pole collecting system of the right kidney. 4. Mild gallbladder distention. There is a nonspecific finding and can be seen in periods of extende d fasting Electronically signed by: Jhon Ruano MD Board Certified Radiologist 12/03/2018 2:52 AM EST
[2018-12-03] MEDS ORDERED: Bisacodyl 10 MG Supp RECTAL PRN (04:27)
[2018-12-03] MEDS ORDERED: Heparin - SQ 10,000 UNITS/ML Vial SQ SCH (04:30)
--- NOTE | 2018-12-03 04:35 | P.HPIM ---
History of Present Illness Primary Care Physician: No Primary Care Physician 63-year-old female with a past medical history of intracranial hemorrhage status post craniotomy with residual right-sided paralysis presents the emergency department for the evaluation of cough/congestion that acutely worsened yesterday evening. The patient is unable to provide any meaningful history. Per ED documentation, the patient's primary caregiver is her who stated that the patient has had a progressively worsening cough. She has a prior history of aspiration and is currently tube fed. The patient's was concerned that over the past week with the tube feeds the patient has vomited twice. He also states she may have aspirated earlier yesterday. The patient does drink small sips of water and sucks on ice chips. Remainder of review of systems is unobtainable secondary to patient's mental status. Inpatient Certification Inpatient Certification: I certify that the inpatient services were ordered in accordance with Medicare regulations governing the order. This includes certification that hospital inpatient services are reasonable and necessary and in the case of services not specified as inpatient-only under 42 CFR 419.22(n), that they are appropriately provided as inpatient services in accordance to with the 2-midnight benchmark under 43 CFR 412.3(e) Estimated Total Length of Stay (Days): 3 Plans for Post Hospital Care: Not yet determined Review of Systems ROS Unobtainable: unobtainable due to mental condition PMFSH Medical History Medical History Bone flap displacement (Acute) CVA (cerebrovascular accident) (Acute) Lymphoma (Acute) Surgical History Surgical History Status post craniotomy (Acute) Family History Family History Other Family history unobtainable Social History Social History Substance History: No History of Abuse Second Hand Smoke Exposure: No Smoking Status: Never smoker Tobacco Type: Cigarettes How Often Do You Have a Drink Containing Alcohol: Never Recent Travel in [place] within the Last 8 Weeks: No Recent Out of Country Travel within the Last 8 Weeks: No Immunization History Tetanus Immunization: <5 Years Medications and Allergies Allergies Allergy/AdvReac Type Severity Reaction Status Date / Time No Known Allergies Allergy Verified 12/02/18 22:28 Home Medications Medication Instructions Recorded Confirmed Type amantadine HCl 150 mg PO BID 08/05/18 12/02/18 History cyanocobalamin (vitamin B-12) 1,000 mcg PO DAILY 08/05/18 12/02/18 History modafinil 100 mg PO DAILY 08/05/18 12/02/18 History baclofen 10 mg PO BID 12/02/18 12/02/18 History gabapentin 100 mg PO HS 12/02/18 12/02/18 History oxycodone 20 mg PO Q4-6H PRN 12/02/18 12/02/18 History trazodone 50 mg PO HS 12/02/18 12/02/18 History Physical Exam Vital signs: Vital Signs 12/02/18 22:24 12/02/18 22:52 12/02/18 23:12 Temperature 97.8 F Pulse Rate 90 83 Respiratory Rate 16 20 Blood Pressure 141/64 H 162/83 H Pulse Oximetry 93 L 95 96 12/02/18 23:25 12/03/18 02:39 Temperature Pulse Rate 93 H 96 H Respiratory Rate 22 20 Blood Pressure 179/81 H Pulse Oximetry 97 Intake & Output 12/02/18 12/02/18 12/03/18 06:59 18:59 06:59 Intake Total 950 / 950 Balance 950 / 950 Weight 37.195 kg Intake: IV 950 / 950 Azithromycin Inj 500 MG In NS 250 / 250 Inj 250 ML @ 250 mls/hr IV.SIG STAT STA Rx#:[id number] Maxipime Inj 2,000 MG In NS Inj 100 / 100 100 ML @ 200 mls/hr IV.SIG STAT STA Rx#:[id number] NS Inj 500 ML @ Wide Open IV. 500 / 500 SIG BOLUS ONE Rx#:[id number] Flagyl 500 MG Inj 100 ML @ 100 100 / 100 mls/hr IV.SIG STAT STA Rx#: [id number] Narrative: Gen.: No acute distress Head: Normocephalic. Atraumatic. EENT: Pupils equal round and reactive to light. Nose without drainage. Airway intact. Throat without injection. Cardiovascular: Regular rate and rhythm. No murmurs, rubs or gallops. Respiratory: Transmitted upper airway sounds. Positive rhonchi. Abdomen: Soft, nontender, nondistended. No peritoneal signs. Musculoskeletal: No gross deformities. No edema. Skin: No obvious rashes or erythema. Neuro: Nonverbal. Patient attempts to answer questions however does not form intelligible words. Residual right-sided paralysis at baseline. Results Labs CBC & Chem 7: 12/02/18 23:30 12/02/18 23:30 Imaging Impressions Chest X-Ray 12/02/18 23:01 CONCLUSION: Faint, streaky density in both lung bases may represent atelectasis or early infiltrates. Abdomen/Pelvis CT 12/03/18 23:46 CONCLUSION: 1. Worsening atelectatic changes in the right base with more confluent airspace process posteriorly in the left base. The latter may represent rounded atelectasis or chronic infiltrate. 2. Large amount stool in the mid and distal portions of the colon could represent an element of constipation. Patient has a gastrostomy tube which appears to be appropriately positioned within the gastric lumen. 3. Nonobstructing 2.4 cm calculus in the lower pole collecting system of the right kidney. 4. Mild gallbladder distention. There is a nonspecific finding and can be seen in periods of extended fasting Caprini VTE Risk Assessment Caprini VTE Risk Assessment: Moderate/High Risk (score >= 2) Caprini Risk Assessment Model: Point Value = 1 Point Value = 2 Point Value = 3 Point Value = 5 Age 41-60 Minor surgery BMI > 25 kg/m2 Swollen legs Varicose veins or History of unexplained or recurrent spontaneous Oral contraceptives or hormone replacement Sepsis (< 1 month) Serious lung disease, including pneumonia (< 1 month) Abnormal pulmonary function Acute myocardial infarction Congestive heart failure (< 1 month) History of inflammatory bowel disease Medical patient at bed rest Age 61-74 Arthroscopic surgery Major open surgery (> 45 min) Laparoscopic surgery (> 45 min) Malignancy Confined to bed (> 72 hours) Immobilizing plaster cast Central venous access Age >= 75 History of VTE Family history of VTE Factor V Leiden Prothrombin [id number] Lupus anticoagulant Anticardiolipin antibodies Elevated serum homocysteine Heparin-induced thrombocytopenia Other congenital or acquired thrombophilia Stroke (< 1 month) Elective arthroplasty Hip, pelvis, or leg fracture Acute spinal cord injury (< 1 month) Prophylaxis Regimen: Total Risk Factor Score Risk Level Prophylaxis Regimen 0-1 Low Early ambulation 2 Moderate Order ONE of the following: *Sequential Compression Device (SCD) *Heparin 5000 units SQ BID 3-4 Higher Order ONE of the following medications: *Heparin 5000 units SQ TID *Enoxaparin/Lovenox 40 mg SQ daily (WT < 150 kg, CrCl > 30 mL/min) *Enoxaparin/Lovenox 30 mg SQ daily (WT < 150 kg, CrCl > 10-29 mL/min) *Enoxaparin/Lovenox 30 mg SQ BID (WT < 150 kg, CrCl > 30 mL/min) AND/OR *Sequential Compression Device (SCD) 5 or more Highest Order ONE of the following medications: *Heparin 5000 units SQ TID (Preferred with Epidurals) *Enoxaparin/Lovenox 40 mg SQ daily (WT < 150 kg, CrCl > 30 mL/min) *Enoxaparin/Lovenox 30 mg SQ daily (WT < 150 kg, CrCl > 10-29 mL/min) *Enoxaparin/Lovenox 30 mg SQ BID (WT < 150 kg, CrCl > 30 mL/min) AND *Sequential Compression Device (SCD) Assessment and Plan Plan Assessment/plan: 1. Pneumonia/? Aspiration/sepsis Patient with leukocytosis of 18, tachycardia Chest x-ray significant early infiltrates in bilateral lung bases Concern for aspiration Azithromycin, cefepime, Flagyl Blood cultures pending IV fluids N.p.o. Holding tube feeds for aspiration risk 2. Status post intracranial hemorrhage/right-sided paralysis At baseline Physical therapy Patient was supposed to undergo flap revision today FEN N.p.o. Electrolytes: Monitor and replete as needed Holding pharmacologic anticoagulation for history of intracranial hemorrhage NS at 60 cc/hour
[2018-12-03] MEDS: Sod Chloride 0.9% Inj 1,000 ML IV.CONT SCH ×2 (04:48→22:44)
[2018-12-03 07:31] LABS: Baso % (Auto) 0.1 % (0.0-2.0); Eos % (Auto) 0.1 % (0.0-4.0); Hematocrit 30.6 % (35.0-46.0); Hemoglobin 10.1 gm/dL (11.6-15.3); Lymph % (Auto) 6.1 % (9.0-44.0); Mean Corpuscular HGB Conc 32.9 % (32.0-36.0); Mean Corpuscular Hemoglobin 30.9 pg (27.0-34.0); Mean Corpuscular Volume 93.9 fL (80.0-100.0); Mean Platelet Volume 9.5 fL (7.0-11.0); Mono # (Auto) 0.6 th/mm3 (0.0-0.9); Neut # (Auto) 14.6 th/mm3 (1.8-7.7); Neut % (Auto) 89.7 % (16.0-70.0); Platelet Count 364 th/mm3 (150-450); Red Blood Count 3.26 mil/mm3 (4.00-5.30); Red Cell Distribution Width 13.6 % (11.6-17.2); White Blood Count 16.3 th/mm3 (4.0-11.0)
[2018-12-03] MEDS: Morphine Inj 4 MG/ML Vial IV.PUSH PRN ×2 (07:52→12:15)
--- NOTE | 2018-12-03 07:55 | MH ---
cc: Pastor Abad MD DATE OF ADMISSION: 12/03/2018 ADMITTING DIAGNOSES Cranioplasty after severe traumatic brain injury. 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 She had a large acute subdural hematoma with mass effect and midline shift. She underwent a right frontotemporal craniectomy with evacuation of an acute subdural hematoma on 05/11/2018. A few days later, she had a hypertensive hemorrhage that resulted in dense right hemiparesis. She normally uses an AFO brace on the right side. She went to several different rehabs after her hospitalization. She was in [facility], [facility], [facility], and now she is at home with rehabilitation. She has been home with her since August 2018. Her states that she has had left-sided tremors and episodes of myoclonic jerks. He states that sometimes the myoclonic jerks can be violent and she has hit herself and her accidentally. PAST MEDICAL HISTORY: Significant for severe traumatic brain injury status post right decompressive craniectomy on 05/11/2018, difficulty with speech, myoclonic jerks. MEDICATIONS: She takes: 1. Baclofen 10 mg every 8 hours. 2. Trazodone 50 mg at bedtime. ALLERGIES: SHE HAS NO KNOWN DRUG ALLERGIES. FAMILY HISTORY: Noncontributory to her current condition. SOCIAL HISTORY: She has a history of alcohol use. REVIEW OF SYSTEMS: CONSTITUTIONAL: No fever or chills. EARS, NOSE AND THROAT: No pharyngitis, exudate or bloody drainage from her nose. CARDIOVASCULAR She denies any chest pain or palpitations. RESPIRATORY: No cough or shortness of breath. GASTROINTESTINAL: No nausea, vomiting, or abdominal pain. GENITOURINARY: No dysuria or hematuria. MUSCULOSKELETAL: Positive for muscle weakness on the right side and inability to ambulate. NEUROLOGIC: She is able to answer some very simple questions. She has myoclonic jerks on the left side. INTEGUMENTARY: No rashes or pruritus. ENDOCRINE: No polyuria or polydipsia. HEMATOLOGIC: No bruising or bleeding tendencies. PHYSICAL EXAMINATION: HEENT: Head: She has a right craniectomy defect. Skin is intact without any open wounds. Eyes: Pupils are equal. Sclerae are anicteric. NECK: Supple. No carotid bruits. LUNGS: Clear to auscultation bilaterally. HEART: Regular rate and rhythm. Normal S1, S2. ABDOMEN: Soft and nontender. Positive bowel sounds. SKIN: No cyanosis or erythema. Her craniectomy incision is well healed without any open wounds or signs of infection or complication. MUSCULOSKELETAL: She has a right dense hemiparesis. She can follow some simple commands on the left side, although she does have a left-sided tremor with myoclonic jerks. NEUROLOGIC: She is awake and alert. She follows some simple commands on the left side. She answers some simple questions, yes and no. Her pupils are equal. IMPRESSION: A 63-year-old female who has undergone a right decompressive craniectomy for severe traumatic brain injury with evacuation of subdural hematoma. She has been through extensive rehabilitation and is now at home with her . She has followed up in the office and elected to proceed with a right cranioplasty. PLAN: We have discussed the treatment of a right cranioplasty with the patient and her . He states that he understands the procedure as well as the risks, benefits, alternatives, and recovery time in great detail with the patient. We have discussed risks of surgery that include, but are not limited to bleeding, infection, muscle weakness, voice hoarseness, difficulty swallowing, heart attack, stroke, blood clots, poor wound healing, seizures, among others. The patient's states that he understands the risk of surgery and he requested that we proceed. She was therefore scheduled accordingly. Dictated by ANJALI Méndez MD YOVANY Bautista/belem/esdras , 02:05 PM , 02:10 PM
[2018-12-03 08:12] LABS: Anion Gap 8 meq/L (5-15); Blood Urea Nitrogen 13 mg/dL (7-18); Calcium 9.3 mg/dL (8.5-10.1); Carbon Dioxide 26.7 meq/L (21.0-32.0); Chloride 116 meq/L (98-107); Glomerular Filtration Rate Greater Than 89 mL/min (>89); Glucose,Random 124 mg/dL (74-106); Potassium 3.6 meq/L (3.5-5.1); Sodium 151 meq/L (136-145)
--- NOTE | 2018-12-03 08:27 | P.CONNS ---
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 She had a large acute subdural hematoma with mass effect and midline shift. She underwent a right frontotemporal craniectomy with evacuation of an acute subdural hematoma on 05/11/2018. A few days later, she had a hypertensive hemorrhage that resulted in dense right hemiparesis. She normally uses an AFO brace on the right side. She went to several different rehabs after her hospitalization. She was in [facility], [facility], [facility], and now she is at home with rehabilitation. She has been home with her since August 2018. Her states that she has had left-sided tremors and episodes of myoclonic jerks. He states that sometimes the myoclonic jerks can be violent and she has hit herself and her accidentally. She was scheduled for a right cranioplasty with bone flap replacement this morning 12/03/18 but came in last night with aspirational pneumonia. She is being admitted by the medical team for further treatment of her pneumonia. Review of Systems unobtainable due to mental status (Pts is not at bedside to give history.) [facility] - History History Provided By: Patient - Medical / Surgical Hx Neg / Unobtainable Medical Problems Denied: Unable to Obtain Surgical History: Unable to Obtain - Medical History Medical History: Medical History (Last Reviewed 12/03/18 @ 04:34 by Martha Becerra MD) Bone flap displacement CVA (cerebrovascular accident) Lymphoma - Surgical History Surgical History: Surgical History (Last Updated 12/03/18 @ 04:34 by Martah Becerra MD) Status post craniotomy - Family History Family History: Family History (Last Reviewed 12/03/18 @ 04:34 by Martha Becerra MD) Other Family history unobtainable - Tobacco History Second Hand Smoke Exposure: No Smoking Status: Never smoker Tobacco Type: Cigarettes - Alcohol History How Often Do You Have a Drink Containing Alcohol: Never - Substance Use History Substance History: No History of Abuse - Travel History Recent Travel in the [place] Within the Last 8 Weeks: No Recent Travel Out of the Country Within the Last 8 Weeks: No - Immunization History Tetanus Immunization: <5 Years Medications and Allergies Active Medications: Active Medications Bisacodyl (Dulcolax Supp) 10 mg RECTAL DAILY PRN PRN Reason: SEVERE CONSITIPATION Azithromycin 500 mg/ Sodium (Chloride) 250 mls @ 250 mls/hr IV.SIG ONCE ONE Stop: 12/04/18 01:59 Cefepime HCl 2,000 mg/ Sodium (Chloride) 100 mls @ 200 mls/hr IV.SIG Q8H CARLOS Metronidazole/Sodium Chloride (Flagyl 500 Mg Inj) 100 mls @ 100 mls/hr IV.SIG Q8H CARLOS Sodium Chloride (Ns Inj) 1,000 mls @ 60 mls/hr IV.CONT .[id number] CARLOS Last Admin: 12/03/18 04:48 Dose: 60 mls/hr Morphine Sulfate (Morphine Inj) 2 mg IV.PUSH Q4H PRN PRN Reason: PAIN SCALE 6 TO 10 Last Admin: 12/03/18 07:52 Dose: 2 mg Ondansetron HCl (Zofran Inj) 4 mg IV.PUSH Q6H PRN PRN Reason: NAUSEA OR VOMITING Sodium Chloride (Ns Flush) 2 ml IV.FLUSH BID CARLOS Sodium Chloride (Ns Flush) 2 ml IV.FLUSH PRN PRN PRN Reason: FLUSH AFTER USING IV ACCESS Allergies Allergy/AdvReac Type Severity Reaction Status Date / Time No Known Allergies Allergy Verified 12/02/18 22:28 Home Medications Medication Instructions Recorded Confirmed Type amantadine HCl 150 mg PO BID 08/05/18 12/02/18 History cyanocobalamin (vitamin B-12) 1,000 mcg PO DAILY 08/05/18 12/02/18 History modafinil 100 mg PO DAILY 08/05/18 12/02/18 History baclofen 10 mg PO BID 12/02/18 12/02/18 History gabapentin 100 mg PO HS 12/02/18 12/02/18 History oxycodone 20 mg PO Q4-6H PRN 12/02/18 12/02/18 History trazodone 50 mg PO HS 12/02/18 12/02/18 History Exam Vital signs: Vital Signs 12/02/18 22:24 12/02/18 22:52 12/02/18 23:12 Temperature 97.8 F Pulse Rate 90 83 Respiratory Rate 16 20 Blood Pressure 141/64 H 162/83 H Pulse Oximetry 93 L 95 96 12/02/18 23:25 12/03/18 02:39 12/03/18 06:01 Temperature 98.4 F Pulse Rate 93 H 96 H 79 Respiratory Rate 22 20 22 Blood Pressure 179/81 H 170/70 H Pulse Oximetry 97 97 12/03/18 07:32 12/03/18 08:00 Temperature Pulse Rate 94 H 72 Respiratory Rate 21 18 Blood Pressure 206/99 H 165/72 H Pulse Oximetry 94 L Intake & Output 12/02/18 12/03/18 12/03/18 18:59 06:59 18:59 Intake Total 950 / 950 Balance 950 / 950 Weight 37.195 kg Intake: IV 950 / 950 Azithromycin Inj 500 MG In NS 250 / 250 Inj 250 ML @ 250 mls/hr IV.SIG STAT STA Rx#:[id number] Maxipime Inj 2,000 MG In NS Inj 100 / 100 100 ML @ 200 mls/hr IV.SIG STAT STA Rx#:[id number] NS Inj 500 ML @ Wide Open IV. 500 / 500 SIG BOLUS ONE Rx#:[id number] Flagyl 500 MG Inj 100 ML @ 100 100 / 100 mls/hr IV.SIG STAT STA Rx#: [id number] - Constitutional no acute distress, cooperative, somnolent - Routine HEENT Exam Head: Absent: atraumatic (Right craniectomy defect present. Incision is healed well.) Eye: Present: PERRL (Pupils 4mm bilaterally.). Absent: conjunctival icterus ENT: Present: oropharynx clear - Routine Neck Exam Present: supple, trachea midline - Routine Respiratory Exam Present: rhonchi. Absent: accessory muscle use, wheezes Comments: Coarse bs bilaterally. - Routine Cardiovascular Exam Present: RRR, S1, S2. Absent: murmur - Routine Abdominal Exam Present: soft, normoactive bowel sounds. Absent: tenderness, distended - Routine Extremities Exam Absent: cyanosis - Routine Skin Exam Present: warm. Absent: cyanosis, erythema Comments: Right craniectomy incision is healing well. She has a healing circular wound anterior to her craniectomy flap without signs of infection. - Routine Neurological Exam Present: motor deficit (Right dense hemiparesis. She has flexion contractures in her right hand and plantar contractions in her right foot. She follows some simple commands on the left side with weakness.), altered mental status, abnormal gait (Not able to ambtulate.). Absent: oriented X3, normal speech Results - Laboratory Findings CBC and BMP: 12/03/18 07:04 12/03/18 07:06 Abnormal lab findings: Abnormal Labs 12/02/18 12/02/18 12/03/18 23:30 23:30 00:00 WBC 18.7 H RBC 3.55 L Hgb 11.0 L Hct 33.2 L Neut % (Auto) 84.5 H Lymph % (Auto) Neut # (Auto) 15.8 H [place] # (Auto) 1.1 H Sodium 146 H Chloride 109 H Creatinine Estimated GFR 85 L Random Glucose 121 H Magnesium 2.7 H AST 182 H ALT 276 H Alkaline Phosphatase 473 H Troponin I Less than 0.02 L Total Protein 8.3 H Urine Clarity Cloudy H Urine Protein 30 H Ur Leukocyte Esterase Large H Urine RBC 8 H Urine WBC 52 H Urine WBC Clumps Few H Urine Bacteria Occasional H Urine Mucus Few H 12/03/18 12/03/18 07:04 07:06 WBC 16.3 H RBC 3.26 L Hgb 10.1 L Hct 30.6 L Neut % (Auto) 89.7 H Lymph % (Auto) 6.1 L Neut # (Auto) 14.6 H [place] # (Auto) Sodium 151 H Chloride 116 H Creatinine 0.48 L Estimated GFR Random Glucose 124 H Magnesium AST ALT Alkaline Phosphatase Troponin I Total Protein Urine Clarity Urine Protein Ur Leukocyte Esterase Urine RBC Urine WBC Urine WBC Clumps Urine Bacteria Urine Mucus Assessment and Plan - Assessment (1) Altered mental status Code(s): R41.82 - Altered mental status, unspecified Status: Acute (2) H/O craniotomy Code(s): Z98.890 - Other specified postprocedural states Status: Chronic (3) History of intracranial hemorrhage Code(s): Z86.79 - Personal history of other diseases of the circulatory system Status: Chronic (4) Pneumonia Code(s): J18.9 - Pneumonia, unspecified organism Status: Acute (5) UTI (urinary tract infection) Code(s): N39.0 - Urinary tract infection, site not specified Status: Acute (6) Acute UTI Code(s): N39.0 - Urinary tract infection, site not specified Status: Acute (4) Pneumonia Qualifiers: Pneumonia type: due to unspecified organism Laterality: bilateral Lung location: lower lobe of lung Qualified Code(s): J18.1 - Lobar pneumonia, unspecified organism (5) UTI (urinary tract infection) Qualifiers: Urinary tract infection type: site unspecified Hematuria presence: without hematuria Qualified Code(s): N39.0 - Urinary tract infection, site not specified
--- NOTE | 2018-12-03 15:47 | ECG ---
Date Performed: 12/02/2018 Time Performed: 23:25:10 PTAGE: 63 years EKG: Sinus rhythm WITH MARKED SINUS ARRHYTHMIA NONSPECIFIC ST & T-WAVE ABNORMALITY When compared to previous tracing, sinus rhythm is new. BORDERLINE ECG PREVIOUS TRACING : 08/05/2018 09.01 DOCTOR: Kevin Munoz Interpretating Date/Time 12/03/2018 15:46:19
--- NOTE | 2018-12-03 16:17 | P.DIET ---
Nutritional Evaluation Type of nutrition evaluation: initial Screening comments: 12/03/18 MDC for TF'ing Objective - Diagnosis suspected aspiration pneumonia - Objective Body Mass Index: 15.0 % IBW: 75 (IBW = 110lb) Body Weight Used for Calculations: IBW Energy Needs - Lower Range (kCal/kg): 28 Energy Needs - Upper Range (kCal/kg): 32 Lower Limit kCal/kg (kCals): 1,400 Upper Limit kCal/kg (kCals): 1,600 Lower Limit Protein Factor (Grams per Kg): 1.2 Upper Limit Protein Factor (Grams per Kg): 1.4 Lower Protein Needs (Protein): 60 Upper Protein Needs (Protein): 70 Dietitian Reviewed in Medical Record: Curent medications, Intake & Output, Labs , Medical history Diet Order: NPO Objective Comments: PMH: CVA, TBI, s/p R decompressive craniectomy Meds:reviewed Labs: random glucose 121 124 Assessment Assessment: Pt currently at nutritional risk r/t need for TF as nutritional support and low BMI (15.0). MDC for TF'ing received and acknowledged. RD to recommend Jevity 1.5 @ 45mL/hr to provide 1620kcal, 69g of protein, and 821mL of free water to best meet pts nutritional needs. Initiate TF by trickle feeding pt 10mL/hr, advance TF as tolerated to goal rate of 45mL/hr. Monitor pts TF tolerance when TF running. Labs reviewed, dietitian following. Recommendations: 1. RD to recommend Jevity 1.5 @ 45mL/hr to best meet pts nutritional needs 2. Initiate TF by trickle feeding pt 10mL/hr, advance TF as tolerated to goal rate of 45mL/hr 3. Monitor pts TF tolerance when TF running 4. Dietitian following Dietitian to Monitor: Lab values, Glucose level, Intake & Output, Tube feeding tolerance, Weight change, Medical course
--- NOTE | 2018-12-03 18:16 | P.PNIM ---
Subjective Interval history: eyes open- slightly tachypneic exam- some rhonhci more of upper airways secretions- d/w staff- do oral sucitoning Physical Exam Vital signs: Vital Signs 12/02/18 22:24 12/02/18 22:52 12/02/18 23:12 Temperature 97.8 F Pulse Rate 90 83 Respiratory Rate 16 20 Blood Pressure 141/64 H 162/83 H Pulse Oximetry 93 L 95 96 12/02/18 23:25 12/03/18 02:39 12/03/18 06:01 Temperature 98.4 F Pulse Rate 93 H 96 H 79 Respiratory Rate 22 20 22 Blood Pressure 179/81 H 170/70 H Pulse Oximetry 97 97 12/03/18 07:32 12/03/18 08:00 12/03/18 09:20 Temperature Pulse Rate 94 H 72 88 Respiratory Rate 21 18 24 Blood Pressure 206/99 H 165/72 H Pulse Oximetry 94 L 97 12/03/18 09:21 Temperature Pulse Rate 88 Respiratory Rate Blood Pressure Pulse Oximetry Intake & Output 12/02/18 12/03/18 12/03/18 18:59 06:59 18:59 Intake Total 950 / 950 200 / 200 Balance 950 / 950 200 / 200 Weight 37.195 kg 36.6 kg Intake: IV 950 / 950 200 / 200 Azithromycin Inj 500 MG In NS 250 / 250 Inj 250 ML @ 250 mls/hr IV.SIG STAT STA Rx#:[id number] Maxipime Inj 2,000 MG In NS Inj 100 / 100 100 / 100 100 ML @ 200 mls/hr IV.SIG Q8H CARLOS Rx#:[id number] NS Inj 500 ML @ Wide Open IV. 500 / 500 SIG BOLUS ONE Rx#:[id number] Flagyl 500 MG Inj 100 ML @ 100 100 / 100 100 / 100 mls/hr IV.SIG Q8H CARLOS Rx#: [id number] Other: Weight On Admission 37.195 kg Narrative: eyes eopen bite of xsuctioning anicteric neck supple lungs- some rhncis ? irrgualr rhythm abdomen- soft extremities no edema- right hemiplegia Results Labs CBC & Chem 7: 12/04/18 14:59 12/05/18 05:18 Labs: Microbiology 12/02/18 23:25 Blood - Peripheral Aerobic Blood Culture - Preliminary No growth in 1 day 12/02/18 23:25 Blood - Peripheral Anaerobic Blood Culture - Preliminary No growth in 1 day 12/02/18 23:20 Blood - Peripheral Aerobic Blood Culture - Preliminary No growth in 1 day 12/02/18 23:20 Blood - Peripheral Anaerobic Blood Culture - Preliminary No growth in 1 day Imaging Imaging: Impressions Chest X-Ray 12/02/18 23:01 CONCLUSION: Faint, streaky density in both lung bases may represent atelectasis or early infiltrates. Abdomen/Pelvis CT 12/03/18 23:46 CONCLUSION: 1. Worsening atelectatic changes in the right base with more confluent airspace process posteriorly in the left base. The latter may represent rounded atelectasis or chronic infiltrate. 2. Large amount stool in the mid and distal portions of the colon could represent an element of constipation. Patient has a gastrostomy tube which appears to be appropriately positioned within the gastric lumen. 3. Nonobstructing 2.4 cm calculus in the lower pole collecting system of the right kidney. 4. Mild gallbladder distention. There is a nonspecific finding and can be seen in periods of extended fasting Assessment and Plan (1) Altered mental status: Code(s): R41.82 - Altered mental status, unspecified Status: Acute (2) H/O craniotomy: Code(s): Z98.890 - Other specified postprocedural states Status: Chronic (3) History of intracranial hemorrhage: Code(s): Z86.79 - Personal history of other diseases of the circulatory system Status: Chronic (4) Pneumonia: Code(s): J18.9 - Pneumonia, unspecified organism Status: Acute (5) UTI (urinary tract infection): Code(s): N39.0 - Urinary tract infection, site not specified Status: Acute (6) Acute UTI: Code(s): N39.0 - Urinary tract infection, site not specified Status: Acute Plan 63 years old female Pneumonia/? Aspiration/sepsis Patient with leukocytosis of 18, tachycardia Chest x-ray significant early infiltrates in bilateral lung bases Concern for aspiration Azithromycin, cefepime, Flagyl Blood cultures pending IV fluids N.p.o. Holding tube feeds for aspiration risk-hold for now duonebs treatment q 6 scheduled and q 2 prn Status post intracranial hemorrhage/right-sided paralysis At baseline Physical therapy Patient was supposed to undergo flap revision today- cancelled FEN N.p.o. Electrolytes: Monitor and replete as needed Holding pharmacologic anticoagulation for history of intracranial hemorrhage NS at 60 cc/hour d/w Progress Note: Quality VTE Deep Vein Thrombosis/Pulmonary Embolism Present on Admission: No _ (1) UTI (urinary tract infection) Qualifiers: Encounter type: Hematuria presence: without hematuria Indwelling urinary catheter type: Urinary tract infection type: site unspecified Qualified Code( s): N39.0 - Urinary tract infection, site not specified (2) Altered mental status Qualifiers: Altered mental status type: Coma depth: Coma timing: (3) Pneumonia Qualifiers: Aspiration pneumonia type: Laterality: bilateral Lung location: lower lobe of lung Pneumonia type: due to unspecified organism Qualified Code(s): J18.1 - Lobar pneumonia, unspecified organism
[2018-12-03 18:42] LABS: ABG Base Excess 1.8 mmol/L (-2-2); ABG PCO2 42 mmHg (38-42); ABG PO2 69 mmHg (61-120)
[2018-12-04] MEDS ORDERED: Azithromycin Inj 500 MG in Sodium Chlor 0.9% Inj 250 ML IV.SIG ONE (01:00)
--- NOTE | 2018-12-04 14:09 | P.PNIM ---
Subjective Interval history: feels warm seen with family coughing- more upper airway Physical Exam Vital signs: Vital Signs 12/03/18 16:00 12/03/18 19:36 12/03/18 20:00 Temperature 97.2 F L Pulse Rate 103 H 95 H 95 H Respiratory Rate 20 16 Blood Pressure 153/68 H Pulse Oximetry 94 L 12/03/18 20:25 12/03/18 23:40 12/04/18 00:00 Temperature 98.8 F 98.0 F Pulse Rate 107 H 83 100 H Respiratory Rate 20 20 Blood Pressure 153/71 H 160/70 H Pulse Oximetry 93 L 93 L 12/04/18 04:02 12/04/18 04:50 12/04/18 08:00 Temperature 97.5 F L 98.4 F Pulse Rate 89 83 97 H Respiratory Rate 18 20 18 Blood Pressure 112/71 167/74 H Pulse Oximetry 94 L 96 12/04/18 08:54 12/04/18 10:30 12/04/18 12:00 Temperature 98.8 F Pulse Rate 112 H 92 H Respiratory Rate 20 18 18 Blood Pressure 170/74 H Pulse Oximetry 92 L Intake & Output 12/03/18 12/04/18 12/04/18 18:59 06:59 18:59 Intake Total 400 / 400 950 / 950 200 / 200 Balance 400 / 400 950 / 950 200 / 200 Weight 36.6 kg 37.5 kg Intake: IV 400 / 400 950 / 950 200 / 200 NS Inj 1,000 ML @ 60 mls/hr IV. 500 / 500 CONT .[id number] CARLOS Rx#:[id number] Azithromycin Inj 500 MG In NS 250 / 250 Inj 250 ML @ 250 mls/hr IV.SIG ONCE ONE Rx#:[id number] Maxipime Inj 2,000 MG In NS Inj 200 / 200 100 / 100 100 / 100 100 ML @ 200 mls/hr IV.SIG Q8H CARLOS Rx#:[id number] Flagyl 500 MG Inj 100 ML @ 100 200 / 200 100 / 100 100 / 100 mls/hr IV.SIG Q8H CARLOS Rx#: [id number] Oral 0 / 0 Other: # Voids 1 # Incontinent Voids 1 Date of Last Bowel Movement 12/03/18 12/03/18 # Bowel Movements 0 # Incontinent Bowel Movements 1 Weight On Admission 37.195 kg Narrative: awake and alert, feels wamr- we are going to take a temp anciteric neck supple lungs- decrease breath soujdn s no rhionci regular rhythm abdomen- PEG in place extremiteis no edmea ziegler in place 12/04 Results Labs CBC & Chem 7: 12/04/18 14:59 12/05/18 05:18 Labs: Microbiology 12/03/18 00:00 Clean Catch Urine Urine Culture - Final >100,000 cfu/mL mixed gram positive betty (probable contaminantes) 12/02/18 23:25 Blood - Peripheral Aerobic Blood Culture - Preliminary No growth in 2 days 12/02/18 23:25 Blood - Peripheral Anaerobic Blood Culture - Preliminary No growth in 2 days 12/02/18 23:20 Blood - Peripheral Aerobic Blood Culture - Preliminary No growth in 2 days 12/02/18 23:20 Blood - Peripheral Anaerobic Blood Culture - Preliminary No growth in 2 days Assessment and Plan (1) Altered mental status: Code(s): R41.82 - Altered mental status, unspecified Status: Acute (2) H/O craniotomy: Code(s): Z98.890 - Other specified postprocedural states Status: Chronic (3) History of intracranial hemorrhage: Code(s): Z86.79 - Personal history of other diseases of the circulatory system Status: Chronic (4) Pneumonia: Code(s): J18.9 - Pneumonia, unspecified organism Status: Acute (5) UTI (urinary tract infection): Code(s): N39.0 - Urinary tract infection, site not specified Status: Acute (6) Acute UTI: Code(s): N39.0 - Urinary tract infection, site not specified Status: Acute Plan 63 years old female 63 years old female Pneumonia/? Aspiration/sepsis Patient with leukocytosis of 18, tachycardia Chest x-ray significant early infiltrates in bilateral lung bases Concern for aspiration Azithromycin, cefepime, Flagyl Blood cultures pending IV fluids restart TF- Nutren 1 can qid duonebs treatment q 6 scheduled and q 2 prn check CBC now\reinforce with staff- suction- oral airways Consult Infectious disease for recommendation Status post intracranial hemorrhage/right-sided paralysis At baseline Physical therapy Patient was supposed to undergo flap revision - cancelled HYpernatremia- check BMP now Hypokalemia - replace and recheck Protein calorie malnutrition FEN start her Nutren qid Electrolytes: Monitor and replete as needed family is particularly about TF- and wants home Nutrent suppllements- dietitian consult Holding pharmacologic anticoagulation for history of intracranial hemorrhage NS at 60 cc/hour- check B<P - change to 1/2 NS if Na elevated Sacral ulcer- wound care nurse consult for recommenation per family- they use duoderm family requested for ziegler to be pklaced d/w Progress Note: Quality VTE Deep Vein Thrombosis/Pulmonary Embolism Present on Admission: No _ (1) UTI (urinary tract infection) Qualifiers: Encounter type: Hematuria presence: without hematuria Indwelling urinary catheter type: Urinary tract infection type: site unspecified Qualified Code( s): N39.0 - Urinary tract infection, site not specified (2) Altered mental status Qualifiers: Altered mental status type: Coma depth: Coma timing: (3) Pneumonia Qualifiers: Aspiration pneumonia type: Laterality: bilateral Lung location: lower lobe of lung Pneumonia type: due to unspecified organism Qualified Code(s): J18.1 - Lobar pneumonia, unspecified organism
[2018-12-04] MEDS: Sod Chloride 0.9% Inj 1,000 ML IV.CONT SCH (14:38)
[2018-12-04 15:25] LABS: Baso % (Auto) 0.1 % (0.0-2.0); Hematocrit 29.7 % (35.0-46.0); Hemoglobin 9.9 gm/dL (11.6-15.3); Lymph # (Auto) 0.7 th/mm3 (1.0-4.8); Lymph % (Auto) 5.8 % (9.0-44.0); Mean Corpuscular HGB Conc 33.3 % (32.0-36.0); Mean Corpuscular Hemoglobin 31.7 pg (27.0-34.0); Mean Corpuscular Volume 95.1 fL (80.0-100.0); Mean Platelet Volume 9.8 fL (7.0-11.0); Mono # (Auto) 0.9 th/mm3 (0.0-0.9); Mono % (Auto) 7.4 % (0.0-8.0); Neut # (Auto) 10.6 th/mm3 (1.8-7.7); Neut % (Auto) 86.7 % (16.0-70.0); Platelet Count 379 th/mm3 (150-450); Red Blood Count 3.13 mil/mm3 (4.00-5.30); Red Cell Distribution Width 13.5 % (11.6-17.2); White Blood Count 12.3 th/mm3 (4.0-11.0)
[2018-12-04 15:48] LABS: Anion Gap 8 meq/L (5-15); Blood Urea Nitrogen 14 mg/dL (7-18); Calcium 8.6 mg/dL (8.5-10.1); Carbon Dioxide 26.3 meq/L (21.0-32.0); Chloride 123 meq/L (98-107); Glomerular Filtration Rate Greater Than 89 mL/min (>89); Glucose,Random 213 mg/dL (74-106)
[2018-12-04 15:54] LABS: Potassium 2.7 meq/L (3.5-5.1); Sodium 157 meq/L (136-145)
[2018-12-04] MEDS ORDERED: Potassium Chloride 10 MEQ ER Capsule PO ONE (16:32)
[2018-12-04] MEDS: Potassium Chloride Inj 40 MEQ in Dextrose 5% in Water Inj 1,000 ML IV.CONT SCH ×2 (18:00)
[2018-12-04] MEDS ORDERED: POTASSIUM CHLORIDE IV.SIG SCH ×2 (20:00)
[2018-12-04] MEDS ORDERED: WATER IV.SIG SCH ×2 (20:00)
[2018-12-04] MEDS ORDERED: DEXTROSE 5% IV.SIG SCH ×2 (20:00)
[2018-12-04] MEDS: traZODone 50 MG Tablet G-TUBE SCH (22:23)
[2018-12-04] MEDS: Potassium Chloride Liq 20 MEQ/15 ML UDC G-TUBE SCH (22:23)
[2018-12-04] MEDS ORDERED: Potassium Chlor 10 mEq Premix 10 MEQ/100 ML PIGGYBACK IV.SIG ONE (22:30)
[2018-12-05 07:48] LABS: Anion Gap 6 meq/L (5-15); Blood Urea Nitrogen 10 mg/dL (7-18); Calcium 8.1 mg/dL (8.5-10.1); Carbon Dioxide 25.9 meq/L (21.0-32.0); Chloride 121 meq/L (98-107); Glomerular Filtration Rate Greater Than 89 mL/min (>89); Glucose,Random 142 mg/dL (74-106); Magnesium 2.2 mg/dL (1.5-2.5); Potassium 3.6 meq/L (3.5-5.1); Sodium 153 meq/L (136-145)
[2018-12-05] MEDS: Potassium Chloride Liq 20 MEQ/15 ML UDC G-TUBE SCH ×2 (08:49→21:47)
[2018-12-05] MEDS: Potassium Chloride Inj 40 MEQ in Dextrose 5% in Water Inj 1,000 ML IV.CONT SCH ×4 (09:50→17:40)
--- NOTE | 2018-12-05 11:59 | P.DIET ---
Nutritional Evaluation Type of nutrition evaluation: follow-up Nutrition consult regarding: Tube Feeding Screening comments: 12/03/18 [facility] [place] Objective - Diagnosis suspected aspiration pneumonia - Objective Body Mass Index: 16 [place] body weight: 47 kg (105lb) % IBW: 80 Body Weight Used for Calculations: IBW, Actual (38.6kg) Energy Needs - Lower Range (kCal/kg): 30 Energy Needs - Upper Range (kCal/kg): 35 Lower Limit kCal/kg (kCals): 1,140 Upper Limit kCal/kg (kCals): 1,330 Lower Limit Protein Factor (Grams per Kg): 1.0 Upper Limit Protein Factor (Grams per Kg): 1.2 Lower Protein Needs (Protein): 38 Upper Protein Needs (Protein): 46 Dietitian Reviewed in Medical Record: Curent medications, Intake & Output, Labs , Medical history, Tube feeding Diet Order: NPO Objective Comments: PMH: CVA, TBI, s/p R decompressive craniectomy Meds:reviewed Labs: Na 153, Cr 0.42, Glucose 142, 213 Assessment Assessment: Pt currently at nutritional risk r/t need for TF as nutritional support and low BMI (16.0). Pt is currently receiving 4 cans/ day of Nutren 1.0 which is providing 1,000kcal, 40g protein and 844ml free water. Per pts her usual body weight is about 95lbs and she currently weighs 85lbs indicating a 10lb weight loss recently. He reports that this TF order was prescribed by the nursing facility that she was previously in. Spoke with Dr. Quach about increasing TF order to 5 cans/day as current order is not adequately meeting her calorie requirements at this time, and she was agreeable. Will continue to monitor pts tolerance to new TF order and monitor for any further weight loss. Recommendations: 1. Increase TF order to 5 cans/ day of Nutren 1.0 in order to best meet pts energy requirements 2. Monitor tolerance to new TF order 3. Monitor for weight changes Dietitian to Monitor: Lab values, Glucose level, Intake & Output, Tube feeding tolerance, Weight change, Medical course
--- NOTE | 2018-12-05 12:00 | P.PNIM ---
Subjective Interval history: seen with son at bedside patient more alertt, makes eye contact breathing better compared to yesterday Physical Exam Vital signs: Vital Signs 12/04/18 12:00 12/04/18 15:05 12/04/18 15:41 Temperature 98.8 F Pulse Rate 92 H 92 H Respiratory Rate 18 18 Blood Pressure 170/74 H Pulse Oximetry 92 L 94 L 12/04/18 16:00 12/04/18 19:49 12/04/18 20:00 Temperature 97.6 F 98.7 F Pulse Rate 107 H 110 H 104 H Respiratory Rate 18 14 14 Blood Pressure 166/72 H 174/78 H Pulse Oximetry 95 96 12/04/18 23:15 12/04/18 23:46 12/05/18 00:00 Temperature 97.9 F Pulse Rate 99 H 87 Respiratory Rate 16 18 Blood Pressure 148/80 H Pulse Oximetry 97 12/05/18 03:30 12/05/18 04:00 12/05/18 04:07 Temperature 97.9 F Pulse Rate 85 88 87 Respiratory Rate 16 16 Blood Pressure 160/70 H Pulse Oximetry 97 12/05/18 08:00 12/05/18 09:10 Temperature 98.2 F Pulse Rate 101 H 80 Respiratory Rate 16 16 Blood Pressure 159/70 H Pulse Oximetry 95 Intake & Output 12/04/18 12/05/18 12/05/18 18:59 06:59 18:59 Intake Total 1720 / 1720 2320 / 2320 200 / 200 Output Total 1700 / 1700 Balance 1720 / 1720 620 / 620 200 / 200 Weight 38.6 kg Intake: IV 900 / 900 2320 / 2320 200 / 200 KCl Inj 40 MEQ In D5W Inj 1,000 1020 / 1020 ML @ 84 mls/hr IV.CONT .[id number] CARLOS Rx#:[id number] NS Inj 1,000 ML @ 60 mls/hr IV. 500 / 500 1000 / 1000 CONT .[id number] CARLOS Rx#:[id number] Maxipime Inj 2,000 MG In NS Inj 200 / 200 100 / 100 100 / 100 100 ML @ 200 mls/hr IV.SIG Q8H CARLOS Rx#:[id number] KCl 10 mEq Premix Inj 10 meq In 100 / 100 100 ml @ 100 mls/hr IV.SIG ONCE ONE Rx#:[id number] Flagyl 500 MG Inj 100 ML @ 100 200 / 200 100 / 100 100 / 100 mls/hr IV.SIG Q8H CARLOS Rx#: [id number] Tube Feeding 720 / 720 Tube Irrigant 0 / 0 Water Bolus Amount 100 / 100 Output: Urine Amount (Catheter) 1700 / 1700 Indwelling Urethral Catheter 1700 / 1700 Other: # Voids 4 Date of Last Bowel Movement 12/03/18 12/03/18 # Bowel Movements 1 Narrative: awake, more alert, nonverbal anciteric neck supple' lungs- some rhonchi regular rhythm abdomen- soft exrieis no edema + hemiplegia Urinary Catheter Management Indwelling Urethral Catheter: Cath placed during this visit: yes Reason for continuing: Hourly intake/output Insertion date: 12/04/18 Insertion time: 12:00 Results Labs CBC & Chem 7: 12/04/18 14:59 12/05/18 05:18 Labs: Microbiology 12/02/18 23:25 Blood - Peripheral Aerobic Blood Culture - Preliminary No growth in 3 days 12/02/18 23:25 Blood - Peripheral Anaerobic Blood Culture - Preliminary No growth in 3 days 12/02/18 23:20 Blood - Peripheral Aerobic Blood Culture - Preliminary No growth in 3 days 12/02/18 23:20 Blood - Peripheral Anaerobic Blood Culture - Preliminary No growth in 3 days 12/03/18 00:00 Clean Catch Urine Urine Culture - Final >100,000 cfu/mL mixed gram positive betty (probable contaminantes) Assessment and Plan (1) Altered mental status: Code(s): R41.82 - Altered mental status, unspecified Status: Acute (2) H/O craniotomy: Code(s): Z98.890 - Other specified postprocedural states Status: Chronic (3) History of intracranial hemorrhage: Code(s): Z86.79 - Personal history of other diseases of the circulatory system Status: Chronic (4) Pneumonia: Code(s): J18.9 - Pneumonia, unspecified organism Status: Acute (5) UTI (urinary tract infection): Code(s): N39.0 - Urinary tract infection, site not specified Status: Acute (6) Acute UTI: Code(s): N39.0 - Urinary tract infection, site not specified Status: Acute Plan 63 years old female Pneumonia/? Aspiration/sepsis Patient with leukocytosis of 18, tachycardia Chest x-ray significant early infiltrates in bilateral lung bases Concern for aspiration Azithromycin, cefepime, Flagyl Blood cultures pending IV fluids restarte dTF - d/w nutritonist will increasee to 5 can daily duonebs treatment q 6 scheduled and q 2 prn d/w ID- she change antibotics to Zosyn Status post intracranial hemorrhage/right-sided paralysis At baseline Physical therapy Patient was supposed to undergo flap revision- cancelled Hypernatremia- gradually trending down - continue D5W IVF - give free water 50 cc q 4 - FF BMP Hypokalemia- improved - continue IVF with KCL - FF Sacral ulcer- duoderm FEN- d/w dietitian- increase TF to 5 x a day Electrolytes: Monitor and replete as needed Holding pharmacologic anticoagulation for history of intracranial hemorrhage NS at 60 cc/hour d/w Progress Note: Quality VTE Deep Vein Thrombosis/Pulmonary Embolism Present on Admission: No _ (1) UTI (urinary tract infection) Qualifiers: Encounter type: Hematuria presence: without hematuria Indwelling urinary catheter type: Urinary tract infection type: site unspecified Qualified Code( s): N39.0 - Urinary tract infection, site not specified (2) Altered mental status Qualifiers: Altered mental status type: Coma depth: Coma timing: (3) Pneumonia Qualifiers: Aspiration pneumonia type: Laterality: bilateral Lung location: lower lobe of lung Pneumonia type: due to unspecified organism Qualified Code(s): J18.1 - Lobar pneumonia, unspecified organism
--- NOTE | 2018-12-05 15:02 | P.CONID ---
History of Present Illness Service: ID Consult date: 12/05/18 Requesting Physician: Anjali Quach Reason for Consult: aspiration pneumonia Primary Care Provider: No Primary Care Physician History of Present Illness: This is a 63-year-old female who has had a severe traumatic large acute subdural hematoma with mass effect and midline shift sp right frontotemporal craniectomy with evacuation of an acute subdural hematoma on 05/11/2018. A few days later, she had a hypertensive hemorrhage that resulted in dense right hemiparesis. She was scheduled for a right cranioplasty with bone flap replacement this morning but came in last night with leukocytosis of 18 K, worening mental stutus and resp distress NO fever documented Diagnosed with aspiration pneumonia Started on Cefepime +Metronidazole CT showed Worsening atelectatic changes in the right base with more confluent airspace process posteriorly in the left base. The latter may represent rounded atelectasis or chronic infiltrate; Large amount stool in the mid and distal portions of the colon could represent an element of constipation. Patient has a gastrostomy tube which appears to be appropriately positioned within the gastric lumen; Nonobstructing 2.4 cm calculus in the lower pole collecting system of the right kidney; Mild gallbladder distention. Per at baseline pt is able "to talk a little bit" Review of Systems All other systems reviewed negative except as stated in HPI PMFSH - History History Provided By: Family Member - Medical / Surgical Hx Neg / Unobtainable Medical Problems Denied: Unable to Obtain - Medical History Medical History: Medical History (This Medical Record has been edited. Action required.) Skin cancer Alcohol abuse Bone flap displacement CVA (cerebrovascular accident) Chronic pain Depressed Diabetes type 2, uncontrolled Flaccid hemiplegia affecting right dominant side Frequent falls Gastric ulcer Gastrointestinal tube present History of throat cancer Hx of gastric ulcer Hypertension Impaired speech articulation Lymphoma Metal bone fixation hardware in place Pressure ulcer Recent urinary tract infection Risk for falls - Surgical History Surgical History: Surgical History (This Medical Record has been edited. Action required.) Status post craniotomy H/O bilateral breast implants History of open reduction and internal fixation (ORIF) procedure Hx of craniotomy Hx of laparoscopy Hx of tracheostomy - Family History Family History: Family History (This Medical Record has been edited. Action required.) Other Family history unobtainable Unknown family medical history - Tobacco History Second Hand Smoke Exposure: No Tobacco Use In Past 30 Days: No Smoking Status: Former smoker Tobacco Type: Cigarettes - Alcohol History How Often Do You Have a Drink Containing Alcohol: Never - Substance Use History Substance History: Past History - Travel History Recent Travel in the [place] Within the Last 8 Weeks: No Recent Travel Out of the Country Within the Last 8 Weeks: No - Immunization History Tetanus Immunization: <5 Years Hx Influenza Vaccine This Season: Yes Medications and Allergies Active Medications: Active Medications Albuterol (Duoneb Neb (Gautam)) [address] Q[address] [facility] Last Admin: 12/05/18 09:08 Dose: 1 ampul Albuterol (Duoneb Neb (Prn)) 1 ampul NEB Q2HR NEB PRN PRN Reason: WHEEZING Bisacodyl (Dulcolax Supp) 10 mg RECTAL DAILY PRN PRN Reason: SEVERE CONSITIPATION Cefepime HCl 2,000 mg/ Sodium (Chloride) 100 mls @ 200 mls/hr IV.SIG Q8H [facility] Last Infusion: 12/05/18 09:15 Dose: Infused Metronidazole/Sodium Chloride (Flagyl 500 Mg Inj) 100 mls @ 100 mls/hr IV.SIG Q8H [facility] Last Infusion: 12/05/18 10:50 Dose: Infused Potassium Chloride 40 meq/ (Dextrose) 1,020 mls @ 84 mls/hr IV.CONT .Q12H9M [facility] Last Admin: 12/05/18 09:50 Dose: 84 mls/hr Morphine Sulfate (Morphine Inj) 2 mg IV.PUSH Q4H PRN PRN Reason: PAIN SCALE 6 TO 10 Last Admin: 12/03/18 12:15 Dose: 2 mg Ondansetron HCl (Zofran Inj) 4 mg IV.PUSH Q6H PRN PRN Reason: NAUSEA OR VOMITING Oxycodone HCl (Roxicodone) 20 mg G-TUBE Q8H PRN PRN Reason: PAIN 1-10 AND/OR FEVER >101F Last Admin: 12/05/18 09:54 Dose: 20 mg Potassium Chloride (Kcl Liq) 20 meq G-TUBE BID [facility] Last Admin: 12/05/18 08:49 Dose: 20 meq Sodium Chloride (Ns Flush) [address] [facility] Last Admin: 12/05/18 08:49 Dose: Not Given Sodium Chloride (Ns Flush) 2 ml IV.FLUSH PRN PRN PRN Reason: FLUSH AFTER USING IV ACCESS Trazodone HCl (Desyrel) 50 mg G-TUBE HS [facility] Last Admin: 12/04/18 22:23 Dose: 50 mg Allergies Allergy/AdvReac Type Severity Reaction Status Date / Time No Known Allergies Allergy Verified 12/05/18 14:25 Home Medications Medication Instructions Recorded Confirmed Type amantadine HCl 150 mg PO BID 08/05/18 12/02/18 History cyanocobalamin (vitamin B-12) 1,000 mcg PO DAILY 08/05/18 12/02/18 History modafinil 100 mg PO DAILY 08/05/18 12/02/18 History amantadine HCl 150 mg FEEDING TUBE BID 11/28/18 11/28/18 History baclofen 10 mg FEEDING TUBE Q8H 11/28/18 11/28/18 History famotidine 20 mg FEEDING TUBE BID 11/28/18 11/28/18 History gabapentin 800 mg FEEDING TUBE BID 11/28/18 11/28/18 History modafinil 100 mg FEEDING TUBE DAILY 11/28/18 11/28/18 History oxycodone 20 mg FEEDING TUBE Q8HR PRN 11/28/18 11/28/18 History trazodone 50 mg FEEDING TUBE HS 11/28/18 11/28/18 History baclofen 10 mg PO BID 12/02/18 12/02/18 History gabapentin 800 mg PO HS 12/02/18 12/03/18 History oxycodone 20 mg PO Q4-6H PRN 12/02/18 12/02/18 History trazodone 50 mg PO HS 12/02/18 12/02/18 History Exam Vital signs: Vital Signs 12/04/18 15:05 12/04/18 15:41 12/04/18 16:00 Temperature 97.6 F Pulse Rate 92 H 107 H Respiratory Rate 18 18 Blood Pressure 166/72 H Pulse Oximetry 94 L 95 12/04/18 19:49 12/04/18 20:00 12/04/18 23:15 Temperature 98.7 F 97.9 F Pulse Rate 110 H 104 H 99 H Respiratory Rate 14 14 16 Blood Pressure 174/78 H 148/80 H Pulse Oximetry 96 97 12/04/18 23:46 12/05/18 00:00 12/05/18 03:30 Temperature 97.9 F Pulse Rate 87 85 Respiratory Rate 18 16 Blood Pressure 160/70 H Pulse Oximetry 97 12/05/18 04:00 12/05/18 04:07 12/05/18 08:00 Temperature 98.2 F Pulse Rate 88 87 101 H Respiratory Rate 16 16 Blood Pressure 159/70 H Pulse Oximetry 95 12/05/18 09:10 12/05/18 12:00 Temperature 98.6 F Pulse Rate 80 86 Respiratory Rate 16 15 Blood Pressure 146/67 H Pulse Oximetry 96 Intake & Output 12/04/18 12/05/18 12/05/18 18:59 06:59 18:59 Intake Total 1720 / 1720 2320 / 2320 200 / 200 Output Total 1700 / 1700 Balance 1720 / 1720 620 / 620 200 / 200 Weight 38.6 kg Intake: IV 900 / 900 2320 / 2320 200 / 200 KCl Inj 40 MEQ In D5W Inj 1,000 1020 / 1020 ML @ 84 mls/hr IV.CONT .Q12H9M [facility] Rx#:[id number] NS Inj 1,000 ML @ 60 mls/hr IV. 500 / 500 1000 / [id number] [facility] Rx#:[id number] Maxipime Inj 2,000 MG In NS Inj 200 / 200 100 / 100 100 / 100 100 ML @ 200 mls/hr IV.SIG Q8H [facility] Rx#:[id number] KCl 10 mEq Premix Inj 10 meq In 100 / 100 100 ml @ 100 mls/hr IV.SIG ONCE ONE Rx#:[id number] Flagyl 500 MG Inj 100 ML @ 100 200 / 200 100 / 100 100 / 100 mls/hr IV.SIG Q8H [facility] Rx#: [id number] Tube Feeding 720 / 720 Tube Irrigant 0 / 0 Water Bolus Amount 100 / 100 Output: Urine Amount (Catheter) 1700 / 1700 Indwelling Urethral Catheter 1700 / 1700 Other: # Voids 4 Date of Last Bowel Movement 12/03/18 12/03/18 # Bowel Movements 1 - Constitutional no acute distress, average body habitus - Routine HEENT Exam Head: Present: normocephalic Eye: Present: EOMI, PERRL ENT: Present: mucous membranes moist, oropharynx clear Comments: Abscent bomne on R parietal area - Routine Neck Exam Present: supple, full ROM. Absent: lymphadenopathy - Routine Respiratory Exam Present: rhonchi (b;). Absent: decreased breath sounds - Routine Cardiovascular Exam Present: RRR, S1, S2. Absent: murmur, gallop, rubs - Routine Abdominal Exam Present: soft, normoactive bowel sounds, ostomy (PEG). Absent: tenderness, distended, organomegaly, mass - Routine Extremities Exam Absent: cyanosis, clubbing, edema - Routine Skin Exam Present: intact, warm. Absent: rash - Routine Neurological Exam lethragic, not following commands non verbal - Routine Psychiatric Exam Present: unable to assess Results - Labs CBC & Chem 7: 12/04/18 14:59 12/05/18 05:18 Labs: Laboratory Results - last 24 hr 12/04/18 12/04/18 12/04/18 14:59 14:59 20:38 WBC 12.3 H RBC 3.13 L Hgb 9.9 L Hct 29.7 L MCV 95.1 MCH 31.7 MCHC 33.3 RDW 13.5 Plt Count 379 MPV 9.8 Neut % (Auto) 86.7 H Lymph % (Auto) 5.8 L Osborne % (Auto) 7.4 Eos % (Auto) 0.0 Baso % (Auto) 0.1 Neut # (Auto) 10.6 H Lymph # (Auto) 0.7 L Osborne # (Auto) 0.9 Eos # (Auto) 0.0 Baso # (Auto) 0.0 WBC Differential . Differential Comment Auto diff final Sodium 157 H* Potassium 2.7 L* D 2.9 L* Chloride 123 H Carbon Dioxide 26.3 Anion Gap 8 BUN 14 Creatinine 0.42 L Estimated GFR Greater than 89 Random Glucose 213 H Calcium 8.6 Magnesium 12/05/18 05:18 WBC RBC Hgb Hct MCV MCH MCHC RDW Plt Count MPV Neut % (Auto) Lymph % (Auto) Osborne % (Auto) Eos % (Auto) Baso % (Auto) Neut # (Auto) Lymph # (Auto) Osborne # (Auto) Eos # (Auto) Baso # (Auto) WBC Differential Differential Comment Sodium 153 H Potassium 3.6 Chloride 121 H Carbon Dioxide 25.9 Anion Gap 6 BUN 10 Creatinine 0.42 L Estimated GFR Greater than 89 Random Glucose 142 H Calcium 8.1 L Magnesium 2.2 - Imaging Impressions Chest X-Ray 12/02/18 23:01 CONCLUSION: Faint, streaky density in both lung bases may represent atelectasis or early infiltrates. Abdomen/Pelvis CT 12/03/18 23:46 CONCLUSION: 1. Worsening atelectatic changes in the right base with more confluent airspace process posteriorly in the left base. The latter may represent rounded atelectasis or chronic infiltrate. 2. Large amount stool in the mid and distal portions of the colon could represent an element of constipation. Patient has a gastrostomy tube which appears to be appropriately positioned within the gastric lumen. 3. Nonobstructing 2.4 cm calculus in the lower pole collecting system of the right kidney. 4. Mild gallbladder distention. There is a nonspecific finding and can be seen in periods of extended fasting Assessment and Plan - Plan Sp TBI with sever persistant encephalopathy Needs R cranioplasty Suspected aspiration PNA No h/o abx allwergies - dw pt's change abx tp zosyn try to obtain sputum clx fu clinically repeat CXR
--- NOTE | 2018-12-05 15:58 | P.PNWCN ---
Wound Care Nurse Consult Description: Received consult for pressure ulcer to sacral area from Doctor Philomena Communicated with: RN Janey Tomlin and Doctor Quach Recommendation: 1. Please cleanse wound to Sacrococcygeal area with normal saline or wound cleanser and pat dry. 2. Apply skin barrier film to periwound and cover wound with Optifoam 6x6 dressing 3. Change dressing every 3 days or as needed if saturated or dislodged. 4. Turn patient from L side to R side every 2 hours and limit time spent on back to P.T., medical procedures, patient care and meals. 5. Do not use cotton pads on low airloss mattress, please use extrasorb pad for moisture and incontinence management. Wound/Pressure Injury - Wound Sacrococcygeal area Wound Staging: Stage II Wound Assessment: Ongoing Wound Type: Pressure Injury Requested from Provider a Wound Care Consult: Yes Length (cm): 3.5 Width (cm): 4 Depth (cm): 0.1 (~<0.1cm) Wound Bed Appearance: [place]land Wound Bed Appearance: 100% pink Surrounding Tissue Appearance: Blanched/Dull Surrounding Tissue Temperature: Warm Drainage Description: Serosanguinous Drainage Amount: Minimal Drainage Odor: No Odor Dressing Status: Changed Cleansing Solution: Saline Topical: Cavilon skin barrier film to periwound Cover Dressing: Bordered gauze Wound Dressing Change Date: 12/05/18 - Additional Information Patient seen on [address] [place] [id number] for pressure ulcer evaluation on sacral area. Patient was seen today with TIFFANIE Akhtar, and production underwriter. Patient was turned by production underwriter and TIFFANIE akhtar toward the L side and hydrocolloid dressing in place removed to reveal open partial thickness wound over sacrococcygeal area that presents with 100% pink tissue. Wound margins are poorly defined. Wound appears to have mixed etiology of moisture, pressure and friction.Wound is a stage II pressure injury. Periwound presents with blanchable erythema and small area of partial thickness skin loss at 4 o'clock that measures ~1cm x ~1cm x ~<0.1cm. Wound was cleansed with normal saline and patted dry. Applied Cavilon skin barrier film to periwound and covered wound with bordered gauze. Patient was positioned off bottom with pillows in place for support.
[2018-12-05] MEDS: Piperacil/Tazo 3.375 GM Premix 3.375 GM/50 ML PIGGYBACK IV.SIG SCH ×2 (16:49→21:47)
[2018-12-05] MEDS: traZODone 50 MG Tablet G-TUBE SCH (21:47)
[2018-12-06] MEDS: Potassium Chloride Inj 40 MEQ in Dextrose 5% in Water Inj 1,000 ML IV.CONT SCH ×8 (01:58→19:37)
[2018-12-06] MEDS: Piperacil/Tazo 3.375 GM Premix 3.375 GM/50 ML PIGGYBACK IV.SIG SCH ×4 (05:20→22:01)
[2018-12-06 06:45] LABS: Anion Gap 7 meq/L (5-15); Blood Urea Nitrogen 7 mg/dL (7-18); Calcium 8.5 mg/dL (8.5-10.1); Carbon Dioxide 26.7 meq/L (21.0-32.0); Chloride 116 meq/L (98-107); Glomerular Filtration Rate Greater Than 89 mL/min (>89); Glucose,Random 137 mg/dL (74-106); Potassium 4.6 meq/L (3.5-5.1); Sodium 150 meq/L (136-145)
[2018-12-06] MEDS: Potassium Chloride Liq 20 MEQ/15 ML UDC G-TUBE SCH ×2 (09:17→22:00)
--- NOTE | 2018-12-06 13:23 | P.PNIM ---
Subjective Interval history: seen with family at bedside patient apperar comfortable tolerating tube feedings good urine output Physical Exam Vital signs: Vital Signs 12/05/18 16:00 12/05/18 20:00 12/05/18 20:39 Temperature 97.8 F 97.8 F Pulse Rate 82 90 99 H Respiratory Rate 14 18 20 Blood Pressure 140/52 L 90/52 L Pulse Oximetry 97 91 L 12/06/18 00:00 12/06/18 04:00 12/06/18 04:20 Temperature 97.1 F L 97.4 F L Pulse Rate 96 H 97 H 104 H Respiratory Rate 18 17 20 Blood Pressure 143/82 H 138/70 Pulse Oximetry 99 95 12/06/18 07:26 12/06/18 08:00 12/06/18 08:06 Temperature 97.7 F Pulse Rate 93 H 101 H 96 H Respiratory Rate 15 18 Blood Pressure 141/74 H Pulse Oximetry 96 12/06/18 08:07 12/06/18 11:23 Temperature Pulse Rate Respiratory Rate Blood Pressure Pulse Oximetry 96 96 Intake & Output 12/05/18 12/06/18 12/06/18 18:59 06:59 18:59 Intake Total 250 / 250 1120 / 1120 50 / 50 Output Total 550 / 550 1400 / 1400 Balance -300 / -300 -280 / -280 50 / 50 Weight 38.6 kg Intake: IV 250 / 250 1120 / 1120 50 / 50 KCl Inj 40 MEQ In D5W Inj 1,000 1020 / 1020 ML @ 84 mls/hr IV.CONT .Q12H9M [facility] Rx#:[id number] Maxipime Inj 2,000 MG In NS Inj 100 / 100 100 ML @ 200 mls/hr IV.SIG Q8H [facility] Rx#:[id number] Zosyn 3.375 GM Premix 3.375 gm 50 / 50 100 / 100 50 / 50 In 50 ml @ 100 mls/hr IV.SIG Q6H [facility] Rx#:[id number] Flagyl 500 MG Inj 100 ML @ 100 100 / 100 mls/hr IV.SIG Q8H [facility] Rx#: [id number] Oral 0 / 0 0 / 0 Output: Urine 550 / 550 1400 / 1400 Other: Date of Last Bowel Movement 12/03/18 12/03/18 12/03/18 Narrative: eyes open , i think she made eye contact, non verbal anicteric lungs- no wheezes, no rales regular hythmabdomensoft nontender extrmeites no edema Urinary Catheter Management Indwelling Urethral Catheter: Cath placed during this visit: yes Reason for continuing: Hourly intake/output Insertion date: 12/04/18 Insertion time: 12:00 Results Labs CBC & Chem 7: 12/04/18 14:59 12/06/18 05:19 Labs: Microbiology 12/02/18 23:25 Blood - Peripheral Aerobic Blood Culture - Preliminary No growth in 4 days 12/02/18 23:25 Blood - Peripheral Anaerobic Blood Culture - Preliminary No growth in 4 days 12/02/18 23:20 Blood - Peripheral Aerobic Blood Culture - Preliminary No growth in 4 days 12/02/18 23:20 Blood - Peripheral Anaerobic Blood Culture - Preliminary No growth in 4 days Imaging Imaging: Impressions Chest X-Ray 12/02/18 23:01 CONCLUSION: Faint, streaky density in both lung bases may represent atelectasis or early infiltrates. Abdomen/Pelvis CT 12/03/18 23:46 CONCLUSION: 1. Worsening atelectatic changes in the right base with more confluent airspace process posteriorly in the left base. The latter may represent rounded atelectasis or chronic infiltrate. 2. Large amount stool in the mid and distal portions of the colon could represent an element of constipation. Patient has a gastrostomy tube which appears to be appropriately positioned within the gastric lumen. 3. Nonobstructing 2.4 cm calculus in the lower pole collecting system of the right kidney. 4. Mild gallbladder distention. There is a nonspecific finding and can be seen in periods of extended fasting Assessment and Plan Plan 63 years old female Pneumonia likely Aspiration PNA Patient with leukocytosis of 18, tachycardia Chest x-ray significant early infiltrates in bilateral lung bases - ID ff- started on Zosyn 12/05 Blood cultures - negative sof far restarte dTF - d/w nutritonist up 5 can daily duonebs treatment q 6 scheduled and q 2 prn Status post intracranial hemorrhage/right-sided paralysis At baseline Physical therapy Patient was supposed to undergo flap revision- cancelled Hypernatremia- gradually trending down- improved - continue D5W IVF- decrease IVF rate - give free water 50 cc q 4 - FF BMP Hypokalemia- improved - continue IVF with KCL - FF Sacral ulcer- duoderm FEN- d/w dietitian- increase TF to 5 x a day Electrolytes: Monitor and replete as needed Holding pharmacologic anticoagulation for history of intracranial hemorrhage d/w family Progress Note: Quality VTE Deep Vein Thrombosis/Pulmonary Embolism Present on Admission: No
[2018-12-06] MEDS: traZODone 50 MG Tablet G-TUBE SCH (22:00)
[2018-12-07] MEDS: Piperacil/Tazo 3.375 GM Premix 3.375 GM/50 ML PIGGYBACK IV.SIG SCH ×4 (04:13→22:00)
[2018-12-07] MEDS: Potassium Chloride Liq 20 MEQ/15 ML UDC G-TUBE SCH ×2 (08:25→22:00)
[2018-12-07 11:04] LABS: Baso % (Auto) 0.3 % (0.0-2.0); Eos # (Auto) 0.2 th/mm3 (0.0-0.4); Eos % (Auto) 1.5 % (0.0-4.0); Hematocrit 31.2 % (35.0-46.0); Hemoglobin 10.8 gm/dL (11.6-15.3); Lymph # (Auto) 1.2 th/mm3 (1.0-4.8); Lymph % (Auto) 12.1 % (9.0-44.0); Mean Corpuscular HGB Conc 34.7 % (32.0-36.0); Mean Corpuscular Hemoglobin 32.3 pg (27.0-34.0); Mean Corpuscular Volume 93.1 fL (80.0-100.0); Mean Platelet Volume 10.3 fL (7.0-11.0); Mono # (Auto) 0.8 th/mm3 (0.0-0.9); Neut # (Auto) 7.8 th/mm3 (1.8-7.7); Neut % (Auto) 78.1 % (16.0-70.0); Platelet Count 382 th/mm3 (150-450); Red Blood Count 3.35 mil/mm3 (4.00-5.30); Red Cell Distribution Width 13.7 % (11.6-17.2)
[2018-12-07 11:49] LABS: Anion Gap 9 meq/L (5-15); Blood Urea Nitrogen 5 mg/dL (7-18); Carbon Dioxide 26.5 meq/L (21.0-32.0); Chloride 106 meq/L (98-107); Glomerular Filtration Rate Greater Than 89 mL/min (>89); Glucose,Random 118 mg/dL (74-106); Potassium 4.5 meq/L (3.5-5.1); Sodium 141 meq/L (136-145)
--- NOTE | 2018-12-07 13:46 | P.PNIM ---
Subjective Interval history: patient awake and more alert, made eye contact toelrating tube feedigns Physical Exam Vital signs: Vital Signs 12/06/18 15:00 12/06/18 16:00 12/06/18 20:00 Temperature 96.5 F L 97.7 F Pulse Rate 89 92 H 85 Respiratory Rate 18 14 16 Blood Pressure 136/63 134/79 Pulse Oximetry 97 12/06/18 20:17 12/07/18 00:00 12/07/18 04:00 Temperature 98.8 F 98.4 F Pulse Rate 100 H 107 H 97 H Respiratory Rate 16 20 20 Blood Pressure 136/73 137/59 L Pulse Oximetry 97 94 L 94 L 12/07/18 04:25 12/07/18 08:20 12/07/18 08:34 Temperature 97.4 F L Pulse Rate 105 H 93 H 100 H Respiratory Rate 18 20 18 Blood Pressure 139/67 Pulse Oximetry 95 96 12/07/18 09:00 12/07/18 09:56 12/07/18 12:00 Temperature Pulse Rate 90 108 H Respiratory Rate 20 Blood Pressure Pulse Oximetry 95 12/07/18 12:55 Temperature 98.1 F Pulse Rate 102 H Respiratory Rate 16 Blood Pressure 139/75 Pulse Oximetry 93 L Intake & Output 12/06/18 12/07/18 12/07/18 18:59 06:59 18:59 Intake Total 1989 850 / 850 50 / 50 Output Total 2099 / 2099 Balance 1989 -1250 / -1250 50 / 50 Weight 42 kg Intake: IV 1120 / 1120 100 / 100 50 / 50 KCl Inj 40 MEQ In D5W Inj 1,000 1020 / 1020 ML @ 40 mls/hr IV.CONT .Q24H [facility] Rx#:[id number] Zosyn 3.375 GM Premix 3.375 gm 100 / 100 100 / 100 50 / 50 In 50 ml @ 100 mls/hr IV.SIG Q6H [facility] Rx#:[id number] Tube Feeding 720 / 720 500 / 500 Water Bolus Amount 150 / 150 250 / 250 Output: Urine 2099 / 2099 Other: Date of Last Bowel Movement 12/03/18 12/03/18 Narrative: awake, and alert, anicteric lungs- few rhonchis regular rhythma bdomen-soft extremites no edema Urinary Catheter Management Indwelling Urethral Catheter: Cath placed during this visit: yes Reason for continuing: Hourly intake/output Insertion date: 12/04/18 Insertion time: 12:00 Results Labs CBC & Chem 7: 12/07/18 07:45 12/08/18 11:16 Labs: Microbiology 12/02/18 23:25 Blood - Peripheral Aerobic Blood Culture - Final No growth in 5 days 12/02/18 23:25 Blood - Peripheral Anaerobic Blood Culture - Final No growth in 5 days 12/02/18 23:20 Blood - Peripheral Aerobic Blood Culture - Final No growth in 5 days 12/02/18 23:20 Blood - Peripheral Anaerobic Blood Culture - Final No growth in 5 days Assessment and Plan Plan 63 years old female Pneumonia likely Aspiration PNA Patient with leukocytosis of 18, tachycardia Chest x-ray significant early infiltrates in bilateral lung bases - ID ff- started on Zosyn 12/05 Blood cultures - negative sof far Leukocytosis- imrpoved restarted TF - d/w nutritonist up 5 can daily duonebs treatment q 6 scheduled and q 2 prn Status post intracranial hemorrhage/right-sided paralysis At baseline Physical therapy Patient was supposed to undergo flap revision- cancelled Hypernatremia- gradually trending down- Resolved - continue D5W IVF- decrease IVF rate - give free water 50 cc q 4 - FF BMP Hypokalemia- improved - continue IVF with KCL - FF lytes Sacral ulcer- duoderm FEN- d/w dietitian- TF to 5 x a day Electrolytes: Monitor and replete as needed Holding pharmacologic anticoagulation for history of intracranial hemorrhage Progress Note: Quality VTE Deep Vein Thrombosis/Pulmonary Embolism Present on Admission: No
--- NOTE | 2018-12-07 16:45 | P.PNID ---
Subjective Remarks: better no fever WBC down to 10 K Antibiotics: zosyn Allergies/Adverse Reactions: Allergies No Known Allergies Allergy (Verified 12/05/18 14:25) Objective Vital Signs 12/06/18 20:00 12/06/18 20:17 12/07/18 00:00 Temperature 97.7 F 98.8 F Pulse Rate 85 100 H 107 H Respiratory Rate 16 16 20 Blood Pressure 134/79 136/73 Pulse Oximetry 97 94 L 12/07/18 04:00 12/07/18 04:25 12/07/18 08:20 Temperature 98.4 F Pulse Rate 97 H 105 H 93 H Respiratory Rate 20 18 20 Blood Pressure 137/59 L Pulse Oximetry 94 L 95 12/07/18 08:34 12/07/18 09:00 12/07/18 09:56 Temperature 97.4 F L Pulse Rate 100 H 90 Respiratory Rate 18 20 Blood Pressure 139/67 Pulse Oximetry 96 95 12/07/18 12:00 12/07/18 12:55 12/07/18 15:00 Temperature 98.1 F Pulse Rate 108 H 102 H 103 H Respiratory Rate 16 14 Blood Pressure 139/75 Pulse Oximetry 93 L Intake & Output 12/06/18 12/07/18 12/07/18 18:59 06:59 18:59 Intake Total 1989 850 / 850 100 / 100 Output Total 2099 / 2099 Balance 1989 -1250 / -1250 100 / 100 Weight 42 kg Intake: IV 1120 / 1120 100 / 100 100 / 100 KCl Inj 40 MEQ In D5W Inj 1,000 1020 / 1020 ML @ 40 mls/hr IV.CONT .Q24H CARLOS Rx#:[id number] Zosyn 3.375 GM Premix 3.375 gm 100 / 100 100 / 100 100 / 100 In 50 ml @ 100 mls/hr IV.SIG Q6H CARLOS Rx#:[id number] Tube Feeding 720 / 720 500 / 500 Water Bolus Amount 150 / 150 250 / 250 Output: Urine 2099 Other: Date of Last Bowel Movement 12/03/18 12/03/18 12/02/18 23:25 Blood - Peripheral Aerobic Blood Culture - Final No growth in 5 days 12/02/18 23:25 Blood - Peripheral Anaerobic Blood Culture - Final No growth in 5 days 12/02/18 23:20 Blood - Peripheral Aerobic Blood Culture - Final No growth in 5 days 12/02/18 23:20 Blood - Peripheral Anaerobic Blood Culture - Final No growth in 5 days Lab - Hematology Results 12/07/18 07:45 WBC 10.0 RBC 3.35 L Hgb 10.8 L Hct 31.2 L MCV 93.1 MCH 32.3 MCHC 34.7 RDW 13.7 Plt Count 382 MPV 10.3 Neut % (Auto) 78.1 H Lymph % (Auto) 12.1 Cross % (Auto) 8.0 Eos % (Auto) 1.5 Baso % (Auto) 0.3 Neut # (Auto) 7.8 H Lymph # (Auto) 1.2 Cross # (Auto) 0.8 Eos # (Auto) 0.2 Baso # (Auto) 0.0 WBC Differential . Differential Comment Auto diff final Lab - Chemistry Results 12/06/18 12/07/18 05:19 07:45 Sodium 150 H 141 Potassium 4.6 D 4.5 Chloride 116 H 106 D Carbon Dioxide 26.7 26.5 Anion Gap 7 9 BUN 7 5 L Creatinine 0.35 L 0.38 L Estimated GFR Greater than 89 Greater than 89 Random Glucose 137 H 118 H Calcium 8.5 9.0 Imaging: ITS Impressions Chest X-Ray 12/02/18 23:01 CONCLUSION: Faint, streaky density in both lung bases may represent atelectasis or early infiltrates. Abdomen/Pelvis CT 12/03/18 23:46 CONCLUSION: 1. Worsening atelectatic changes in the right base with more confluent airspace process posteriorly in the left base. The latter may represent rounded atelectasis or chronic infiltrate. 2. Large amount stool in the mid and distal portions of the colon could represent an element of constipation. Patient has a gastrostomy tube which appears to be appropriately positioned within the gastric lumen. 3. Nonobstructing 2.4 cm calculus in the lower pole collecting system of the right kidney. 4. Mild gallbladder distention. There is a nonspecific finding and can be seen in periods of extended fasting Physical Exam: GENERAL: NAD SKIN: Warm and dry. no rash HEAD: Bone absent R parietal Normocephalic. EYES: Pupils equal and round. No scleral icterus. No injection or drainage. ENT: No nasal bleeding or discharge. Mucous membranes pink and moist. CARDIOVASCULAR: Regular rate and rhythm. RESPIRATORY: No accessory muscle use. Clear to auscultation. GASTROINTESTINAL: Abdomen soft, non-tender, nondistended. MUSCULOSKELETAL: Extremities without clubbing, cyanosis, or edema. No obvious deformities. NEUROLOGICAL: Awake and alert. Non verbal not following commnads PSYCHIATRIC: unable to asses Assessment and Plan - Plan Sp TBI with sever persistant encephalopathy Needs R cranioplasty Suspected aspiration PNA No h/o abx allergies - dw pt's change abx to augmentin when ready for dc repeat CXR in am complete 7 days of abx if improving clinically and /radiologically lilian Quach
[2018-12-07] MEDS: Potassium Chloride Inj 40 MEQ in Dextrose 5% in Water Inj 1,000 ML IV.CONT SCH ×4 (17:52→18:16)
[2018-12-07] MEDS: traZODone 50 MG Tablet G-TUBE SCH (22:00)
--- NOTE | 2018-12-08 00:36 | XR ---
EXAM DATE: 12/08/2018 12:25 AM EST AGE/SEX: 63 years / Female INDICATIONS: Respiratory distress. CLINICAL DATA: This is the patient's subsequent encounter. Patient reports that signs and symptoms h ave been present for 1 week and indicates a pain score of Nonresponsive. MEDICAL/SURGICAL HISTORY: Cerebrovascular disease. Lymphoma. Craniotomy. COMPARISON: [facility] – [place], CHEST 1V SINGLE AP, 12/02/2018. . FINDINGS: A single AP view of the chest demonstrates the lungs to be symmetrically aerated without evidence of mass, infiltrate or effusion. The cardiomediastinal contours are unremarkable. Osseous structures a re intact. Concern for pneumoperitoneum below the left hemidiaphragm. CONCLUSION: 1. Concern for pneumoperitoneum below the left hemidiaphragm. 2. Clear lungs. Electronically signed by: Yosi Wagner MD Board Certified Radiologist 12/08/2018 12:34 AM EST
--- NOTE | 2018-12-08 04:12 | XR ---
EXAM DATE: 12/08/2018 3:52 AM EST AGE/SEX: 63 years / Female INDICATIONS: Respiratory distress. CLINICAL DATA: This is the patient's initial encounter. Patient reports that signs and symptoms have been present for 1 week and indicates a pain score of Nonresponsive. MEDICAL/SURGICAL HISTORY: . Cerebrovascular disease. Lymphoma. Craniotomy. COMPARISON: [facility] – [place], CHEST 1V SINGLE AP, 12/08/2018. . FINDINGS: A single AP view of the chest demonstrates hyperinflation of lungs. Minimal linear atelectasis within the left base. No infiltrate or effusion. No pneumothorax. Heart is normal in size. No air seen belo w the left hemidiaphragm on this exam. CONCLUSION: Clear lungs. Electronically signed by: Yosi Wagner MD Board Certified Radiologist 12/08/2018 4:10 AM EST
[2018-12-08] MEDS: Piperacil/Tazo 3.375 GM Premix 3.375 GM/50 ML PIGGYBACK IV.SIG SCH ×4 (05:18→22:01)
[2018-12-08] MEDS: Potassium Chloride Liq 20 MEQ/15 ML UDC G-TUBE SCH ×2 (08:26→22:03)
[2018-12-08 12:04] LABS: Anion Gap 7 meq/L (5-15); Blood Urea Nitrogen 6 mg/dL (7-18); Calcium 9.4 mg/dL (8.5-10.1); Carbon Dioxide 27.1 meq/L (21.0-32.0); Chloride 106 meq/L (98-107); Glomerular Filtration Rate Greater Than 89 mL/min (>89); Glucose,Random 130 mg/dL (74-106); Potassium 4.8 meq/L (3.5-5.1); Sodium 140 meq/L (136-145)
--- NOTE | 2018-12-08 14:13 | P.PNIM ---
Subjective Interval history: opened eyes to call of name and made eye contact tolerating tube feedings Physical Exam Vital signs: Vital Signs 12/07/18 15:00 12/07/18 16:00 12/07/18 17:13 Temperature 97.8 F Pulse Rate 103 H 94 H 93 H Respiratory Rate 14 17 Blood Pressure 113/58 L Pulse Oximetry 94 L 12/07/18 20:00 12/07/18 20:59 12/08/18 00:00 Temperature 98.4 F 97.8 F Pulse Rate 100 H 98 H Respiratory Rate 18 15 Blood Pressure 130/78 137/71 Pulse Oximetry 97 94 L 97 12/08/18 04:00 12/08/18 08:40 12/08/18 08:50 Temperature 99.1 F 97.5 F L Pulse Rate 95 H 84 92 H Respiratory Rate 17 16 16 Blood Pressure 126/70 147/64 H Pulse Oximetry 99 98 12/08/18 10:33 12/08/18 13:47 Temperature 97.9 F Pulse Rate 86 Respiratory Rate 18 Blood Pressure 143/72 H Pulse Oximetry 98 97 Intake & Output 12/07/18 12/08/18 12/08/18 18:59 06:59 18:59 Intake Total 1120.0 / 1120.0 100 / 100 Output Total 1200 / 1200 950 / 950 Balance -80.0 / -80.0 -850 / -850 Weight 42.3 kg Intake: IV 1120.0 / 1120.0 100 / 100 KCl Inj 40 MEQ In D5W Inj 1,000 1020.0 / 1020.0 ML @ 40 mls/hr IV.CONT .Q24H CARLOS Rx#:[id number] Zosyn 3.375 GM Premix 3.375 gm 100 / 100 100 / 100 In 50 ml @ 100 mls/hr IV.SIG Q6H CARLOS Rx#:[id number] Output: Urine 1200 / 1200 Urine Amount (Catheter) 950 / 950 Indwelling Urethral Catheter 950 / 950 Other: # Incontinent Voids 1 Date of Last Bowel Movement 12/07/18 12/08/18 # Bowel Movements 1 Narrative: eyes open, non verbal no acute dsitress anciteric neck supple lungs- decreased breath sounds, no wheezes, no rhonchi, no rales regular rhythm abdomens-soft, PEG in place extrmeies no edema Urinary Catheter Management Indwelling Urethral Catheter: Cath placed during this visit: yes, but has since been removed by the nurse Reason for continuing: Hourly intake/output Insertion date: 12/04/18 Insertion time: 12:00 Removal date: 12/08/18 Removal time: 10:59 Results Labs CBC & Chem 7: 12/07/18 07:45 12/08/18 11:16 Labs: Microbiology 12/02/18 23:25 Blood - Peripheral Aerobic Blood Culture - Final No growth in 5 days 12/02/18 23:25 Blood - Peripheral Anaerobic Blood Culture - Final No growth in 5 days 12/02/18 23:20 Blood - Peripheral Aerobic Blood Culture - Final No growth in 5 days 12/02/18 23:20 Blood - Peripheral Anaerobic Blood Culture - Final No growth in 5 days Imaging Imaging: Impressions Chest X-Ray 12/08/18 00:01 CONCLUSION: 1. Concern for pneumoperitoneum below the left hemidiaphragm. 2. Clear lungs. Chest X-Ray 12/08/18 06:00 CONCLUSION: Clear lungs. Assessment and Plan Plan 63 years old female Pneumonia likely Aspiration PNA Patient with leukocytosis of 18, tachycardia Chest x-ray significant early infiltrates in bilateral lung bases - ID ff- started on Zosyn 12/05 -Blood cultures - negative sof far - Leukocytosis- imrpoved restarted TF - d/w nutritonist up 5 can daily- tolerating duonebs treatment q 6 scheduled and q 2 prn needs oral suctioning repeat CXR in am- upright portable Status post intracranial hemorrhage/right-sided paralysis At baseline Physical therapy Patient was supposed to undergo flap revision- cancelled Hypernatremia- gradually trending down- Resolved - continue D5W IVF- decrease IVF rate - give free water 50 cc q 4 - FF BMP Hypokalemia- improved - continue IVF with KCL - FF lytes Sacral ulcer- duoderm FEN- d/w dietitian- TF to 5 x a day Electrolytes: Monitor and replete as needed Holding pharmacologic anticoagulation for history of intracranial hemorrhage Progress Note: Quality VTE Deep Vein Thrombosis/Pulmonary Embolism Present on Admission: No
[2018-12-08] MEDS: Potassium Chloride Inj 40 MEQ in Dextrose 5% in Water Inj 1,000 ML IV.CONT SCH ×2 (17:51)
[2018-12-08] MEDS: traZODone 50 MG Tablet G-TUBE SCH (22:02)
[2018-12-09] MEDS: Piperacil/Tazo 3.375 GM Premix 3.375 GM/50 ML PIGGYBACK IV.SIG SCH ×4 (04:02→21:44)
--- NOTE | 2018-12-09 07:48 | XR ---
EXAM DATE: 12/09/2018 7:31 AM EST AGE/SEX: 63 years / Female INDICATIONS: Short of breath CLINICAL DATA: This is the patient's subsequent encounter. Patient reports that signs and symptoms h ave been present for 1 week and indicates a pain score of Nonresponsive. MEDICAL/SURGICAL HISTORY: Lymphoma. Renal calculi. Craniotomy. [place] [facility] [place]/2018. . FINDINGS: A single AP view of the chest demonstrates the lungs to be symmetrically aerated without evidence of mass, infiltrate or effusion. The cardiomediastinal contours are unremarkable. Osseous structures a re intact. CONCLUSION: Negative for acute process Electronically signed by: Jeffery Machado MD Board Certified Radiologist 12/09/2018 7:46 AM EST
[2018-12-09] MEDS: Potassium Chloride Liq 20 MEQ/15 ML UDC G-TUBE SCH ×2 (09:19→21:45)
--- NOTE | 2018-12-09 15:25 | P.PNIM ---
Subjective Interval history: seen with family at bedside toelrting tube feedings opened eyes and turned to call of her name, non verbal but per family she is more interactive than her current status prior to this admission Physical Exam Vital signs: Vital Signs 12/08/18 16:00 12/08/18 17:03 12/08/18 20:00 Temperature 98.2 F 97.4 F L Pulse Rate 104 H 100 H 104 H Respiratory Rate 19 17 Blood Pressure 138/71 158/83 H Pulse Oximetry 98 99 12/09/18 00:00 12/09/18 04:00 12/09/18 04:23 Temperature 98 F 98.6 F Pulse Rate 95 H 103 H 110 H Respiratory Rate 19 19 Blood Pressure 126/76 150/78 H Pulse Oximetry 98 99 12/09/18 08:00 12/09/18 10:52 12/09/18 12:00 Temperature 97.0 F L 97.0 F L Pulse Rate 105 H 94 H Respiratory Rate 18 18 Blood Pressure 146/81 H 139/91 H Pulse Oximetry 96 96 95 Intake & Output 12/08/18 12/09/18 12/09/18 18:59 06:59 18:59 Intake Total 955 / 955 100 / 100 50 / 50 Balance 955 / 955 100 / 100 50 / 50 Weight 42.5 kg Intake: IV 955 / 955 100 / 100 50 / 50 KCl Inj 40 MEQ In D5W Inj 1,000 855 / 855 ML @ 40 mls/hr IV.CONT .Q24H CARLOS Rx#:[id number] Zosyn 3.375 GM Premix 3.375 gm 100 / 100 100 / 100 50 / 50 In 50 ml @ 100 mls/hr IV.SIG Q6H CARLOS Rx#:[id number] Other: # Incontinent Voids 3 # Urine Diapers 5 Date of Last Bowel Movement 12/08/18 12/07/18 12/07/18 # Incontinent Bowel Movements 2 Narrative: eyes open, no acute distress some upper airways sounds lungs- no wheezes regualr rhythm abdomen-soft PEG in place extrmeies kurtis dorothy Urinary Catheter Management Indwelling Urethral Catheter: Cath placed during this visit: yes, but has since been removed by the nurse Reason for continuing: Hourly intake/output Insertion date: 12/04/18 Insertion time: 12:00 Removal date: 12/08/18 Removal time: 10:59 Results Labs CBC & Chem 7: 12/07/18 07:45 12/08/18 11:16 Imaging Imaging: Impressions Chest X-Ray 12/09/18 07:00 CONCLUSION: Negative for acute process Assessment and Plan Plan 63 years old female Pneumonia likely Aspiration PNA Patient with leukocytosis of 18, tachycardia Chest x-ray significant early infiltrates in bilateral lung bases - ID ff- started on Zosyn 12/05 - Blood cultures - negative sof far - Leukocytosis- imrpoved restarted TF - d/w nutritonist up 5 can daily- tolerating duonebs treatment q 6 scheduled and q 2 prn needs oral suctioning repeat CXR - improved d/w family - that they may need to get a suction machine at home for oral suctioning Status post intracranial hemorrhage/right-sided paralysis At baseline Physical therapy Patient was supposed to undergo flap revision- cancelled - family states she is usually more interactive prior to this admission - will get speech eval- cognitive therapy Hypernatremia- gradually trending down- Resolved - give free water 50 cc q 4 - FF BMP - DV IVF and monitor with above TF and free water flushes Hypokalemia- improved - FF lytes Sacral ulcer- duoderm FEN- d/w dietitian- TF to 5 x a day Electrolytes: Monitor and replete as needed Holding pharmacologic anticoagulation for history of intracranial hemorrhage Progress Note: Quality VTE Deep Vein Thrombosis/Pulmonary Embolism Present on Admission: No
[2018-12-09] MEDS: traZODone 50 MG Tablet G-TUBE SCH (21:44)
[2018-12-10] MEDS: Potassium Chloride Inj 40 MEQ in Dextrose 5% in Water Inj 1,000 ML IV.CONT SCH ×2 (01:41)
[2018-12-10] MEDS: Piperacil/Tazo 3.375 GM Premix 3.375 GM/50 ML PIGGYBACK IV.SIG SCH ×4 (04:10→21:23)
[2018-12-10] MEDS: Potassium Chloride Liq 20 MEQ/15 ML UDC G-TUBE SCH (08:59)
--- NOTE | 2018-12-10 13:15 | P.PNIM ---
Subjective Interval history: Follow-up for aspiration pneumonia in a patient with a history of traumatic brain injury, intracranial hemorrhage. Patient is resting in bed. Remains nonverbal. Does not follow any commands. [id number] is at bedside. Afebrile. Physical Exam Vital signs: Vital Signs 12/09/18 16:00 12/09/18 20:00 12/09/18 21:13 Temperature 97.6 F 97.4 F L Pulse Rate 76 90 Respiratory Rate 18 17 Blood Pressure 131/70 135/71 Pulse Oximetry 98 95 95 12/10/18 00:00 12/10/18 04:00 12/10/18 07:55 Temperature 97.9 F 97.9 F Pulse Rate 86 86 88 Respiratory Rate 18 18 18 Blood Pressure 129/66 124/62 Pulse Oximetry 100 100 12/10/18 08:00 Temperature 97.8 F Pulse Rate 104 H Respiratory Rate 18 Blood Pressure 141/81 H Pulse Oximetry 99 Intake & Output 12/09/18 12/10/18 12/10/18 18:59 06:59 18:59 Intake Total 920 / 920 100 / 100 Balance 920 / 920 100 / 100 Weight 42.9 kg Intake: IV 100 / 100 100 / 100 Zosyn 3.375 GM Premix 3.375 gm 100 / 100 100 / 100 In 50 ml @ 100 mls/hr IV.SIG Q6H CARLOS Rx#:[id number] Tube Feeding 720 / 720 Water Bolus Amount 100 / 100 Other: # Incontinent Voids 4 3 Date of Last Bowel Movement 12/07/18 12/07/18 # Bowel Movements 1 Narrative: GENERAL: Cachectic appearing female. Does not communicate or follow any commands. SKIN: Warm and dry. HEAD: Normocephalic. EYES: No scleral icterus. No injection or drainage. NECK: Supple, trachea midline. No JVD or lymphadenopathy. CARDIOVASCULAR: Regular rate and rhythm without murmurs, gallops, or rubs. RESPIRATORY: Breath sounds equal bilaterally. No accessory muscle use. GASTROINTESTINAL: Abdomen soft, non-tender, nondistended. PEG tube is in place. MUSCULOSKELETAL: No cyanosis, or edema. Urinary Catheter Management Indwelling Urethral Catheter: Cath placed during this visit: yes, but has since been removed by the nurse Reason for continuing: Hourly intake/output Insertion date: 12/04/18 Insertion time: 12:00 Removal date: 12/08/18 Removal time: 10:59 Results Labs CBC & Chem 7: 12/07/18 07:45 12/08/18 11:16 Assessment and Plan Plan Ms. Penn is a 63-year-old female with a history of severe traumatic brain injury, large subdural hematoma with mass-effect and midline shift status post right frontotemporal craniotomy with evacuation of subdural hematoma on 2017 who was admitted to the hospital on 12/03/2018 due to aspiration pneumonia. She was supposed to undergo right cranioplasty with bone flap replacement on . However, patient was brought to the hospital due to aspiration pneumonia. Infectious disease, neurosurgery were consulted. Aspiration pneumonia Sepsis On admission, Leukocytosis with WBC 18.7, tachycardia with heart rate over 90, suspected infection pneumonia Continue Zosyn 3.375 g every 6 hours. Will consider Augmentin upon discharge. Currently on tube feed 5 cans daily History of right-sided intracranial hemorrhage History of traumatic brain injury Patient will likely need to follow-up with neurosurgeon in the outpatient setting regarding cranioplasty. Oxycodone for pain management as needed Hyponatremia Hypokalemia Hyponatremia resolved, currently sodium 140. Hypokalemia resolved currently potassium 4.8. Will discontinue potassium supplements. We will provide 150 mL's of free water every 6 hours through PEG tube. BMP in the morning. Full code. We will start patient on Lovenox 30 mg daily for DVT prophylaxis. Progress Note: Quality VTE Deep Vein Thrombosis/Pulmonary Embolism Present on Admission: No
[2018-12-10] MEDS: Enoxaparin Inj 30 MG/0.3 ML Syringe SQ SCH (13:54)
--- NOTE | 2018-12-10 19:33 | CT ---
EXAM DATE: 12/10/2018 7:28 PM EST AGE/SEX: 63 years / Female INDICATIONS: Altered mental status CLINICAL DATA: This is the patient's initial encounter. Patient reports that signs and symptoms have been present for 1 day and indicates a pain score of Nonresponsive. MEDICAL/SURGICAL HISTORY: Cerebrovascular disease. Diabetes. Hypertension. Throat cancer lymphom a Craniotomy. RADIATION DOSE: 42.16 CTDI (mGy) COMPARISON: [facility] – [place], CT HEAD W/O CONTRAST, 08/05/2018. . TECHNIQUE: CT of the head without contrast. Using automated exposure control and adjustment of the mA and/or kV according to patient size, radiation dose was kept as low as reasonably achievable to ob tain optimal diagnostic quality images. DICOM format image data is available electronically for revi ew and comparison. FINDINGS: Cerebrum: Previous craniectomy on the right. Old infarct in the left occipital region Mildly prominent ventricles. Masslike density adjacent to the right occipital horn incompletely evaluated on today's exam. This is stable from 08/05/2018 There is no parenchymal hemorrhage. There are no extra-axial fluid collections appreciated. Posterior fossa is unremarkable. Posterior Fossa: The cerebellum and brainstem are intact. The 4th ventricle is midline. The cerebe llopontine angle is unremarkable. Extracranial: The visualized portion of the orbits is intact. Skull: The calvaria is intact. No evidence of skull fracture. CONCLUSION: 1. Stable noncontrast axial head CT with old infarct on the left. . . Electronically signed by: Jeffery Machado MD Board Certified Radiologist 12/10/2018 7:32 PM EST
--- NOTE | 2018-12-10 20:16 | ECG ---
Date Performed: 12/09/2018 Time Performed: 11:57:12 PTAGE: 63 years EKG: Sinus rhythm . Poor R wave progression - probable normal variant Borderline ECG PREVIOUS TRACING : 12/02/2018 23.25 Since the previous tracing, no significant change noted DOCTOR: Xenia Burch Interpretating Date/Time 12/10/2018 20:14:18
[2018-12-10 21:20] VITALS: O2SAT 98
[2018-12-10] MEDS: traZODone 50 MG Tablet G-TUBE SCH (21:23)
[2018-12-11] MEDS: Piperacil/Tazo 3.375 GM Premix 3.375 GM/50 ML PIGGYBACK IV.SIG SCH ×2 (03:50→09:03)
[2018-12-11 08:37] LABS: Anion Gap 8 meq/L (5-15); Blood Urea Nitrogen 9 mg/dL (7-18); Calcium 9.7 mg/dL (8.5-10.1); Carbon Dioxide 27.8 meq/L (21.0-32.0); Chloride 101 meq/L (98-107); Glomerular Filtration Rate Greater Than 89 mL/min (>89); Glucose,Random 134 mg/dL (74-106); Sodium 137 meq/L (136-145)
[2018-12-11] MEDS: Enoxaparin Inj 30 MG/0.3 ML Syringe SQ SCH (09:03)
[2018-12-11 09:35] VITALS: BP 120/80; RESP 16; TEMP 97.7
[2018-12-11 14:24] VITALS: PULSE 98
--- NOTE | 2018-12-11 18:36 | P.DS ---
DS: Providers Date of admission: 12/03/18 02:17 Primary care physician: No Primary Care Physician Consults: 12/04/18 14:05 Consult to Infectious Diseases Routine Consulting Provider: Karly Blair Reason for Consultation: antibiotic recommendations- vegetative site, PNA- likely aspiration Notified:: Service Spoke with:: JOANN Date Notified:: 12/04/18 Time Notified:: 14:14 Ordering Provider: AUBREY 12/10/18 13:45 HUB Only Consult Order Routine Consulting Provider: [facility] DS: Summary Ms. Penn is a 63-year-old female with a history of severe traumatic brain injury, large subdural hematoma with mass-effect and midline shift status post right frontotemporal craniotomy with evacuation of subdural hematoma on 2017 who was admitted to the hospital on 12/03/2018 due to aspiration pneumonia. She was supposed to undergo right cranioplasty with bone flap replacement on . However, patient was brought to the hospital due to aspiration pneumonia. Infectious disease, neurosurgery were consulted. Aspiration pneumonia Sepsis On admission, Leukocytosis with WBC 18.7, tachycardia with heart rate over 90, suspected infection pneumonia Continue Zosyn 3.375 g every 6 hours. Will continue Augmentin upon discharge. Currently on tube feed 5 cans daily as well as free water flushes. History of right-sided intracranial hemorrhage History of traumatic brain injury Patient will likely need to follow-up with neurosurgeon in the outpatient setting regarding cranioplasty. Oxycodone for pain management as needed Hyponatremia Hypokalemia Hyponatremia resolved, currently sodium 137 Hypokalemia resolved currently potassium 4.0. Will discontinue potassium supplements. We will provide 150 mL's of free water every 6 hours through PEG tube. Full code. Provided Lovenox for DVT Prophylaxis. Time Spent with Patient Total time spent providing and/or coordinating discharge services: Greater than 30 minutes Quality: VTE Deep Vein Thrombosis/Pulmonary Embolism Present on Admission: No Exam Narrative Exam Narrative: GENERAL: Cachectic appearing female. Does not communicate or follow any commands. SKIN: Warm and dry. HEAD: Normocephalic. EYES: No scleral icterus. No injection or drainage. NECK: Supple, trachea midline. No JVD or lymphadenopathy. CARDIOVASCULAR: Regular rate and rhythm without murmurs, gallops, or rubs. RESPIRATORY: Breath sounds equal bilaterally. No accessory muscle use. GASTROINTESTINAL: Abdomen soft, non-tender, nondistended. PEG tube is in place. MUSCULOSKELETAL: No cyanosis, or edema. Results Labs on day of discharge: Labs from last 24 hours 12/11/18 07:09 Sodium 137 Potassium 4.0 Chloride 101 Carbon Dioxide 27.8 Anion Gap 8 BUN 9 Creatinine 0.45 L Estimated GFR Greater than 89 Random Glucose 134 H Calcium 9.7 Impressions ITS Impressions Abdomen/Pelvis CT 12/03/18 23:46 CONCLUSION: 1. Worsening atelectatic changes in the right base with more confluent airspace process posteriorly in the left base. The latter may represent rounded atelectasis or chronic infiltrate. 2. Large amount stool in the mid and distal portions of the colon could represent an element of constipation. Patient has a gastrostomy tube which appears to be appropriately positioned within the gastric lumen. 3. Nonobstructing 2.4 cm calculus in the lower pole collecting system of the right kidney. 4. Mild gallbladder distention. There is a nonspecific finding and can be seen in periods of extended fasting Chest X-Ray 12/09/18 07:00 CONCLUSION: Negative for acute process Head CT 12/10/18 00:00 CONCLUSION: 1. Stable noncontrast axial head CT with old infarct on the left. . . Discharge Plan Discharge Disposition Patient Disposition: Discharge to SNF Discharge Condition Condition: Stable Discharge Order Discharge Orders: Discharge Order (Routine); Ordered 12/11/18 Ordered By: Carlos Correa Discharge Details Anticipated Discharge Date: 12/11/18 Physicians Team ED Provider: Chiquis Munoz Primary Care Provider: Primary Care Lu Yen Attending Provider: Carlos Correa Other Providers: Karly Blair ; [facility] Rxs /Orders / Referrals /Forms Prescriptions: New amoxicillin-pot clavulanate [Augmentin] 250-62.5 mg/5 mL suspension for reconstitution 10 ml PO Q12H 4 Days Qty: 80 RF: 0 oxycodone 5 mg Tablet 20 mg G-Tube Q8H PRN (Reason: pain) 3 Days RF: 0 Continue amantadine HCl 50 mg/5 mL Solution 150 mg PO BID RF: 0 modafinil 100 mg Tablet 100 mg PO DAILY RF: 0 cyanocobalamin (vitamin B-12) 1,000 mcg/15 mL Liquid 1,000 mcg PO DAILY RF: 0 famotidine 20 mg Tablet 20 mg Feeding Tube BID RF: 0 trazodone 50 mg Tablet 50 mg PO HS RF: 0 baclofen 10 mg Tablet 10 mg PO BID RF: 0 gabapentin 100 mg Capsule 800 mg PO HS RF: 0 Discontinued gabapentin 800 mg Tablet 800 mg Feeding Tube BID RF: 0 oxycodone 20 mg Tablet 20 mg Feeding Tube Q8HR PRN (Reason: Pain) RF: 0 trazodone 100 mg Tablet 50 mg Feeding Tube HS RF: 0 baclofen 10 mg Tablet 10 mg Feeding Tube Q8H RF: 0 amantadine HCl 50 mg/5 mL Solution 150 mg Feeding Tube BID RF: 0 modafinil 100 mg Tablet 100 mg Feeding Tube DAILY RF: 0 oxycodone 20 mg Tablet 20 mg PO Q4-6H PRN (Reason: Pain) RF: 0 Referrals: [facility],Agency [Agency] - See Instructions Primary Care Physici,No [Primary Care Provider] - See Instructions Discharge Instructions Patient Printed Instructions: Amoxicillin/Clavulanate Potassium (By mouth), 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
== END 2018-12-11 17:06 | DRG 871 ==
LOC: NEPD 22:16 → NEDA 12-03 02:17 → MERGE 12-03 02:17 → NEDH 12-03 06:25 → NEPFCDU 12-03 08:51 → NEDH 12-03 15:23 → N04 12-03 15:23
PROVIDERS: ADMIT Hospitalist; ATTEND Hospitalist
CPT/HCPCS: 36600; 70450; 71010; 71045; 74177; 80048; 80053; 81001; 82550; 82805; 83605; 83690; 83735; 84132; 84484; 85025; 85610; 85730; 87040; 87086; 90761; 90765; 93005; 94640; 94664; 94665; 94667; 94668; 96125; 96361; 96365; 97127; 97162; 97532; 99285; G0515; J0131; J0456; J0692; J1650; J2270; J2543; J3480; J7030; J7040; J7050; J7070; P9612; Q9967